=== PATIENT | female | born 1955 | race Caucasian/White ===

== ENCOUNTER 2018-01-03 11:51 | Emergency (ER) | payer MEDICAID, SELFPAY ==
[2018-01-03 11:58] VITALS: BP 128/88; PULSE 89; RESP 18; TEMP 36.7; O2SAT 98
--- NOTE | 2018-01-03 12:23 | ED.GENADUL ---
Disposition Clinical Impression: Partial rectal prolapse, Constipation Disposition: HOME Condition: Stable Instructions: Constipation (ED), Rectal Prolapse (ED) Additional Instructions: Take MiraLAX as directed 2-3 times daily. If you have no relief with MiraLAX, use magnesium citrate as directed. Continue the stool softeners as directed. Apply approximately 5ml of lidocaine jelly around and just a few millimeters inside the rectum twice daily as needed. You should receive a call from care management this week regarding her follow-up with surgery this week. Return immediately to the emergency department any worsening or new concerning symptoms such as fever, vomiting, abdominal pain or increased rectal pain. Prescriptions: Lidocaine 2% Jelly [Xylocaine 2% Jelly] 5 ml MA BID PRN PRN #1 tube PRN Reason: Referrals: Marco Alba DO [ [facility]] - Medical Decision Making - Medical Decision Making 62-year-old female who presents with rectal pain and constipation for 4 weeks, worse over the past 2 weeks, and especially over the past 3 days. Last bowel movement 3 days ago. She admits to a lump in my rectum when she sits on the toilet. Normal vital signs. Afebrile. She denies vomiting, abdominal pain. She denies narcotic use. No relief with suppository or stool softener. She appears nontoxic and in no acute distress. Abdomen soft and nontender. She is noted to have decreased rectal tone with a negative guaiac on rectal exam when laying on her side on stretcher. Upon standing with Valsalva, she has partial rectal prolapse. There is no active bleeding or discharge noted. The mucosa appeared normal. Will discuss with surgery. 1200 -- Case discussed with surgery on-call Dr. Barlow --as patient is nontoxic, no vomiting, abdomen soft and nontender, and prolapse able to be reduced by patient, no emergent need for surgical intervention. Recommends patient follow up with surgery within the next week. Recommends MiraLAX or magnesium citrate to help with bowel movement. Also recommend lidocaine jelly to help with pain. Lidocaine jelly placed here in the ED and prescription given for home. Will place patient on care management list to arrange for follow-up appointment within the next few days. History of Present Illness - General Chief complaint: GI Bleed Stated complaint: UNKNOWN Time Seen by Provider: 01/03/18 11:57 Source: patient Mode of arrival: ambulatory Limitations: no limitations - History of Present Illness Initial comments: She is a 62-year-old female who presents with rectal pain and constipation for the past 4 weeks. States her last bowel movement was 3 days ago. Patient states she usually has a bowel movement every other day. She admits to rectal pressure and pain with coughing for the past 4 weeks, worse over the past 2 weeks. She states she feels a lump when she sits on the toilet but this resolves when she stands up or sits down. Patient denies fever, nausea, vomiting, abdominal pain. She does admit to occasional bright red blood noted in toilet with her last bowel movement. She states her last bowel movement was brown. She has been using stool softeners and suppositories without relief. She admits to feeling some rectal pain relief with suppositories a few days ago. - Related Data Diclofenac Sodium 1 tab PO BID PRN #60 tab-cap 05/20/16 Betamethasone Valerate [Valisone 0.1% Cream] 15 gm TP BID PRN #1 script 11/24/16 Fluticasone Propionate [Flonase] 1 spray NS BID #1 bottle 11/24/16 Triamcinolone Acetonide 15 gm TP BID PRN #1 script 11/24/16 Venlafaxine HCl [Venlafaxine HCl ER] 150 mg PO DAILY #90 tab-cap 12/18/16 Lisinopril [Prinivil] 20 mg PO DAILY #90 tab-cap 12/19/16 Hydrochlorothiazide [Hydrodiuril] 25 mg PO DAILY #90 tab-cap 01/15/17 Hydroxyzine HCl 25 mg PO Bid to Tid PRN #90 tab-cap 06/26/17 Buspirone HCl 15 mg PO BID #60 tab-cap 09/24/17 Pramipexole Di-HCl [Pramipexole Dihydrochloride] 0.5 mg PO HS #90 tab-cap 09/24/17 Pravastatin Sodium 20 mg PO DAILY #90 tab-cap 09/30/17 Cyclobenzaprine HCl 10 mg PO BID PRN #45 tab-cap 01/01/18 Lorazepam [Ativan] 1 tab PO DAILY PRN #20 tab-cap MDD 1mg 01/01/18 Nabumetone 500 mg PO BID PRN #60 tab-cap 01/01/18 Solifenacin [Vesicare] 10 mg PO DAILY #90 tab-cap 01/01/18 Aspirin 81 mg PO 01/03/18 Docusate Sodium [Stool Softener] 100 mg PO DAILY 01/03/18 Lidocaine 2% Jelly [Xylocaine 2% Jelly] 5 ml MA BID PRN PRN #1 tube 01/03/18 Allergies Allergy/AdvReac Type Severity Reaction Status Date / Time Corticosteroids Allergy Intermediate INCREASED Unverified 01/03/18 12:14 (Glucocorticoids) SOB prednisone Allergy Intermediate Unverified 01/03/18 12:14 Review of Systems Constitutional: denies: chills, fever Eyes: denies: eye pain ENT: denies: ear pain, dental pain Respiratory: denies: cough, shortness of breath Cardiovascular: denies: chest pain, dyspnea on exertion Gastrointestinal: other (rectal pain). denies: abdominal pain, nausea, vomiting Genitourinary: denies: urgency, dysuria, frequency Musculoskeletal: denies: back pain Skin: denies: rash, lesions Neurological: denies: headache, weakness, numbness Past Medical History - Past Medical History Medical history: hypertension Surgical history: other (R wrist surgery. Cervical spine diskectomy) Psychiatric history: depression - Social History Smoking status: current everyday smoker Alcohol use: none Drug use: marijuana General Exam - General Limitations: no limitations General appearance: alert, in no apparent distress - Eye Eye exam: Present: EOMI - Respiratory Respiratory exam: Present: normal lung sounds bilaterally. Absent: respiratory distress, wheezes, rales, rhonchi, stridor - Cardiovascular Cardiovascular Exam: Present: regular rate, normal rhythm. Absent: bradycardia, tachycardia - GI/Abdominal GI/Abdominal exam: Present: soft, normal bowel sounds. Absent: distended, tenderness, guarding, rebound, rigid - Rectal Rectal exam: Present: decreased rectal tone, other (No rectal prolapse noted when patient laying on her side on stretcher. When patient stood up and pushed, she had partial rectal prolapse. Clear mucus noted. No yellow discharge or active bleeding. Guaiac negative) - Neurological Exam Neurological exam: Present: alert, oriented X3 - Psychiatric Psychiatric exam: Present: normal affect - Skin Skin exam: Present: warm, dry, intact Course Vital Signs - 24 hr 01/03/18 11:58 Temperature 98.1 F Pulse 89 Respiratory 18 Rate Blood Pressure 128/88 Pulse Oximetry 98
--- NOTE | 2018-01-03 12:29 | ED.GENADUL_ITS ---
Disposition Clinical Impression: Partial rectal prolapse, Constipation Disposition: HOME Condition: Stable Instructions: Constipation (ED), Rectal Prolapse (ED) Additional Instructions: Take MiraLAX as directed 2-3 times daily. If you have no relief with MiraLAX, use magnesium citrate as directed. Continue the stool softeners as directed. Apply approximately 5ml of lidocaine jelly around and just a few millimeters inside the rectum twice daily as needed. You should receive a call from care management this week regarding her follow- up with surgery this week. Return immediately to the emergency department any worsening or new concerning symptoms such as fever, vomiting, abdominal pain or increased rectal pain. Prescriptions: Lidocaine 2% Jelly [Xylocaine 2% Jelly] 5 ml CO BID PRN PRN #1 tube PRN Reason: Referrals: Marco Alba DO [ [facility]] - Medical Decision Making - Medical Decision Making 62-year-old female who presents with rectal pain and constipation for 4 weeks, worse over the past 2 weeks, and especially over the past 3 days. Last bowel movement 3 days ago. She admits to a lump in my rectum when she sits on the toilet. Normal vital signs. Afebrile. She denies vomiting, abdominal pain. She denies narcotic use. No relief with suppository or stool softener. She appears nontoxic and in no acute distress. Abdomen soft and nontender. She is noted to have decreased rectal tone with a negative guaiac on rectal exam when laying on her side on stretcher. Upon standing with Valsalva, she has partial rectal prolapse. There is no active bleeding or discharge noted. The mucosa appeared normal. Will discuss with surgery. 1200 -- Case discussed with surgery on-call Dr. Barlow --as patient is nontoxic, no vomiting, abdomen soft and nontender, and prolapse able to be reduced by patient, no emergent need for surgical intervention. Recommends patient follow up with surgery within the next week. Recommends MiraLAX or magnesium citrate to help with bowel movement. Also recommend lidocaine jelly to help with pain. Lidocaine jelly placed here in the ED and prescription given for home. Will place patient on care management list to arrange for follow-up appointment within the next few days. History of Present Illness - General Chief complaint: GI Bleed Stated complaint: UNKNOWN Time Seen by Provider: 01/03/18 11:57 Source: patient Mode of arrival: ambulatory Limitations: no limitations - History of Present Illness Initial comments: She is a 62-year-old female who presents with rectal pain and constipation for the past 4 weeks. States her last bowel movement was 3 days ago. Patient states she usually has a bowel movement every other day. She admits to rectal pressure and pain with coughing for the past 4 weeks, worse over the past 2 weeks. She states she feels a lump when she sits on the toilet but this resolves when she stands up or sits down. Patient denies fever, nausea, vomiting, abdominal pain. She does admit to occasional bright red blood noted in toilet with her last bowel movement. She states her last bowel movement was brown. She has been using stool softeners and suppositories without relief. She admits to feeling some rectal pain relief with suppositories a few days ago. - Related Data Diclofenac Sodium 1 tab PO BID PRN #60 tab-cap 05/20/16 Betamethasone Valerate [Valisone 0.1% Cream] 15 gm TP BID PRN #1 script Fluticasone Propionate [Flonase] 1 spray NS BID #1 bottle 11/24/16 Triamcinolone Acetonide 15 gm TP BID PRN #1 script 11/24/16 Venlafaxine HCl [Venlafaxine HCl ER] 150 mg PO DAILY #90 tab-cap 12/18/16 Lisinopril [Prinivil] 20 mg PO DAILY #90 tab-cap 12/19/16 Hydrochlorothiazide [Hydrodiuril] 25 mg PO DAILY #90 tab-cap 01/15/17 Hydroxyzine HCl 25 mg PO Bid to Tid PRN #90 tab-cap 06/26/17 Buspirone HCl 15 mg PO BID #60 tab-cap 09/24/17 Pramipexole Di-HCl [Pramipexole Dihydrochloride] 0.5 mg PO HS #90 tab-cap Pravastatin Sodium 20 mg PO DAILY #90 tab-cap 09/30/17 Cyclobenzaprine HCl 10 mg PO BID PRN #45 tab-cap 01/01/18 Lorazepam [Ativan] 1 tab PO DAILY PRN #20 tab-cap MDD 1mg 01/01/18 Nabumetone 500 mg PO BID PRN #60 tab-cap 01/01/18 Solifenacin [Vesicare] 10 mg PO DAILY #90 tab-cap 01/01/18 Aspirin 81 mg PO 01/03/18 Docusate Sodium [Stool Softener] 100 mg PO DAILY 01/03/18 Lidocaine 2% Jelly [Xylocaine 2% Jelly] 5 ml CO BID PRN PRN #1 tube 01/03/18 Allergies Allergy/AdvReac Type Severity Reaction Status Date / Time Corticosteroids Allergy Intermediate INCREASED Unverified 01/03/18 12:14 (Glucocorticoids) SOB prednisone Allergy Intermediate Unverified 01/03/18 12:14 Review of Systems Constitutional: denies: chills, fever Eyes: denies: eye pain ENT: denies: ear pain, dental pain Respiratory: denies: cough, shortness of breath Cardiovascular: denies: chest pain, dyspnea on exertion Gastrointestinal: other (rectal pain). denies: abdominal pain, nausea, vomiting Genitourinary: denies: urgency, dysuria, frequency Musculoskeletal: denies: back pain Skin: denies: rash, lesions Neurological: denies: headache, weakness, numbness Past Medical History - Past Medical History Medical history: hypertension Surgical history: other (R wrist surgery. Cervical spine diskectomy) Psychiatric history: depression - Social History Smoking status: current everyday smoker Alcohol use: none Drug use: marijuana General Exam - General Limitations: no limitations General appearance: alert, in no apparent distress - Eye Eye exam: Present: EOMI - Respiratory Respiratory exam: Present: normal lung sounds bilaterally. Absent: respiratory distress, wheezes, rales, rhonchi, stridor - Cardiovascular Cardiovascular Exam: Present: regular rate, normal rhythm. Absent: bradycardia , tachycardia - GI/Abdominal GI/Abdominal exam: Present: soft, normal bowel sounds. Absent: distended, tenderness, guarding, rebound, rigid - Rectal Rectal exam: Present: decreased rectal tone, other (No rectal prolapse noted when patient laying on her side on stretcher. When patient stood up and pushed , she had partial rectal prolapse. Clear mucus noted. No yellow discharge or active bleeding. Guaiac negative) - Neurological Exam Neurological exam: Present: alert, oriented X3 - Psychiatric Psychiatric exam: Present: normal affect - Skin Skin exam: Present: warm, dry, intact Course Vital Signs - 24 hr 01/03/18 11:58 Temperature 98.1 F Pulse 89 Respiratory 18 Rate Blood Pressure 128/88 Pulse Oximetry 98
[2018-01-03] MEDS: Lidocaine 2% Jelly 11 ML SYR (12:30)
--- NOTE | 2018-01-04 10:34 | PDOC.ERCMPRO ---
Care Management Progress Note 01/04-Dr. Rodriguez requested assistance with a general surgery f/u in 1-3 days for hemorrhoid ? thrombosed. Referral faxed to [facility] this am.
== END 2018-01-03 12:49 | disposition home or self-care (01) ==
PROVIDERS: Emergency Provider Physician Assistant; PCP Family Medicine
DX: K62.3 Rectal prolapse (principal); K62.89 Other specified diseases of anus and rectum; I10 Essential (primary) hypertension
CPT/HCPCS: 99283

== ENCOUNTER 2018-07-08 11:43 | Outpatient (CLI) | payer MEDICAID, SELFPAY ==
[2018-07-08 13:32] LABS: ALT 21 U/L (12-78); AST 19 U/L (15-37); Albumin 3.6 g/dL (3.4-5.0); Alkaline Phosphatase 102 U/L (46-116); Anion Gap 9.5 mmol/L (3-11); BUN 16 mg/dL (7-18); Bilirubin, Total 0.2 mg/dL (0.2-1.0); CO2 28.5 mmol/L (21.0-32.0); CREATININE 0.88 mg/dL (0.55-1.02); Calcium 9.2 mg/dL (8.5-10.1); Chloride 103 mmol/L (98-107); Cholesterol 188 mg/dL (50-200); Glucose 90 mg/dL (70-100); HDL Cholesterol 57 mg/dL (40-60); LDL CHOLESTEROL 108 mg/dL (<100); Potassium 4.2 mmol/L (3.5-5.1); Sodium 141 mmol/L (136-145); Triglyceride 84 mg/dL (30-150)
== END 2018-07-08 12:03 ==
PROVIDERS: PCP Family Medicine; Visit Provider Family Medicine
DX: I10 Essential (primary) hypertension (principal)
CPT/HCPCS: 36415; 80053; 80061; 83721

== ENCOUNTER 2018-09-27 13:08 | Outpatient (REF) | payer MEDICAID, SELFPAY ==
--- NOTE | 2018-09-27 11:30 | PAPFT_PTH ---
PATIENT: Jeniffer Chow LOC: [facility] U#:[id number] AGE/SX: 63/F ROOM: RE09/27/[address]: Jigna Hughes MD : [id number] BED: DIS: 09/27/2018 SPEC #: [id number] RECD: 09/27/18 17:31 STATUS: [place]ET[place] REQ #: [id number] HAVEN: 09/27/18 11:[address]: Jigna Hughes DEPT: [facility] Cytology RECD BY: Anna Barney Tissues: 1 - CX/ENDOCX FOR PAP SMEARS Procedures: PAP THIN PREP/UVM Screening HPV DNA PROBE Comments: [id number]
== END 2018-09-27 13:28 ==
LOC: LBN 13:08
PROVIDERS: PCP Family Medicine; Visit Provider Family Medicine
DX: Z12.4 Encounter for screening for malignant neoplasm of cervix (principal); Z11.51 Encounter for screening for human papillomavirus (HPV)
CPT/HCPCS: 88142; 87624

== ENCOUNTER 2018-10-04 01:03 | Outpatient (CLI) | payer MEDICAID, SELFPAY ==
--- NOTE | 2018-10-04 11:30 | DI.MAMMO_ITS ---
SYMPTOMS/DIAGNOSIS: SCREENING, Z12.31 MAMMOGRAM: Mammograms were interpreted according to the usual protocol including computer analysis with CAD system, tomosynthesis and C view imaging. The breasts are of moderate density with fairly symmetrical distribution of fibroglandular tissue. No dominant mass or clumped microcalcification is identified in either breast. Current examination is compared with previous examinations including October 2016 and there has been no gross interval change in appearance in comparison with the previous studies. CONCLUSION: No specific evidence of malignancy at this time. Routine screening examinations are suggested at yearly intervals due to the family history of breast carcinoma. Category 1, breast density category B. MQSA ASSESSMENT OF FINDINGS: Negative. Category 1. Patient will receive a letter notifying them of these results. BI-RADS category B. There are scattered areas of fibroglandular density.
== END 2018-10-04 01:23 ==
PROVIDERS: PCP Family Medicine; Visit Provider Family Medicine
DX: Z12.31 Encounter for screening mammogram for malignant neoplasm of breast (principal); Z80.3 Family history of malignant neoplasm of breast
CPT/HCPCS: 77063; 77067

== ENCOUNTER 2018-11-07 13:37 | Emergency (ER) | payer MEDICAID, SELFPAY ==
[2018-11-07 13:41] VITALS: BP 129/65; PULSE 95; RESP 14; TEMP 36.5; O2SAT 93
--- NOTE | 2018-11-07 14:14 | DI.RAD_ITS ---
SYMPTOM/DIAGNOSIS: FALL, ANTERIOR PAIN LEFT HIP: Three views. No acute fracture or dislocation is seen. The soft tissues are unremarkable. IMPRESSION: No acute abnormality.
--- NOTE | 2018-11-07 14:14 | DI.RAD_ITS ---
SYMPTOM/DIAGNOSIS: ANTERIOR PAIN AFTER FALL RIGHT KNEE: Three views. Comparison 03/19/12 No acute fracture or dislocation is seen. There is a moderate size suprapatellar joint effusion. Mild degenerative changes are seen in the knee. There is deformity seen on the lateral view in the fibula. It is incompletely imaged on the edge of the field. This may be due to prior injury. Please correlate clinically. IMPRESSION: No acute abnormality.
--- NOTE | 2018-11-07 14:15 | W.ED.GENAD ---
Discharge Plan Disposition Patient Disposition: HOME Condition: Improving Discharge Details Chief Complaint: Orthopedic Clinical Impression: Right knee sprain Primary Care Provider: Jigna Hughes ED Provider: Tyree Parada Home Meds and New Rx's Prescriptions: Continued hydroxyzine HCl 25 mg tablet 25 mg PO DAILY RF: 0 buspirone 30 mg tablet 30 mg PO BID Qty: 60 RF: 6 fluticasone propionate 50 mcg/actuation spray,suspension 1 spray NS BID Qty: 1 RF: 6 cyclobenzaprine 10 mg tablet 10 mg PO BID PRN (Reason: muscle spasm) Qty: 45 RF: 2 meloxicam 15 mg tablet 15 mg PO DAILY PRN (Reason: joint pain) Qty: 30 RF: 6 triamcinolone acetonide 15 GM cream 15 gm Topical BID PRNQty: 1 RF: 2 pravastatin 20 MG tablet 20 mg PO DAILY Qty: 90 RF: 4 Vesicare 10 MG tablet 10 mg PO DAILY Qty: 90 RF: 4 lisinopril 20 mg tablet 20 mg PO DAILY Qty: 90 RF: 4 venlafaxine 150 mg capsule,extended release 24hr 150 mg PO DAILY Qty: 90 RF: 4 hydrochlorothiazide 25 mg tablet 25 mg PO DAILY Qty: 90 RF: 4 pramipexole 0.5 mg tablet 0.5 mg PO HS Qty: 90 RF: 3 lorazepam [Ativan] 1 mg tablet 1 mg PO DAILY MDD 1mg PRN (Reason: anxiety) Qty: 20 RF: 2 betamethasone valerate 0.1 % cream 1 applic Topical BID PRN (Reason: dermatitis) Qty: 1 RF: 2 aspirin [Aspirin Low-Strength] 81 MG tablet,chewable 81 mg PO DAILY RF: 0 lidocaine HCl 30 ML jelly 5 ml MO BID PRN PRNQty: 1 RF: 0 docusate sodium [Stool Softener] 100 mg capsule 100 mg PO BID RF: 0 Discharge Instructions Instructions: Knee Sprain (ED) Additional Instructions: We will refer you to the orthopedic clinic for recheck. Please call the office on Thursday at [phone] for an appointment time. Wear hinged knee brace while out of bed. May continue to use ice to reduce discomfort as well. Return for worsening pain or any other acute concern. Medical Decision Making Pleasant 63-year-old female presents from home stating she slipped down as muddy [employer] 2 weeks ago and struck her anterior knee. Since that time has felt a popping and crunching as well as felt the knee has been unstable. She is socially develop a dull, achy left hip pain. She arrives with an unremarkable exam that is notable primarily for lateral right knee pain with stress. Referred for x-ray to rule out underlying fracture versus osteoarthritis. No evidence of bony injury appreciated. Discussed with her outpatient management including use of hinged knee brace, referral to orthopedics for recheck. Most consistent with contusion and strain. Cannot rule out underlying soft tissue disruption. HPI General Mode of arrival: ambulatory. Date/Time Provider Initiated Documentation: 11/07/18 13:45. Limitations to Documentation: no limitations. Information obtained by: patient. History of Present Illness 63 year old F presents to the emergency department with the chief complaint of Fall 2 weeks ago and right knee pain., described as mild and moderate, Quality is described as dull and constant, and is localized to the right and lower extremity. Patient reports no radiation. and it has been constant. No relieving factors improve symptom(s), No exacerbating factors reported . Patient notes no other symptoms.. Patient did receive the following treatments prior to arrival, none Related Data Home Medications Medication Instructions Recorded Confirmed triamcinolone acetonide 15 gm TOPICAL BID PRN #1 script 11/24/16 11/07/18 pravastatin 20 mg PO DAILY #90 tab-cap 09/30/17 11/07/18 Vesicare 10 mg PO DAILY #90 tab-cap 01/01/18 11/07/18 aspirin [Aspirin Low-Strength] 81 mg PO DAILY 01/03/18 11/07/18 lidocaine HCl 5 ml MO BID PRN PRN #1 tube 01/03/18 11/07/18 lisinopril 20 mg tablet 20 mg PO DAILY #90 tab-cap 02/16/18 11/07/18 venlafaxine ER 150 mg 150 mg PO DAILY #90 tab-cap 03/03/18 11/07/18 capsule,extended release 24 hr hydrochlorothiazide 25 mg tablet 25 mg PO DAILY #90 tab-cap 04/09/18 11/07/18 buspirone 30 mg tablet 30 mg PO BID #60 tab 07/08/18 11/07/18 docusate sodium 100 mg capsule 100 mg PO BID cap 07/08/18 11/07/18 fluticasone propionate 50 1 spray NS BID #1 bottle 07/08/18 11/07/18 mcg/actuation nasal spray,suspension hydroxyzine HCl 25 mg tablet 25 mg PO DAILY tab-cap 07/08/18 11/07/18 lorazepam 1 mg tablet 1 mg PO DAILY PRN #20 tab-cap MDD 08/06/18 11/07/18 1mg pramipexole 0.5 mg tablet 0.5 mg PO HS #90 tab-cap 08/06/18 11/07/18 betamethasone valerate 0.1 % 1 applic TOPICAL BID PRN #1 gm 08/08/18 09/27/18 topical cream cyclobenzaprine 10 mg tablet 10 mg PO BID PRN #45 tab-cap 09/27/18 11/07/18 meloxicam 15 mg tablet 15 mg PO DAILY PRN #30 tab 09/27/18 11/07/18 Previous Rx's Medication Instructions Recorded pravastatin 20 mg PO DAILY #90 tab-cap 09/30/17 Vesicare 10 mg PO DAILY #90 tab-cap 01/01/18 lidocaine HCl 5 ml MO BID PRN PRN #1 tube 01/03/18 lisinopril 20 mg tablet 20 mg PO DAILY #90 tab-cap 02/16/18 venlafaxine ER 150 mg 150 mg PO DAILY #90 tab-cap 03/03/18 capsule,extended release 24 hr hydrochlorothiazide 25 mg tablet 25 mg PO DAILY #90 tab-cap 04/09/18 buspirone 30 mg tablet 30 mg PO BID #60 tab 07/08/18 fluticasone propionate 50 1 spray NS BID #1 bottle 07/08/18 mcg/actuation nasal spray,suspension lorazepam 1 mg tablet 1 mg PO DAILY PRN #20 tab-cap MDD 08/06/18 1mg pramipexole 0.5 mg tablet 0.5 mg PO HS #90 tab-cap 08/06/18 betamethasone valerate 0.1 % 1 applic TOPICAL BID PRN #1 gm 08/08/18 topical cream cyclobenzaprine 10 mg tablet 10 mg PO BID PRN #45 tab-cap 09/27/18 meloxicam 15 mg tablet 15 mg PO DAILY PRN #30 tab 09/27/18 Allergies Allergy/AdvReac Type Severity Reaction Status Date / Time Corticosteroids Allergy Intermediate INCREASED Verified 11/07/18 13:44 (Glucocorticoids) SOB prednisone Allergy Intermediate Verified 11/07/18 13:44 General Stated Complaint: Orthopedic CHECO: 4 Review of Systems Review of Systems No numbness or tingling. Denies other injury. No back or neck discomfort. 6 systems reviewed and otherwise - [facility] Medical History Anxiety disorder Benign hypertension Depression Hyperlipidemia Sensorineural hearing loss Urge incontinence Surgical History Arthroscopy Arthroscopy, Shoulder Hemorrhoidal Banding (01/12/18) Ligation of fallopian tube Open Carpal Tunnel release Spinal Fusion Family History Mother Essential hypertension Stroke Cancer Father Heart disease Brother Heart disease Maternal Grandfather No problems noted. Paternal Grandfather No problems noted. Maternal Grandmother Essential hypertension Stroke Paternal Grandmother No problems noted. Social History Smoking/Tobacco Use Status: Current every day Tobacco Type: cigarettes Quit status: has quit before Second Hand Exposure: Yes Alcohol Intake: former Drug use: Daily Substance use type: marijuana Caregiver/Support person: No Household members: children Housing: house Communication Needs: Cannot Read Do you need help understanding health information?: Always Pets and animals: Yes Pets and animals: other Details: Donkey Sexually active: No Do you think of yourself as: straight/heterosexual Current gender identity: female What is your relationship status?: How often do you talk on the phone with friends or family?: decline to answer How often do you get together with friends or relatives?: once per week How often do you attend pentecostalism or amish services?: 4 or more times per year Do you belong to any clubs or organized social groups?: no Panel score (0-1 are the most socially isolated patients): 1 What type of physical activity do you participate in: decline to answer Duration: decline to answer Frequency: decline to answer [place]/Islam: Voodoo Special chelsea needs: No Seatbelt use: always Helmet use: Yes Helmet use: always 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 Pleasant, well groomed, interactive. HEAD: Normocephalic, atraumatic EYES: PERRL, EOMI NECK: Full ROM, no JOHN, no menigismus EXT: Full ROM, no edema, no rash. Mild right lateral knee pain with varus stress. No laxity. Full range of motion both active and passive. Minimal left hip pain with internal and external rotate Neuro: Grossly normal neurologic exam, conversant, interactive. Psych: Speech fluent, thoughts congruent, affect normal Course Vital Signs Temperature 36.5 C 11/07/18 13:41 Pulse 95 H 11/07/18 13:41 Respiratory Rate 14 11/07/18 13:41 Blood Pressure 129/65 11/07/18 13:41 Pulse Oximetry 93 L 11/07/18 13:41 Temperature 36.5 C 11/07/18 13:41 Temperature Source Temporal Artery Scan 11/07/18 13:41 Pulse 95 H 11/07/18 13:41 Respiratory Rate 14 11/07/18 13:41 Respiratory Effort Non-Labored 11/07/18 13:43 Blood Pressure 129/65 11/07/18 13:41 Blood Pressure Position Sitting 11/07/18 13:41 Pulse Oximetry 93 L 11/07/18 13:41 Oxygen Delivery Method Room Air 11/07/18 13:41 Oxygen Flow Rate 0 11/07/18 13:41 Pain Level 10 11/07/18 13:41
--- NOTE | 2018-11-07 14:18 | ED.GENADUL_ITS ---
Discharge Plan Disposition Patient Disposition: HOME Condition: Improving Discharge Details Chief Complaint: Orthopedic Clinical Impression: Right knee sprain Primary Care Provider: Jigna Hughes ED Provider: Tyree Parada Home Meds and New Rx's Prescriptions: Continued hydroxyzine HCl 25 mg tablet 25 mg PO DAILY RF: 0 buspirone 30 mg tablet 30 mg PO BID Qty: 60 RF: 6 fluticasone propionate 50 mcg/actuation spray,suspension 1 spray NS BID Qty: 1 RF: 6 cyclobenzaprine 10 mg tablet 10 mg PO BID PRN (Reason: muscle spasm) Qty: 45 RF: 2 meloxicam 15 mg tablet 15 mg PO DAILY PRN (Reason: joint pain) Qty: 30 RF: 6 triamcinolone acetonide 15 GM cream 15 gm Topical BID PRNQty: 1 RF: 2 pravastatin 20 MG tablet 20 mg PO DAILY Qty: 90 RF: 4 Vesicare 10 MG tablet 10 mg PO DAILY Qty: 90 RF: 4 lisinopril 20 mg tablet 20 mg PO DAILY Qty: 90 RF: 4 venlafaxine 150 mg capsule,extended release 24hr 150 mg PO DAILY Qty: 90 RF: 4 hydrochlorothiazide 25 mg tablet 25 mg PO DAILY Qty: 90 RF: 4 pramipexole 0.5 mg tablet 0.5 mg PO HS Qty: 90 RF: 3 lorazepam [Ativan] 1 mg tablet 1 mg PO DAILY MDD 1mg PRN (Reason: anxiety) Qty: 20 RF: 2 betamethasone valerate 0.1 % cream 1 applic Topical BID PRN (Reason: dermatitis) Qty: 1 RF: 2 aspirin [Aspirin Low-Strength] 81 MG tablet,chewable 81 mg PO DAILY RF: 0 lidocaine HCl 30 ML jelly 5 ml CO BID PRN PRNQty: 1 RF: 0 docusate sodium [Stool Softener] 100 mg capsule 100 mg PO BID RF: 0 Discharge Instructions Instructions: Knee Sprain (ED) Additional Instructions: We will refer you to the orthopedic clinic for recheck. Please call the office on Thursday at [phone] for an appointment time. Wear hinged knee brace while out of bed. May continue to use ice to reduce discomfort as well. Return for worsening pain or any other acute concern. Medical Decision Making Pleasant 63-year-old female presents from home stating she slipped down as muddy [employer] 2 weeks ago and struck her anterior knee. Since that time has felt a popping and crunching as well as felt the knee has been unstable. She is socially develop a dull, achy left hip pain. She arrives with an unremarkable exam that is notable primarily for lateral right knee pain with stress. Referred for x-ray to rule out underlying fracture versus osteoarthritis. No evidence of bony injury appreciated. Discussed with her outpatient management including use of hinged knee brace, referral to orthopedics for recheck. Most consistent with contusion and strain. Cannot rule out underlying soft tissue disruption. HPI General Mode of arrival: ambulatory . Date/Time Provider Initiated Documentation: 11/07/18 13:45 . Limitations to Documentation: no limitations . Information obtained by: patient . History of Present Illness 63 year old F presents to the emergency department with the chief complaint of Fall 2 weeks ago and right knee pain., described as mild and moderate, Quality is described as dull and constant, and is localized to the right and lower extremity. Patient reports no radiation. and it has been constant. No relieving factors improve symptom(s), No exacerbating factors reported . Patient notes no other symptoms.. Patient did receive the following treatments prior to arrival, none Related Data Home Medications Medication Instructions Recorded Confirmed triamcinolone acetonide 15 gm TOPICAL BID PRN #1 script 11/24/16 11/07/18 pravastatin 20 mg PO DAILY #90 tab-cap 09/30/17 11/07/18 Vesicare 10 mg PO DAILY #90 tab-cap 01/01/18 11/07/18 aspirin [Aspirin Low-Strength] 81 mg PO DAILY 01/03/18 11/07/18 lidocaine HCl 5 ml CO BID PRN PRN #1 tube 01/03/18 11/07/18 lisinopril 20 mg tablet 20 mg PO DAILY #90 tab-cap 02/16/18 11/07/18 venlafaxine ER 150 mg 150 mg PO DAILY #90 tab-cap 03/03/18 11/07/18 capsule,extended release 24 hr hydrochlorothiazide 25 mg tablet 25 mg PO DAILY #90 tab-cap 04/09/18 11/07/18 buspirone 30 mg tablet 30 mg PO BID #60 tab 07/08/18 11/07/18 docusate sodium 100 mg capsule 100 mg PO BID cap 07/08/18 11/07/18 fluticasone propionate 50 1 spray NS BID #1 bottle 07/08/18 11/07/18 mcg/actuation nasal spray,suspension hydroxyzine HCl 25 mg tablet 25 mg PO DAILY tab-cap 07/08/18 11/07/18 lorazepam 1 mg tablet 1 mg PO DAILY PRN #20 tab-cap MDD 08/06/18 11/07/18 1mg pramipexole 0.5 mg tablet 0.5 mg PO HS #90 tab-cap 08/06/18 11/07/18 betamethasone valerate 0.1 % 1 applic TOPICAL BID PRN #1 gm 08/08/18 09/27/18 topical cream cyclobenzaprine 10 mg tablet 10 mg PO BID PRN #45 tab-cap 09/27/18 11/07/18 meloxicam 15 mg tablet 15 mg PO DAILY PRN #30 tab 09/27/18 11/07/18 Previous Rx's Medication Instructions Recorded pravastatin 20 mg PO DAILY #90 tab-cap 09/30/17 Vesicare 10 mg PO DAILY #90 tab-cap 01/01/18 lidocaine HCl 5 ml CO BID PRN PRN #1 tube 01/03/18 lisinopril 20 mg tablet 20 mg PO DAILY #90 tab-cap 02/16/18 venlafaxine ER 150 mg 150 mg PO DAILY #90 tab-cap 03/03/18 capsule,extended release 24 hr hydrochlorothiazide 25 mg tablet 25 mg PO DAILY #90 tab-cap 04/09/18 buspirone 30 mg tablet 30 mg PO BID #60 tab 07/08/18 fluticasone propionate 50 1 spray NS BID #1 bottle 07/08/18 mcg/actuation nasal spray,suspension lorazepam 1 mg tablet 1 mg PO DAILY PRN #20 tab-cap MDD 08/06/18 1mg pramipexole 0.5 mg tablet 0.5 mg PO HS #90 tab-cap 08/06/18 betamethasone valerate 0.1 % 1 applic TOPICAL BID PRN #1 gm 08/08/18 topical cream cyclobenzaprine 10 mg tablet 10 mg PO BID PRN #45 tab-cap 09/27/18 meloxicam 15 mg tablet 15 mg PO DAILY PRN #30 tab 09/27/18 Allergies Allergy/AdvReac Type Severity Reaction Status Date / Time Corticosteroids Allergy Intermediate INCREASED Verified 11/07/18 13:44 (Glucocorticoids) SOB prednisone Allergy Intermediate Verified 11/07/18 13:44 General Stated Complaint: Orthopedic CHECO: 4 Review of Systems Review of Systems No numbness or tingling. Denies other injury. No back or neck discomfort. 6 systems reviewed and otherwise - [facility] Medical History Anxiety disorder Benign hypertension Depression Hyperlipidemia Sensorineural hearing loss Urge incontinence Surgical History Arthroscopy Arthroscopy, Shoulder Hemorrhoidal Banding (01/12/18) Ligation of fallopian tube Open Carpal Tunnel release Spinal Fusion Family History Mother Essential hypertension Stroke Cancer Father Heart disease Brother Heart disease Maternal Grandfather No problems noted. Paternal Grandfather No problems noted. Maternal Grandmother Essential hypertension Stroke Paternal Grandmother No problems noted. Social History Smoking/Tobacco Use Status: Current every day Tobacco Type: cigarettes Quit status: has quit before Second Hand Exposure: Yes Alcohol Intake: former Drug use: Daily Substance use type: marijuana Caregiver/Support person: No Household members: children Housing: house Communication Needs: Cannot Read Do you need help understanding health information?: Always Pets and animals: Yes Pets and animals: other Details: Donkey Sexually active: No Do you think of yourself as: straight/heterosexual Current gender identity: female What is your relationship status?: How often do you talk on the phone with friends or family?: decline to answer How often do you get together with friends or relatives?: once per week How often do you attend christianity or sabianist services?: 4 or more times per year Do you belong to any clubs or organized social groups?: no Panel score (0-1 are the most socially isolated patients): 1 What type of physical activity do you participate in: decline to answer Duration: decline to answer Frequency: decline to answer [place]/Church: [employer] Special chelsea needs: No Seatbelt use: always Helmet use: Yes Helmet use: always 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 Pleasant, well groomed, interactive. HEAD: Normocephalic, atraumatic EYES: PERRL, EOMI NECK: Full ROM, no JOHN, no menigismus EXT: Full ROM, no edema, no rash. Mild right lateral knee pain with varus stress. No laxity. Full range of motion both active and passive. Minimal left hip pain with internal and external rotate Neuro: Grossly normal neurologic exam, conversant, interactive. Psych: Speech fluent, thoughts congruent, affect normal Course Vital Signs Temperature 36.5 C 11/07/18 13:41 Pulse 95 H 11/07/18 13:41 Respiratory Rate 14 11/07/18 13:41 Blood Pressure 129/65 11/07/18 13:41 Pulse Oximetry 93 L 11/07/18 13:41 Temperature 36.5 C 11/07/18 13:41 Temperature Source Temporal Artery Scan 11/07/18 13:41 Pulse 95 H 11/07/18 13:41 Respiratory Rate 14 11/07/18 13:41 Respiratory Effort Non-Labored 11/07/18 13:43 Blood Pressure 129/65 11/07/18 13:41 Blood Pressure Position Sitting 11/07/18 13:41 Pulse Oximetry 93 L 11/07/18 13:41 Oxygen Delivery Method Room Air 11/07/18 13:41 Oxygen Flow Rate 0 11/07/18 13:41 Pain Level 10 11/07/18 13:41
--- NOTE | 2018-11-07 15:11 | DI.VRAD_ITS ---
EXAM: XR Left Hip with Pelvis when Performed EXAM DATE/TIME: 11/07/2018 2:16 PM CLINICAL HISTORY: 63 years old, female; Signs and symptoms; Other: Fall, anterior pain TECHNIQUE: Imaging protocol: XR Left hip with pelvis when performed. Views: 2 or 3 views. COMPARISON: No relevant prior studies available. FINDINGS: The bony structures are in anatomic alignment. No fracture is present. No radiopaque foreign body is identified. The joint spaces are well maintained. IMPRESSION: No evidence of acute bony abnormality. Dictated and Authenticated by: Christ Palacio MD. Ordering:DIANE Clements MD
--- NOTE | 2018-11-07 15:13 | DI.VRAD_ITS ---
EXAM: XR Right Knee EXAM DATE/TIME: 11/07/2018 2:16 PM CLINICAL HISTORY: 63 years old, female; Signs and symptoms; Other: Anterior pain after fall TECHNIQUE: Imaging protocol: XR Right knee. Views: 3 views. COMPARISON: CR RIGHT KNEE 3 VIEWS 03/19/2012 10:56 AM FINDINGS: No evidence of acute fracture. Irregularity to the upper fibula most likely related to a prior fracture which is healed. This is inadequately evaluated on this study. Soft tissues unremarkable. IMPRESSION: No definite evidence of acute bony injury. Dictated and Authenticated by: Christ Palacio MD. Ordering:DIANE Clements MD
[2018-11-07 15:31] VITALS: BP 129/65; PULSE 95; RESP 14; O2SAT 93
== END 2018-11-07 15:29 | disposition home or self-care (01) ==
PROVIDERS: Emergency Provider Emergency Medicine; PCP Family Medicine
DX: S83.91XA Sprain of unspecified site of right knee, initial encounter (principal); M25.552 Pain in left hip; W17.81XA Fall down embankment (hill), initial encounter; I10 Essential (primary) hypertension
CPT/HCPCS: 73562; 99284; 73502; 99282; L1810

== ENCOUNTER 2019-03-01 17:06 | Emergency (ER) | payer MEDICAID, SELFPAY ==
[2019-03-01 17:09] VITALS: BP 156/77; PULSE 94; RESP 16; TEMP 36.7; O2SAT 95
--- NOTE | 2019-03-01 17:47 | ED.GENADUL_ITS ---
Discharge Plan Disposition Patient Disposition: HOME Condition: Stable Discharge Details Chief Complaint: RespSymp Clinical Impression: Sinusitis, Cough Primary Care Provider: Jigna Hughes ED Provider: Perri Rodriguez Home Meds and New Rx's Prescriptions: New amoxicillin-pot clavulanate [Augmentin] 875-125 mg tablet 1 tab PO BID 10 Days Qty: 20 RF: 0 benzonatate [Tessalon Perles] 100 mg capsule 100 mg PO TID PRN (Reason: cough) Qty: 10 RF: 0 Continued hydroxyzine HCl 25 mg tablet 25 mg PO DAILY RF: 0 fluticasone propionate 50 mcg/actuation spray,suspension 1 spray NS BID Qty: 1 RF: 6 cyclobenzaprine 10 mg tablet 10 mg PO BID PRN (Reason: muscle spasm) Qty: 45 RF: 2 meloxicam 15 mg tablet 15 mg PO DAILY PRN (Reason: joint pain) Qty: 30 RF: 6 benzonatate 100 mg capsule 100 - 200 mg PO TID PRN (Reason: cough) Qty: 60 RF: 0 triamcinolone acetonide 15 GM cream 15 gm Topical BID PRNQty: 1 RF: 2 solifenacin [Vesicare] 10 MG tablet 10 mg PO DAILY Qty: 90 RF: 4 lisinopril 20 mg tablet 20 mg PO DAILY Qty: 90 RF: 4 venlafaxine 150 mg capsule,extended release 24hr 150 mg PO DAILY Qty: 90 RF: 4 hydrochlorothiazide 25 mg tablet 25 mg PO DAILY Qty: 90 RF: 4 pramipexole 0.5 mg tablet 0.5 mg PO HS Qty: 90 RF: 3 lorazepam [Ativan] 1 mg tablet 1 mg PO DAILY MDD 1mg PRN (Reason: anxiety) Qty: 20 RF: 2 betamethasone valerate 0.1 % cream 1 applic Topical BID PRN (Reason: dermatitis) Qty: 1 RF: 2 pravastatin 20 mg tablet 20 mg PO DAILY Qty: 90 RF: 4 buspirone 30 mg tablet 30 mg PO BID Qty: 60 RF: 12 aspirin [Aspirin Low-Strength] 81 MG tablet,chewable 81 mg PO DAILY RF: 0 lidocaine HCl 30 ML jelly 5 ml [place] BID PRN PRNQty: 1 RF: 0 docusate sodium [Stool Softener] 100 mg capsule 100 mg PO BID RF: 0 Discharge Instructions Instructions: Sinusitis (ED), Acute Cough (ED) Additional Instructions: Continue your nasal spray at home as directed. [id number] sinus rinse kit to help with sinus congestion. Take the antibiotics until finished. Use the cough medicine as needed and directed. Follow-up with your primary care doctor next week for reevaluation. Return to the emergency department if you develop any worsening or new concerning symptoms such as fever, shortness of breath. Discharge Data Discharge Date/Time-TO BE ENTERED AT DEPARTURE: 03/01/19 18:06 Discharge Physician: Perri Rodriguez Medical Decision Making 63-year-old female presents with sinus congestion and facial pain, rhinorrhea with green discharge, cough with occasional green sputum and sore throat for the past 5 days. Denies fever or shortness of breath. Patient appears nontoxic. Afebrile. She has bilateral frontal and left maxillary sinus tenderness. Normal oropharynx. Lungs clear to auscultation. No lymphadenopathy. Appears c/w likely sinus infection causing post-nasal drip/sore throat and chest congestion/cough. Will give prescription for augmentin and tessalon perles. She is declining nasal steroids due to her h/o increased sob with oral steroids. She is advised to drink plenty of fluids, get plenty of rest, f/u with her pcp and return to the ER if worse. Medical Records Medical records reviewed: Yes I reviewed the patient's medical records. HPI General Mode of arrival: ambulatory . Date/Time Provider Initiated Documentation: 03/01/19 17:18 . Limitations to Documentation: no limitations . Information obtained by: patient . HPI Narrative: Pt is a 63-year-old female that presents to the ED with a complaint of cough with occasional green sputum, sinus congestion, facial pain, rhinorrhea with green discharge, bilateral ear pain and minor sore throat for the past 5 days. She denies any fever, shortness of breath, neck pain. She is taking ibuprofen for her symptoms but no cough medication due to her history of alcohol abuse with concern for taking cough m edication with alcohol. She states she cannot take steroids due to worsening shortness of breath as a side effect. Related Data Home Medications Medication Instructions Recorded Confirmed triamcinolone acetonide 15 gm TOPICAL BID PRN #1 script 11/24/16 03/01/19 solifenacin [Vesicare] 10 mg PO DAILY #90 tab-cap 01/01/18 03/01/19 aspirin [Aspirin Low-Strength] 81 mg PO DAILY 01/03/18 03/01/19 lidocaine HCl 5 ml [place] BID PRN PRN #1 tube 01/03/18 03/01/19 lisinopril 20 mg tablet 20 mg PO DAILY #90 tab-cap 02/16/18 03/01/19 venlafaxine 150 mg 150 mg PO DAILY #90 tab-cap 03/03/18 03/01/19 capsule,extended release 24 hr hydrochlorothiazide 25 mg tablet 25 mg PO DAILY #90 tab-cap 04/09/18 03/01/19 docusate sodium 100 mg capsule 100 mg PO BID cap 07/08/18 03/01/19 fluticasone propionate 50 1 spray NS BID #1 bottle 07/08/18 03/01/19 mcg/actuation nasal spray,suspension hydroxyzine HCl 25 mg tablet 25 mg PO DAILY tab-cap 07/08/18 03/01/19 lorazepam 1 mg tablet 1 mg PO DAILY PRN #20 tab-cap MDD 08/06/18 03/01/19 1mg pramipexole 0.5 mg tablet 0.5 mg PO HS #90 tab-cap 08/06/18 03/01/19 betamethasone valerate 0.1 % 1 applic TOPICAL BID PRN #1 gm 08/08/18 03/01/19 topical cream cyclobenzaprine 10 mg tablet 10 mg PO BID PRN #45 tab-cap 09/27/18 03/01/19 meloxicam 15 mg tablet 15 mg PO DAILY PRN #30 tab 09/27/18 03/01/19 benzonatate 100 mg capsule 100 - 200 mg PO TID PRN #60 cap 12/09/18 03/01/19 pravastatin 20 mg tablet 20 mg PO DAILY #90 tab-cap 12/28/18 03/01/19 buspirone 30 mg tablet 30 mg PO BID #60 tab 02/28/19 03/01/19 amoxicillin-pot clavulanate 1 tab PO BID 10 Days #20 tab 03/01/19 [Augmentin] benzonatate [Tessalon Perles] 100 mg PO TID PRN #10 cap 03/01/19 Previous Rx's Medication Instructions Recorded solifenacin [Vesicare] 10 mg PO DAILY #90 tab-cap 01/01/18 lidocaine HCl 5 ml [place] BID PRN PRN #1 tube 01/03/18 lisinopril 20 mg tablet 20 mg PO DAILY #90 tab-cap 02/16/18 venlafaxine 150 mg 150 mg PO DAILY #90 tab-cap 03/03/18 capsule,extended release 24 hr hydrochlorothiazide 25 mg tablet 25 mg PO DAILY #90 tab-cap 04/09/18 fluticasone propionate 50 1 spray NS BID #1 bottle 07/08/18 mcg/actuation nasal spray,suspension lorazepam 1 mg tablet 1 mg PO DAILY PRN #20 tab-cap MDD 08/06/18 1mg pramipexole 0.5 mg tablet 0.5 mg PO HS #90 tab-cap 08/06/18 betamethasone valerate 0.1 % 1 applic TOPICAL BID PRN #1 gm 08/08/18 topical cream cyclobenzaprine 10 mg tablet 10 mg PO BID PRN #45 tab-cap 09/27/18 meloxicam 15 mg tablet 15 mg PO DAILY PRN #30 tab 09/27/18 benzonatate 100 mg capsule 100 - 200 mg PO TID PRN #60 cap 12/09/18 pravastatin 20 mg tablet 20 mg PO DAILY #90 tab-cap 12/28/18 buspirone 30 mg tablet 30 mg PO BID #60 tab 02/28/19 amoxicillin-pot clavulanate 1 tab PO BID 10 Days #20 tab 03/01/19 [Augmentin] benzonatate [Tessalon Perles] 100 mg PO TID PRN #10 cap 03/01/19 Allergies Allergy/AdvReac Type Severity Reaction Status Date / Time Corticosteroids Allergy Intermediate INCREASED Verified 03/01/19 17:13 (Glucocorticoids) SOB prednisone Allergy Intermediate Verified 03/01/19 17:13 General Stated Complaint: RespSymp CHECO: 3 Review of Systems Review of Systems ROS Unobtainable: All systems reviewed & are unremarkable except as noted in HPI and below Constitutional Constitutional: Reports as per HPI, Denies chills and Denies fever(s) Eyes Eyes: Denies blurry vision ENT Ears, Nose, Mouth, and Throat: Denies dizziness, Reports otalgia, Reports nasal congestion, Reports nasal discharge, Reports sinus pain, Reports sinus pressure, Reports sore throat and Denies throat swelling Cardiovascular Cardiovascular: Denies chest pain and Denies dyspnea Respiratory Respiratory: Reports cough and Denies dyspnea Gastrointestinal Gastrointestinal: Denies abdominal pain, Denies diarrhea and Denies vomiting Genitourinary Genitourinary: Denies hematuria and Denies dysuria Musculoskeletal Musculoskeletal: Denies back pain and Denies numbness Integumentary/Breasts Skin/Breast: Denies lesions and Denies rash Neurologic Neurologic: Denies dizziness, Denies focal weakness and Denies numbness Allergic/Immunologic Allergic/Immunologic: Denies throat swelling [facility] Medical History Anxiety disorder Benign hypertension Depression Hyperlipidemia Sensorineural hearing loss Urge incontinence Surgical History Arthroscopy unknown type of right wrist surgery Arthroscopy, Shoulder unknown type of right shoulder surgery Hemorrhoidal Banding (01/12/18) Ligation of fallopian tube Open Carpal Tunnel release Spinal Fusion cervical and lumbar Social History Smoking/Tobacco Use Status: Current every day Tobacco Type: cigarettes Smokeless tobacco user: dissolvable tobacco Quit status: has quit before Second Hand Exposure: Yes Alcohol Intake: former Drug use: Daily Substance use type: marijuana Caregiver/Support person: No Household members: children Housing: house Communication Needs: Cannot Read Do you need help understanding health information?: Always Pets and animals: Yes Pets and animals: other Details: Donkey Sexually active: No Do you think of yourself as: straight/heterosexual Current gender identity: female What is your relationship status?: How often do you talk on the phone with friends or family?: decline to answer How often do you get together with friends or relatives?: once per week How often do you attend adventist or yazidism services?: 4 or more times per year Do you belong to any clubs or organized social groups?: no Panel score (0-1 are the most socially isolated patients): 1 What type of physical activity do you participate in: decline to answer Duration: decline to answer Frequency: decline to answer Chelsea/Caodaism: Jainism Special chelsea needs: No Seatbelt use: always Helmet use: Yes Helmet use: always Drive intox or ride w/intox hazardous materials tanker driver: No Do you feel safe at home: Yes Do you feel safe in your relationship?: Yes Exam Const General: cooperative, healthy appearing and no acute distress HENMT Head: normal to inspection Ears: hearing grossly normal bilaterally, external ears normal and TM's normal bilaterally General nose exam: external nose normal, nares normal and no nasal discharge Face and sinus: sinus tenderness frontal (bilateral) and maxillary (left ) Mouth: oral mucosae normal Throat: posterior oropharynx normal, uvula not midline and no peritonsillar masses Eyes General: appearance normal, both eyes and all related structures Neck Neck: normal visual inspection, no lymphadenopathy, no meningeal signs, trachea midline, supple and No submandibular swelling Resp Effort & Inspection: normal respiratory effort and able to speak in complete sentences Auscultation: clear to auscultation bilaterally, no rhonchi and no wheezes Cardio Rate: regular rate Rhythm: regular rhythm Skin General skin exam: no rashes or lesions noted Neuro General: alert, awake and oriented x3 Motor: muscle tone normal throughout Extrem General: normal to inspection and full ROM Psych Appearance: grossly normal Affect: normal affect Course Vital Signs Vital signs: Vital Signs Temperature 98.1 F 03/01/19 17:09 Pulse 94 H 03/01/19 17:09 Respiratory Rate 16 03/01/19 17:09 Blood Pressure 156/77 H 03/01/19 17:09 Pulse Oximetry 95 03/01/19 17:09 Temperature 98.1 F 03/01/19 17:09 Temperature Source Skin 03/01/19 17:09 Pulse 94 H 03/01/19 17:09 Respiratory Rate 16 03/01/19 17:09 Respiratory Effort Short of Breath 03/01/19 17:20 Blood Pressure 156/77 H 03/01/19 17:09 Blood Pressure Position Sitting 03/01/19 17:09 Pulse Oximetry 95 03/01/19 17:09 Oxygen Delivery Method Room Air 03/01/19 17:09 Oxygen Flow Rate 0 03/01/19 17:09 Pain Level 3 03/01/19 17:09
== END 2019-03-01 18:06 | disposition home or self-care (01) ==
LOC: ER 18:05
PROVIDERS: Emergency Provider Physician Assistant; PCP Family Medicine
DX: J01.90 Acute sinusitis, unspecified (principal); R05 Cough; I10 Essential (primary) hypertension
CPT/HCPCS: 99283

== ENCOUNTER 2019-07-18 08:33 | Day surgery (SDC) | payer MEDICAID, SELFPAY ==
[2019-07-18 09:00] VITALS: BP 128/73; PULSE 80; RESP 17; TEMP 36.6; O2SAT 96
[2019-07-18] MEDS: Lactated Ringers 1,000 ML 80 ML IV (09:21)
[2019-07-18] MEDS: ceFAZolin 1 GM/50 ML BAG IVPB (11:14)
[2019-07-18] MEDS: Bupivacaine 0.5% Pres-Free 30 ML VIAL (11:45)
--- NOTE | 2019-07-18 12:14 | W.PM.DSUDISC ---
Discharge Plan Disposition Patient Disposition: HOME Condition: Good Discharge Details Reason For Visit: R ECTR,EXCISION GANGLION CYST RIF Attending Provider: Tyree Murphy Primary Care Provider: Jigna Hughes Home Meds and New Rx's Prescriptions: New hydrocodone-acetaminophen 5-325 mg tablet 1 tab PO Q6H PRN (Reason: pain) Qty: 7 RF: 0 Continued meloxicam 15 mg tablet 15 mg PO DAILY PRN (Reason: joint pain) Qty: 30 RF: 6 benzonatate 100 mg capsule 100 - 200 mg PO TID PRN (Reason: cough) Qty: 60 RF: 0 cyclobenzaprine 10 mg tablet 10 mg PO DAILY PRN (Reason: muscle spasm) Qty: 30 RF: 2 solifenacin [Vesicare] 10 mg tablet 10 mg PO DAILY Qty: 90 RF: 4 docusate sodium [Stool Softener] 100 mg capsule 100 mg PO BID PRN (Reason: constipation) Qty: 60 RF: 2 lorazepam [Ativan] 1 mg tablet 1 mg PO DAILY MDD 1mg PRN (Reason: anxiety) Qty: 20 RF: 0 triamcinolone acetonide 15 GM cream 15 gm Topical BID PRNQty: 1 RF: 2 pramipexole 0.5 mg tablet 0.5 mg PO HS Qty: 90 RF: 3 pravastatin 20 mg tablet 20 mg PO DAILY Qty: 90 RF: 4 buspirone 30 mg tablet 30 mg PO BID Qty: 60 RF: 12 hydrochlorothiazide 25 mg tablet 25 mg PO DAILY Qty: 90 RF: 4 lisinopril 20 mg tablet 20 mg PO DAILY Qty: 90 RF: 4 venlafaxine 150 mg capsule,extended release 24hr 150 mg PO DAILY Qty: 90 RF: 4 fluticasone propionate 50 mcg/actuation spray,suspension 1 spray NS BID Qty: 1 RF: 6 gabapentin 300 mg capsule 300 mg PO BID Qty: 60 RF: 1 clotrimazole 1 % cream 1 applic TP BID PRN (Reason: skin rash) Qty: 28 RF: 3 albuterol sulfate 90 mcg/actuation HFA aerosol inhaler 1 - 2 puff IH QID PRN (Reason: shortness of breath or wheezing) Qty: 18 RF: 3 aspirin [Aspirin Low-Strength] 81 MG tablet,chewable 81 mg PO DAILY RF: 0 lidocaine HCl 30 ML jelly 5 ml [place] BID PRN PRNQty: 1 RF: 0 Discharge Instructions Additional Instructions: Elevate R hand above heart level as much as possible overnite tonite. Wiggle fingers R hand 10 times/hour when awake to prevent swelling. Keep dressings and splint dry and in place for 48 hours. After 48 hours, remove splint and dressings and begin to move R wrist. Use R hand as much as discomfort allows. After you remove dressings, may shower or bathe and get incisions wet. May leave incisions uncovered when they are dry and sealed. Take ibuprofen or tylenol for mild pain. Take hydrocodone for breakthru pain, if needed. Follow up with in 2 weeks. Referrals: Tyree Murphy MD [ [facility] STAFF PHYSICIAN] - (f/u in 2 weeks) Equipment/Supplies: Splint Activity:: Activity as Tolerated Remove Dressings/Wound Care:: 48 hours Shower/Bathe:: 48 hours Diet:: As Tolerated Discharge Orders Discharge Orders: Discharge Order (Routine); Ordered 07/18/19 Ordered By: Tyree Murphy DS: Diagnosis Discharge Diagnosis (1) Right carpal tunnel syndrome: Status: Acute
[2019-07-18 12:50] VITALS: BP 159/89; PULSE 78; RESP 16; TEMP 36.3; O2SAT 97
--- NOTE | 2019-07-19 15:16 | ROE_ITS ---
DATE OF PROCEDURE: July 18, 2019 PREOPERATIVE DIAGNOSIS: 1. Carpal tunnel syndrome, right. 2. Mass, right index finger. POSTOPERATIVE DIAGNOSIS: 1. Carpal tunnel syndrome, right. 2. Ganglion cyst, right index finger. PROCEDURES: 1. Endoscopic carpal tunnel release, right. 2. Excision of ganglion cyst from the right index finger. ANESTHESIA: IV Regional. SURGEON: Tyree Murphy M.D. INDICATIONS: This is a 64-year-old white female with a several year history of numbness and tingling in the median nerve distribution of her right hand. She is a right hand dominant individual. She h as had trouble picking up small objects, buttoning buttons and picking up coins. She's been dropping things, including a recent dinner plate. In addition, she has noticed a mass in the right index fin cruz over the proximal phalanx. It's been present for two years, which she feels is gradually increas ing in size. She gets local discomfort when gripping things with her right hand, such as when she is carrying water or groceries. She also can't flex her finger into the palm because of the mass. Bec ause of failure to improve with conserve treatment for her carpal tunnel, I recommended a carpal tunn el release. The patient wished to undergo the endoscopic technique of carpal tunnel release. I hannah mmended excision of the cyst from her right index finger, which is probably a ganglion cyst. The pat ient wished to have me proceed as soon as possible. PROCEDURE: The patient was taken to the operating room on 07/18/2019. She was placed supine on the o perating table and an IV regional anesthetic was administered to the right upper extremity. Once goo d anesthesia was obtained, the right hand, wrist and forearm were prepped and draped free in the usua l steril fashion. First I made an oblique incision over the proximal phalanx of the right index finger, beginning at th e radial edge of the middle flexion crease and extending to the ulnar edge of the proximal flexion cr ease. The incision was carried to the skin and subcu. I encountered the cyst. I carefully dissecte d circumferentially around the cyst using Littler scissors. The cyst was arising from the flexor she ath of the right index finger. The cyst, long with a small window of flexor sheath, was excised. Th e wound margins were infiltrated with 0.5% Marcaine solution. The wound was irrigated with saline s olution. The skin edges were approximated with interrupted #4-0 nylon sutures. Attention was then t urned to the carpal tunnel. I made a transverse incision in line with the proximal flexion crease of the wrist, beginning at the flexor carpi radialis and extending to the flexor carpi ulnaris tendon. The palmaris longus tendon w as retracted ulnarward and a distally-based fascial flap was developed to gain access to the carpal c anal. A synovial reflector was then used to free up any soft tissue attachments to the undersurface of the volar carpal ligament. I then introduced the Mika endoscope blade device into the carpal doyle l. I was careful to position the endoscope against the hook of the hamate and the scope and blade we re advanced distally until the distal edge of the volar carpal ligament was clearly seen. At this po int I depressed the trigger, elevating the blade, and then withdrew the elevate blade out from distal to proximal through the incision, transecting the volar carpal ligament. The blade was depressed an d then the endoscope was then reintroduced into the canal to confirm that the release of the volar ca rpal ligament was complete. I then took the scope out and using Littler scissors I performed a fasci otomy, subcutaneous, proximal to the incision for about two inches. At this point the wound was irri gated with Betadine and saline solution. All bleeders were cauterized. The wound margins were infil trated with 0.5% Marcaine with an epinephrine solution and a median nerve block was performed with 0. 5% Marcaine solution. The skin edges were approximated with horizontal mattress sutures of #4-0 nylo n suture material. Both incisions were dressed with Xeroform gauze. I then placed fluff gauze 4x4's between the fingers and in the palm. I wrapped it with a Kerlix bandage and then wrapped with an AC E bandage. I placed a commercial cockup wrist splint. The patient's anesthesia was reversed without complications and she was discharged to the recovery room in good condition. The patient was discharged home from the Day Surgery Unit when fully recovered from her IV regional a nesthesia. She was given instructions to try to elevate her right hand above heart level as much as possible overnight. She was encouraged to wiggle her fingers ten times an hour while awake to preven t stiffness and swelling. The patient is advised to keep her splint and dressings dry and intact for 72 hours. After 72 hours she may remove her dressings and splint and start to move her right wrist. After she removes her dressings she may shower or bathe and get the incision wet. She can leave th e incisions uncovered if they are dry and sealed. She may use her right hand as much as discomfort rossy hawkins. She was given a prescription for breakthrough pain of Hydrocodone with APAP 5/325, one tablet every six hours, as needed. She will take Tylenol or ibuprofen for mild pain. She will follow-up talita crespo in two weeks.
== END 2019-07-18 13:05 | disposition home or self-care (01) ==
PROVIDERS: PCP Family Medicine; Visit Provider Orthopaedic Surgery
PROC: 01N54ZZ Release Median Nerve, Percutaneous Endoscopic Approach (ICD-10-PCS; CPT 29848; principal; 2019-07-18 10:00)
PROC: (CPT 26160; 2019-07-18 10:00)
DX: G56.01 Carpal tunnel syndrome, right upper limb (principal); M67.441 Ganglion, right hand
CPT/HCPCS: 29848; 26160; J0690; J1100; J1885; J2704; L3908

== ENCOUNTER 2019-08-01 12:56 | Outpatient (REF) | payer MEDICAID, SELFPAY | END 2019-08-01 13:16 | LOC: LBN 12:56 | PROVIDERS: PCP Family Medicine; Visit Provider Internal Medicine | DX: T81.49XA Infection following a procedure, other surgical site, initial encounter (principal); L08.9 Local infection of the skin and subcutaneous tissue, unspecified | CPT/HCPCS: 87070; 87205 ==

== ENCOUNTER 2019-08-30 01:13 | Outpatient (CLI) | payer MEDICAID, SELFPAY ==
[2019-09-02 04:37] LABS: SARS-CoV-2 RNA Undetected (Undetected); SARS-CoV-2 Specimen Source Nasopharynx
== END 2019-08-30 01:33 ==
PROVIDERS: PCP Family Medicine; Visit Provider Family Medicine
DX: Z20.828 Contact with and (suspected) exposure to other viral communicable diseases (principal)
CPT/HCPCS: U0003

== ENCOUNTER 2020-03-02 04:42 | Emergency (ER) | payer MEDICAID, SELFPAY ==
[2020-03-02 04:49] VITALS: BP 183/84; PULSE 88; RESP 20; TEMP 37; O2SAT 95
--- NOTE | 2020-03-02 04:52 | W.ED.GENAD ---
Discharge Plan Disposition Patient Disposition: HOME Condition: Stable Discharge Details Clinical Impression: Abdominal pain Primary Care Provider: Jigna Hughes ED Provider: Pravin Salguero [place] Meds and New Rx's Prescriptions: Continued lorazepam [Ativan] 1 mg tablet 1 mg PO DAILY MDD 1mg PRN (Reason: anxiety) Qty: 20 RF: 0 triamcinolone acetonide 15 GM cream 15 gm Topical BID PRNQty: 1 RF: 2 buspirone 30 mg tablet 30 mg PO BID Qty: 60 RF: 12 hydrochlorothiazide 25 mg tablet 25 mg PO DAILY Qty: 90 RF: 4 lisinopril 20 mg tablet 20 mg PO DAILY Qty: 90 RF: 4 fluticasone propionate 50 mcg/actuation spray,suspension 1 spray NS BID Qty: 1 RF: 6 clotrimazole 1 % cream 1 applic TP BID PRN (Reason: skin rash) Qty: 28 RF: 3 albuterol sulfate 90 mcg/actuation HFA aerosol inhaler 1 - 2 puff IH QID PRN (Reason: shortness of breath or wheezing) Qty: 18 RF: 3 meloxicam 15 mg tablet 15 mg PO DAILY PRN (Reason: joint pain) Qty: 30 RF: 6 venlafaxine 150 mg capsule,extended release 24hr 150 mg PO DAILY Qty: 90 RF: 4 benzonatate 100 mg capsule 100 - 200 mg PO TID PRN (Reason: cough) Qty: 60 RF: 2 pramipexole 0.5 mg tablet 0.5 mg PO HS Qty: 90 RF: 3 gabapentin 300 mg capsule 300 mg PO BID Qty: 60 RF: 6 solifenacin [Vesicare] 10 mg tablet 10 mg PO DAILY Qty: 90 RF: 4 cyclobenzaprine 10 mg tablet 10 mg PO DAILY PRN (Reason: muscle spasm) Qty: 30 RF: 2 docusate sodium [Stool Softener] 100 mg capsule 100 mg PO BID PRN (Reason: constipation) Qty: 90 RF: 2 pravastatin 20 mg tablet 20 mg PO DAILY Qty: 90 RF: 4 aspirin [Aspirin Low-Strength] 81 MG tablet,chewable 81 mg PO DAILY RF: 0 lidocaine HCl 30 ML jelly 5 ml MD BID PRN PRNQty: 1 RF: 0 hydrocodone-acetaminophen 5-325 mg tablet 1 tab PO Q6H PRN (Reason: pain) Qty: 7 RF: 0 Discharge Instructions Instructions: Abdominal Pain (ED) Additional Instructions: your cat scan and lab work did not reveal a cause for your pain. This could be a muscle spasm causing the pain you can take your cyclobenzaprine every 6 hours as needed follow up with your primary care provider within 1 week if you feel more ill, severe worsening pain or persistent vomit return to the emergency department Medical Decision Making 64 yo female with hx of smoking, hld, who comes in with what she says is right hip pain that woke her from sleep this morning but points to the right lower abdomen area when asked to point where her pain is. She is able to bear weight on the hip. She states she went to bed feeling well without pain and has never had pain like this in the past. She has tenderness without distention in the right lower abdomen. Given location of pain will obtain lab work and ct imaging to evaluate for etiologies such as kidney stone, appendicitis, and pancreatitis and reassess. patient's labs show mildly increased lipase level, otherwise labs unremarkable and imaging unremarkable. She feels better only has very mild pain and no tenderness on abdominal exam, could be muscle spasm vs sciatiaca though would expect her pain to be in the psoterior back and leg. She has prescription for muscle relaxers already and advised to take this as needed, return precautions given Differential Diagnosis Differential Diagnosis: appendicitis, kidney stone, muscle spasm Medical Records Medical records reviewed: Yes I reviewed the patient's medical records. Imaging Data Radiologic Study: Attestation: I personally reviewed and interpreted this imaging study as follows: Imaging: CT Scan Radiologist's impression: no acute findings Lab Data Lab results reviewed: Yes I reviewed the patient's lab results. HPI General Mode of arrival: wheelchair. Date/Time Provider Initiated Documentation: 03/02/20 04:44. Limitations to Documentation: no limitations. Information obtained by: patient. History of Present Illness 64 year old F presents to the emergency department with the chief complaint of right hip pain, described as moderate, and it has been constant. No relieving factors improve symptom(s), No exacerbating factors reported . Patient did receive the following treatments prior to arrival, none Related Data Home Medications Medication Instructions Recorded Confirmed triamcinolone acetonide 15 gm TOPICAL BID PRN #1 script 11/24/16 03/02/20 aspirin [Aspirin Low-Strength] 81 mg PO DAILY 01/03/18 03/02/20 lidocaine HCl 5 ml MD BID PRN PRN #1 tube 01/03/18 03/02/20 buspirone 30 mg tablet 30 mg PO BID #60 tab 02/28/19 03/02/20 hydrochlorothiazide 25 mg tablet 25 mg PO DAILY #90 tab-cap 03/11/19 03/02/20 lisinopril 20 mg tablet 20 mg PO DAILY #90 tab-cap 03/11/19 03/02/20 lorazepam 1 mg tablet 1 mg PO DAILY PRN #20 tab-cap MDD 04/27/19 03/02/20 1mg albuterol sulfate 90 mcg/actuation 1 - 2 puff IH QID PRN #18 gm 07/14/19 03/02/20 aerosol inhaler clotrimazole 1 % topical cream 1 applic TP BID PRN #28 gm 07/14/19 03/02/20 fluticasone propionate 50 1 spray NS BID #1 bottle 07/14/19 03/02/20 mcg/actuation nasal spray,suspension hydrocodone-acetaminophen 1 tab PO Q6H PRN #7 tab 07/18/19 03/02/20 meloxicam 15 mg tablet 15 mg PO DAILY PRN #30 tab 08/05/19 03/02/20 venlafaxine 150 mg 150 mg PO DAILY #90 tab-cap 08/12/19 03/02/20 capsule,extended release 24 hr benzonatate 100 mg capsule 100 - 200 mg PO TID PRN #60 cap 08/25/19 03/02/20 pramipexole 0.5 mg tablet 0.5 mg PO HS #90 tab-cap 09/02/19 03/02/20 gabapentin 300 mg capsule 300 mg PO BID #60 cap 09/07/19 03/02/20 solifenacin 10 mg tablet 10 mg PO DAILY #90 tab-cap 09/30/19 03/02/20 cyclobenzaprine 10 mg tablet 10 mg PO DAILY PRN #30 tab-cap 10/04/19 03/02/20 docusate sodium 100 mg capsule 100 mg PO BID PRN #90 cap 11/14/19 03/02/20 pravastatin 20 mg tablet 20 mg PO DAILY #90 tab-cap 01/18/20 03/02/20 Previous Rx's Medication Instructions Recorded lidocaine HCl 5 ml MD BID PRN PRN #1 tube 01/03/18 buspirone 30 mg tablet 30 mg PO BID #60 tab 02/28/19 hydrochlorothiazide 25 mg tablet 25 mg PO DAILY #90 tab-cap 03/11/19 lisinopril 20 mg tablet 20 mg PO DAILY #90 tab-cap 03/11/19 lorazepam 1 mg tablet 1 mg PO DAILY PRN #20 tab-cap MDD 04/27/19 1mg albuterol sulfate 90 mcg/actuation 1 - 2 puff IH QID PRN #18 gm 07/14/19 aerosol inhaler clotrimazole 1 % topical cream 1 applic TP BID PRN #28 gm 07/14/19 fluticasone propionate 50 1 spray NS BID #1 bottle 07/14/19 mcg/actuation nasal spray,suspension hydrocodone-acetaminophen 1 tab PO Q6H PRN #7 tab 07/18/19 meloxicam 15 mg tablet 15 mg PO DAILY PRN #30 tab 08/05/19 venlafaxine 150 mg 150 mg PO DAILY #90 tab-cap 08/12/19 capsule,extended release 24 hr benzonatate 100 mg capsule 100 - 200 mg PO TID PRN #60 cap 08/25/19 pramipexole 0.5 mg tablet 0.5 mg PO HS #90 tab-cap 09/02/19 gabapentin 300 mg capsule 300 mg PO BID #60 cap 09/07/19 solifenacin 10 mg tablet 10 mg PO DAILY #90 tab-cap 09/30/19 cyclobenzaprine 10 mg tablet 10 mg PO DAILY PRN #30 tab-cap 10/04/19 docusate sodium 100 mg capsule 100 mg PO BID PRN #90 cap 11/14/19 pravastatin 20 mg tablet 20 mg PO DAILY #90 tab-cap 01/18/20 Allergies Allergy/AdvReac Type Severity Reaction Status Date / Time Corticosteroids Allergy Intermediate INCREASED Verified 03/02/20 04:57 (Glucocorticoids) SOB prednisone Allergy Intermediate Verified 03/02/20 04:57 General CHECO: 3 Review of Systems All systems reviewed & are unremarkable except as noted in HPI and below Constitutional Constitutional: Denies chills, Denies fever(s) and Denies weakness Cardiovascular Cardiovascular: Denies chest pain and Denies dyspnea Respiratory Respiratory: Denies cough and Denies dyspnea Gastrointestinal Gastrointestinal: Denies abdominal pain, Denies nausea and Denies vomiting Genitourinary Genitourinary: Denies dysuria Neurologic Neurologic: Denies weakness [facility] Medical History (Updated 03/02/20 @ 06:38 by Pravin Salguero MD) Anxiety disorder Benign hypertension Depression Hyperlipidemia Mass of right finger Right carpal tunnel syndrome Sensorineural hearing loss Urge incontinence Surgical History Arthroscopy unknown type of right wrist surgery Arthroscopy, Shoulder unknown type of right shoulder surgery Hemorrhoidal Banding (01/12/18) Ligation of fallopian tube Open Carpal Tunnel release Spinal Fusion cervical and lumbar Family History Mother Essential hypertension Stroke Cancer Father Heart disease Brother Heart disease Maternal Grandfather No problems noted. Paternal Grandfather No problems noted. Maternal Grandmother Essential hypertension Stroke Paternal Grandmother No problems noted. Social History Smoking/Tobacco Use Status: Current every day Tobacco Type: cigarettes Smokeless tobacco user: dissolvable tobacco Quit status: has quit before Second Hand Exposure: Yes Alcohol Intake: former Drug use: Daily Substance use type: marijuana Caregiver/Support person: No Household members: children Housing: house Communication Needs: Cannot Read Do you need help understanding health information?: Always Pets and animals: Yes Pets and animals: other Details: Donkey Sexually active: No Do you think of yourself as: straight/heterosexual Current gender identity: female What is your relationship status?: How often do you talk on the phone with friends or family?: decline to answer How often do you get together with friends or relatives?: once per week How often do you attend sikhism or baptism services?: 4 or more times per year Do you belong to any clubs or organized social groups?: no Panel score (0-1 are the most socially isolated patients): 1 What type of physical activity do you participate in: decline to answer Duration: decline to answer Frequency: decline to answer [place]/Gnosticist: Jewish Special chelsea needs: No Seatbelt use: always Helmet use: Yes Helmet use: always Drive intox or ride w/intox dedicated intermodal truck 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: No Do you feel safe at home: Yes Do you feel safe in your relationship?: Yes Exam Const General: no acute distress Orientation: alert HENMT Head: normal to inspection Ears: external ears normal General nose exam: external nose normal Mouth: moist mucous membranes Eyes General: appearance normal, both eyes and all related structures Neck Neck: normal visual inspection Resp Effort & Inspection: normal respiratory effort and able to speak in complete sentences Cardio Rate: regular rate GI Palpation: soft and tender Skin General skin exam: no rashes or lesions noted Neuro General: patient alert and patient oriented x3 Extrem General: normal to inspection Psych Mental Status: mental status grossly normal
[2020-03-02 05:18] LABS: ALT 19 U/L (14-59); AST 16 U/L (15-37); Albumin 3.6 g/dL (3.4-5.0); Alkaline Phosphatase 86 U/L (46-116); Anion Gap 9.7 mmol/L (3-11); BUN 16 mg/dL (7-18); Bilirubin, Direct 0.08 mg/dL (0.00-0.20); Bilirubin, Total 0.3 mg/dL (0.2-1.0); CO2 24.3 mmol/L (21.0-32.0); CREATININE 0.87 mg/dL (0.55-1.02); Chloride 103 mmol/L (98-107); Glucose 107 mg/dL (74-106); Lipase 627 U/L (73-393); Potassium 3.5 mmol/L (3.5-5.1); Sodium 137 mmol/L (136-145)
--- NOTE | 2020-03-02 05:20 | DI.CT_ITS ---
EXAM: CT ABDOMEN PELVIS W CLINICAL HISTORY: right lower abdominal pain. TECHNIQUE: Imaging Protocol: Axial computed tomography images with coronal and sagittal reformatted images were created and reviewed CONTRAST MATERIAL: Intravenous: Omnipaque 350 Contrast volume:100 ml Oral: no COMPARISON: CT ABD PELVIS WITH CONTRAST from 06/08/2010 FINDINGS: ABDOMEN: Lung Bases: Mild dependent changes. Liver: Normal density. 2 centimeter cyst in the left lobe of the liver. Gallbladder and biliary tract: No radiodense calculus or dilation. Pancreas: Normal density, no abnormal calcifications or inflammatory process. Spleen: Normal. Kidneys: Normal size, contour and axis. No radiodense stones or obstructive uropathy. No masses seen. Adrenal glands: No masses seen. Abdominal Aorta: Abdominal portion non-dilated. Atherosclerotic changes. Soft tissues: Small fatty containing umbilical hernia. PELVIS: Bladder: Symmetric distention, no gross wall thickening. Bowel: No obstruction or bowel wall thickening. Normal appendix. Normal quantity of stool. Peritoneal cavity: No ascites, collection or mesenteric inflammatory response. Bones: Degenerative disc changes greatest at L1-2. Facet degenerative changes greatest at L4-5. Reproductive organs: Within normal limits. Lymph nodes: Unremarkable. Impression: Unremarkable CT scan of the abdomen and pelvis. RADIATION DOSE DELIVERED: 947.07mGy.cm Total DLP DATA REPOSITORY: All CT scans at this facility are submitted to the National Radiology Data Registry (NRDR) Dose Index Registry (DIR) with the [employer] (A[employer]). RADIATION OPTIMIZATION: All CT scans at this facility use at least one of these dose optimization te chniques: automated exposure control; mA and/or kV adjustment per patient size (includes targeted exa ms where dose is matched to clinical indication); or iterative reconstruction.
[2020-03-02] MEDS: Normal Saline Flush 10 ML SYR IVP (05:22)
[2020-03-02 05:24] LABS: Abs Immature Grans 0.02 10^3/uL (0.0-0.06); Absolute Basophil Count 0.05 10^3/uL (0.0-0.2); Absolute Eosinophil Count 0.18 10^3/uL (0.0-0.7); Absolute Lymphocyte Count 2.34 10^3/uL (1.2-3.4); Absolute Monocyte Count 0.65 10^3/uL (0.1-0.8); Absolute Neutrophil Count 4.05 10^3/uL (1.2-6.7); Basophils % 0.7; Eosinophils % 2.5; HCT 45.1 % (36.0-46.0); HGB 15.6 g/dL (11.2-15.7); Immature Grans % 0.3; Lymphocytes % 32.1; MCHC 34.6 % (32.0-36.0); MCV 92.4 fL (80-95); MPV 10.7 fL (8.0-11.0); Monocytes % 8.9; Neutrophils % 55.5; Nucleated RBC 0 %; Platelet Count 191 10^3/uL (130-400); RBC 4.88 10^6/uL (3.93-5.22); RDW 13.3 % (11.7-14.6); RDW-SD 45.4 fL; WBC 7.29 10^3/uL (4.4-10.8)
[2020-03-02 05:26] LABS: PTT Activated 26.2 sec (21.0-31.4); Prothrombin Time 9.6 sec (9.3-11.0)
[2020-03-02] MEDS: Omnipaque 350 MG/ML 100 ML BTL IJ (05:26)
[2020-03-02] MEDS: Normal Saline - Diluent 50 ML VIAL IV (05:26)
[2020-03-02] MEDS: Normal Saline 1,000 ML 1000 ML IV (05:36)
[2020-03-02 06:15] LABS: Bilirubin Negative (Negative); Blood Negative (Negative); Clarity Clear (Clear); Glucose Negative (Negative); Ketones Negative (Negative); Leukocyte Esterase Negative (Negative); Nitrite Negative (Negative); Urobilinogen 0.2 EU/dL (Up TO 0.2)
--- NOTE | 2020-03-02 06:30 | DI.VRAD_ITS ---
PROCEDURE INFORMATION: Exam: CT Abdomen And Pelvis With Contrast Exam date and time: 03/02/2020 4:52 AM Age: 64 years old Clinical indication: Abdominal pain; Localized; Right lower quadrant (rlq); Prior surgery; Surgery type: HX prolapse repair; Patient HX: Right lower abd pain for a few days, worsening in intensity. HX sciatica and rectal prolapse TECHNIQUE: Imaging protocol: Computed tomography of the abdomen and pelvis with intravenous contrast. Radiation optimization: All CT scans at this facility use at least one of these dose optimization techniques: automated exposure control; mA and/or kV adjustment per patient size (includes targeted exams where dose is matched to clinical indication); or iterative reconstruction. Contrast material: [id number]; Contrast volume: 100 ml; Contrast route: INTRAVENOUS (IV); COMPARISON: CR XR hip LT complete AP pelvis 11/07/2018 2:35 PM FINDINGS: Lungs: Dependent subsegmental atelectasis. Liver: 2 cm cyst left lobe of liver. Hepatomegaly. No mass. Gallbladder and bile ducts: No calcified gallstones or gallbladder wall thickening. No biliary ductal dilatation. Pancreas: Pancreas normal in appearance. No ductal dilatation. Spleen: No splenomegaly. Adrenals: Adrenal glands appear normal. Kidneys and ureters: Homogeneous enhancement of renal parenchyma. No radiopaque renal calculi or hydronephrosis. Stomach and bowel: Unremarkable. No obstruction. No mucosal thickening. Appendix: Normal appendix. Intraperitoneal space: No free intraperitoneal gas. No ascites. Vasculature: Unremarkable. No abdominal aortic aneurysm. Lymph nodes: No adenopathy. Urinary bladder: Unremarkable as visualized. Reproductive: Anteverted uterus. Bones/joints: The spine demonstrates mild degenerative changes at multiple levels. No acute fracture. Soft tissues: There is an uncomplicated fat-containing umbilical hernia. IMPRESSION: No acute findings. Dictated and Authenticated by: Dylan Luther MD. Ordering:MU Costello MD
== END 2020-03-02 07:00 | disposition home or self-care (01) ==
PROVIDERS: Emergency Provider Emergency Medicine; PCP Family Medicine
DX: R10.31 Right lower quadrant pain (principal); R74.8 Abnormal levels of other serum enzymes; I10 Essential (primary) hypertension
CPT/HCPCS: 36415; 80053; 83690; 99285; 74177; 81003; 82248; 83735; 85025; 85610; 85730; 99284; J3490

== ENCOUNTER 2020-05-10 09:34 | Outpatient (REF) | payer MEDICAID, SELFPAY ==
--- NOTE | 2020-05-10 09:00 | ULCER_PTH ---
PATIENT: Jeniffer Chow LOC: [facility] U#:[id number] AGE/SX: 64/F ROOM: RE05/10/[address]: Irvin Epps MD : 1955 BED: DIS: 05/10/2020 SPEC #: [id number] RECD: 05/10/20 17:30 STATUS: [place] REQ #: [id number] HAVEN: 05/10/20 09:[address]: Irvin Epps DEPT: Surgical Specimen RECD BY: Anna Barney ENTERED: 05/10/20 17:32 SP TYPE: ULCER OTHR DR: Jigna Hughes MD Tissues: 1 - ULCER DECUBITUS Procedures: GROSS AND MICRO LEVEL 4 SPECIAL STAIN 1 Comments: [id number]
== END 2020-05-10 09:54 ==
LOC: LBN 09:34
PROVIDERS: PCP Family Medicine; Visit Provider Otolaryngology
DX: J34.0 Abscess, furuncle and carbuncle of nose (principal); F17.200 Nicotine dependence, unspecified, uncomplicated; R23.4 Changes in skin texture
CPT/HCPCS: 88305; 88304; 88312

== ENCOUNTER 2020-10-03 08:38 | Outpatient (CLI) | payer MEDICAID, SELFPAY ==
[2020-10-03 13:04] LABS: ALT 19 U/L (14-59); AST 14 U/L (15-37); Albumin 3.6 g/dL (3.4-5.0); Alkaline Phosphatase 103 U/L (46-116); Anion Gap 9.8 mmol/L (3-11); BUN 16 mg/dL (7-18); Bilirubin, Total 0.3 mg/dL (0.2-1.0); CO2 27.2 mmol/L (21.0-32.0); CREATININE 0.8 mg/dL (0.55-1.02); Calcium 9.1 mg/dL (8.5-10.1); Chloride 104 mmol/L (98-107); Glucose 83 mg/dL (74-106); Sodium 141 mmol/L (136-145); TSH 1.44 uIU/mL (0.36-3.74); Total Protein 6.6 g/dL (6.4-8.2)
[2020-10-03 13:15] LABS: Calculated LDL 111 mg/dL (<100); Cholesterol 176 mg/dL (<200); HDL Cholesterol 53 mg/dL (40-60); Triglyceride 64 mg/dL (<150)
== END 2020-10-03 08:39 | disposition home or self-care (01) ==
LOC: LOS 08:38
PROVIDERS: PCP Family Medicine; Visit Provider Family Medicine
DX: I10 Essential (primary) hypertension (principal); R79.89 Other specified abnormal findings of blood chemistry
CPT/HCPCS: 36415; 80053; 80061; 84443

== ENCOUNTER 2020-10-11 01:20 | Outpatient (CLI) | payer MEDICAID, SELFPAY ==
--- NOTE | 2020-10-11 07:00 | DI.MAMMO_ITS ---
Exam(s) MAMMO SCREENING EXAM: MAMMO SCREENING CLINICAL HISTORY: screening,z12.39. TECHNIQUE: Bilateral full field digital CC and MLO mammographic images were obtained with 3D tomosyn thesis and utilizing computer aided detection (CAD). COMPARISON: Prior mammograms dating back to 2011, the most recent being September 2018. FINDINGS: There are no new spiculated masses nor malignant appearing microcalcification groups. Asymmetric density lateral center in the right breast is unchanged from prior studies as are few ange gn-appearing nodules in the opposite-left breast located laterally which have the appearance of small benign lymph nodes. There is no significant architectural distortion nor skin thickening-retraction. IMPRESSION: No radiographic evidence of malignancy. BI-RADS Category 1 - Negative Breast Density - Category B - Scattered areas of fibroglandular density Breast density Category C or D implies that the patient has dense breast tissue. Dense breast tissue can make it harder to find cancer on a mammogram. Dense breast tissue is also associated with an incr eased risk of breast cancer. This information about the result of the mammogram report was provided to the patient to raise their awareness. Use this report when you speak with the patient about their risks for breast cancer, which includes their family history. At that time, you may recommend additional screening tests (Ultrasoun d or MRI) as these tests may add significant information. A negative radiographic report should not delay biopsy if a dominant or clinically suspicious mass is present. Up to ten percent of cancers are not identified on mammography. A negative report may reinforce clinical impression. Adenosis and dense breasts may obscure an underlying neoplasm. False positive reports average 6 to 10%. Patient will receive a letter notifying them of these results.
== END 2020-10-11 01:40 ==
PROVIDERS: PCP Family Medicine; Visit Provider Family Medicine
DX: Z12.31 Encounter for screening mammogram for malignant neoplasm of breast (principal)
CPT/HCPCS: 77063; 77067

== ENCOUNTER 2021-01-04 10:41 | Outpatient (CLI) | payer MEDICAID, SELFPAY ==
--- NOTE | 2021-01-04 09:15 | DI.RAD_ITS ---
Exam(s) XR CERVICAL SP BOYKIN TRAUMA 2-3V EXAM: XR CERVICAL SP BOYKIN TRAUMA 2-3V CLINICAL HISTORY: pain TECHNIQUE: COMPARISON: No exams were available for comparison FINDINGS: Four views were obtained. There appears to be fusion of the anterior cortex of vertebral bodies of C 6 and C7. There is loss of height anteriorly of vertebral bodies C4 and C5 which is of uncertain age . There are very prominent endplate hypertrophic changes seen involving inferior endplate of C3 as w ell as inferior and superior endplates of C4 and C5. Mild to moderate facet hypertrophic changes als o noted. IMPRESSION: Anterior compression deformities of C4 and C5, of uncertain age but likely old. If there is a clinic al suspicion of acute injury additional evaluation with CT would be recommended. RADIATION DOSE DELIVERED: Total DLP
== END 2021-01-04 10:42 | disposition home or self-care (01) ==
LOC: DIORS 10:41
PROVIDERS: PCP Family Medicine; Referring Provider Family Medicine; Visit Provider Physician Assistant Surgical
DX: M43.8X2 Other specified deforming dorsopathies, cervical region (principal)
CPT/HCPCS: 72040

== ENCOUNTER 2021-01-23 01:29 | Outpatient (CLI) | payer MEDICAID, SELFPAY ==
--- NOTE | 2021-01-23 07:15 | DI.RAD_ITS ---
Exam(s) XR LUMBAR SPINE COMPLETE EXAM: XR LUMBAR SPINE COMPLETE CLINICAL HISTORY: increasing/severe right back pain/no trauma, low back pain, M54.5. TECHNIQUE: 2D digital imaging was performed. COMPARISON: CR LUMBAR SPINE COMPLETE from 11/06/2011 FINDINGS: Mild scoliosis convex right. There is no evident fracture. There is significant disc space narrowin g at L1-2 level now evident. Also anterior osseous lipping and mild disc space narrowing at L2-3 lev els. Mild disc space narrowing at L4-5 level and mild degenerative anterolisthesis of L4 upon L5, th is related to degenerative changes in the facet joints. L5-S1 level exhibits normal disc height. No osseous lesions. Sacroiliac joints appear unremarkable. IMPRESSION: Compared to October 2011 there have been progressive degenerative disc disease findings and there is als o an element of degenerative anterolisthesis of L4 upon L5 and mild disc space narrowing at this leve l, not previously present. DATA REPOSITORY: RADIATION DOSE DELIVERED:
--- NOTE | 2021-01-23 07:30 | DI.MRI_ITS ---
Exam(s) MR CERVICAL SPINE WO EXAM: MR CERVICAL SPINE WO CLINICAL HISTORY: PAIN/NUMBNESS, cervical radiculopathy, rt hand paresthesis, M54.12, R20.2 TECHNIQUE: Multiplanar multisequence MRI of the cervical spine was performed without intravenous con trast. COMPARISON: CR XR CERVICAL SP BOYKIN TRAUMA 2-3V from 01/04/2021 CR XR CERVICAL SP BOYKIN TRAUMA 2-3V from 01/04/2021 FINDINGS: CERVICOMEDULLARY JUNCTION: There is very mild cerebellar tonsillar ectopia. No abnormal signal nor C y rings evident within the cervical spinal cord. CERVICAL SPINAL CORD: There is no abnormal signal in the cervical spinal cord and no evidence of foca l cord atrophy nor focal cord swelling. OSSEOUS:No fractures or osseous lesions evident. There is block fusion of C6 and C7 vertebral bodies (no metallic plate). INDIVIDUAL LEVELS: C2-3: Normal disc height. Mild subligamentous annular bulging. Does not contact the anterior surfac e of the spinal cord. Central canal dimensions are within normal limits at this level. No significa nt foraminal stenosis. C3-4: Moderate decreased disc height and signal. Anterior osseous lipping evident. There is posteri or broad annular bulging. This effaces the anterior thecal sac but not the spinal cord. This result s in mild central spinal canal stenosis. Mild degenerative changes in the left facet joint and mild- moderate degenerative changes in the right facet joint. Mild-moderate bilateral foraminal stenosis e vident at this level.. C4-5: Mild decreased disc height and signal. Mild annular bulging with mild effacement of the anteri or thecal sac but not contacting the anterior spinal cord. Central canal dimensions are lower normal . Mild facet joint degenerative changes. Mild bilateral foraminal stenosis. C5-6: This is one level above the fusion. There is moderate-advanced disc space narrowing. Anterior osteophytes. There is mild annular bulging. This effaces the anterior thecal sac. Mild central ca nal stenosis. No foraminal stenosis on the left side. Moderate foraminal stenosis on the right side . C6-7: No disc space due to the essential fusion of C6 and C7 anterior vertebral bodies. Therefore no disc herniation. Central canal dimensions are within normal limits at this level. Also no signific ant narrowing of the exiting neural foramina on either side. No abnormal signal in the cord at this level C7-T1: Normal disc height and signal. No disc herniation or central spinal canal stenosis no facet a rthropathy.No foraminal stenosis. There appears to be a disc protrusion seen on the sagittal images at T2-3 level, somewhat difficult t o evaluate without axial images at level. IMPRESSION: 1. There is fusion of the vertebral bodies of C 6 and C7, without evidence of metallic foreign fusion hardware. No disc herniation or canal stenosis nor foraminal stenosis at this level. 2. Other level findings as described individually above. There is mild central spinal canal stenosis evident at C3-4 and C5-6 levels. Also foraminal stenosis as described above. 3. There is some straightening of the cervical curvature. Also mild cerebellar tonsillar ectopia not ed. DATA REPOSITORY:
== END 2021-01-23 01:49 ==
PROVIDERS: PCP Family Medicine; Visit Provider Student in an Organized Health Care Education/Training Program
DX: M54.5 Low back pain (principal); M54.12 Radiculopathy, cervical region; R20.2 Paresthesia of skin; M43.22 Fusion of spine, cervical region; M51.36 Other intervertebral disc degeneration, lumbar region; M43.12 Spondylolisthesis, cervical region
CPT/HCPCS: 72110; 72141

== ENCOUNTER 2021-03-18 01:56 | Outpatient (CLI) | payer MEDICAID, SELFPAY ==
--- NOTE | 2021-03-18 10:35 | DI.MRI_ITS ---
Exam(s) MR LUMBAR SPINE WO EXAM: MR LUMBAR SPINE WO CLINICAL HISTORY: severe back pain/right sciatica/positive imaging,RADICULOPATHY,M54.16. TECHNIQUE: Multiplanar multisequence MRI of the Lumbar spine was performed. COMPARISON: CR XR LUMBAR SPINE COMPLETE from 01/23/2021 FINDINGS: Plain films of 01/23/2021 were reviewed. Conus medullaris is at normal level. There is no evidence of conus mass nor subjacent clumping of in trathecal nerve roots to suggest arachnoiditis. The distal thecal sac appears unremarkable.There is no evidence of Tarlov intrasacral cysts nor other significant findings within the sacral canal Bones:There are no fractures nor ominous osseous lesions in the lumbar vertebral bodies and visualize d sacrum. With respect to the individual levels... T12-L1: No disc herniation or central canal stenosis. No significant foraminal stenosis. Mild facet degenerative changes. L1-2: This level exhibits advanced disc space narrowing and Modic type 1 sub endplate marrow edema ch anges on both sides of the disc space, most prominent right of center. There is mild retrolisthesis L1 upon L2. There is broad annular bulging without a dominant disc herniation. Central canal dimens ions are lower normal. Mild foraminal stenosis on the left side. Severe foraminal stenosis on the r ight side is noted due to annular bulging into the neural foramen and more prominent disc height loss on the right side this disc space. There is significant compression of the exiting right-sided nerv e root at this level. There is no prominent facet arthropathy at this level. L2-3: Relatively preserved disc height. There is slightly asymmetric annular bulging at this level. Annular bulging extends into both exiting neural foramina. There is no true foraminal stenosis on t he right side. Mild foraminal stenosis on the left side. Central canal dimensions are lower normal. Mild degenerative facet changes. L3-4: Normal disc height. Annular bulging slightly more prominent left of center and extending into the exiting neural foramen. This results in mild left-sided foraminal stenosis.Less foraminal stenos is on the right sidecentral canal dimensions lower normal. Mild facet arthropathy but more so on the left side. L4-5: Normal disc height and relatively preserved disc hydration signal. However, this level exhibit s mild anterolisthesis L4 upon L5 due to advanced degenerative facet arthropathy (there are no pars d efects) . There is mild-moderate central canal stenosis due to the listhesis. Only mild bilateral f oraminal narrowing due to the listhesis. There is no prominent foraminal stenosis, this due to the f act that there is preserved disc height on both sides. L5-S1: Normal disc height and signal. No disc herniation or central canal stenosis. No true foramin al stenosis. Mild facet degenerative changes. IMPRESSION: 1. Multilevel findings as described above. Although there is multilevel annular bulging, there is no dominant focal disc herniation. There is asymmetric foraminal stenosis. The most prominent foramin al stenosis is significant severe foraminal stenosis on the right side at the L1-2 level due to annul ar bulging into the exiting neural foramen at this level as well as asymmetric height loss of the dis c space at this level with more prominent disc height loss on the right side. It is in string to not e that there is also Modic type 1 sub endplate marrow edema changes confined to the right side of thi s disc space. 2. Mild degenerative anterolisthesis of L4 upon L5 with mild-moderate central canal stenosis at this level. If clinically indicated flexion extension lateral plain film views can be performed to determ ine the true amount of slippage of L4 upon L5 during everyday activities. 3. Other findings as above DATA REPOSITORY:
== END 2021-03-18 02:16 ==
PROVIDERS: PCP Family Medicine; Visit Provider Family Medicine
DX: M43.16 Spondylolisthesis, lumbar region; M48.061 Spinal stenosis, lumbar region without neurogenic claudication; M51.26 Other intervertebral disc displacement, lumbar region
CPT/HCPCS: 72148

== ENCOUNTER 2021-03-28 08:49 | Outpatient (REF) | payer MEDICAID, SELFPAY ==
[2021-03-28 10:43] LABS: Source Nasal/Nares
[2021-03-28 13:39] LABS: COVID-19 PCR Negative (Negative)
== END 2021-03-28 08:50 | disposition home or self-care (01) ==
LOC: LBN 08:49
PROVIDERS: PCP Family Medicine; Visit Provider Surgery
DX: Z20.822 Contact with and (suspected) exposure to COVID-19 (principal); Z01.818 Encounter for other preprocedural examination
CPT/HCPCS: 87635

== ENCOUNTER 2021-03-29 08:02 | Day surgery (SDC) | payer MEDICAID, SELFPAY ==
--- NOTE | 2021-03-28 21:46 | W.PM.DSUDISC ---
Discharge Plan Disposition Patient Disposition: HOME Condition: Good Discharge Details Reason For Visit: colon scope Attending Provider: Debbie Chirinos Primary Care Provider: Jigna Hughes Home Meds and New Rx's Prescriptions: Continued nystatin 100,000 unit/gram powder 1 applic topical DAILY Qty: 30 RF: 2 triamcinolone acetonide 15 GM cream 15 gm Topical BID PRNQty: 1 RF: 2 fluticasone propionate 50 mcg/actuation spray,suspension 1 spray NS BID Qty: 1 RF: 6 clotrimazole 1 % cream 1 applic TP BID PRN (Reason: skin rash) Qty: 28 RF: 3 benzonatate 100 mg capsule 100 - 200 mg PO TID PRN (Reason: cough) Qty: 60 RF: 2 meloxicam 15 mg tablet 15 mg PO DAILY PRN (Reason: joint pain) Qty: 30 RF: 6 Hold Instructions: Home Medication placed on hold at Doctor's office lidocaine [Lidoderm] 5 % adhesive patch,medicated 1 patch topical DAILY Qty: 1 RF: 1 albuterol sulfate 90 mcg/actuation HFA aerosol inhaler 1 - 2 puff IH QID PRN (Reason: shortness of breath or wheezing) Qty: 18 RF: 3 buspirone 30 mg tablet 30 mg PO BID Qty: 180 RF: 4 fesoterodine 4 mg tablet extended release 24 hr 4 mg PO DAILY Qty: 30 RF: 3 hydrochlorothiazide 25 mg tablet 25 mg PO DAILY Qty: 90 RF: 4 lisinopril 30 mg tablet 30 mg PO DAILY Qty: 90 RF: 4 pramipexole 0.5 mg tablet 0.5 mg PO HS Qty: 90 RF: 3 pravastatin 20 mg tablet 20 mg PO DAILY Qty: 90 RF: 4 venlafaxine 150 mg capsule,extended release 24hr 150 mg PO DAILY Qty: 90 RF: 4 cyclobenzaprine 10 mg tablet 10 mg PO DAILY PRN (Reason: muscle spasm) Qty: 30 RF: 0 gabapentin 600 mg tablet 600 mg PO BID Qty: 120 RF: 1 lorazepam [Ativan] 1 mg tablet 1 mg PO DAILY MDD 1mg PRN (Reason: anxiety) Qty: 10 RF: 0 Discontinued bisacodyl [Dulcolax (bisacodyl)] 5 mg tablet,delayed release (DR/EC) 5 mg PO ONCE Qty: 4 RF: 0 polyethylene glycol 3350 17 gram/dose powder 238 g PO ONCE Qty: 238 RF: 0 docusate sodium [Stool Softener] 100 mg capsule 100 mg PO BID PRN (Reason: constipation) Qty: 90 RF: 2 aspirin [Aspirin Low-Strength] 81 MG tablet,chewable 81 mg PO DAILY RF: 0 Discharge Instructions Additional Instructions: DSU Colonoscopy Post-Op Instructions Instructions for Everyone who is given Anesthesia: For your safety, please do the following for the next twenty-four (24) hours: *Do Not operate a motor vehicle (car, truck, motorcycle, etc.) *Do Not drink alcoholic beverages or use any recreational drugs for the first 24 hours or while taking pain medications. The medications in your body may have a reaction that can be dangerous. *Do Not make any important decisions or sign any important papers. Findings:diverticula rectal prolapse- Need to go down [place] [facility] [place] You will need to stop smoking prior to any surgery Follow up: scope was incomplete and will need to be repeated. 1. No lifting over 20 pounds or strenuous activity for the first 24 hours after your procedure. After 24 hours there are no restrictions on your activity but you may feel fatigued for a few days. 2. After you arrive home you may have a light meal and return to your normal diet as you can tolerate it without feeling sick to your stomach. 3. You may have a bloated, gaseous feeling in your belly (abdomen) after a colonoscopy. Passing gas and belching will help. Walking or lying down on your left side with your knees flexed may relieve the discomfort. Call the office at [phone] (Office) or [phone] (Hospital) right away if you notice any of the following: a.Vomiting of blood or ?coffee ground stools?. b.Rectal bleeding 1Tbsp, blood clots or continuous bleeding. c.Severe belly (abdominal) pain. d.A hard distended belly (abdomen) and an inability to pass gas. 4. Please don?t expect to have a normal BM (bowel movement) for 2-3 days after your procedure. 5. If there are questions regarding the findings of your procedure, please contact your doctor 6. If you are unable to contact your doctor with a problem, contact the hospital at [phone]. 7. Continue all your regular medications unless directed otherwise. I understand the above instructions and have no questions. Signature of Patient or Adult Escort Name of Responsible Adult Escort Signature of Nurse Date/Time Stand Alone Forms: Anesthesia Discharge Curtis Thacker (DSU) Activity:: see above Diet:: see above Discharge Orders Discharge Orders: Discharge Order (Routine); Ordered 03/28/21 Ordered By: Debbie Chirinos
--- NOTE | 2021-03-28 21:48 | W.COLOREPORT ---
Colonoscopy Report Date of procedure: 03/29/21 Pre-op diagnosis general: fecal incont/mucosal prolaspe/hx of polyps Surgeon: Debbie Chirinos Anesthesia Type: General:No Airway Procedure Description: After informed consent was obtained the patient was taken to the procedure room and placed in a left decubitous position. Monitors were applied and a time out was done. The patients name, date of , procedure, allergies to medications and metal in their body was reviewed. The patient was then sedated. Once sedated and comfortable a rectal exam was done. Pelvic exam is done prior to starting the procedure. She has a Grade II enterocele and complete (stage III) rectal prolapse. The scope was then introduced. The cecum is acheived. The TI and appendiceal orifice were identified. The prep was poor. PT ate breakfast yesterday. At that point scope became clogged with vegetable fibers and we are unable to unclog the scope. There is liquid stool coating the king and a large amount of material that was still left in the colon, obscuring the colon king. The scope was then slowly retracted over 9 minutes back into the rectum. No large masses were seen. Patient does have diverticula of the sigmoid colon?mild. Small Polyps could have been missed. the scope was removed and the patient was woken up and taken back to Same day surgery in stable condition. The patient tolerated the procedure well and there were no immediate complications. Follow up: Patient's prep was incomplete and needs a repeat colonoscopy with a complete prep. She also should be referred down to the pelvic floor clinic at [facility]. She needs to stop smoking.
[2021-03-29 08:29] VITALS: BP 135/88; PULSE 98; RESP 18; TEMP 37.2; O2SAT 96
[2021-03-29] MEDS: Lactated Ringers 1,000 ML 80 ML IV (09:00)
--- NOTE | 2021-03-29 09:01 | W.ANESPRE ---
General Info Date of Service Date Performed: 03/29/21 Height: 5 ft 2 in Weight: 75.5 kg Body Mass Index (BMI): 30.4 Surgical Procedure: Operation Date: 03/29/21 09:20 Proposed Procedures Side Surgeon jose roberto Chirinos, Meds Allergies and Home Medications Allergies Allergy/AdvReac Type Severity Reaction Status Date / Time Corticosteroids Allergy Intermediate INCREASED Verified 03/29/21 08:15 (Glucocorticoids) SOB prednisone Allergy Intermediate SOB Verified 03/29/21 08:15 Home Medication Medication Instructions Recorded triamcinolone acetonide 15 gm TOPICAL BID PRN #1 script 11/24/16 aspirin [Aspirin Low-Strength] 81 mg PO DAILY 01/03/18 clotrimazole 1 % topical cream 1 applic TP BID PRN #28 gm 07/14/19 fluticasone propionate 50 1 spray NS BID #1 bottle 07/14/19 mcg/actuation nasal spray,suspension benzonatate 100 mg capsule 100 - 200 mg PO TID PRN #60 cap 08/25/19 meloxicam 15 mg tablet 15 mg PO DAILY PRN #30 tab 08/14/20 docusate sodium 100 mg capsule 100 mg PO BID PRN #90 cap 09/05/20 nystatin 100,000 unit/gram topical 1 applic TOPICAL DAILY #30 g 10/03/20 powder lidocaine 5 % topical patch 1 patch TOPICAL DAILY #1 ea 01/09/21 bisacodyl 5 mg tablet,delayed 5 mg PO ONCE #4 tab 03/14/21 release polyethylene glycol 3350 17 238 g PO ONCE #238 g 03/14/21 gram/dose oral powder albuterol sulfate 90 mcg/actuation 1 - 2 puff IH QID PRN #18 gm 03/22/21 aerosol inhaler buspirone 30 mg tablet 30 mg PO BID #180 tab 03/22/21 cyclobenzaprine 10 mg tablet 10 mg PO DAILY PRN #30 tab-cap 03/22/21 fesoterodine 4 mg tablet,extended 4 mg PO DAILY #30 tab 03/22/21 release 24 hr gabapentin 600 mg tablet 600 mg PO BID #120 tab 03/22/21 hydrochlorothiazide 25 mg tablet 25 mg PO DAILY #90 tab-cap 03/22/21 lisinopril 30 mg tablet 30 mg PO DAILY #90 tab 03/22/21 lorazepam 1 mg tablet 1 mg PO DAILY PRN #10 tab-cap MDD 03/22/21 1mg pramipexole 0.5 mg tablet 0.5 mg PO HS #90 tab-cap 03/22/21 pravastatin 20 mg tablet 20 mg PO DAILY #90 tab-cap 03/22/21 venlafaxine 150 mg 150 mg PO DAILY #90 tab-cap 03/22/21 capsule,extended release 24 hr Current Visit Medications: Current Medications Generic Name Dose Route Start Last Admin Trade Name Misty PRN Reason Stop Dose Admin Hyoscyamine Sulfate 0.125 mg 03/28/21 21:45 Hyoscyamine 0.125 Mg Sl/Oral/Chew SL DIRECTED PRN Ringer's Solution 1,000 mls @ 80 mls/hr 03/29/21 06:00 03/29/21 09:00 IV 04/27/21 23:59 80 mls/hr INFUSION STEPHANIE Administration IV Miscellaneous Supplies 1 each 03/29/21 06:00 Iv Access IV 04/27/21 23:59 DIRECTED STEPHANIE Ondansetron HCl 4 mg 03/28/21 21:45 Ondansetron 4 Mg/2 Ml Vial IVP Q4H PRN PRN Nausea / Vomiting Sodium Chloride 0 ml 03/29/21 06:00 Normal Saline Flush 10 Ml Syr IV 04/27/21 23:59 PRN PRN Sodium Chloride 0 ml 03/29/21 06:00 Normal Saline 10 Ml Vial IJ 04/27/21 23:59 DIRECTED PRN Sterile Water 0 ml 03/29/21 06:00 Water,Injection,Sterile 10 Ml Vial IJ 04/27/21 23:59 DIRECTED PRN PFSH Active Problems Active Problems: Problem Status Onset Code Spondylosis of lumbar region without myelopathy or radiculopathy M47.816 Low back pain M54.5 S/P cervical spinal fusion Z98.1 Cervical radiculopathy M54.12 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 Rectal mucosa prolapse K62.3 Fecal soiling due to fecal incontinence R15.9 Right hand paresthesia R20.2 Pelvic prolapse N81.9 Generalized anxiety disorder F41.1 Essential hypertension 04/20/13 I10 Nasal septal ulcer J34.0 Epidermal cyst of face L72.0 Groin pain R10.30 Wound infection T14.8XXA, L08.9 Mass of right finger R22.31 Right carpal tunnel syndrome G56.01 Abnormal glandular Papanicolaou smear of cervix R87.619 Goiter E04.9 Headache R51 Otitis externa due to herpes zoster 06/30/13 B02.8 Contusion of right patella S80.01XA Urge incontinence of urine N39.41 Smoker F17.200 Sensorineural hearing loss, bilateral 04/06/14 H90.3 Neck pain M54.2 Nasal vestibulitis 05/08/16 J34.89 Hyperlipidemia 02/06/14 E78.5 Deviated nasal septum 05/08/16 J34.2 Depressive disorder F32.9 Chronic low back pain M54.5, G89.29 Medical History Medical History Anxiety disorder Benign hypertension Depression Essential hypertension (04/20/13) Normal echocardiogram Fecal soiling due to fecal incontinence Generalized anxiety disorder Groin pain Hyperlipidemia Mass of right finger Rectal mucosa prolapse Right carpal tunnel syndrome Sensorineural hearing loss Urge incontinence Surgical History Surgical History Arthroscopy unknown type of right wrist surgery Arthroscopy, Shoulder unknown type of right shoulder surgery Hemorrhoidal Banding (01/12/18) History of arthroscopy History of bilateral ligation of fallopian tubes Ligation of fallopian tube Open Carpal Tunnel release S/P cervical spinal fusion C6-7 2002 Spinal Fusion cervical and lumbar Tobacco Smoking/Tobacco Use Status: Current every day Tobacco Type: cigarettes Smoking cigarettes per day: 10 Tobacco: How many years used: 30 Smokeless tobacco user: dissolvable tobacco Passive smoking exposure: Yes Quit Status: has quit before Second hand exposure: Yes Alcohol Alcohol Intake: former Substance Use Substance use: Daily Substance use type: marijuana Details: last cannabis use 03/28/21 @ 1400 Vital Signs and Lab Results Vital Signs Most Recent Vital Signs in EMR: Most Recent Vital Signs Temp Pulse Resp BP Pulse Ox 37.2 C 98 H 18 135/88 96 03/29/21 08:29 03/29/21 08:29 03/29/21 08:29 03/29/21 08:29 03/29/21 08:29 Lab Results Blood Type / Crossmatch: No Data to Display Complete Blood Count: No Data to Display Complete Metabolic Panel: No Data to Display Liver Function Panel: No Data to Display Coagulation Panel: No Data to Display Cardiac Panel: No Data to Display Arterial Blood Gas: No Data to Display Venous Blood Gas: No Data to Display Pancreas Panel: No Data to Display Thyroid Panel: No Data to Display Infectious Disease: Coronavirus (COVID-19)(PCR) Negative (Negative) 03/28/21 08:27 03/28/21 Coronavirus 2019 Source Nasal/Nares 03/28/21 08:27 03/28/21 Blood Cultures: No Data to Display Toxicology Panel: No Data to Display Imaging and Studies Imaging and Studies Echocardiogram Summary: 08/28/2015: *STUDY CONCLUSIONS* Impressions: Very technically limited study. No significant valvular disease Summary: 1. Left ventricle: The cavity size was normal. Wall thickness was normal. Systolic function was normal. The estimated ejection fraction was 65%. Wall motion was normal; there were no regional wall motion abnormalities. 2. Right ventricle: The cavity size was normal. Wall thickness was normal. Systolic function was normal. Carotid Artery Summary:: 12/2012: *STUDY CONCLUSIONS* Impressions: Very technically limited study. No significant valvular disease Summary: 1. Left ventricle: The cavity size was normal. Wall thickness was normal. Systolic function was normal. The estimated ejection fraction was 65%. Wall motion was normal; there were no regional wall motion abnormalities. 2. Right ventricle: The cavity size was normal. Wall thickness was normal. Systolic function was normal. Anesthesia Assessment and Plan Anesthesia History Personal History: No History of Anesthesia Complications Family History: No Family History of Anesthesia Complications Exercise Tolerance Exercise Tolerance: Metabolic Equivalents>4 Pertinent Negatives Pertinent Negatives: No Symptoms of GERD and No Major Cardiovascular Symptoms or Complaints Cardiac & Pulmonary Exam Cardiac Exam: Normal S1/S2 Heart Sounds Pulmonary Exam: Clear Bilateral Breath Sounds Airway Exam Known Difficult Airway: No Mallampati Class: 2 Mouth Opening: Normal (> 3cm) Thyromental Distance: Greater than 3 cm Facial Hair: Full Stewart Neck Range of Motion: Full ROM Neck Circumference: Normal Teeth Condition: Generalized Poor Dentition ASA Classification ASA Score: ASA 2 Emergency Case?: No NPO Status NPO Status: NPO Clears >2 hours, Solids >8 hours Anesthesia Plan Resuscitation Status: Full Code Anesthesia Technique: General Anesthesia Airway Planned: Natural Airway Monitors Used: Standard Monitors
[2021-03-29 09:02] VITALS: BMI 30.4
[2021-03-29 10:10] VITALS: BP 151/74; PULSE 90; RESP 16; TEMP 36.3; O2SAT 98
[2021-03-29 10:40] VITALS: BP 142/90; PULSE 87; RESP 18; TEMP 36.4; O2SAT 99
--- NOTE | 2021-03-29 11:14 | W.ANESPOSTOP ---
Postoperative Evaluation Date, Time and Location Date Performed: 03/29/21 Time Performed: 10:40 Patient Location: Day Surgery Unit Vital Signs Most Recent Imported Vital Signs: Most Recent Vital Signs Temp Pulse Resp BP Pulse Ox 36.4 C L 87 18 142/90 H 99 03/29/21 10:40 03/29/21 10:40 03/29/21 10:40 03/29/21 10:40 03/29/21 10:40 Pain Score Most Recent Pain Score: Most Recent Pain Score Pain Level 0 03/29/21 10:40 Assessment Mental Status: Awake (Alert & Oriented to Patient Baseline) Airway and Respiratory Function: Patent airway with normal (patient baseline) respiratory exam Cardiovascular Function: Hemodynamically Stable Hydration Status: Adequately Hydrated Nausea & Vomiting: No Nausea or Vomiting Pain: Pt. Denies Any Pain Peripheral Nerve Block: Patient did not receive a nerve block
== END 2021-03-29 11:50 | disposition home or self-care (01) ==
PROVIDERS: PCP Family Medicine; Visit Provider Surgery
PROC: 0DJD8ZZ Inspection of Lower Intestinal Tract, Via Natural or Artificial Opening Endoscopic (ICD-10-PCS; CPT 45378; principal; 2021-03-29 09:15)
DX: K62.2 Anal prolapse (principal); R15.9 Full incontinence of feces; N81.5 Vaginal enterocele; N81.6 Rectocele; Z86.010 Personal history of colon polyps; K57.30 Diverticulosis of large intestine without perforation or abscess without bleeding; F17.210 Nicotine dependence, cigarettes, uncomplicated
CPT/HCPCS: 45378; J2001; J2704

== ENCOUNTER 2021-04-04 07:45 | Outpatient (CLI) | payer MEDICAID, SELFPAY ==
--- NOTE | 2021-04-04 06:00 | DI.RAD_ITS ---
Exam(s) XR PAIN CLINIC LUMBAR SP 2V EXAM: XR PAIN CLINIC LUMBAR SP 2V CLINICAL HISTORY: Dx: Lumbar Spondylosis TECHNIQUE: 2D and realtime digital imaging was performed. Radiologist not present. CONTRAST MATERIAL: None. COMPARISON: No exams were available for comparison FINDINGS: Fluoroscopy was provided for pain management therapy. Please refer to procedure report or details. Total fluoroscopy time 37 seconds Cumulative dose: Ka,r=7.54 mGy IMPRESSION: RADIATION DOSE DELIVERED:
[2021-04-04 07:58] VITALS: BP 154/90; PULSE 90; RESP 18; TEMP 37; O2SAT 96
[2021-04-04] MEDS: Omnipaque 240 MG/ML 50 ML BTL IJ (08:30)
[2021-04-04] MEDS: Bupivacaine 0.5% Pres-Free 10 ML VIAL IJ (08:30)
--- NOTE | 2021-04-04 08:33 | PDOC.PAIN_ITS ---
Pain Clinic Procedure Note Procedure Note Procedure Note: Lumbar/Sacral Medial Branch Blocks Jeniffer Chow has been referred to the [facility] for lumbar/sacral medial branch blocks. COMMENTS: Pre-procedure pain VAS is 6/10 DX: Lumbosacral spondylosis without myelopathy Patient was interviewed and the medical record reviewed. There were no medical, pharmacologic, radiographic or other structural contraindications to attempting fluoroscopically guided local anesthetic lumbar/sacral medial branch blocks. Risks and expected side effects as well as potential benefit of the procedure were reviewed and voiced concerns addressed. The printed consent form was signed and witnessed. Standard time-out procedure was performed. Patient was placed in the prone position on the fluoroscopy table and automated blood pressure cuff and pulse oximeter applied. The skin entry points for a pproaching the anatomic target points of the segmental medial branches of right L2-L5DR were identified with anfluoroscopy and marked. Following thorough Chlorhexadine preparation of the skin and draping and 1% lidocaine infiltration of the skin entry points and subcutaneous tissues, a 22 gauge spinal needle was placed under fluoroscopic guidance down on to the target point for each respective segmental medial branch.Position was confirmed in A/P, oblique and lateral views with 0.25ml of omnipaque 240. At this point 0.5cc of 0.5% Bupivacaine was injected at each segmental nerve. Vital signs were stable throughout the procedure and were as recorded in the docflowsheet by the nursing staff. Follow up plans and appointments were discussed and was instructed to keep car eful note of how the usual pain was modified by these injections. Specifically was asked to keep a pain diary for the next 24 hours using a numeric pain scale of 0-10 and report these results at the follow-up visit. Post procedure instruction was given as documented in the nursing documentation and having met discharge criteria. Patient was discharged from the [facility] Management Center. Based on the medial branches blocked today, if the patient has adequate relief and we are able to proceed to radiofrequency ablation, the treatment should result in the denervation of the right L3-L4, L4-L5, and L5-S1 FACET JOINTS. We would expect to denervate a total of 3 facets during the radiofrequency ablation. COMMENTS: Post-procedure pain level was 3/10 and she was able to walk and bend much easier. Paul Vergara DO, MPH Pain Management CC: Jigna Hughes MD
[2021-04-04 08:35] VITALS: BP 155/72; PULSE 92; RESP 19; O2SAT 95
== END 2021-04-04 07:46 | disposition home or self-care (01) ==
LOC: PC 07:45
PROVIDERS: PCP Family Medicine; Visit Provider Preventive Medicine Occupational Medicine
DX: M47.817 Spondylosis without myelopathy or radiculopathy, lumbosacral region (principal)
CPT/HCPCS: 64493; 64494; 64495; 72100; Q9967

== ENCOUNTER 2021-06-06 07:30 | Outpatient (CLI) | payer MEDICAID, SELFPAY ==
--- NOTE | 2021-06-06 06:00 | DI.RAD_ITS ---
Exam(s) XR PAIN CLINIC LUMBAR SP 2V EXAM: XR PAIN CLINIC LUMBAR SP 2V CLINICAL HISTORY: DX: Lumbar Spondylosis TECHNIQUE: 2D and realtime digital imaging was performed. CONTRAST MATERIAL: Refer to procedure report. COMPARISON: No exams were available for comparison FINDINGS: Fluoroscopy was provided for Dr. Vergara during the performance of a lumbar medial branch block. Please refer to the procedure report for complete details. Ka,r=7.54 mGy IMPRESSION:
[2021-06-06 07:58] VITALS: BP 144/77; PULSE 112; RESP 20; TEMP 36.7; O2SAT 95
--- NOTE | 2021-06-06 08:45 | PDOC.PAIN ---
Pain Clinic Procedure Note Procedure Note Procedure Note: Lumbar/Sacral Medial Branch Blocks Jeniffer Chow has been referred to the [facility] for lumbar/sacral medial branch blocks. COMMENTS: Pre-procedure pain VAS = 6/10. DX: Lumbosacral spondylosis without myelopathy Patient was interviewed and the medical record reviewed. There were no medical, pharmacologic, radiographic or other structural contraindications to attempting fluoroscopically guided local anesthetic lumbar/sacral medial branch blocks. Risks and expected side effects as well as potential benefit of the procedure were reviewed and voiced concerns addressed. The printed consent form was signed and witnessed. Standard time-out procedure was performed. Patient was placed in the prone position on the fluoroscopy table and automated blood pressure cuff and pulse oximeter applied. The skin entry points for approaching the anatomic target points of the segmental medial branches of the right L2-L5 medial branches were identified with anfluoroscopy and marked. Following thorough Chlorhexadine preparation of the skin and draping and 1% lidocaine infiltration of the skin entry points and subcutaneous tissues, a 22 gauge spinal needle was placed under fluoroscopic guidance down on to the target point for each respective segmental medial branch.Position was confirmed in A/P, oblique and lateral views with 0.25ml of omnipaque 240. At this point, 0.5cc of 2% Lidocaine was injected at each segmental sensory nerve. Vital signs were stable throughout the procedure and were as recorded in the docflowsheet by the nursing staff. Follow up plans and appointments were discussed and was instructed to keep careful note of how the usual pain was modified by these injections. Specifically was asked to keep a pain diary for the next 24 hours using a numeric pain scale of 0-10 and report these results at the follow-up visit. Post procedure instruction was given as documented in the nursing documentation and having met discharge criteria. Patient was discharged from the [facility]. Based on the medial branches blocked today, if the patient has adequate relief and we are able to proceed to radiofrequency ablation, the treatment should result in the denervation of the [right L3-L4, L4-L5 and L5-S1 FACET JOINTS. We would expect to denervate a total of 3 facets during the radiofrequency ablation. COMMENTS: Post-procedure pain VAS = 5/10 Paul Vergara DO, MPH [facility] CC: Jose Alejandro Tran
[2021-06-06] MEDS: Omnipaque 240 MG/ML 50 ML BTL IJ (08:49)
[2021-06-06] MEDS: Lidocaine 2% Pres-Free 5 ML VIAL IJ (08:49)
[2021-06-06 08:50] VITALS: BP 149/74; PULSE 109; RESP 18; O2SAT 98
== END 2021-06-06 07:31 | disposition home or self-care (01) ==
LOC: PC 07:33
PROVIDERS: PCP Family Medicine; Visit Provider Preventive Medicine Occupational Medicine
DX: M47.817 Spondylosis without myelopathy or radiculopathy, lumbosacral region (principal)
CPT/HCPCS: 64493; 64494; 64495; 72100; Q9967

== ENCOUNTER 2021-07-08 03:04 | Outpatient (CLI) | payer MEDICAID, SELFPAY ==
[2021-07-08 10:13] LABS: Source Nasal/Nares
[2021-07-08 12:26] LABS: COVID-19 PCR Negative (Negative)
== END 2021-07-08 03:05 | disposition home or self-care (01) ==
LOC: LBO 03:04
PROVIDERS: PCP Family Medicine; Visit Provider Surgery
DX: Z20.822 Contact with and (suspected) exposure to COVID-19 (principal)
CPT/HCPCS: 87635

== ENCOUNTER 2021-07-09 07:46 | Day surgery (SDC) | payer MEDICAID, SELFPAY ==
[2021-07-09 07:56] VITALS: BP 135/86; PULSE 105; RESP 22; TEMP 37; O2SAT 98
[2021-07-09] MEDS: Lactated Ringers 1,000 ML 80 ML IV (08:24)
--- NOTE | 2021-07-09 08:49 | W.ANESPRE ---
General Info Date of Service Date Performed: 07/09/21 Height: 5 ft 2 in Weight: 75.6 kg Body Mass Index (BMI): 30.4 Surgical Procedure: Operation Date: 07/09/21 09:20 Proposed Procedures Side Surgeon jose roberto Chirinos, Meds Allergies and Home Medications Allergies Allergy/AdvReac Type Severity Reaction Status Date / Time Corticosteroids Allergy Intermediate INCREASED Verified 07/09/21 08:08 (Glucocorticoids) SOB prednisone Allergy Intermediate SOB Verified 07/09/21 08:08 Home Medication Medication Instructions Recorded triamcinolone acetonide 15 gm TOPICAL BID PRN #1 script 11/24/16 clotrimazole 1 % topical cream 1 applic TP BID PRN #28 gm 07/14/19 fluticasone propionate 50 1 spray NS BID #1 bottle 07/14/19 mcg/actuation nasal spray,suspension benzonatate 100 mg capsule 100 - 200 mg PO TID PRN #60 cap 08/25/19 albuterol sulfate 90 mcg/actuation 1 - 2 puff IH QID PRN #18 gm 03/22/21 aerosol inhaler buspirone 30 mg tablet 30 mg PO BID #180 tab 03/22/21 fesoterodine 4 mg tablet,extended 4 mg PO DAILY #30 tab 03/22/21 release 24 hr hydrochlorothiazide 25 mg tablet 25 mg PO DAILY #90 tab-cap 03/22/21 lisinopril 30 mg tablet 30 mg PO DAILY #90 tab 03/22/21 lorazepam 1 mg tablet 1 mg PO DAILY PRN #10 tab-cap MDD 03/22/21 1mg pravastatin 20 mg tablet 20 mg PO DAILY #90 tab-cap 03/22/21 venlafaxine 150 mg 150 mg PO DAILY #90 tab-cap 03/22/21 capsule,extended release 24 hr docusate sodium 100 mg capsule 100 mg PO BID PRN #90 cap 04/21/21 lidocaine HCl 2 % mucosal jelly 5 ml OH BID PRN PRN #30 ml 04/21/21 nystatin 100,000 unit/gram topical 1 applic TOPICAL DAILY #30 g 04/21/21 powder pramipexole 0.5 mg tablet 0.5 mg PO BID #90 tab-cap 04/21/21 cyclobenzaprine 10 mg tablet 10 mg PO DAILY PRN #30 tab-cap 05/17/21 lidocaine 5 % topical patch 1 patch TOPICAL DAILY #30 ea 05/17/21 meloxicam 15 mg tablet 15 mg PO DAILY PRN #60 tab 05/22/21 gabapentin 600 mg tablet 600 mg PO Q8H #90 tab 05/28/21 aspirin 81 mg tablet,delayed 81 mg PO DAILY 07/01/21 release bisacodyl 5 mg tablet,delayed 5 mg PO ONCE #4 tab 07/01/21 release polyethylene glycol 3350 17 238 g PO ONCE #238 g 07/01/21 gram/dose oral powder Current Visit Medications: Current Medications Generic Name Dose Route Start Last Admin Trade Name Jerelq PRN Reason Stop Dose Admin Ringer's Solution 1,000 mls @ 80 mls/hr 07/09/21 06:00 07/09/21 08:24 IV 08/07/21 23:59 80 mls/hr INFUSION STEPHANIE Administration IV Miscellaneous Supplies 1 each 07/09/21 06:00 Iv Access IV 08/07/21 23:59 DIRECTED STEPHANIE Sodium Chloride 0 ml 07/09/21 06:00 Normal Saline Flush 10 Ml Syr IV 08/07/21 23:59 PRN PRN Sodium Chloride 0 ml 07/09/21 06:00 Normal Saline 10 Ml Vial IJ 08/07/21 23:59 DIRECTED PRN Sterile Water 0 ml 07/09/21 06:00 Water,Injection,Sterile 10 Ml Vial IJ 08/07/21 23:59 DIRECTED PRN PFSH Active Problems Active Problems: Problem Status Onset Code Acquired vaginal enterocele N81.5 Vaginal enterocele due to incomplete uterovaginal prolapse N81.2 Spondylosis of lumbar region without myelopathy or radiculopathy M47.816 Low back pain M54.5 S/P cervical spinal fusion Z98.1 Cervical radiculopathy M54.12 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 Rectal mucosa prolapse K62.3 Fecal soiling due to fecal incontinence R15.9 Right hand paresthesia R20.2 Pelvic prolapse N81.9 Generalized anxiety disorder F41.1 Essenstial hypertension 04/20/13 I10 Nasal septal ulcer J34.0 Epidermal cyst of face L72.0 Groin pain R10.30 Wound infection T14.8XXA, L08.9 Mass of right finger R22.31 Right carpal tunnel syndrome G56.01 Abnormal glandular Papanicolaou smear of cervix R87.619 Goiter E04.9 Headache R51 Otitis externa due to herpes zoster 06/30/13 B02.8 Contusion of right patella S80.01XA Urge incontinence of urine N39.41 Smoker F17.200 Sensorineural hearing loss, bilateral 04/06/14 H90.3 Neck pain M54.2 Nasal vestibulitis 05/08/16 J34.89 Hyperlipidemia 02/06/14 E78.5 Deviated nasal septum 05/08/16 J34.2 Depressive disorder F32.9 Chronic low back pain M54.5, G89.29 Medical History Medical History Anxiety disorder Benign hypertension Depression Hyperlipidemia Sensorineural hearing loss Urge incontinence Surgical History Surgical History Arthroscopy unknown type of right wrist surgery Arthroscopy, Shoulder unknown type of right shoulder surgery Hemorrhoidal Banding (01/12/18) History of arthroscopy History of bilateral ligation of fallopian tubes History of colonoscopy (~03/29/21) incomplete colonoscopy D/T poor prep repeat Ligation of fallopian tube Open Carpal Tunnel release Spinal Fusion cervical and lumbar Tobacco Smoking/Tobacco Use Status: Current every day Tobacco Type: cigarettes Smoking cigarettes per day: 10 Tobacco: How many years used: 30 Smokeless tobacco user: dissolvable tobacco Passive smoking exposure: Yes Quit Status: has quit before Second hand exposure: Yes Alcohol Alcohol Intake: former Substance Use Substance use: Daily Substance use type: marijuana Details: last used 07.08.21 Vital Signs and Lab Results Vital Signs Most Recent Vital Signs in EMR: Most Recent Vital Signs Temp Pulse Resp BP Pulse Ox 37 C 105 H 22 135/86 98 07/09/21 07:56 07/09/21 07:56 07/09/21 07:56 07/09/21 07:56 07/09/21 07:56 Lab Results Blood Type / Crossmatch: No Data to Display Complete Blood Count: No Data to Display Complete Metabolic Panel: No Data to Display Liver Function Panel: No Data to Display Coagulation Panel: No Data to Display Cardiac Panel: No Data to Display Arterial Blood Gas: No Data to Display Venous Blood Gas: No Data to Display Pancreas Panel: No Data to Display Thyroid Panel: No Data to Display Infectious Disease: Coronavirus (COVID-19)(PCR) Negative (Negative) 07/08/21 09:09 07/08/21 Coronavirus 2019 Source Nasal/Nares 07/08/21 09:09 07/08/21 Blood Cultures: No Data to Display Toxicology Panel: No Data to Display Imaging and Studies Imaging and Studies Study information below may be from another EMR and interpreted by another provider. Please see original notes in EMR for more complete details. Echocardiogram Summary: 08/28/2015: *STUDY CONCLUSIONS* Impressions: Very technically limited study. No significant valvular disease Summary: 1. Left ventricle: The cavity size was normal. Wall thickness was normal. Systolic function was normal. The estimated ejection fraction was 65%. Wall motion was normal; there were no regional wall motion abnormalities. 2. Right ventricle: The cavity size was normal. Wall thickness was normal. Systolic function was normal. Carotid Artery Summary:: 12/2012: *STUDY CONCLUSIONS* Impressions: Very technically limited study. No significant valvular disease Summary: 1. Left ventricle: The cavity size was normal. Wall thickness was normal. Systolic function was normal. The estimated ejection fraction was 65%. Wall motion was normal; there were no regional wall motion abnormalities. 2. Right ventricle: The cavity size was normal. Wall thickness was normal. Systolic function was normal. Anesthesia Assessment and Plan Anesthesia History Personal History: No History of Anesthesia Complications Family History: No Family History of Anesthesia Complications Exercise Tolerance Exercise Tolerance: Metabolic Equivalents>4 Pertinent Negatives Pertinent Negatives: No Symptoms of GERD, No Major Cardiovascular Symptoms or Complaints, No History of CVA/TIA and Other (Chronic cough) Cardiac & Pulmonary Exam Cardiac Exam: Normal S1/S2 Heart Sounds Pulmonary Exam: Clear Bilateral Breath Sounds and Other (Diminished throughout) Implantable Cardiac Device Does patient have a Pacemaker or an ICD?: No Airway Exam Known Difficult Airway: No Mallampati Class: 2 Mouth Opening: Normal (> 3cm) Thyromental Distance: Greater than 3 cm Neck Range of Motion: Full ROM Neck Circumference: Normal Teeth Condition: Generalized Poor Dentition ASA Classification ASA Score: ASA 2 Emergency Case?: No NPO Status NPO Status: NPO Clears >2 hours, Solids >8 hours Anesthesia Plan Resuscitation Status: Full Code Anesthesia Technique: General Anesthesia Airway Planned: Natural Airway Monitors Used: Standard Monitors
[2021-07-09 08:50] VITALS: BMI 30.4
--- NOTE | 2021-07-09 10:42 | BOWEL_PTH ---
PATIENT: Jeniffer Chow LOC: [facility] U#:[id number] AGE/SX: 66/F ROOM: RE07/09/[address]: Debbie Chirinos : 1955 BED: DIS: 07/09/2021 SPEC #: [id number] RECD: 07/09/21 12:55 STATUS: LANETTE REQ #: [id number] HAVEN: 07/09/21 10:[address]: Debbie Chirinos DEPT: Surgical Specimen RECD BY: Anna Barney ENTERED: 07/09/21 12:57 SP TYPE: Bowel OTHR DR: Jose Alejandro Tran Tissues: 1 - BIOPSY BOWEL 2 - BIOPSY BOWEL Procedures: GROSS AND MICRO LEVEL 4 Comments: [id number]
[2021-07-09 10:53] VITALS: BP 107/74; PULSE 92; RESP 16; TEMP 36.4; O2SAT 94
--- NOTE | 2021-07-09 11:05 | COLE_ITS ---
Colonoscopy Report Date of procedure: 07/09/21 Pre-op diagnosis general: rectal prolapse/rectal bleeding and pain Post-op diagnosis procedure note: other (polyps) Surgeon: Debbie Chirinos Anesthesia Type: General:No Airway Estimated blood loss (mL): 1 Pathology: other Complications: None Disposition: same day Prep: Miralax/Dulcolax Retraction Time: 8 Procedure Description: After informed consent was obtained the patient was taken to the procedure room and placed in a left decubitous position. Monitors were applied and a time out was done. The patients name, date of , procedure, allergies to medications and metal in their body was reviewed. The patient was then sedated. Once sedated and comfortable a rectal exam was done. External exam was normal. Internal exam revealed a normal sphincter tone and no palpable masses. The scope was then introduced and retrofelexed. internal hemorrhoids were identified. She has no rectal tone. She is grossly incontinent of stool. The scope was then advanced to the cecum w/ difficulty. The TI and appendiceal orifice were identified. The prep was good BBPS-1. The scope was then slowly retracted over 8 minutes back into the rectum. She did not have any diverticula visualized today. At 15 cm she has a cluster of small 5 mm polyps, surrounding what appears to be a flat polyp. This was normal under NBI. The 3, 5 mm, flat polyps are removed with a cold biting forcep. Multiple traffic workforce representative bites are taken with a cold forcep biopsy of this irregular area of mucosa. All specimen is retrieved and no significant bleeding is noted. The scope was removed and the patient was woken up and taken back to Same day surgery in stable condition. The patient tolerated the procedure well and there were no immediate complications. Follow up: The patient should follow up in 10years , path pd,unless they develop changes in bowel habits or other new gastrointestinal complaints. Patient should hopefully get a call within the next 6 to 12 weeks from [facility] pelvic floor lab to discuss reconstructive surgery. She needs to stop smoking as no surgery will be done if she is still smoking. She should follow-up with her PCP regarding this if she feels she needs help.
--- NOTE | 2021-07-09 11:09 | W.ANESPOSTOP ---
Postoperative Evaluation Date, Time and Location Date Performed: 07/09/21 Time Performed: 10:55 Patient Location: Day Surgery Unit Vital Signs Most Recent Imported Vital Signs: Most Recent Vital Signs Temp Pulse Resp BP Pulse Ox 36.4 C L 92 H 16 107/74 94 07/09/21 10:53 07/09/21 10:53 07/09/21 10:53 07/09/21 10:53 07/09/21 10:53 Pain Score Most Recent Pain Score: Most Recent Pain Score Pain Level 0 07/09/21 10:53 Assessment Mental Status: Awake (Alert & Oriented to Patient Baseline) Airway and Respiratory Function: Patent airway with normal (patient baseline) respiratory exam Cardiovascular Function: Hemodynamically Stable Hydration Status: Adequately Hydrated Nausea & Vomiting: No Nausea or Vomiting Pain: Pt. Denies Any Pain Peripheral Nerve Block: Patient did not receive a nerve block
[2021-07-09 11:24] VITALS: BP 130/90; PULSE 97; RESP 17; TEMP 36.7; O2SAT 96
--- NOTE | 2021-07-09 11:47 | W.PM.DSUDISC ---
Discharge Plan Disposition Patient Disposition: HOME Condition: Good Discharge Details Reason For Visit: colon scope Attending Provider: Debbie Chriinos Primary Care Provider: Jose Alejandro Tran Home Meds and New Rx's Prescriptions: Continued aspirin 81 mg tablet,delayed release (DR/EC) 81 mg PO DAILY RF: 0 gabapentin 600 mg tablet 600 mg PO Q8H Qty: 90 RF: 3 triamcinolone acetonide 15 GM cream 15 gm Topical BID PRNQty: 1 RF: 2 fluticasone propionate 50 mcg/actuation spray,suspension 1 spray NS BID Qty: 1 RF: 6 clotrimazole 1 % cream 1 applic TP BID PRN (Reason: skin rash) Qty: 28 RF: 3 benzonatate 100 mg capsule 100 - 200 mg PO TID PRN (Reason: cough) Qty: 60 RF: 2 albuterol sulfate 90 mcg/actuation HFA aerosol inhaler 1 - 2 puff IH QID PRN (Reason: shortness of breath or wheezing) Qty: 18 RF: 3 buspirone 30 mg tablet 30 mg PO BID Qty: 180 RF: 4 fesoterodine 4 mg tablet extended release 24 hr 4 mg PO DAILY Qty: 30 RF: 3 hydrochlorothiazide 25 mg tablet 25 mg PO DAILY Qty: 90 RF: 4 lisinopril 30 mg tablet 30 mg PO DAILY Qty: 90 RF: 4 pravastatin 20 mg tablet 20 mg PO DAILY Qty: 90 RF: 4 venlafaxine 150 mg capsule,extended release 24hr 150 mg PO DAILY Qty: 90 RF: 4 lorazepam [Ativan] 1 mg tablet 1 mg PO DAILY MDD 1mg PRN (Reason: anxiety) Qty: 10 RF: 0 docusate sodium [Stool Softener] 100 mg capsule 100 mg PO BID PRN (Reason: constipation) Qty: 90 RF: 2 lidocaine HCl 2 % jelly 5 ml IA BID PRN PRN (Reason: rectal pain) Qty: 30 RF: 1 nystatin 100,000 unit/gram powder 1 applic topical DAILY Qty: 30 RF: 2 pramipexole 0.5 mg tablet 0.5 mg PO BID Qty: 90 RF: 3 cyclobenzaprine 10 mg tablet 10 mg PO DAILY PRN (Reason: muscle spasm) Qty: 30 RF: 0 lidocaine [Lidoderm] 5 % adhesive patch,medicated 1 patch topical DAILY Qty: 30 RF: 1 meloxicam 15 mg tablet 15 mg PO DAILY PRN (Reason: joint pain) Qty: 60 RF: 5 Hold Instructions: Home Medication placed on hold at Doctor's office Discontinued polyethylene glycol 3350 17 gram/dose powder 238 g PO ONCE Qty: 238 RF: 0 bisacodyl [Dulcolax (bisacodyl)] 5 mg tablet,delayed release (DR/EC) 5 mg PO ONCE Qty: 4 RF: 0 Discharge Instructions Additional Instructions: DSU Colonoscopy Post-Op Instructions Instructions for Everyone who is given Anesthesia: For your safety, please do the following for the next twenty-four (24) hours: *Do Not operate a motor vehicle (car, truck, motorcycle, etc.) *Do Not drink alcoholic beverages or use any recreational drugs for the first 24 hours or while taking pain medications. The medications in your body may have a reaction that can be dangerous. *Do Not make any important decisions or sign any important papers. Findings: polyps. My office will send you a letter in 2 to 3 weeks time detailing the findings and what type of polyps they were and when we want you to repeat the colonoscopy Follow up: [facility] be calling to schedule an appointment. You need to stop using any type of smoking product, if you need to drink, follow-up with your PCP for help in smoking cessation. 1. No lifting over 20 pounds or strenuous activity for the first 24 hours after your procedure. After 24 hours there are no restrictions on your activity but you may feel fatigued for a few days. 2. After you arrive home you may have a light meal and return to your normal diet as you can tolerate it without feeling sick to your stomach. 3. You may have a bloated, gaseous feeling in your belly (abdomen) after a colonoscopy. Passing gas and belching will help. Walking or lying down on your left side with your knees flexed may relieve the discomfort. Call the office at [phone] (Office) or [phone] (Hospital) right away if you notice any of the following: a.Vomiting of blood or ?coffee ground stools?. b.Rectal bleeding 1Tbsp, blood clots or continuous bleeding. c.Severe belly (abdominal) pain. d.A hard distended belly (abdomen) and an inability to pass gas. 4. Please don?t expect to have a normal BM (bowel movement) for 2-3 days after your procedure. 5. If there are questions regarding the findings of your procedure, please contact your doctor 6. If you are unable to contact your doctor with a problem, contact the hospital at [phone]. 7. Continue all your regular medications unless directed otherwise. I understand the above instructions and have no questions. Signature of Patient or Adult Escort Name of Responsible Adult Escort Signature of Nurse Date/Time Activity:: see above Diet:: see above Discharge Orders Discharge Orders: Discharge Order (Routine); Ordered 07/09/21 Ordered By: Debbie Chirinos DS: Diagnosis Discharge Diagnosis (1) Acquired vaginal enterocele: Status: Acute (2) Vaginal enterocele due to incomplete uterovaginal prolapse: Status: Acute (3) Spondylosis of lumbar region without myelopathy or radiculopathy: Status: Acute (4) Rectal mucosa prolapse: Status: Acute (5) Fecal soiling due to fecal incontinence: Status: Acute (6) Pelvic prolapse: Status: Acute (7) Smoker: Status: Acute
== END 2021-07-09 12:01 | disposition home or self-care (01) ==
PROVIDERS: PCP Family Medicine; Visit Provider Surgery
PROC: 0DJD8ZZ Inspection of Lower Intestinal Tract, Via Natural or Artificial Opening Endoscopic (ICD-10-PCS; CPT 45378; principal; 2021-07-09 09:15)
DX: K62.3 Rectal prolapse (principal); K63.5 Polyp of colon; F17.210 Nicotine dependence, cigarettes, uncomplicated; R15.9 Full incontinence of feces; N81.4 Uterovaginal prolapse, unspecified; I10 Essential (primary) hypertension; J45.909 Unspecified asthma, uncomplicated
CPT/HCPCS: 45380; 88305; 87624; J2001

== ENCOUNTER 2021-08-14 08:10 | Outpatient (CLI) | payer MEDICAID, SELFPAY ==
--- NOTE | 2021-08-14 06:00 | DI.RAD_ITS ---
Exam(s) XR PAIN CLINIC LUMBAR SP 2V EXAM: XR PAIN CLINIC LUMBAR SP 2V CLINICAL HISTORY: Dx: Lumbar Spondylosis TECHNIQUE: 2D and realtime digital imaging was performed. Radiologist not present. CONTRAST MATERIAL: None. COMPARISON: No exams were available for comparison FINDINGS: Fluoroscopy was provided for pain management therapy. Please refer to procedure report or details. Cumulative dose: Ka,r=20.3 mGy IMPRESSION: RADIATION DOSE DELIVERED:
[2021-08-14 08:36] VITALS: BP 146/78; PULSE 99; RESP 20; TEMP 37; O2SAT 95
[2021-08-14] MEDS: fentaNYL 100 MCG/2 ML VIAL IVP (09:47)
[2021-08-14] MEDS: Midazolam 2 MG/2 ML VIAL IVP (09:48)
[2021-08-14] MEDS: Lactated Ringers 1,000 ML 80 ML IV (09:55)
--- NOTE | 2021-08-14 10:29 | PDOC.PAIN ---
Pain Clinic Procedure Note Procedure Note Procedure Note: Right Lumbar Radiofrequency with Coolief Machine PROCEDURE NOTE Date of Service: August 14, 2021 Patient: Jeniffer Chow Provider: Paul Vergara DO, MPH Pre Operative Diagnosis: Lumbosacral Spondylosis without Myelopathy Post Operative Diagnosis: Same Post procedure pain; VAS= 8/10 PROCEDURE: Radiofrequency Ablation of medial branches - Right L2 L3 L4 L5 and lateral branch of the right S1. Jeniffer Chow was brought into the fluoroscopy suite and positioned into the prone position on the fluoroscopy table and allowed to adjust to a position of comfort. A grounding pad was placed on the left thigh. The lumbar region was widely prepped with a chloraprep solution, allowed to air dry and draped in standard sterile surgical fashion. Local anesthesia was provided by 5 mL of 2% Lidocaine delivered with a 25g needle. A 17g 100 mm radiofrequency introducer needle was placed to the planned anatomic targets guided with intermittent fluoroscopy with a perpendicular approach to terminally place at the junction of the superior articular process and the transverse process of the right L3 L4 L5, the base of the sacral ala on the right for the L5 medial branch nerve and the area between base of the sacral ala to the S1 foramen on the right. The stylets were removed and radiofrequency probes with a 4mm active tip were then inserted. Needle tip position of the probes was verified in the AP, oblique, and lateral views. At each site, the medial branch nerve was stimulated at 2 Hz to a maximum 1-2 volts determined to finalize safe needle and electrode placement. The patient was awake and responsive during this portion of the procedure. Each target was anesthetized with 1-2 mL of 2% Lidocaine for anesthesia for lesioning and then each target was lesioned at 80 degrees Celsius for 2 minutes and 30 seconds. Tissue impedences were noted to be between 250 and 500 Ohms. Electrodes and needles were then removed and bandages placed over the needle placement sites, the patient then returned to the supine position on a stretcher and transported to the recovery room without hemodynamic, neurologic, or allergic reactions. Fluoroscopic images were printed for hard copy recording and digitally archived. 1 cc of Bupivacaine (0.5%) was injected at each segmental sensory nerve after the ablation was complete. POST PROCEDURE EVALUATION: IMPRESSION: 1. Summary of procedure. Medication given is documented in the MAR. 2. The patient will be contacted in 1-3 weeks 3. Estimated Blood Loss: <5 mls 4. Fluoroscopy time: Documented in the EMR. Follow up plans and appointments were discussed with the Jeniffer . Post procedure instruction was given as documented in nursing documentation and having met discharge criteria, Jeniffer was discharged from the Pain Management Center. COMMENTS: No apparent complications. Post-procedure pain: VAS= 4/10. F/U with our office as needed. I personally performed this entire procedure. Paul Vergara DO, MPH Attending Physician Pain Management
[2021-08-14] MEDS: Lidocaine 2% Pres-Free 5 ML VIAL IJ (10:37)
[2021-08-14] MEDS: Bupivacaine 0.5% Pres-Free 10 ML VIAL IJ (10:37)
== END 2021-08-14 08:11 | disposition home or self-care (01) ==
LOC: PC 08:11
PROVIDERS: PCP Family Medicine; Visit Provider Preventive Medicine Occupational Medicine
DX: M47.817 Spondylosis without myelopathy or radiculopathy, lumbosacral region (principal)
CPT/HCPCS: 64635; 64636; 72100; J2250; J3010

== ENCOUNTER 2021-08-29 17:56 | Outpatient (REF) | payer MEDICAID, SELFPAY ==
[2021-08-29 15:37] LABS: HCT 40.7 % (36.0-46.0); HGB 13.6 g/dL (11.2-15.7); MCH 30.6 pg (27.0-33.0); MCHC 33.4 % (32.0-36.0); MCV 91.7 fL (80-95); MPV 11.3 fL (8.0-11.0); Platelet Count 207 10^3/uL (130-400); RBC 4.44 10^6/uL (3.93-5.22); RDW 13.7 % (11.7-14.6); RDW-SD 46.2 fL; WBC 6.56 10^3/uL (4.4-10.8)
[2021-08-29 16:05] LABS: ALT 18 U/L (14-59); AST 17 U/L (15-37); Albumin 3.4 g/dL (3.4-5.0); Alkaline Phosphatase 99 U/L (46-116); Anion Gap 7.4 mmol/L (3-11); BUN 12 mg/dL (7-18); Bilirubin, Total 0.4 mg/dL (0.2-1.0); CO2 25.6 mmol/L (21.0-32.0); CREATININE 0.8 mg/dL (0.55-1.02); Calcium 8.5 mg/dL (8.5-10.1); Chloride 97 mmol/L (98-107); Glucose 93 mg/dL (74-106); Potassium 3.1 mmol/L (3.5-5.1); Sodium 130 mmol/L (136-145); Total Protein 6.5 g/dL (6.4-8.2)
== END 2021-08-29 17:57 | disposition home or self-care (01) ==
LOC: LBN 17:56
PROVIDERS: PCP Family Medicine
DX: K62.5 Hemorrhage of anus and rectum (principal)
CPT/HCPCS: 80053; 85027

== ENCOUNTER 2021-09-09 01:21 | Outpatient (CLI) | payer MEDICAID, SELFPAY ==
--- NOTE | 2021-09-09 08:40 | DI.CTLCSR_ITS ---
Exam(s) CT CHEST LUNG CANCER SCREEN EXAM: CT CHEST LUNG CANCER SCREEN CLINICAL HISTORY: Screening for lung cancer,CURRENT SMOKER, F17.210 TECHNIQUE: Imaging Protocol: Axial computed tomography images with coronal and sagittal reformatted images were created and reviewed COMPARISON: CT CT ABDOMEN PELVIS W from 03/02/2020 FINDINGS: Tracheobronchial tree: Patent where visualized. Mediastinum and Armida: No dominant adenopathy or fluid collection. Pulmonary parenchyma: No consolidation or dominant measurable mass. Minimal emphysematous changes. Lung Nodules: None. Pleura: No effusion or pneumothorax. Heart: The heart is not dilated. Mild to moderate coronary artery calcifications are seen. Aorta: Thoracic aorta non-dilated.Mild atherosclerotic changes Upper abdomen: Stable cyst left lobe of the liver Bones: Degenerative disc changes. Soft Tissues: Unremarkable. IMPRESSION: No evidence of pulmonary nodules. Mild emphysematous changes. Lung RADS Cat 1 - Negative: No nodules and definitely benign nodules Lung-RADS 1.0 CATEGORIES: Category 0 - Prior chest CT exam(s) being located for comparison. Category 1 - Annual screening in 12 months. No nodules or definitely benign nodules. Category 2 - Annual screening in 12 months. Benign appearance. Nodules with low likelihood of becomin g active cancer. Category 3 - 6-month follow-up. Probably benign. Short-term follow-up suggested. Nodules with low lik elihood of becoming active cancer. Category 4A - 3-month follow-up and CT/PET if >8 mm in size. Suspicious finding. Findings which requi re additional testing. Category 4B - Findings which require additional testing and tissue sampling. Category 4X - Category 3 or 4 nodules with additional features or imaging findings that increases the suspicion of malignancy. Modifier S- Potentially clinically significant findings (non lung cancer) RADIATION DOSE DELIVERED: 72.07mGy.cm Total DLP 1.84mGy CTDIvol DATA REPOSITORY: All CT scans at this facility are submitted to the National Radiology Data Registry (NRDR) Dose Index Registry (DIR) with the [employer] ([employer]). RADIATION OPTIMIZATION: All CT scans at this facility use at least one of these dose optimization te chniques: automated exposure control; mA and/or kV adjustment per patient size (includes targeted exa ms where dose is matched to clinical indication); or iterative reconstruction.
== END 2021-09-09 01:41 ==
PROVIDERS: PCP Family Medicine; Visit Provider Family Medicine
DX: Z12.2 Encounter for screening for malignant neoplasm of respiratory organs (principal); F17.210 Nicotine dependence, cigarettes, uncomplicated; J43.8 Other emphysema
CPT/HCPCS: 71271

== ENCOUNTER 2021-09-09 02:52 | Outpatient (CLI) | payer SELFPAY | END 2021-09-09 02:53 | disposition home or self-care (01) ==

== ENCOUNTER 2021-09-09 14:26 | Outpatient (CLI) | payer MEDICAID, SELFPAY ==
[2021-09-09 11:45] LABS: HCT 39.5 % (36.0-46.0); HGB 13.1 g/dL (11.2-15.7)
[2021-09-09 12:20] LABS: Anion Gap 8.3 mmol/L (3-11); BUN 15 mg/dL (7-18); CO2 27.7 mmol/L (21.0-32.0); CREATININE 0.8 mg/dL (0.55-1.02); Calcium 8.8 mg/dL (8.5-10.1); Chloride 102 mmol/L (98-107); Glucose 109 mg/dL (74-106); Potassium 4.1 mmol/L (3.5-5.1); Sodium 138 mmol/L (136-145)
== END 2021-09-09 14:27 | disposition home or self-care (01) ==
LOC: LBO 14:28
PROVIDERS: PCP Family Medicine
DX: K62.5 Hemorrhage of anus and rectum (principal); E87.6 Hypokalemia; E87.1 Hypo-osmolality and hyponatremia
CPT/HCPCS: 36415; 80048; 85014; 85018

== ENCOUNTER → 2021-10-11 01:09 | Outpatient (CLI) | payer MEDICAID, SELFPAY ==
--- NOTE | 2021-10-11 07:15 | DI.US_ITS ---
Exam(s) US CAROTID EXAM: US CAROTID CLINICAL HISTORY: bilat. carotid bruit,R09.89. TECHNIQUE: Ultrasound carotids performed using grayscale, color-flow, and spectral Doppler imaging. COMPARISON: US CAROTID ULTRASOUND from 01/04/2013 FINDINGS: CAROTID ARTERIES: There is significant plaque seen bilaterally in the carotid arteries, carotid bifurcations, and proxi mal internal carotid arteries. On the left side maximum peak systolic velocity is 214 cm/sec in the proximal ICA, consistent with 50 -69 percent stenosis. The right side maximum peak systolic velocity is in the carotid bifurcations, measuring 128 cm/sec, a lso indicative of an element of stenosis but probably less than 50 percent of the luminal diameter. VERTEBRAL ARTERIES: Antegrade flow is demonstrated in both vertebral arteries. Measurements: R Bulb: 128.1cm/s PS / 27.3cm/s ED R CCA: 102.8cm/s PS / 19.3cm/s ED R ECA: 298.9cm/s PS / 52.1cm/s ED R ICA Prox: 87.6cm/s PS /27.3cm/s ED R ICA Mid: 80.2cm/s PS / 13.2cm/s ED R ICA Distal: 79.3cm/s PS /27.3cm/s ED R Vert: 53.2cm/s PS / 17.9cm/s ED R SVR: 0.85 R DVR: 1.41 L Bulb: 228.1cm/s PS /44.6cm/s ED L CCA: 119cm/s PS / 27.3cm/s ED L ECA: 167.7cm/s PS /13.9cm/s ED L ICA Prox:214cm/s PS / 43.4cm/s ED L ICA Mid: 135.1cm/sPS / 33.3cm/s ED L ICA Distal: 89.7cm/s PS / 26cm/s ED L Vert: 61.5cm/s PS / 13.7cm/s ED L SVR: 1.8 L DVR: 1.59 IMPRESSION: Significant bilateral plaque as described above. Findings are indicative of 50-69 percent stenosis on the left side and less than 50 percent stenosis on the right side. Antegrade flow is demonstrated in both vertebral arteries. Criteria for Carotid Stenosis: Normal: ICA PSV <125 cm/s no plaque or intimal thickening is visible. <50% stenosis: ICA PSV <125 cm/s and plaque or intimal thickening is visible. 50-69% stenosis: ICA PSV is 125-250 cm/s and plaque is visible. >70% stenosis to near occlusion: ICA PSV >250 cm/s with visible plaque and luminal narrowing. DATA REPOSITORY:
== END ==
PROVIDERS: PCP Family Medicine; Visit Provider Family Medicine
DX: I65.23 Occlusion and stenosis of bilateral carotid arteries
CPT/HCPCS: 93880

== ENCOUNTER 2021-12-18 08:06 | Outpatient (CLI) | payer MEDICAID, SELFPAY ==
[2021-12-18 13:10] LABS: ALT 18 U/L (14-59); AST 24 U/L (15-37); Albumin 3.7 g/dL (3.4-5.0); Alkaline Phosphatase 94 U/L (46-116); Anion Gap 9.3 mmol/L (3-11); BUN 14 mg/dL (7-18); Bilirubin, Total 0.3 mg/dL (0.2-1.0); CO2 28.7 mmol/L (21.0-32.0); CREATININE 0.9 mg/dL (0.55-1.02); Calcium 9.2 mg/dL (8.5-10.1); Calculated LDL 106 mg/dL (<100); Chloride 102 mmol/L (98-107); Cholesterol 172 mg/dL (<200); Glucose 108 mg/dL (74-106); HDL Cholesterol 53 mg/dL (40-60); Potassium 3.9 mmol/L (3.5-5.1); Sodium 140 mmol/L (136-145); Total Protein 7.1 g/dL (6.4-8.2); Triglyceride 69 mg/dL (<150)
[2021-12-19 10:05] LABS: HIV-1/2 Ag & Ab Screen Negative (Negative)
[2021-12-19 10:25] LABS: Hepatitis C Ab w Rflx HCV PCR Negative (Negative)
== END 2021-12-18 08:07 | disposition home or self-care (01) ==
LOC: LOS 08:06
PROVIDERS: Family Medicine; PCP Family Medicine; Visit Provider Family Medicine
DX: E78.5 Hyperlipidemia, unspecified (principal); E87.1 Hypo-osmolality and hyponatremia; I10 Essential (primary) hypertension; Z11.59 Encounter for screening for other viral diseases; Z11.4 Encounter for screening for human immunodeficiency virus [HIV]
CPT/HCPCS: 36415; 80053; 80061; 86803; 87389

== ENCOUNTER → 2021-12-26 12:39 | Outpatient (CLI) | payer MEDICAID, SELFPAY ==
--- NOTE | 2021-12-26 09:15 | DI.RAD_ITS ---
Exam(s) XR LUMBAR SPINE COMPLETE EXAM: XR LUMBAR SPINE COMPLETE CLINICAL HISTORY: chronic back pain, f/u MRI from 03/2021 M54.5 LOW BACK PAIN G89.29 CHRONIC. TECHNIQUE: 2D digital imaging was performed of the lumbar spine. Five images were obtained. AP, la teral, right oblique, left oblique and L5-S1 spot views were obtained. COMPARISON: CR XR LUMBAR SPINE COMPLETE from 01/23/2021 FINDINGS: BONES: No fracture or destructive lesion. Endplate osteophytes are seen at multiple levels of the lum bar spine but are most marked at L1-L2. Degenerative changes of the facets are seen at L4-5 and L5-S1 . DISKS: There is disc space narrowing at T12-L1 and L1-L2. ALIGNMENT: Very mild right curvature of the lumbar spine. No spondylolysis or spondylolisthesis. SOFT TISSUE: Atherosclerosis is present. IMPRESSION: Moderate degenerative changes of the lumbar spine. DATA REPOSITORY: RADIATION DOSE DELIVERED:
== END ==
PROVIDERS: PCP Family Medicine; Visit Provider Family Medicine
DX: M47.816 Spondylosis without myelopathy or radiculopathy, lumbar region (principal)
CPT/HCPCS: 72110

== ENCOUNTER 2022-08-13 08:58 | Outpatient (CLI) | payer MEDICARE, MEDICAID, SELFPAY ==
--- NOTE | 2022-08-13 06:00 | DI.RAD_ITS ---
Exam(s) XR PAIN CLINIC LUMBAR SP 2V EXAM: XR PAIN CLINIC LUMBAR SP 2V CLINICAL HISTORY: Dx: Lumbar Spondylosis TECHNIQUE: 2D and realtime digital imaging was performed. CONTRAST MATERIAL: Refer to procedure report. COMPARISON: No exams were available for comparison FINDINGS: Fluoroscopy was provided for Dr. Vergara for pain management.. Please refer to the procedure report fo r complete details. Ka,r=12.4 mGy IMPRESSION:
[2022-08-13 09:33] VITALS: BP 174/89; PULSE 81; RESP 20; TEMP 36.6; O2SAT 93
[2022-08-13] MEDS: Lidocaine 2% Pres-Free 5 ML VIAL IJ (10:41)
[2022-08-13] MEDS: Omnipaque 240 MG/ML 50 ML BTL IJ (10:41)
[2022-08-13 10:42] VITALS: BP 152/83; PULSE 96; RESP 21; O2SAT 100
--- NOTE | 2022-08-13 10:42 | PDOC.PAIN ---
Date of service: 08/13/22 Time of Service: 10:46 Pain Clinic Procedure Note Procedure Note Procedure Note: Lumbar/Sacral Medial Branch Blocks Jeniffer Chow has been referred to the [facility] for lumbar/sacral medial branch blocks. COMMENTS: Continues with left-sided low back pain. Pre-procedure pain VAS was 8/10. Dx: Lumbosacral spondylosis without myelopathy Patient was interviewed and the medical record reviewed. There were no medical, pharmacologic, radiographic or other structural contraindications to attempting fluoroscopically guided local anesthetic lumbar/sacral medial branch blocks. Risks and expected side effects as well as potential benefit of the procedure were reviewed and voiced concerns addressed. The printed consent form was signed and witnessed. Standard time-out procedure was performed. Patient was placed in the prone position on the fluoroscopy table and automated blood pressure cuff and pulse oximeter applied. The skin entry points for approaching the anatomic target points of the segmental medial branches of left L2-L5 were identified with anfluoroscopy and marked. Following thorough Chlorhexadine preparation of the skin and draping and 1% lidocaine infiltration of the skin entry points and subcutaneous tissues, a 22 gauge spinal needle was placed under fluoroscopic guidance down on to the target point for each respective segmental medial branch.Position was confirmed in A/P, oblique and lateral views with 0.25ml of omnipaque 240. At this point I injected 0.5cc of 2% Lidocaine. Vital signs were stable throughout the procedure and were as recorded in the docflowsheet by the nursing staff. Follow up plans and appointments were discussed and was instructed to keep careful note of how the usual pain was modified by these injections. Specifically was asked to keep a pain diary for the next 4 hours using a numeric pain scale of 0-10 and report these results at the follow-up visit. Post procedure instruction was given as documented in the nursing documentation and having met discharge criteria. Patient was discharged from the [facility]. Based on the medial branches blocked today, if the patient has adequate relief and we are able to proceed to radiofrequency ablation, the treatment should result in the denervation of the left L3-L4, L4-L5 and L5-S1 FACET JOINTS. We would expect to denervate a total of 3 facets during the radiofrequency ablation. COMMENTS: Post-procedure pain VAS was 2/10. She was able to move the left side much better. Paul Vergara DO, MPH [facility] CC: Arely Sampson
== END 2022-08-13 08:59 | disposition home or self-care (01) ==
LOC: PC 08:58
PROVIDERS: PCP Family Medicine; Visit Provider Preventive Medicine Occupational Medicine
DX: M47.817 Spondylosis without myelopathy or radiculopathy, lumbosacral region (principal); M54.50 Low back pain, unspecified
CPT/HCPCS: 64493; 64494; 64495; 72100; Q9967

== ENCOUNTER 2022-08-15 01:23 | Outpatient (CLI) | payer MEDICARE, MEDICAID, SELFPAY ==
[2022-08-15 12:58] LABS: Anion Gap 8.8 mmol/L (3-11); BUN 32 mg/dL (7-18); CO2 28.2 mmol/L (21.0-32.0); CREATININE 1.5 mg/dL (0.55-1.02); Calcium 10.2 mg/dL (8.5-10.1); Chloride 99 mmol/L (98-107); Estimated GFR 38.43 (mL/min/1.73m2); Glucose 109 mg/dL (74-106); Potassium 4.3 mmol/L (3.5-5.1); Sodium 136 mmol/L (136-145)
== END 2022-08-15 01:24 | disposition home or self-care (01) ==
LOC: LOS 01:23
PROVIDERS: PCP Family Medicine; Visit Provider Family Medicine
DX: I10 Essential (primary) hypertension (principal)
CPT/HCPCS: 36415; 80048

== ENCOUNTER 2022-10-10 17:39 | Inpatient (IN) | payer MEDICARE, MEDICAID, SELFPAY ==
[2022-10-10] VITALS (71 sets, daily range): BP systolic 71–142; BP diastolic 19–89; PULSE 74–117; RESP 13–26; TEMP 36.3–37.6; O2SAT 96–98
[2022-10-10] MEDS: Normal Saline 1,000 ML 1000 ML IV ×2 (18:10→18:25)
--- NOTE | 2022-10-10 18:15 | DI.RAD_ITS ---
Exam(s) XR PORTABLE CHEST AP EXAM: XR PORTABLE CHEST AP CLINICAL HISTORY: hypotension TECHNIQUE: 2D digital imaging was performed. COMPARISON: CT CT CHEST LUNG CANCER SCREEN from 09/09/2021 FINDINGS: LUNGS: Clear. No pleural abnormality seen. HEART: Normal size. AORTA: Normal diameter. BONES: Unremarkable for age. Soft tissues: Unremarkable. IMPRESSION: No acute findings. DATA REPOSITORY: RADIATION DOSE DELIVERED:
--- NOTE | 2022-10-10 18:15 | RT.EKG_ITS ---
APPROVED REPORT Exam: Resting ECG Reason for Exam: hypotension Patient Location: E HR:91 bpm ECG Measurements Heart Rate 91 AXIS ND 154 P 62 QRSd 82 QRS 56 QT 362 T 90 QTc 446 Conclusion Incomplete analysis due to missing data in precordial lead(s) Sinus rhythm...normal P axis, V-rate 60- 99 Nonspecific T abnormalities, lateral leads...T <-0.10mV, I aVL V5 V6 Some lateral T wave flattening and t wave inversion V2 new vs 2011
--- NOTE | 2022-10-10 18:27 | W.ED.GENAD ---
Discharge Plan Disposition Patient Disposition: Admit to [facility] Discharge Details Clinical Impression: Acute hypotension, Near syncope Primary Care Provider: Arely Sampson ED Provider: Bryanna Blackburn Home Meds and New Rx's Prescriptions: No Action aspirin 81 mg tablet,delayed release (DR/EC) 81 mg PO DAILY trazodone 100 mg tablet 100 mg PO QHS Qty: 90 3RF albuterol sulfate 90 mcg/actuation HFA aerosol inhaler 1 - 2 puff IH QID PRN (Reason: shortness of breath or wheezing) Qty: 18 3RF fluticasone propionate 50 mcg/actuation spray,suspension 1 spray NS BID Qty: 1 6RF clotrimazole 1 % cream 1 applic TP BID PRN (Reason: skin rash) Qty: 28 3RF pramipexole 0.5 mg tablet 0.5 mg PO BID Qty: 180 3RF lorazepam [Ativan] 1 mg tablet 1 mg PO DAILY MDD 1mg PRN (Reason: anxiety) Qty: 10 0RF lisinopril 30 mg tablet 30 mg PO DAILY Qty: 90 4RF Rx Instructions: take one tablet daily pravastatin 20 mg tablet 20 mg PO DAILY Qty: 90 4RF venlafaxine 150 mg capsule,extended release 24hr 150 mg PO DAILY Qty: 90 4RF lidocaine [Lidoderm] 5 % adhesive patch,medicated 1 patch topical DAILY Qty: 30 5RF Rx Instructions: leave on most painful area for up to 12 hrs, once a day, prn docusate sodium [Stool Softener] 100 mg capsule 100 mg PO BID PRN (Reason: constipation) Qty: 90 3RF gabapentin 800 mg tablet 800 mg PO TID Qty: 90 3RF diclofenac sodium 75 mg tablet,delayed release (DR/EC) 75 mg PO BID PRN (Reason: pain) Qty: 60 2RF Hold Instructions: Home Medication placed on hold at Doctor's office potassium chloride 10 mEq capsule, extended release 10 meq PO DAILY Qty: 90 1RF triamterene-hydrochlorothiazid 37.5-25 mg capsule 1 cap PO DAILY Qty: 90 2RF fesoterodine 4 mg tablet extended release 24 hr 4 mg PO DAILY Qty: 90 3RF nystatin 100,000 unit/gram powder 1 applic topical DAILY Qty: 30 2RF Rx Instructions: local application daily under breasts and in groin area tizanidine 6 mg capsule 6 mg PO Q8H PRN (Reason: muscle spasticity) Qty: 120 2RF methylphenidate HCl 5 mg tablet 5 mg PO QAM MDD 5mg Qty: 30 0RF lidocaine HCl [Lidocaine Viscous] 2 % solution 1 applic mucous membrane BID PRN (Reason: pain) Qty: 200 0RF Medical Decision Making Patient was updated on her test results. The case was discussed with Dr. Meyers from cardiology at [facility]. He did not think this was ACS and asked me to discuss the case with critical care. I asked the engineering secretary to page critical care because this is what Dr. Meyers recommended. We later heard that [facility] has no beds. Case was then discussed with Dr. Vera, hospitalist here at [facility]. He agreed to accept the patient to the ICU. Medical Records Medical records reviewed: Yes I reviewed the patient's medical records. Imaging Data Radiologic Study: Imaging: X-Ray (NAD, radiology agrees) Radiologic Study #2: Radiologist's impression: CTA chest/abd/pelvis: Case discussed with V rad radiologist Dr. Levi. Patient has no evidence of PE or dissection. There are changes consistent with this patient's postoperative course. He states that overall there is no acute disease to explain the patient's hypotension or posterior neck pain. I did verify with the patient that her neck pain is posterior. This again is not unusual for her. She has no chest pain or difficulty breathing. Repeat EKG is unchanged. Lab Data Lab results reviewed: Yes I reviewed the patient's lab results. Lab results narrative: Patient's labs are not horribly remarkable with the exception of a troponin of almost 1500. She is mildly anemic with a hematocrit of 34. She does have some mild renal insufficiency and we will continue her IV fluid. ECG Data Attestation: I personally reviewed and interpreted this ECG (s) as follows: (EKG: Normal sinus rhythm at 90, T wave flattening laterally, downgoing T wave in V2 all different vs 2010 some lateral T wave flattening with a flipped T wave in V2 is new) HPI General Date/Time Provider Initiated Documentation: 10/10/22 18:03. HPI Narrative: 67-year-old female patient presents with a chief complaint of near syncope and hypotension. Patient was discharged from [facility] yesterday after surgery 3 days ago. Review of the patient's discharge summary from. Revealed that she had some mild JAMES that resolved with hydration. Patient had a laparoscopic supracervical hysterectomy, bilateral salpingectomy, mesh sacral colpocervicopexy, and ventral mesh rectopexy. She also had a cystoscopy. Other than the mild JAMES, the patient had a good postoperative course and again went home yesterday. She said she felt fine yesterday and today and was in fact outside doing some gardening. She took a nap this afternoon and woke up and saw dark spots. She did not get up immediately because she knew something was wrong. She was able to eventually get up to grab her blood pressure cuff and said that she dropped to her knees. There was no syncope. She was able to get back to her bed and noted that her blood pressure was low so called a friend. In the ED the patient's blood pressure was in the 80s and then 70s. She said she had a little bit of back pain today but this is typical and not unusual for her. She also complained of some posterior neck pain but says that she gets this sometimes as well no she mentioned this again later in the ED. She has no chest pain or difficulty breathing. She does have some abdominal pain but says it is about the same as it has been since her surgery. She has had no fever or rigors. There are no URI GI or symptoms. She has no pedal edema or calf pain. The patient denies any medication changes at [facility] [place]. Related Data Home Medications Medication Instructions Recorded Confirmed clotrimazole 1 % topical cream 1 applic topical BID PRN skin rash 07/14/19 10/10/22 #28 grams aspirin 81 mg tablet,delayed 81 mg PO DAILY 07/01/21 10/10/22 release pramipexole 0.5 mg tablet 0.5 mg PO BID #180 tab-caps 08/16/21 10/10/22 albuterol sulfate 90 mcg/actuation 1 - 2 puff inhalation QID PRN 08/29/21 10/10/22 aerosol inhaler shortness of breath or wheezing #18 grams fluticasone propionate 50 1 spray NS BID ##1 08/29/21 10/10/22 mcg/actuation nasal spray,suspension lorazepam 1 mg tablet (Ativan) 1 mg PO DAILY PRN anxiety #10 02/25/22 10/10/22 tab-caps lisinopril 30 mg tablet 30 mg PO DAILY #90 tabs 03/31/22 10/10/22 pravastatin 20 mg tablet 20 mg PO DAILY #90 tab-caps 03/31/22 10/10/22 venlafaxine 150 mg 150 mg PO DAILY #90 tab-caps 03/31/22 10/10/22 capsule,extended release 24 hr lidocaine 5 % topical patch 1 patch topical DAILY #30 ea 05/16/22 10/10/22 (Lidoderm) docusate sodium 100 mg capsule 100 mg PO BID PRN constipation #90 06/16/22 10/10/22 (Stool Softener) caps trazodone 100 mg tablet 100 mg PO QHS #90 tabs 07/23/22 10/10/22 gabapentin 800 mg tablet 800 mg PO TID #90 tabs 07/28/22 10/10/22 diclofenac sodium 75 mg 75 mg PO BID PRN pain #60 tabs 08/11/22 10/10/22 tablet,delayed release potassium chloride 10 mEq 10 meq PO DAILY #90 caps 08/15/22 10/10/22 capsule,extended release triamterene 37.5 1 cap PO DAILY #90 caps 08/15/22 10/10/22 mg-hydrochlorothiazide 25 mg capsule fesoterodine 4 mg tablet,extended 4 mg PO DAILY #90 tabs 09/11/22 10/10/22 release 24 hr methylphenidate HCl 5 mg tablet 5 mg PO QAM #30 tabs 09/17/22 10/10/22 nystatin 100,000 unit/gram topical 1 applic topical DAILY #30 grams 09/17/22 10/10/22 powder tizanidine 6 mg capsule 6 mg PO Q8H PRN muscle spasticity 09/17/22 10/10/22 #120 caps lidocaine HCl 2 % mucosal solution 1 applic mucous membrane BID PRN 09/26/22 10/10/22 (Lidocaine Viscous) pain #200 mL Previous Rx's Medication Instructions Recorded clotrimazole 1 % topical cream 1 applic topical BID PRN skin rash 07/14/19 #28 grams pramipexole 0.5 mg tablet 0.5 mg PO BID #180 tab-caps 08/16/21 albuterol sulfate 90 mcg/actuation 1 - 2 puff inhalation QID PRN 08/29/21 aerosol inhaler shortness of breath or wheezing #18 grams fluticasone propionate 50 1 spray NS BID ##1 08/29/21 mcg/actuation nasal spray,suspension lorazepam 1 mg tablet (Ativan) 1 mg PO DAILY PRN anxiety #10 02/25/22 tab-caps lisinopril 30 mg tablet 30 mg PO DAILY #90 tabs 03/31/22 pravastatin 20 mg tablet 20 mg PO DAILY #90 tab-caps 03/31/22 venlafaxine 150 mg 150 mg PO DAILY #90 tab-caps 03/31/22 capsule,extended release 24 hr lidocaine 5 % topical patch 1 patch topical DAILY #30 ea 05/16/22 (Lidoderm) docusate sodium 100 mg capsule 100 mg PO BID PRN constipation #90 06/16/22 (Stool Softener) caps trazodone 100 mg tablet 100 mg PO QHS #90 tabs 07/23/22 gabapentin 800 mg tablet 800 mg PO TID #90 tabs 07/28/22 diclofenac sodium 75 mg 75 mg PO BID PRN pain #60 tabs 08/11/22 tablet,delayed release potassium chloride 10 mEq 10 meq PO DAILY #90 caps 08/15/22 capsule,extended release triamterene 37.5 1 cap PO DAILY #90 caps 08/15/22 mg-hydrochlorothiazide 25 mg capsule fesoterodine 4 mg tablet,extended 4 mg PO DAILY #90 tabs 09/11/22 release 24 hr methylphenidate HCl 5 mg tablet 5 mg PO QAM #30 tabs 09/17/22 nystatin 100,000 unit/gram topical 1 applic topical DAILY #30 grams 09/17/22 powder tizanidine 6 mg capsule 6 mg PO Q8H PRN muscle spasticity 09/17/22 #120 caps lidocaine HCl 2 % mucosal solution 1 applic mucous membrane BID PRN 09/26/22 (Lidocaine Viscous) pain #200 mL Allergies Allergy/AdvReac Type Severity Reaction Status Date / Time Corticosteroids Allergy Intermediate INCREASED Verified 08/13/22 09:16 (Glucocorticoids) SOB prednisone Allergy Intermediate SOB Verified 08/13/22 09:16 General Stated Complaint: GenMedical CHECO: 2 Review of Systems Constitutional Constitutional: Denies chills, Denies fever(s), Denies headache(s) and Denies weakness Eyes Eyes: Denies diplopia and Reports other (no redness) ENT Ears, Nose, Mouth, and Throat: Reports dizziness (And lightheadedness, no vertigo), Denies otalgia, Denies headache(s), Denies nasal congestion, Denies nasal discharge, Denies neck pain and Denies sore throat Cardiovascular Cardiovascular: Denies chest pain, Denies palpitations and Denies dyspnea Respiratory Respiratory: Denies cough and Denies dyspnea Gastrointestinal Gastrointestinal: Reports abdominal pain (Postoperative pain is unchanged), Denies diarrhea, Denies nausea and Denies vomiting Genitourinary Genitourinary: Denies dysuria Musculoskeletal Musculoskeletal: Denies myalgias, Denies muscle weakness, Denies neck pain, Denies numbness and Reports other (edema) Comments: Some neck and back pain that is not unusual for the patient Integumentary/Breasts Skin/Breast: Denies change in pigmentation and Denies rash Neurologic Neurologic: Reports dizziness (And lightheadedness, no vertigo), Denies headache(s), Denies numbness and Denies weakness Endocrine Endocrine: Denies palpitations PFSH All Active Problems (Updated 10/10/22 @ 22:25 by Paul Vera) Hypokalemia (Acute) Hypomagnesemia (Acute) Hypotension (Acute) NSTEMI (non-ST elevated myocardial infarction) (Acute) Near syncope (Acute) Chronic low back pain (Acute) tx pain clinic 2013 [facility]- 03/2021-MR of low back-numerous degenerative changes. Most prominent were foraminal stenosis at upper lumbar labral, no acute disc bulging, With chronic pain syndrome-followed by pain clinic at [facility] Essential hypertension (Acute 04/20/13) Normal echocardiogram -2015 Generalized anxiety disorder (Acute) Hyperlipidemia (Acute 02/06/14) Neck pain (Acute) C6-7 disc w/ radiculopathy S/P surgery [facility] [place] Sensorineural hearing loss, bilateral (Chronic 04/06/14) Urge incontinence of urine (Acute) Otitis externa due to herpes zoster (Acute 06/30/13) Goiter (Acute) Rectal mucosa prolapse (Acute) Vaginal enterocele due to incomplete uterovaginal prolapse (Acute) Heart murmur (Chronic) 07/2021-systolic murmur-at upper sternal border, longstanding, normal echo 2016-consistent with innocent murmur Nicotine dependence (Chronic) smoking, vaping Carotid stenosis (Acute) - positive carotid bruit 09/2021 Carotid US, moderate bilat stenosis, l> R Polypharmacy (Acute) Lumbosacral spondylosis without myelopathy (Acute) 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 Rectal bleed 07/2021 Surgical History History of arthroscopy History of bilateral ligation of fallopian tubes History of colonoscopy with polypectomy (~07/09/21) S/P carpal tunnel release S/P hemorrhoidectomy hemorrhoid banding S/P spinal fusion Family History Mother Essential hypertension Stroke Cancer Father Heart disease Brother Heart disease Maternal Grandfather No problems noted. Paternal Grandfather No problems noted. Maternal Grandmother Essential hypertension Stroke Paternal Grandmother No problems noted. Social History Smoking/Tobacco Use Status: Current every day Tobacco: How many years used: 20 Smokeless tobacco user: dissolvable tobacco Quit status: has quit before Second Hand Exposure: Yes Counseling given: provider counseling Smoking risk assessment performed?: Yes Alcohol Intake: former Drug use: Daily Substance use type: marijuana Details: Pt reports awokefrom napb at 1600 black pt reports lasted 30 minutes. spots in vision, Household members: none Housing: house Number of Children: 3 number of grandchildren: 3 Education Level: high school Do you need help understanding health information?: Always Pets and animals: Yes Pets and animals: other Details: Donkey Sexually active: No What type of physical activity do you participate in: decline to answer Duration: decline to answer Frequency: decline to answer Chelsea/Islam: Scientologist Special chelsea needs: No Seatbelt use: always Helmet use: Yes Helmet use: always Drive intox or ride w/intox local bulk driver: No Do you feel safe at home: Yes Additional Social history: live alone Exam Const General: no acute distress, well developed, well groomed and not in acute distress Nutritional Appearance: well nourished Orientation: alert and oriented x3 HENMT Head: normocephalic and atraumatic Ears: external ears normal Mouth: oropharynx normal and moist mucous membranes Throat: posterior oropharynx normal Eyes Conjunctivae: conjunctivae normal Neck Neck: full ROM and supple Chest Chest: normal inspection of the chest Resp Effort & Inspection: normal respiratory effort Auscultation: clear to auscultation bilaterally Cardio Rate: regular rate Rhythm: regular rhythm Heart Sounds: no murmurs and no rubs GI Inspection: abdominal wall ecchymosis (Status post surgery) Palpation: soft, tender (Mildly tender to moderately deep palpation without guarding, NABS) and other (non distended) Auscultation: normal bowel sounds Skin General skin exam: no rashes or lesions noted and other (pink, warm, dry) Neuro General: patient alert, patient awake and patient oriented x3 Speech: speech normal Motor: other (ADAM) Sensory Exam: no sensory deficits noted Extrem General: normal to inspection, full ROM and pedal edema present Psych Mental Status: mental status grossly normal Speech and Movement: speech and movement normal Affect: normal affect Course Vital Signs Vital signs: Vital Signs Temperature 36.3 C L 10/10/22 17:44 Respiratory Rate 18 10/10/22 17:44 Blood Pressure 86/53 L 10/10/22 17:44 Pulse Oximetry 97 10/10/22 17:44 Temperature 36.3 C L 10/10/22 17:44 Temperature Source Oral 10/10/22 17:44 Pulse 88 10/10/22 18:23 Pulse 92 H 10/10/22 18:23 Respiratory Rate 20 10/10/22 18:23 Respiratory Effort Non-Labored 10/10/22 18:03 Blood Pressure 74/47 L 10/10/22 18:23 Blood Pressure Mean 55 10/10/22 18:23 Blood Pressure Position Sitting 10/10/22 17:44 Pulse Oximetry 97 10/10/22 17:44 Oxygen Delivery Method Room Air 10/10/22 17:44 Oxygen Flow Rate 0 10/10/22 17:44 Lab/Test Results Lab/Test Results: 10/10/22 18:17 Blood Blood Culture - Pending 10/10/22 18:16 Blood Blood Culture - Pending 10/10/22 18:16 Blood Blood Culture - Pending Critical Care Time Critical Care Time Critical Care Time: Yes Total Critical Care Time: 150 Attestation: Test review, discussion with family and nursing, discussion with consultants, etc. total this time
[2022-10-10 18:29] LABS: BE (Venous) 2 mmol/L (-2-3); HCO3 (Venous) 26 mmol/L (23-28); O2 Sat (Venous) 64 %; TCO2 (Venous) 24 mmol/L (24-29); pCO2 (Venous) 42 mmHg (41-51); pH (Venous) 7.41 (7.31-7.41); pO2 (Venous) 33 mmHg
--- NOTE | 2022-10-10 18:30 | DI.CT_ITS ---
Exam(s) CT THORAX ABD/PEL CTA EXAM: CT THORAX ABD/PEL CTA CLINICAL HISTORY: hypotension and neck pain. TECHNIQUE: Imaging Protocol: Axial computed tomography images with coronal and sagittal reformatted images were created and reviewed CONTRAST MATERIAL: Intravenous: Omnipaque 350 Contrast volume:90 ml Oral: no COMPARISON: CT CT ABDOMEN PELVIS W from 03/02/2020 FINDINGS: CHEST: Tracheobronchial tree: Patent where visualized. Pulmonary parenchyma: Minimal hazy densities, nonspecific. Dependent changes. No consolidation or d ominant measurable mass. Pleura: No effusion or pneumothorax. Lymph nodes: Within normal limits. Aorta: Thoracic portion non-dilated. Atherosclerotic changes. Heart: Not enlarged. Coronary artery calcifications present. Bones: Unremarkable for age. No lytic or blastic lesions.Minimal lower thoracic compression fracture s, unchanged.. ABDOMEN: Liver: Normal density. 2.2 centimeter cyst left lobe unchanged. No suspicious measurable mass. Gallbladder and biliary tract: No radiodense calculus or dilation. Pancreas: Normal density, no abnormal calcifications or inflammatory process. Spleen: Normal. Kidneys: Normal size, contour and axis. No radiodense stones or obstructive uropathy. No suspicious m asses seen. Adrenal glands: No masses seen. Vasculature:: Atherosclerotic changes. Abdominal aorta non-dilated. Approximate 50 percent stenosis at the celiac axis. SMA no significant stenosis. Stenosis at the origin of left renal artery near 50 percent. Right renal artery unremarkable. Right iliac artery no significant stenosis. Left comm on iliac artery is occluded for approximately 2.5 cm distal to the bifurcation. The internal and ext ernal iliac arteries are patent. Bilateral femoral arteries are patent. Lymph nodes: Within normal limits. Soft tissues: Gas bubble likely related to subcutaneous injections. PELVIS: Bladder: Symmetric distention, no gross wall thickening. Bowel: No obstruction. Wall thickening and enhancement in the lower rectum. This may be due to rece nt surgery. Clinical correlation recommended. Remainder of bowel unremarkable. Peritoneal cavity: No ascites, collection or mesenteric inflammatory response. Bones: Degenerative changes. Reproductive organs: Within normal limits. IMPRESSION: No evidence of pulmonary emboli or aortic dissection. Atherosclerotic changes throughout. 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 Narrowing also seen in the celiac axis and left renal art dianne origin. Circumferential wall thickening of the distal rectum may be related to recent surgery. RADIATION DOSE DELIVERED: 1,088.66mGy.cm Total DLP DATA REPOSITORY: All CT scans at this facility are submitted to the National Radiology Data Registry (NRDR) Dose Index Registry (DIR) with the [employer] (A[employer]). RADIATION OPTIMIZATION: All CT scans at this facility use at least one of these dose optimization te chniques: automated exposure control; mA and/or kV adjustment per patient size (includes targeted exa ms where dose is matched to clinical indication); or iterative reconstruction.
[2022-10-10 18:31] LABS: Lactate 1.1 mmol/L (0.6-1.4)
[2022-10-10 18:32] LABS: Abs Immature Grans 0.04 10^3/uL (0.0-0.06); Absolute Basophil Count 0.05 10^3/uL (0.0-0.2); Absolute Eosinophil Count 0.17 10^3/uL (0.0-0.7); Absolute Lymphocyte Count 1.56 10^3/uL (1.2-3.4); Absolute Monocyte Count 0.62 10^3/uL (0.1-0.8); Absolute Neutrophil Count 5.68 10^3/uL (1.2-6.7); Basophils % 0.6; Eosinophils % 2.1; HCT 34.4 % (36.0-46.0); HGB 11.5 g/dL (11.2-15.7); Immature Grans % 0.5; Lymphocytes % 19.2; MCH 32.2 pg (27.0-33.0); MCHC 33.4 % (32.0-36.0); MCV 96 fL (80-95); MPV 10.6 fL (8.0-11.0); Monocytes % 7.6; Platelet Count 211 10^3/uL (130-400); RBC 3.57 10^6/uL (3.93-5.22); RDW 13.8 % (11.7-14.6); RDW-SD 48.8 fL; WBC 8.12 10^3/uL (4.4-10.8)
--- NOTE | 2022-10-10 18:34 | NUR.NOTE ---
Nursing Note:Dr Acevedo reviewed all VS, BP trending upward, aware NS 1000ml infusing right 20 cornelia and NS 1000 ML infusing left [address] Acevedo reviewed plan of care with pt. Plan for CT
[2022-10-10 18:40] LABS: Prothrombin Time 10.4 sec (9.3-11.0)
[2022-10-10 18:50] LABS: ALT 25 U/L (14-59); AST 34 U/L (15-37); Alkaline Phosphatase 70 U/L (46-116); Anion Gap 5.3 mmol/L (3-11); BUN 20 mg/dL (7-18); Bilirubin, Total 0.4 mg/dL (0.2-1.0); CO2 27.7 mmol/L (21.0-32.0); CREATININE 2.3 mg/dL (0.55-1.02); Calcium 8.7 mg/dL (8.5-10.1); Chloride 102 mmol/L (98-107); Estimated GFR 23.01 (mL/min/1.73m2); Glucose 96 mg/dL (74-106); Potassium 4.1 mmol/L (3.5-5.1); Sodium 135 mmol/L (136-145); Total Protein 6.4 g/dL (6.4-8.2)
[2022-10-10] MEDS: Normal Saline - Diluent 50 ML VIAL IJ (18:50)
[2022-10-10] MEDS: Omnipaque 350 MG/ML 100 ML BTL IJ (18:50)
--- NOTE | 2022-10-10 18:56 | DI.VRAD_ITS ---
PROCEDURE INFORMATION: Exam: XR Chest Exam date and time: 10/10/2022 6:27 PM Age: 67 years old Clinical indication: Other: Hypotension TECHNIQUE: Imaging protocol: Radiologic exam of the chest. Views: 1 view. COMPARISON: CT CHEST LUNG CANCER SCREEN 09/09/2021 8:40 AM FINDINGS: Lungs: Lungs are clear throughout with no mass or consolidation detected. Pleural spaces: No pneumothorax or pleural effusion detected. Heart/Mediastinum: Heart size is normal and vessel margins are sharply defined. Bones/joints: No acute osseous lesions are detected. IMPRESSION: No acute findings. Dictated and Authenticated by: Luiz Padilla MD. Ordering:JERO Gould MD
[2022-10-10 19:07] LABS: Magnesium 1.8 mg/dL (1.8-2.4)
[2022-10-10 19:10] LABS: Troponin I 1493 ng/L (<or=60)
--- NOTE | 2022-10-10 19:15 | RT.EKG_ITS ---
APPROVED REPORT Exam: Resting ECG Reason for Exam: HYPOTENSION, POSTERIOR NECK PAIN Patient Location: E HR:96 bpm ECG Measurements Heart Rate 96 AXIS UT 158 P 70 QRSd 88 QRS 66 QT 340 T 91 QTc 430 Conclusion Sinus rhythm...normal P axis, V-rate 60- 99 Low voltage, extremity leads...all extremity leads <0.5mV Nonspecific T abnormalities, lateral leads...T <-0.10mV, I aVL V5 V6 NSR 95, artifact, somen lateral T wave flattening and T wave inversion V2 vs old EKG from 2010
[2022-10-10] MEDS: Norepinephrine in D5W 8 MG/250 ML BAG 13.125 MG IV (19:20)
--- NOTE | 2022-10-10 19:29 | NUR.NOTE ---
Nursing Note: Dr Acevedo at pt's bedside, aware BP trending down post 2 liters NS received, systolic 70-80's, plan to start norepinepherine. Handoff to Maria Elena RN, reviewed VS trending, pt remain hypotensive, confirmed infusions running,pt A/O X4, talking with bedside friend, completed bedside handoff.
--- NOTE | 2022-10-10 19:48 | DI.VRAD_ITS ---
Addendum created by Luiz Padilla MD on 10/10/2022 7:48:01 PM EDT: THIS REPORT CONTAINS FINDINGS THAT MAY BE CRITICAL TO PATIENT CARE. The findings were verbally communicated via telephone conference with Bryanna Blackburn at 7:47 PM EDT on 10/10/2022. The findings were acknowledged and understood. Initial report created on 10/10/2022 7:47:33 PM EDT: PROCEDURE INFORMATION: Exam: CTA Chest With Contrast CTA Abdomen and Pelvis With Contrast Exam date and time: 10/10/2022 6:58 PM Age: 67 years old Clinical indication: Cough and shortness of breath and other: Hypotension; Shortness of breath and hypotension TECHNIQUE: Imaging protocol: Computed tomographic angiography of the chest with contrast. Computed tomographic angiography of the abdomen and pelvis with contrast. 3D rendering (Not supervised by radiologist): MIP and/or 3D reconstructed images were created by the technologist. Contrast material: 350; Contrast volume: 90 ml; Contrast route: INTRAVENOUS (IV); COMPARISON: CT CHEST LUNG CANCER SCREEN 09/09/2021 8:40 AM FINDINGS: VASCULATURE: Pulmonary arteries: Adequate opacification of pulmonary arterial branches with no acute pulmonary embolism detected. Aorta: No aortic aneurysm. No aortic dissection. 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 No stenosis at the origin of the superior mesenteric artery. Renal arteries: Ostial calcification with suspected greater than 50% stenosis at the origin of the left renal artery. No occlusion or significant stenosis of the right renal artery. Right iliac arteries: No occlusion or significant stenosis. Left iliac arteries: There is occlusion of the left common iliac artery just distal to its origin with reconstitution of flow seen in the left internal and external iliac arteries just distal to the left common iliac bifurcation. CHEST: Lungs: A few indistinct hazy infiltrates are scattered about the left upper lobe with the remaining pulmonary parenchyma otherwise clear throughout and no other mass or consolidation detected. Pleural spaces: Unremarkable. No pneumothorax. No pleural effusion. Heart: Unremarkable. No cardiomegaly. No pericardial effusion. ABDOMEN AND PELVIS: Liver: A 22 mm cyst is again seen along the superior aspect of the left lobe of the liver with no new hepatic lesions detected. Gallbladder and bile ducts: Gallbladder is contracted but otherwise unremarkable. Pancreas: Unremarkable. No mass. No ductal dilation. Spleen: Unremarkable. No splenomegaly. Adrenal glands: Unremarkable. No mass. Kidneys and ureters: Unremarkable. No solid mass. No hydronephrosis. Stomach and bowel: No bowel obstruction or evidence of perforation. There is circumferential wall thickening and mucosal enhancement seen in the region the rectum with associated perirectal fascial stranding. No evidence of appendicitis. Appendix: No evidence of appendicitis. Intraperitoneal space: Unremarkable. No free air. No significant fluid collection. Urinary bladder: Unremarkable. No mass. Reproductive: Unremarkable as visualized. Lymph nodes: Unremarkable. No enlarged lymph nodes. Bones/joints: No acute fracture. Soft tissues: Multifocal small collections of gas seen within the ventral subcutaneous fat of the abdominal wall could relate to recent subcutaneous injections. IMPRESSION: 1. No evidence of acute pulmonary embolism. 2. No evidence of aneurysm or dissection involving the thoracic or abdominal aorta. 3. 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 4. 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 5. There is circumferential wall thickening and mucosal enhancement seen involving the rectum with associated perirectal fascial stranding in this patient with history of recent surgical repair for rectal prolapse. Dictated and Authenticated by: Luiz Padilla MD. Ordering:JERO Gould MD
[2022-10-10] MEDS: Aspirin 81 MG CHEW 324 MG PO (19:57)
[2022-10-10] MEDS: Normal Saline 1,000 ML 125 ML IV (19:57)
[2022-10-10 20:04] LABS: Troponin I 1309 ng/L (<or=60)
[2022-10-10] MEDS: Heparin 5,000 UNITS/ML VIAL 4620 UNITS IV (20:14)
[2022-10-10 21:05] LABS: ALT 23 U/L (14-59); AST 31 U/L (15-37); Albumin 2.7 g/dL (3.4-5.0); Alkaline Phosphatase 71 U/L (46-116); Anion Gap 8.5 mmol/L (3-11); BUN 18 mg/dL (7-18); Bilirubin, Total 0.4 mg/dL (0.2-1.0); CO2 23.5 mmol/L (21.0-32.0); CREATININE 2.1 mg/dL (0.55-1.02); Calcium 8.1 mg/dL (8.5-10.1); Chloride 104 mmol/L (98-107); Estimated GFR 25.67 (mL/min/1.73m2); Glucose 111 mg/dL (74-106); Magnesium 1.6 mg/dL (1.8-2.4); Potassium 3.9 mmol/L (3.5-5.1); Sodium 136 mmol/L (136-145)
[2022-10-10 21:06] LABS: Troponin I 1405 ng/L (<or=60)
[2022-10-10 21:37] LABS: Bilirubin Negative (Negative); Blood Trace-intact (Negative); Clarity Clear (Clear); Glucose Negative (Negative); Ketones Trace mg/dL (Negative); Leukocyte Esterase Negative (Negative); Nitrite Negative (Negative); Specific Gravity <= 1.005 (1.005-1.025); Urobilinogen 0.2 mg/dL (Up to 0.2)
[2022-10-10 21:43] LABS: Bacteria Rare HPF (Negative); C & S Indicated? No; Casts Negative LPF (Negative); Crystals Negative HPF (Negative); Epithelial Cells Rare HPF (Negative); Mucus Negative (Negative); RBC 0-2 HPF (0-2); WBC Negative HPF (0-5)
--- NOTE | 2022-10-10 21:49 | HPE_ITS ---
Date of service: 10/10/22 Time of Service: 21:49 Assessment and Plan Assessment and plan (1) Near syncope: Start date: 10/10/22 Status: Acute Assessment and plan: This is a 67-year-old lady status post robotic assisted laparoscopic hysterectomy with repair of prolapse rectocele with placement of mesh and complex surgery. She was dehydrated during her hospital stay requiring IV hydration and adjustment of her antihypertensives which were diuretics and at home she appears to have returned to the same state. She did respond to IV fluid resuscitation with norepinephrine given short-term for hypotension but this now has been discontinued. She did bump her troponins with an elevated creatinine and cardiology did not recommend heparinization which was d iscontinued with patient's troponins to be trended. This may be more of a secondary rise in her troponins with her renal insufficiency and recent surgery with near syncopal episode with hypotension. Her antihypertensives will be adjusted and since patient is tachycardic will be placed on low-dose Lopressor now with a blood pressure elevated off norepinephrine with fluid resuscitation. Long-term she will need further cardiac evaluation with echocardiogram and possibly nuclear exercise stress test especially with her significant atherosclerotic vascular disease in her abdominal large arteries. She is a full code. Presently she is asymptomatic and doing very well with fluids with echocardiogram to be done as soon as available. This appears to be a cardiovascular neuro syncopal episode rather than neurological. No further imaging is indicated at this time. (2) NSTEMI (non-ST elevated myocardial infarction): Start date: 10/10/22 Status: Acute Assessment and plan: This is most likely a type II non-STEMI with patient risk of bleeding significant postoperatively according to Dr. Acuña from colorectal surgery at [facility]. Sorensen did not recommend IV heparin but trending troponins which will be done. Patient's heparin infusion was discontinued. She is asymptomatic. Long-term she needs an echocardiogram and I will work on heart rate control watch closely for recurrence of hypotension as patient is IV hydrated for dehydration. Her baseline creatinine is 1 and is over 2 at this time. (3) Hypotension: Start date: 10/10/22 Status: Acute Assessment and plan: Transient and associated with acute renal insufficiency with probable overtreatment of patient's hypertension postoperatively and during recovery. This also occurred during her hospital stay and the patient may not be drinking adequately. She has electrolyte abnormalities which will be repleted as well. (4) Dehydration, moderate: Start date: 10/10/22 Status: Acute Assessment and plan: Patient postoperatively appears to have problems with her usual antihypertensive with dehydration and electrolyte abnormalities with her diuretics. Her creatinine has more than doubled from her baseline after returning home and this also occurred during her hospital stay postoperatively. She is respond to IV fluid resuscitation and norepinephrine will be discontinued for hypotension. Trend labs. Reevaluate use of diuretics in this patient for antihypertensives. (5) Hypomagnesemia: Start date: 10/10/22 Status: Acute Assessment and plan: Replete IV and follow-up lab in the morning. (6) Hypokalemia: Status: Chronic Assessment and plan: Patient is chronically on oral potassium and will continue supplement with follow-up lab in the morning. (7) Essential hypertension: Status: Chronic Assessment and plan: Chronic problem but overtreated at home most likely with mild dehydration and renal insufficiency compared to her baseline. Patient will be placed on low- dose metoprolol with her elevated troponins and tachycardic heart rate. Her usual antihypertensives will be held for now with repletion of electrolytes caused by her diuretics. (8) Chronic low back pain: Status: Chronic Assessment and plan: Symptomatic treatment with lidocaine patches and analgesics as needed. Patient is slightly overweight which may exacerbate this problem. History of Present Illness History of Present Illness Chief Complaint: Near syncope seeing spots with hypotension Narrative: This is a 67-year-old female patient who had robotic assisted laparoscopic hysterectomy with repairs and mesh's which was complex by colorectal surgery at [facility] [place]/07/[place]. She had some problems with dehydration and hypotension postoperatively but this was corrected with IV fluids and after returning home 10/09/2022 the patient felt better and tried to do some work outside. She felt f aint and was seeing spots and then went to lay down and was still feeling that she was seeing things in front of her eyes whenever she would try to sit up. She took her blood pressure and it was low and she called her PCP who told her to go to the ED. Her friend to take her to the ED. In the ED had full evaluation did not show any acute bleeding but her troponins were elevated and she was initiated on IV heparin infusion prior to the ED provider calling [facility] for advice. The ED provider did not call colorectal surgery to clear heparin infusion and I did this after patient was brought up to the ICU being hypotensive on heparin infusion and on norepinephrine infusion. Blood pressure was stabilizing but she continued to be tachycardic but denied any chest pressure chest pain throughout her episode at home or in the hospital. At the time that I saw the patient she was sitting in bed eating her meal. She had no associated symptoms with her near syncopal episode with no diaphoresis chest pressure nausea or vomiting and no focal neurological complaints. I did call Dr. Acuña who is covering colorectal surgery and she did advise that it was not optimal for the patient be on heparin but if her life was going to be saved risk may be worth benefit. The patient is not having active symptoms of ischemic heart disease even though she does have troponins elevated over 1300 and reconsultation by phone with Dr. Sorensen confirmed that he did not think the patient was having a coronary artery event or ischemic response with the elevated troponins and did not recommend heparin infusion especially postoperatively. He was concerned there may be some leakage of contrast in the surgical area when he reviewed imaging. Since the patient is not having any symptoms of cardiac ischemia and actually is very comfortable now with blood pressure up with fluid resuscitation and off norepinephrine, heparin will be discontinued as well. She will be trended on troponins and labs with magnesium to be repleted the patient's antihypertensives may to be readjusted perioperatively with her getting dehydrated twice now in the hospital and after discharge. She is a full code. Review of Systems Narrative: 13 point review of systems otherwise unrevealing or stable. [facility] All Active Problems (Updated 10/11/22 @ 01:20 by Paul Vera) Dehydration, moderate (Acute) Hypokalemia (Chronic) Hypomagnesemia (Acute) Hypotension (Acute) NSTEMI (non-ST elevated myocardial infarction) (Acute) Near syncope (Acute) Chronic low back pain (Chronic) tx pain clinic 2013 [facility]- 03/2021-MR of low back-numerous degenerative changes. Most prominent were foraminal stenosis at upper lumbar labral, no acute disc bulging, With chronic pain syndrome-followed by pain clinic at [facility] Essential hypertension (Chronic 04/20/13) Normal echocardiogram -2015 Generalized anxiety disorder (Acute) Hyperlipidemia (Acute 02/06/14) Neck pain (Acute) C6-7 disc w/ radiculopathy S/P surgery [facility] Sensorineural hearing loss, bilateral (Chronic 04/06/14) Urge incontinence of urine (Acute) Otitis externa due to herpes zoster (Acute 06/30/13) Goiter (Acute) Rectal mucosa prolapse (Acute) Vaginal enterocele due to incomplete uterovaginal prolapse (Acute) Heart murmur (Chronic) 07/2021-systolic murmur-at upper sternal border, longstanding, normal echo 2015-consistent with innocent murmur Nicotine dependence (Chronic) smoking, vaping Carotid stenosis (Acute) - positive carotid bruit 09/2021 Carotid US, moderate bilat stenosis, l> R Polypharmacy (Acute) Lumbosacral spondylosis without myelopathy (Acute) 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 Rectal bleed 07/2021 Surgical History History of arthroscopy History of bilateral ligation of fallopian tubes History of colonoscopy with polypectomy (~07/09/21) S/P carpal tunnel release S/P hemorrhoidectomy hemorrhoid banding S/P spinal fusion Family History Mother Essential hypertension Stroke Cancer Father Heart disease Brother Heart disease Maternal Grandfather No problems noted. Paternal Grandfather No problems noted. Maternal Grandmother Essential hypertension Stroke Paternal Grandmother No problems noted. Social History Smoking/Tobacco Use Status: Current every day Tobacco: How many years used: 20 Smokeless tobacco user: dissolvable tobacco Quit status: has quit before Second Hand Exposure: Yes Counseling given: provider counseling Smoking risk assessment performed?: Yes Alcohol Intake: former Drug use: Daily Substance use type: marijuana Details: Pt reports awokefrom napb at 1600 black pt reports lasted 30 minutes. spots in vision, Household members: none Housing: house Number of Children: 3 number of grandchildren: 3 Education Level: high school Do you need help understanding health information?: Always Pets and animals: Yes Pets and animals: other Details: Donkey Sexually active: No What type of physical activity do you participate in: decline to answer Duration: decline to answer Frequency: decline to answer Chelsea/Mandaeism: Anabaptism Special chelsea needs: No Seatbelt use: always Helmet use: Yes Helmet use: always Drive intox or ride w/intox ambulance driver: No Do you feel safe at home: Yes Additional Social history: live alone Meds Allergies and Home Medications Allergies Allergy/AdvReac Type Severity Reaction Status Date / Time Corticosteroids Allergy Intermediate INCREASED Verified 08/13/22 09:16 (Glucocorticoids) SOB prednisone Allergy Intermediate SOB Verified 08/13/22 09:16 Home Medications Medication Instructions Recorded Confirmed Type clotrimazole 1 % topical cream 1 applic topical BID PRN skin rash 07/14/19 10/10/22 Rx #28 grams aspirin 81 mg tablet,delayed 81 mg PO DAILY 07/01/21 10/10/22 History release pramipexole 0.5 mg tablet 0.5 mg PO BID #180 tab-caps 08/16/21 10/10/22 Rx albuterol sulfate 90 mcg/actuation 1 - 2 puff inhalation QID PRN 08/29/21 10/10/22 Rx aerosol inhaler shortness of breath or wheezing #18 grams fluticasone propionate 50 1 spray NS BID ##1 08/29/21 10/10/22 Rx mcg/actuation nasal spray,suspension lorazepam 1 mg tablet (Ativan) 1 mg PO DAILY PRN anxiety #10 02/25/22 10/10/22 Rx tab-caps lisinopril 30 mg tablet 30 mg PO DAILY #90 tabs 03/31/22 10/10/22 Rx pravastatin 20 mg tablet 20 mg PO DAILY #90 tab-caps 03/31/22 10/10/22 Rx venlafaxine 150 mg 150 mg PO DAILY #90 tab-caps 03/31/22 10/10/22 Rx capsule,extended release 24 hr lidocaine 5 % topical patch 1 patch topical DAILY #30 ea 05/16/22 10/10/22 Rx (Lidoderm) docusate sodium 100 mg capsule 100 mg PO BID PRN constipation #90 06/16/22 10/10/22 Rx (Stool Softener) caps trazodone 100 mg tablet 100 mg PO QHS #90 tabs 07/23/22 10/10/22 Rx gabapentin 800 mg tablet 800 mg PO TID #90 tabs 07/28/22 10/10/22 Rx diclofenac sodium 75 mg 75 mg PO BID PRN pain #60 tabs 08/11/22 10/10/22 Rx tablet,delayed release potassium chloride 10 mEq 10 meq PO DAILY #90 caps 08/15/22 10/10/22 Rx capsule,extended release triamterene 37.5 1 cap PO DAILY #90 caps 08/15/22 10/10/22 Rx mg-hydrochlorothiazide 25 mg capsule fesoterodine 4 mg tablet,extended 4 mg PO DAILY #90 tabs 09/11/22 10/10/22 Rx release 24 hr methylphenidate HCl 5 mg tablet 5 mg PO QAM #30 tabs 09/17/22 10/10/22 Rx nystatin 100,000 unit/gram topical 1 applic topical DAILY #30 grams 09/17/22 10/10/22 Rx powder tizanidine 6 mg capsule 6 mg PO Q8H PRN muscle spasticity 09/17/22 10/10/22 Rx #120 caps lidocaine HCl 2 % mucosal solution 1 applic mucous membrane BID PRN 09/26/22 10/10/22 Rx (Lidocaine Viscous) pain #200 mL Exam Narrative Exam Narrative: General: Patient appears appropriate for age, alert and oriented x3 and in no acute distress. She is sitting in bed with no complaints. She appears comfortable. HEENT: Normocephalic, eyes with pupils equal reactive light symmetrically, extraocular movement tact and sclera anicteric. Oropharynx with moist mucosa and fair dentition. Neck: Supple without JVD. Back: Stooped posture without CVA tenderness. Lungs: Fair aeration and clear to auscultation percussion. Breast: Exam deferred. Heart: Irregular rhythm with tachycardic rate and midsystolic murmur 2-3/6 lower left arm border. No gallops or rubs. Abdomen: Obese contour, soft and nontender to palpation with no guarding except over right lower abdomen postoperatively with patient stating this discomfort is improving and not changed. There is no rebound. Bowel sounds positive in all quadrants. Multiple postsurgical scars from robotic assisted laparoscopy over the lower mid abdomen with bruising but no induration. Genitalia/rectal: Exam deferred. Extremities: Without pitting edema with mild obesity and nonpitting edema over ankles bilaterally, chronic skin changes with loss of hair and slight hyperpigmentation over skin lower extremities, no clubbing or cyanosis. Good capillary refill. Skin: Normal color, warm and dry. Neuro: Cranial nerves II to XII gross intact, no focalized motor deficits and no tremor. Psych: Normal affect and mood. Remote and recent memory intact. No abnormal thought processes. Results Imaging Imaging Studies: Exam: CTA Chest With Contrast CTA Abdomen and Pelvis With Contrast Exam date and time: 10/10/2022 6:58 PM Age: 67 years old Clinical indication: Cough and shortness of breath and other: Hypotension; Shortness of breath and hypotension TECHNIQUE: Imaging protocol: Computed tomographic angiography of the chest with contrast. Computed tomographic angiography of the abdomen and pelvis with contrast. 3D rendering (Not supervised by radiologist): MIP and/or 3D reconstructed images were created by the technologist. Contrast material: 350; Contrast volume: 90 ml; Contrast route: INTRAVENOUS (IV);? COMPARISON: CT CHEST LUNG CANCER SCREEN 09/09/2021 8:40 AM FINDINGS: VASCULATURE: Pulmonary arteries: Adequate opacification of pulmonary arterial branches with no acute pulmonary embolism detected. Aorta: No aortic aneurysm. No aortic dissection. 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 No stenosis at the origin of the superior mesenteric artery. Renal arteries: Ostial calcification with suspected greater than 50% stenosis at the origin of the left renal artery. No occlusion or significant stenosis of the right renal artery. Right iliac arteries: No occlusion or significant stenosis. Left iliac arteries: There is occlusion of the left common iliac artery just distal to its origin with reconstitution of flow seen in the left internal and external iliac arteries just distal to the left common iliac bifurcation. CHEST: Lungs: A few indistinct hazy infiltrates are scattered about the left upper lobe with the remaining pulmonary parenchyma otherwise clear throughout and no other mass or consolidation detected. Pleural spaces: Unremarkable. No pneumothorax. No pleural effusion. Heart: Unremarkable. No cardiomegaly. No pericardial effusion. ABDOMEN AND PELVIS: Liver:? A 22 mm cyst is again seen along the superior aspect of the left lobe of the liver with no new hepatic lesions detected. Gallbladder and bile ducts: Gallbladder is contracted but otherwise unremarkable. Pancreas: Unremarkable. No mass. No ductal dilation. Spleen: Unremarkable. No splenomegaly. Adrenal glands: Unremarkable. No mass. Kidneys and ureters: Unremarkable. No solid mass. No hydronephrosis. Stomach and bowel: No bowel obstruction or evidence of perforation. There is circumferential wall thickening and mucosal enhancement seen in the region the rectum with associated perirectal fascial stranding. No evidence of appendicitis. Appendix: No evidence of appendicitis. Intraperitoneal space: Unremarkable. No free air. No significant fluid collection. Urinary bladder: Unremarkable. No mass. Reproductive: Unremarkable as visualized. Lymph nodes: Unremarkable. No enlarged lymph nodes. Bones/joints: No acute fracture. Soft tissues: Multifocal small collections of gas seen within the ventral subcutaneous fat of the abdominal wall could relate to recent subcutaneous injections. IMPRESSION: 1. No evidence of acute pulmonary embolism. 2. No evidence of aneurysm or dissection involving the thoracic or abdominal aorta.? 3. 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 4. 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 5. There is circumferential wall thickening and mucosal enhancement seen involving the rectum with associated perirectal fascial stranding in this patient with history of recent surgical repair for rectal prolapse. Labs 10/10/22 18:11 10/10/22 20:30 Labs: Laboratory Results - last 24 hr 10/10/22 10/10/22 10/10/22 18:11 18:11 18:11 WBC 8.12 RBC 3.57 L Hgb 11.5 Hct 34.4 L MCV 96 H MCH 32.2 MCHC 33.4 RDW 13.8 Plt Count 211 MPV 10.6 Immature Gran % 0.5 Neutrophils % 70.0 Lymphocytes % 19.2 Monocytes % 7.6 Eosinophils % 2.1 Basophils % 0.6 Nucleated RBC % 0.0 Absolute Neutrophils 5.68 Absolute Lymphocytes 1.56 Absolute Monocytes 0.62 Absolute Eosinophils 0.17 Absolute Basophils 0.05 PT INR APTT VBG pH 7.41 VBG pCO2 42 VBG pO2 33 VBG HCO3 26 VBG Total CO2 24 VBG O2 Saturation 64 VBG Base Excess 2 VBG Lactate Sodium Potassium Chloride Carbon Dioxide Anion Gap BUN Creatinine Est GFR (CKD-EPI 2020) Glucose Calcium Magnesium Total Bilirubin AST ALT Alkaline Phosphatase Troponin I Total Protein Albumin Urine Color Urine Clarity Urine pH Ur Specific [place] Urine Protein Urine Ketones Urine Blood Urine Nitrite Urine Bilirubin Urine Urobilinogen Ur Leukocyte Esterase Urine RBC Urine WBC Ur Epithelial Cells Urine Crystals Urine Bacteria Urine Casts Urine Mucus Ur Culture Indicated? Urine Glucose Patient ABO/Rh O Negative Antibody Screen NEGATIVE Crossmatch See Detail 10/10/22 10/10/22 10/10/22 18:11 18:11 18:11 WBC RBC Hgb Hct MCV MCH MCHC RDW Plt Count MPV Immature Gran % Neutrophils % Lymphocytes % Monocytes % Eosinophils % Basophils % Nucleated RBC % Absolute Neutrophils Absolute Lymphocytes Absolute Monocytes Absolute Eosinophils Absolute Basophils PT 10.4 INR 1.0 APTT VBG pH VBG pCO2 VBG pO2 VBG HCO3 VBG Total CO2 VBG O2 Saturation VBG Base Excess VBG Lactate 1.1 Sodium 135 L Potassium 4.1 Chloride 102 Carbon Dioxide 27.7 Anion Gap 5.3 BUN 20 H Creatinine 2.3 H Est GFR (CKD-EPI 2020) 23.01 Glucose 96 Calcium 8.7 Magnesium Total Bilirubin 0.4 AST 34 ALT 25 Alkaline Phosphatase 70 Troponin I Total Protein 6.4 Albumin 3.0 L Urine Color Urine Clarity Urine pH Ur Specific [place] Urine Protein Urine Ketones Urine Blood Urine Nitrite Urine Bilirubin Urine Urobilinogen Ur Leukocyte Esterase Urine RBC Urine WBC Ur Epithelial Cells Urine Crystals Urine Bacteria Urine Casts Urine Mucus Ur Culture Indicated? Urine Glucose Patient ABO/Rh Antibody Screen Crossmatch 10/10/22 10/10/22 10/10/22 18:11 18:11 19:36 WBC RBC Hgb Hct MCV MCH MCHC RDW Plt Count MPV Immature Gran % Neutrophils % Lymphocytes % Monocytes % Eosinophils % Basophils % Nucleated RBC % Absolute Neutrophils Absolute Lymphocytes Absolute Monocytes Absolute Eosinophils Absolute Basophils PT INR APTT 27.0 VBG pH VBG pCO2 VBG pO2 VBG HCO3 VBG Total CO2 VBG O2 Saturation VBG Base Excess VBG Lactate Sodium Cancelled Potassium Cancelled Chloride Cancelled Carbon Dioxide Cancelled Anion Gap Cancelled BUN Cancelled Creatinine Cancelled Est GFR (CKD-EPI 2020) Cancelled Glucose Cancelled Calcium Cancelled Magnesium 1.8 Total Bilirubin Cancelled AST Cancelled ALT Cancelled Alkaline Phosphatase Cancelled Troponin I 1493 H* 1309 H* Total Protein Cancelled Albumin Cancelled Urine Color Urine Clarity Urine pH Ur Specific [place] Urine Protein Urine Ketones Urine Blood Urine Nitrite Urine Bilirubin Urine Urobilinogen Ur Leukocyte Esterase Urine RBC Urine WBC Ur Epithelial Cells Urine Crystals Urine Bacteria Urine Casts Urine Mucus Ur Culture Indicated? Urine Glucose Patient ABO/Rh Antibody Screen Crossmatch 10/10/22 10/10/22 20:30 21:30 WBC RBC Hgb Hct MCV MCH MCHC RDW Plt Count MPV Immature Gran % Neutrophils % Lymphocytes % Monocytes % Eosinophils % Basophils % Nucleated RBC % Absolute Neutrophils Absolute Lymphocytes Absolute Monocytes Absolute Eosinophils Absolute Basophils PT INR APTT VBG pH VBG pCO2 VBG pO2 VBG HCO3 VBG Total CO2 VBG O2 Saturation VBG Base Excess VBG Lactate Sodium 136 Potassium 3.9 Chloride 104 Carbon Dioxide 23.5 Anion Gap 8.5 BUN 18 Creatinine 2.1 H Est GFR (CKD-EPI 2020) 25.67 Glucose 111 H Calcium 8.1 L Magnesium 1.6 L Total Bilirubin 0.4 AST 31 ALT 23 Alkaline Phosphatase 71 Troponin I 1405 H* Total Protein 6.0 L Albumin 2.7 L Urine Color Yellow Urine Clarity Clear Urine pH 6.0 Ur Specific [place] <= 1.005 Urine Protein Trace H Urine Ketones Trace H Urine Blood Trace-intact H Urine Nitrite Negative Urine Bilirubin Negative Urine Urobilinogen 0.2 Ur Leukocyte Esterase Negative Urine RBC 0-2 Urine WBC Negative Ur Epithelial Cells Rare Urine Crystals Negative Urine Bacteria Rare Urine Casts Negative Urine Mucus Negative Ur Culture Indicated? No Urine Glucose Negative Patient ABO/Rh Antibody Screen Crossmatch Last Vital Signs Temp 36.3 C L 10/10/22 17:44 Pulse 116 H 10/10/22 21:16 Resp 23 10/10/22 21:16 BP 114/77 10/10/22 21:16 Pulse Ox 97 10/10/22 18:19 Time Spent Time spent with Patient: >75 minutes Time was spent: preparing to see the patient(eg.review tests), obtaining and/or reviewing separately otained hiistory, ordering medications,tests, procedures, referring, communicating with other health critical care specialist, indepentently interpreting results, counseling the patient and care coordination
[2022-10-10 23:06] LABS: Troponin I 1357 ng/L (<or=60)
[2022-10-10 23:10] LABS: Calculated LDL 63 mg/dL (<100); Cholesterol 120 mg/dL (<200); HDL Cholesterol 42 mg/dL (40-60); TSH 4.35 uIU/mL (0.36-3.74); Triglyceride 78 mg/dL (<150)
[2022-10-11] VITALS (91 sets, daily range): BP systolic 84–158; BP diastolic 48–140; PULSE 54–133; RESP 12–31; TEMP 36.7–37.3; O2SAT 91–98
[2022-10-11] MEDS: traZODone 100 MG TAB PO (00:20)
[2022-10-11] MEDS: MAGNESIUM SULFATE 2 GM/50 ML BAG IVPB (00:21)
[2022-10-11] MEDS: Atorvastatin 40 MG TAB 80 MG PO (00:21)
[2022-10-11] MEDS: Patch Removal 1 EACH TP (00:42)
[2022-10-11] MEDS: Ondansetron 4 MG/2 ML VIAL IVP (03:27)
[2022-10-11] MEDS: Normal Saline 1,000 ML 125 ML IV (03:32)
[2022-10-11] MEDS: Mylanta Suspension 30 ML CUP PO (03:48)
[2022-10-11 04:21] LABS: HCT 36.8 % (36.0-46.0); HGB 12.4 g/dL (11.2-15.7); MCH 32.4 pg (27.0-33.0); MCHC 33.7 % (32.0-36.0); MCV 96 fL (80-95); MPV 10.8 fL (8.0-11.0); Platelet Count 186 10^3/uL (130-400); RBC 3.83 10^6/uL (3.93-5.22); RDW 13.8 % (11.7-14.6); RDW-SD 48.9 fL; WBC 7.85 10^3/uL (4.4-10.8)
[2022-10-11 05:06] LABS: ALT 28 U/L (14-59); AST 28 U/L (15-37); Albumin 2.8 g/dL (3.4-5.0); Alkaline Phosphatase 71 U/L (46-116); Anion Gap 11.5 mmol/L (3-11); BUN 19 mg/dL (7-18); Bilirubin, Total 0.3 mg/dL (0.2-1.0); CO2 21.5 mmol/L (21.0-32.0); CREATININE 1.9 mg/dL (0.55-1.02); Calcium 8.1 mg/dL (8.5-10.1); Chloride 105 mmol/L (98-107); Estimated GFR 28.94 (mL/min/1.73m2); Glucose 149 mg/dL (74-106); Potassium 3.8 mmol/L (3.5-5.1); Sodium 138 mmol/L (136-145); Total Protein 6.4 g/dL (6.4-8.2); Troponin I 1038 ng/L (<or=60)
[2022-10-11 07:56] LABS: Lactate 0.9 mmol/L (0.6-1.4)
--- NOTE | 2022-10-11 08:07 | INITIAL_ITS ---
Date of service: 10/11/22 Time of Service: 08:07 Care Management Initial Assmt Initial Assessment REASON FOR HOSPITALIZATION:: Near syncope, NSTEMI, hypotension PREVIOUS FUNCTIONAL STATUS/SOCIAL/FAMILY SUPPORTS:: Jeniffer is and lives alone in a single family home in [place]. She has 3 adult children that live locally. Jeniffer drives and is independent at baseline. CURRENT FUNCTIONAL STATUS:: Jeniffer was sitting in the chair when CM met with her. She is awake and easily engages in conversation. ADVANCE DIRECTIVES:: None on file, Patient reports that she would like her Daughter Moira Ibarra to be her HCA. Adv. Directive forms provided to patient. Has patient been provided with info about the portal/API?: Yes Did the patient sign up for the portal?: No CODE STATUS:: Full Code INSURANCE COVERAGE / FINANCIAL ISSUES:: Medicare Medicaid CURRENT HOME/COMMUNITY SERVICES/EQUIPMENT:: [employer] PRIMARY CARE PHYSICIAN:: Arely Sampson POTENTIAL DISCHARGE NEEDS:: Transfer to [facility] PATIENT/FAMILY EDUCATION NEEDS:: Review discharge instructions and plan to follow up with community providers. Discuss ask me three. TRANSPORTATION:: Dependent on dispo. PLAN:: Jeniffer is being closely monitored in the ICU. Hospitalist is communicating with [facility] for potential transfer. CM will follow. PFSH All Active Problems (Updated 10/11/22 @ 01:20 by Paul Vera) Dehydration, moderate (Acute) Hypokalemia (Chronic) Hypomagnesemia (Acute) Hypotension (Acute) NSTEMI (non-ST elevated myocardial infarction) (Acute) Near syncope (Acute) Chronic low back pain (Chronic) ct pain clinic 2013 [facility]- 03/2021-MR of low back-numerous degenerative changes. Most prominent were foraminal stenosis at upper lumbar labral, no acute disc bulging, With chronic pain syndrome-followed by pain clinic at [facility] Essential hypertension (Chronic 04/20/13) Normal echocardiogram Generalized anxiety disorder (Acute) Hyperlipidemia (Acute 02/06/14) Neck pain (Acute) C6-7 disc w/ radiculopathy S/P surgery [facility] Sensorineural hearing loss, bilateral (Chronic 04/06/14) Urge incontinence of urine (Acute) Otitis externa due to herpes zoster (Acute 06/30/13) Goiter (Acute) Rectal mucosa prolapse (Acute) Vaginal enterocele due to incomplete uterovaginal prolapse (Acute) Heart murmur (Chronic) 07/2021-systolic murmur-at upper sternal border, longstanding, normal echo 2015-consistent with innocent murmur Nicotine dependence (Chronic) smoking, vaping Carotid stenosis (Acute) - positive carotid bruit 09/2021 Carotid US, moderate bilat stenosis, l> R Polypharmacy (Acute) Lumbosacral spondylosis without myelopathy (Acute) 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 Rectal bleed 07/2021 Surgical History History of arthroscopy History of bilateral ligation of fallopian tubes History of colonoscopy with polypectomy (~07/09/21) S/P carpal tunnel release S/P hemorrhoidectomy hemorrhoid banding S/P spinal fusion Family History Mother Essential hypertension Stroke Cancer Father Heart disease Brother Heart disease Maternal Grandfather No problems noted. Paternal Grandfather No problems noted. Maternal Grandmother Essential hypertension Stroke Paternal Grandmother No problems noted. Social History Smoking/Tobacco Use Status: Current every day Tobacco: How many years used: 20 Smokeless tobacco user: dissolvable tobacco Quit status: has quit before Second Hand Exposure: Yes Counseling given: provider counseling Smoking risk assessment performed?: Yes Alcohol Intake: former Drug use: Daily Substance use type: marijuana Details: Pt reports awokefrom napb at 1600 black pt reports lasted 30 minutes. spots in vision, Household members: none Housing: house Number of Children: 3 number of grandchildren: 3 Education Level: high school Do you need help understanding health information?: Always Pets and animals: Yes Pets and animals: other Details: Donkey Sexually active: No What type of physical activity do you participate in: decline to answer Duration: decline to answer Frequency: decline to answer [place]/Spiritism: Orthodoxy Special chelsea needs: No Seatbelt use: always Helmet use: Yes Helmet use: always Drive intox or ride w/intox coach driver: No Do you feel safe at home: Yes Additional Social history: live alone
[2022-10-11 08:28] LABS: Troponin I 1032 ng/L (<or=60)
[2022-10-11 08:28] LABS: Magnesium 2.2 mg/dL (1.8-2.4); NT-proBNP 25871 pg/mL (<300)
[2022-10-11 08:41] LABS: Procalcitonin < 0.1 ng/mL
--- NOTE | 2022-10-11 08:45 | RT.EKG_ITS ---
APPROVED REPORT Exam: Resting ECG Reason for Exam: NSTEMI Patient Location: I HR:88 bpm ECG Measurements Heart Rate 88 AXIS TX 151 P 72 QRSd 87 QRS 33 QT 314 T 89 QTc 380 Conclusion Sinus rhythm...normal P axis, V-rate 50- 99 Supraventricular bigeminy...bigeminy string>4 w/ SV complexes Borderline low voltage, extremity leads...all extremity leads <0.6mV Short QT interval...QTc <340mS Baseline wander in lead(s) V2
[2022-10-11] MEDS: Gabapentin 800 MG TAB PO (10:09)
[2022-10-11] MEDS: Aspirin E.C. 81 MG TABEC PO (10:09)
[2022-10-11] MEDS: Metoprolol 12.5 MG TAB PO ×2 (10:09→14:33)
[2022-10-11] MEDS: Venlafaxine 150 MG CAPCR PO (10:10)
[2022-10-11] MEDS: Pramipexole 0.5 MG TAB PO (10:10)
[2022-10-11] MEDS: Potassium Chloride 10 MEQ CAPCR PO (10:10)
[2022-10-11] MEDS: LORazepam 2 MG/ML VIAL 0.5 MG IVP ×2 (10:19→16:18)
[2022-10-11] MEDS: Fluticasone NASAL SPRAY 16 GM BTL NS (11:00)
[2022-10-11] MEDS: Nystatin POWDER 15 GM JAR TP (11:02)
[2022-10-11] MEDS: Pantoprazole 40 MG VIAL IVP (11:35)
[2022-10-11] MEDS: Normal Saline Flush 10 ML SYR IVP ×3 (11:35→16:18)
--- NOTE | 2022-10-11 13:37 | NUR.NOTE ---
RN faxes telemetry to [facility].Nursing Note:
[2022-10-11] MEDS: Clopidogrel 300 MG TAB PO (15:27)
[2022-10-11 15:55] LABS: PTT Activated 28.3 sec (21.5-31.9)
--- NOTE | 2022-10-11 16:43 | W.PM.DS.N ---
Date of service: 10/11/22 Time of Service: 16:43 DS: Diagnosis Discharge Diagnosis (1) NSTEMI (non-ST elevated myocardial infarction): Status: Acute (2) Near syncope: Status: Acute (3) Hypotension: Status: Acute (4) Dehydration, moderate: Status: Acute (5) Hypomagnesemia: Status: Acute (6) Hypokalemia: Status: Chronic (7) Essential hypertension: Status: Chronic (8) Chronic low back pain: Status: Chronic (9) Cyclic vomiting syndrome: Status: Acute Discharge Plan Disposition Specific Acute Inpt Facility: [facility] Condition: Serious Discharge Details Reason For Visit: Near Syncope, NSTEMI, Hypotension Admit Date/Time: 10/10/22 21:58 Admit Provider: Paul Vera Attending Provider: Paul Vera Primary Care Provider: Arely Sampson Hospital Course Hospital Course: Ms Chow is a 67 year old female with PMHx of HTN, Hyperlipidemia, tobacco abuse, who [place] [facility] [place], who presented to [facility] after a near syncopal episode in setting of hypotension at home. She was clinically dehydrated with evidence of JAMES and was treated with IV hydration, but with BP as low as 71/47, ended up being placed on norepinephrine peripherally, which we were able to wean off the same evening. There was no evidence of infectious process, so while blood cultures were obtained, the patient is not on the antibiotics. In the ER the patient reported neck pain, but not chest pain. The patient's cardiac workup revealed a troponin I of 1493, which did trend down to 1032 over the course of the next 13 hrs. The patient's EKG showed nonspecific changes, but no STEMI. The patient was heparinized, and a CTA of her chest/abdomen/pelvis was obtained, ruling out a PE and an aortic dissection, but showing evidence of stenoses at the origins of the celiac trunk, left renal artery, as well as occlusion of the L common iliac artery just distal to the origin with reconstitution of flow seen in the left internal and external iliac arteries just distal to the left common iliac bifurcation. There was some perirectal fascial stranding c/w her recent surgery. The patient's case was discussed with [facility] [place] who at the time felt this was likely a type 2 NSTEMI rather than a type 1 and recommended against anticoagulation. The patient was accepted to [facility] hospitalist service for further evaluation. The patient developed nausea and vomiting. This was treated with antiemetics. The patient did volunteer to us that she gets episodes of nausea/vomiting at home and she is wondering if it could be related to her smoking of canabis. We trialed ativan for the treatment of her nausea with success, suggesting that she might have canabinoid hyperemesis syndrome/cyclic vomiting illness. Meanwhile the patient did endorse to me having had mild chest pain in the last few days. Given her h/o smoking, HTN, hyperlipidemia, and evidence of vascular disease on CT, this raised the question of a true ACS yet again. Additionally, given recent surgery, Takotsubo's cardiomyopathy was considered. [place] [address]. Clinically, she had crackles at the right base and +1 edema BLEs, which is her chronic, but no evidence of clinically decompensated CHF. She is on room air. POCUS echocardiogram was attempted, but the pictures were of too poor a quality to truly tell her anatomy. The case was discussed with [facility] [place] [place] yet again and etiology of her troponinemia was again questioned. Given the fact that a true ACS could not be ruled out at this time, recommendation was made to heparinize the patient and load her with RAY. This was discussed with [facility] [place] surgery and urogynecology, both of which stated that above therapy would be permissible if the heart required it. The patient was accepted in transfer to the cardiology service at [facility] under the care of Dr Summers for further ischemic evaluation. We appreciate the assistance of the [facility] clinical team and wish the patient well. Total Critical Care Time spent on care for patient as well as on coordination of her transfer and documentation was 60 minutes. The list of medications below reflects the patient's outpatient prescriptions. Please, see the patient's MAR for the list of the patient's inpatient medications. Home Meds and New Rx's Prescriptions: No Action aspirin 81 mg tablet,delayed release (DR/EC) 81 mg PO DAILY trazodone 100 mg tablet 100 mg PO QHS Qty: 90 3RF albuterol sulfate 90 mcg/actuation HFA aerosol inhaler 1 - 2 puff IH QID PRN (Reason: shortness of breath or wheezing) Qty: 18 3RF fluticasone propionate 50 mcg/actuation spray,suspension 1 spray NS BID Qty: 1 6RF clotrimazole 1 % cream 1 applic TP BID PRN (Reason: skin rash) Qty: 28 3RF pramipexole 0.5 mg tablet 0.5 mg PO BID Qty: 180 3RF lorazepam [Ativan] 1 mg tablet 1 mg PO DAILY MDD 1mg PRN (Reason: anxiety) Qty: 10 0RF lisinopril 30 mg tablet 30 mg PO DAILY Qty: 90 4RF Rx Instructions: take one tablet daily pravastatin 20 mg tablet 20 mg PO DAILY Qty: 90 4RF venlafaxine 150 mg capsule,extended release 24hr 150 mg PO DAILY Qty: 90 4RF lidocaine [Lidoderm] 5 % adhesive patch,medicated 1 patch topical DAILY Qty: 30 5RF Rx Instructions: leave on most painful area for up to 12 hrs, once a day, prn docusate sodium [Stool Softener] 100 mg capsule 100 mg PO BID PRN (Reason: constipation) Qty: 90 3RF gabapentin 800 mg tablet 800 mg PO TID Qty: 90 3RF diclofenac sodium 75 mg tablet,delayed release (DR/EC) 75 mg PO BID PRN (Reason: pain) Qty: 60 2RF Hold Instructions: Home Medication placed on hold at Doctor's office potassium chloride 10 mEq capsule, extended release 10 meq PO DAILY Qty: 90 1RF triamterene-hydrochlorothiazid 37.5-25 mg capsule 1 cap PO DAILY Qty: 90 2RF fesoterodine 4 mg tablet extended release 24 hr 4 mg PO DAILY Qty: 90 3RF nystatin 100,000 unit/gram powder 1 applic topical DAILY Qty: 30 2RF Rx Instructions: local application daily under breasts and in groin area tizanidine 6 mg capsule 6 mg PO Q8H PRN (Reason: muscle spasticity) Qty: 120 2RF methylphenidate HCl 5 mg tablet 5 mg PO QAM MDD 5mg Qty: 30 0RF lidocaine HCl [Lidocaine Viscous] 2 % solution 1 applic mucous membrane BID PRN (Reason: pain) Qty: 200 0RF Discharge Instructions Activity:: Activity as Tolerated Equipment/Supplies:: No Equipment Needed Diet:: NPO DS: Summary Time Spent with Patient providing and/or coordinating discharge services: Greater than 30 minutes Status at Discharge Functional status at discharge: independent ambulation Overall status at discharge: patient is progressing back to baseline Mental Status: mental status grossly normal Speech and Movement: speech and movement normal Mood: anxious mood Affect: anxious affect Exam Narrative Exam Narrative: General: Pleasant middle-aged female who is A&Ox3, appears mildly anxious/uncomfortable HEENT: EOMI, MMM Heart: RRR, no m/r/g Lungs: faint crackles R base Abdomen: soft, tender in RLQ, nondistended, multiple ecchymoses of the abdominal wall Extremities:+1 edema BLEs Psych Mental Status: mental status grossly normal Speech and Movement: speech and movement normal Mood: anxious mood Affect: anxious affect DS: Data Vitals/I&O Vitals and I&O: Vital Signs Temperature 37.0 C 10/11/22 14:34 Temperature Source Temporal Artery Scan 10/11/22 14:34 Pulse 111 H 10/11/22 14:34 Pulse 108 H 10/11/22 12:15 Respiratory Rate 21 10/11/22 14:34 Respiratory Effort Normal, Non-Labored 10/11/22 14:34 Respiratory Depth Normal 10/11/22 14:34 Respiratory Pattern Normal 10/11/22 14:34 Blood Pressure 141/84 H 10/11/22 14:34 Blood Pressure Mean 103 10/11/22 14:34 Blood Pressure Position Sitting 10/11/22 14:34 Pulse Oximetry 94 10/11/22 14:34 Oxygen Delivery Method Room Air 10/11/22 14:34 Oxygen Flow Rate 0 10/11/22 14:34 Pain Level 0 10/11/22 14:34 Comment Pt awake, A/O X4, speaking in full sentences, engaged in conversation woth friend at pt's bedside. 10/10/22 18:19 Intake & Output 10/10/22 10/11/22 10/11/22 23:59 11:59 23:59 Intake Total / 2171.739 / 2221.739 50 / 2220.739 Output Total 1100 / 1175 75 / 1175 Balance / 1071.739 / 1046.739 -25 / 1046.739 Weight 78.1 kg 78.1 kg Intake: IV / 2053.2050.739 / 2050.9 0 / 2050.739 Oral 120 / 170 50 / 170 Output: Urine 800 / 875 75 / 875 Emesis 300 / 300 Other: Urine Color Yellow Yellow Urine Appearance Clear Clear Urine Odor None Comment some blood tinged vaginal drainage Emesis Description Retching Mucous Voiding Methods Bedside Commode Bedside Commode Data Completed and Pending Completed studies during hospitalization [Text1]: CXR: No acute? findings CTA chest/abdomen/pelvis: 1. No evidence of acute pulmonary embolism. 2. No evidence of aneurysm or dissection involving the thoracic or abdominal aorta.? 3. 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 4. 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 5. There is circumferential wall thickening and mucosal enhancement seen involving the rectum with associated perirectal fascial stranding in this patient with history of recent surgical repair for rectal prolapse. Labs on day of discharge: Labs from last 24 hours 10/11/22 10/11/22 10/11/22 Unknown 15:32 07:50 WBC RBC Hgb Hct MCV MCH MCHC RDW Plt Count MPV Immature Gran % Neutrophils % Lymphocytes % Monocytes % Eosinophils % Basophils % Nucleated RBC % Absolute Neutrophils Absolute Lymphocytes Absolute Monocytes Absolute Eosinophils Absolute Basophils PT INR APTT 28.3 VBG pH VBG pCO2 VBG pO2 VBG HCO3 VBG Total CO2 VBG O2 Saturation VBG Base Excess VBG Lactate 0.9 Sodium Potassium Chloride Carbon Dioxide Anion Gap BUN Creatinine Est GFR (CKD-EPI 2020) Glucose Calcium Magnesium Total Bilirubin AST ALT Alkaline Phosphatase Troponin I NT-Pro-B Natriuret Pep Total Protein Albumin Triglycerides Total Cholesterol LDL Cholesterol, Calc HDL Cholesterol Procalcitonin TSH Urine Color Urine Clarity Urine pH Ur Specific [place] Urine Protein Urine Ketones Urine Blood Urine Nitrite Urine Bilirubin Urine Urobilinogen Ur Leukocyte Esterase Urine RBC Urine WBC Ur Epithelial Cells Urine Crystals Urine Bacteria Urine Casts Urine Mucus Ur Culture Indicated? Urine Glucose Add-On Test Request Pending Patient ABO/Rh Antibody Screen Crossmatch 10/11/22 10/11/22 10/11/22 07:50 05:50 05:50 WBC RBC Hgb Hct MCV MCH MCHC RDW Plt Count MPV Immature Gran % Neutrophils % Lymphocytes % Monocytes % Eosinophils % Basophils % Nucleated RBC % Absolute Neutrophils Absolute Lymphocytes Absolute Monocytes Absolute Eosinophils Absolute Basophils PT INR APTT VBG pH VBG pCO2 VBG pO2 VBG HCO3 VBG Total CO2 VBG O2 Saturation VBG Base Excess VBG Lactate Sodium Potassium Chloride Carbon Dioxide Anion Gap BUN Creatinine Est GFR (CKD-EPI 2020) Glucose Calcium Magnesium 2.2 Total Bilirubin AST ALT Alkaline Phosphatase Troponin I 1032 H* NT-Pro-B Natriuret Pep 97207 H Total Protein Albumin Triglycerides Total Cholesterol LDL Cholesterol, Calc HDL Cholesterol Procalcitonin < 0.1 TSH Urine Color Urine Clarity Urine pH Ur Specific [place] Urine Protein Urine Ketones Urine Blood Urine Nitrite Urine Bilirubin Urine Urobilinogen Ur Leukocyte Esterase Urine RBC Urine WBC Ur Epithelial Cells Urine Crystals Urine Bacteria Urine Casts Urine Mucus Ur Culture Indicated? Urine Glucose Add-On Test Request Patient ABO/Rh Antibody Screen Crossmatch 10/11/22 10/11/22 10/11/22 04:05 04:05 04:05 WBC 7.85 RBC 3.83 L Hgb 12.4 Hct 36.8 MCV 96 H MCH 32.4 MCHC 33.7 RDW 13.8 Plt Count 186 MPV 10.8 Immature Gran % Neutrophils % Lymphocytes % Monocytes % Eosinophils % Basophils % Nucleated RBC % Absolute Neutrophils Absolute Lymphocytes Absolute Monocytes Absolute Eosinophils Absolute Basophils PT INR APTT VBG pH VBG pCO2 VBG pO2 VBG HCO3 VBG Total CO2 VBG O2 Saturation VBG Base Excess VBG Lactate Sodium 138 Potassium 3.8 Chloride 105 Carbon Dioxide 21.5 Anion Gap 11.5 H BUN 19 H Creatinine 1.9 H Est GFR (CKD-EPI 2020) 28.94 Glucose 149 H Calcium 8.1 L Magnesium Total Bilirubin 0.3 AST 28 ALT 28 Alkaline Phosphatase 71 Troponin I 1038 H* NT-Pro-B Natriuret Pep Total Protein 6.4 Albumin 2.8 L Triglycerides Total Cholesterol LDL Cholesterol, Calc HDL Cholesterol Procalcitonin TSH Urine Color Urine Clarity Urine pH Ur Specific Ren[place] Urine Protein Urine Ketones Urine Blood Urine Nitrite Urine Bilirubin Urine Urobilinogen Ur Leukocyte Esterase Urine RBC Urine WBC Ur Epithelial Cells Urine Crystals Urine Bacteria Urine Casts Urine Mucus Ur Culture Indicated? Urine Glucose Add-On Test Request Patient ABO/Rh Antibody Screen Crossmatch 10/10/22 10/10/22 10/10/22 22:40 22:40 21:30 WBC RBC Hgb Hct MCV MCH MCHC RDW Plt Count MPV Immature Gran % Neutrophils % Lymphocytes % Monocytes % Eosinophils % Basophils % Nucleated RBC % Absolute Neutrophils Absolute Lymphocytes Absolute Monocytes Absolute Eosinophils Absolute Basophils PT INR APTT VBG pH VBG pCO2 VBG pO2 VBG HCO3 VBG Total CO2 VBG O2 Saturation VBG Base Excess VBG Lactate Sodium Potassium Chloride Carbon Dioxide Anion Gap BUN Creatinine Est GFR (CKD-EPI 2020) Glucose Calcium Magnesium Total Bilirubin AST ALT Alkaline Phosphatase Troponin I 1357 H* NT-Pro-B Natriuret Pep Total Protein Albumin Triglycerides 78 Total Cholesterol 120 LDL Cholesterol, Calc 63 HDL Cholesterol 42 Procalcitonin TSH 4.35 H Urine Color Yellow Urine Clarity Clear Urine pH 6.0 Ur Specific Ren[place] <= 1.005 Urine Protein Trace H Urine Ketones Trace H Urine Blood Trace-intact H Urine Nitrite Negative Urine Bilirubin Negative Urine Urobilinogen 0.2 Ur Leukocyte Esterase Negative Urine RBC 0-2 Urine WBC Negative Ur Epithelial Cells Rare Urine Crystals Negative Urine Bacteria Rare Urine Casts Negative Urine Mucus Negative Ur Culture Indicated? No Urine Glucose Negative Add-On Test Request Patient ABO/Rh Antibody Screen Crossmatch 10/10/22 10/10/22 10/10/22 20:30 19:36 18:11 WBC RBC Hgb Hct MCV MCH MCHC RDW Plt Count MPV Immature Gran % Neutrophils % Lymphocytes % Monocytes % Eosinophils % Basophils % Nucleated RBC % Absolute Neutrophils Absolute Lymphocytes Absolute Monocytes Absolute Eosinophils Absolute Basophils PT INR APTT VBG pH VBG pCO2 VBG pO2 VBG HCO3 VBG Total CO2 VBG O2 Saturation VBG Base Excess VBG Lactate Sodium 136 Cancelled Potassium 3.9 Cancelled Chloride 104 Cancelled Carbon Dioxide 23.5 Cancelled Anion Gap 8.5 Cancelled BUN 18 Cancelled Creatinine 2.1 H Cancelled Est GFR (CKD-EPI 2020) 25.67 Cancelled Glucose 111 H Cancelled Calcium 8.1 L Cancelled Magnesium 1.6 L 1.8 Total Bilirubin 0.4 Cancelled AST 31 Cancelled ALT 23 Cancelled Alkaline Phosphatase 71 Cancelled Troponin I 1405 H* 1309 H* 1493 H* NT-Pro-B Natriuret Pep Total Protein 6.0 L Cancelled Albumin 2.7 L Cancelled Triglycerides Total Cholesterol LDL Cholesterol, Calc HDL Cholesterol Procalcitonin TSH Urine Color Urine Clarity Urine pH Ur Specific [place] Urine Protein Urine Ketones Urine Blood Urine Nitrite Urine Bilirubin Urine Urobilinogen Ur Leukocyte Esterase Urine RBC Urine WBC Ur Epithelial Cells Urine Crystals Urine Bacteria Urine Casts Urine Mucus Ur Culture Indicated? Urine Glucose Add-On Test Request Patient ABO/Rh Antibody Screen Crossmatch 10/10/22 10/10/22 10/10/22 18:11 18:11 18:11 WBC RBC Hgb Hct MCV MCH MCHC RDW Plt Count MPV Immature Gran % Neutrophils % Lymphocytes % Monocytes % Eosinophils % Basophils % Nucleated RBC % Absolute Neutrophils Absolute Lymphocytes Absolute Monocytes Absolute Eosinophils Absolute Basophils PT 10.4 INR 1.0 APTT 27.0 VBG pH VBG pCO2 VBG pO2 VBG HCO3 VBG Total CO2 VBG O2 Saturation VBG Base Excess VBG Lactate 1.1 Sodium Potassium Chloride Carbon Dioxide Anion Gap BUN Creatinine Est GFR (CKD-EPI 2020) Glucose Calcium Magnesium Total Bilirubin AST ALT Alkaline Phosphatase Troponin I NT-Pro-B Natriuret Pep Total Protein Albumin Triglycerides Total Cholesterol LDL Cholesterol, Calc HDL Cholesterol Procalcitonin TSH Urine Color Urine Clarity Urine pH Ur Specific [place] Urine Protein Urine Ketones Urine Blood Urine Nitrite Urine Bilirubin Urine Urobilinogen Ur Leukocyte Esterase Urine RBC Urine WBC Ur Epithelial Cells Urine Crystals Urine Bacteria Urine Casts Urine Mucus Ur Culture Indicated? Urine Glucose Add-On Test Request Patient ABO/Rh Antibody Screen Crossmatch 10/10/22 10/10/22 10/10/22 18:11 18:11 18:11 WBC RBC Hgb Hct MCV MCH MCHC RDW Plt Count MPV Immature Gran % Neutrophils % Lymphocytes % Monocytes % Eosinophils % Basophils % Nucleated RBC % Absolute Neutrophils Absolute Lymphocytes Absolute Monocytes Absolute Eosinophils Absolute Basophils PT INR APTT VBG pH 7.41 VBG pCO2 42 VBG pO2 33 VBG HCO3 26 VBG Total CO2 24 VBG O2 Saturation 64 VBG Base Excess 2 VBG Lactate Sodium 135 L Potassium 4.1 Chloride 102 Carbon Dioxide 27.7 Anion Gap 5.3 BUN 20 H Creatinine 2.3 H Est GFR (CKD-EPI 2020) 23.01 Glucose 96 Calcium 8.7 Magnesium Total Bilirubin 0.4 AST 34 ALT 25 Alkaline Phosphatase 70 Troponin I NT-Pro-B Natriuret Pep Total Protein 6.4 Albumin 3.0 L Triglycerides Total Cholesterol LDL Cholesterol, Calc HDL Cholesterol Procalcitonin TSH Urine Color Urine Clarity Urine pH Ur Specific [place] Urine Protein Urine Ketones Urine Blood Urine Nitrite Urine Bilirubin Urine Urobilinogen Ur Leukocyte Esterase Urine RBC Urine WBC Ur Epithelial Cells Urine Crystals Urine Bacteria Urine Casts Urine Mucus Ur Culture Indicated? Urine Glucose Add-On Test Request Patient ABO/Rh O Negative Antibody Screen NEGATIVE Crossmatch See Detail 10/10/22 18:11 WBC 8.12 RBC 3.57 L Hgb 11.5 Hct 34.4 L MCV 96 H MCH 32.2 MCHC 33.4 RDW 13.8 Plt Count 211 MPV 10.6 Immature Gran % 0.5 Neutrophils % 70.0 Lymphocytes % 19.2 Monocytes % 7.6 Eosinophils % 2.1 Basophils % 0.6 Nucleated RBC % 0.0 Absolute Neutrophils 5.68 Absolute Lymphocytes 1.56 Absolute Monocytes 0.62 Absolute Eosinophils 0.17 Absolute Basophils 0.05 PT INR APTT VBG pH VBG pCO2 VBG pO2 VBG HCO3 VBG Total CO2 VBG O2 Saturation VBG Base Excess VBG Lactate Sodium Potassium Chloride Carbon Dioxide Anion Gap BUN Creatinine Est GFR (CKD-EPI 2020) Glucose Calcium Magnesium Total Bilirubin AST ALT Alkaline Phosphatase Troponin I NT-Pro-B Natriuret Pep Total Protein Albumin Triglycerides Total Cholesterol LDL Cholesterol, Calc HDL Cholesterol Procalcitonin TSH Urine Color Urine Clarity Urine pH Ur Specific [place] Urine Protein Urine Ketones Urine Blood Urine Nitrite Urine Bilirubin Urine Urobilinogen Ur Leukocyte Esterase Urine RBC Urine WBC Ur Epithelial Cells Urine Crystals Urine Bacteria Urine Casts Urine Mucus Ur Culture Indicated? Urine Glucose Add-On Test Request Patient ABO/Rh Antibody Screen Crossmatch 10/11/22 09:15 Blood Blood Culture - Pending 10/10/22 19:27 Blood Blood Culture - Pending 10/10/22 18:52 Blood Blood Culture - Pending Preliminary micro results at discharge 10/11/22 09:15 Blood Culture - Pending Blood 10/10/22 19:27 Blood Culture - Pending Blood 10/10/22 18:52 Blood Culture - Pending Blood PFSH All Active Problems (Updated 10/11/22 @ 16:44 by Renetta Taylor MD) Cyclic vomiting syndrome (Acute) Dehydration, moderate (Acute) Hypokalemia (Chronic) Hypomagnesemia (Acute) Hypotension (Acute) NSTEMI (non-ST elevated myocardial infarction) (Acute) Near syncope (Acute) Chronic low back pain (Chronic) tx pain clinic [address] [facility]- 03/2021-MR of low back-numerous degenerative changes. Most prominent were foraminal stenosis at upper lumbar labral, no acute disc bulging, With chronic pain syndrome-followed by pain clinic at [facility] Essential hypertension (Chronic 04/20/13) Normal echocardiogram Generalized anxiety disorder (Acute) Hyperlipidemia (Acute 02/06/14) Neck pain (Acute) C6-7 disc w/ radiculopathy S/[place] [facility] [place] Sensorineural hearing loss, bilateral (Chronic 04/06/14) Urge incontinence of urine (Acute) Otitis externa due to herpes zoster (Acute 06/30/13) Goiter (Acute) Rectal mucosa prolapse (Acute) Vaginal enterocele due to incomplete uterovaginal prolapse (Acute) Heart murmur (Chronic) 07/2021-systolic murmur-at upper sternal border, longstanding, normal echo 2015-consistent with innocent murmur Nicotine dependence (Chronic) smoking, vaping Carotid stenosis (Acute) - positive carotid bruit 09/2021 Carotid US, moderate bilat stenosis, l> R Polypharmacy (Acute) Lumbosacral spondylosis without myelopathy (Acute) 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 Rectal bleed 07/2021 Surgical History History of arthroscopy History of bilateral ligation of fallopian tubes History of colonoscopy with polypectomy (~07/09/21) S/P carpal tunnel release S/P hemorrhoidectomy hemorrhoid banding S/P spinal fusion Family History Mother Essential hypertension Stroke Cancer Father Heart disease Brother Heart disease Maternal Grandfather No problems noted. Paternal Grandfather No problems noted. Maternal Grandmother Essential hypertension Stroke Paternal Grandmother No problems noted. Social History Smoking/Tobacco Use Status: Current every day Tobacco: How many years used: 20 Smokeless tobacco user: dissolvable tobacco Quit status: has quit before Second Hand Exposure: Yes Counseling given: provider counseling Smoking risk assessment performed?: Yes Alcohol Intake: former Drug use: Daily Substance use type: marijuana Details: Pt reports awokefrom napb at 1600 black pt reports lasted 30 minutes. spots in vision, Household members: none Housing: house Number of Children: 3 number of grandchildren: 3 Education Level: high school Do you need help understanding health information?: Always Pets and animals: Yes Pets and animals: other Details: Donkey Sexually active: No What type of physical activity do you participate in: decline to answer Duration: decline to answer Frequency: decline to answer Chelsea/Cheondoism: Baptism Special chelsea needs: No Seatbelt use: always Helmet use: Yes Helmet use: always Drive intox or ride w/intox petroleum transport driver: No Do you feel safe at home: Yes Additional Social history: live alone Time Spent with Patient Time Spent with Patient: 45-69 minutes Time was spent: preparing to see the patient(eg.review tests), obtaining and/or reviewing separately otained hiistory, ordering medications,tests, procedures, referring, communicating with other health child care education coordinator, indepentently interpreting results, counseling the patient and care coordination
[2022-10-11 17:01] LABS: Source Nasal/Nares
[2022-10-11 17:42] LABS: COVID-19 PCR Negative (Negative)
[2022-10-13 09:32] LABS: Lab Add On Test DONE
--- NOTE | 2022-10-13 10:16 | NUR.NOTE ---
Nursing Note: Accessed pt chart to determine the orders of EKG's and the status of them.
== END 2022-10-11 19:30 | disposition short-term general hospital (02) | DRG 281 ==
LOC: ER 21:52 → ICU 23:30
PROVIDERS: Internal Medicine; Admitting Provider Family Medicine; Emergency Provider Emergency Medicine; PCP Family Medicine; Visit Provider Family Medicine
DX: I21.A1 Myocardial infarction type 2 (principal); I74.5 Embolism and thrombosis of iliac artery; N17.9 Acute kidney failure, unspecified; I10 Essential (primary) hypertension; E78.5 Hyperlipidemia, unspecified; F17.210 Nicotine dependence, cigarettes, uncomplicated; I95.9 Hypotension, unspecified; E86.0 Dehydration; I77.1 Stricture of artery; F12.90 Cannabis use, unspecified, uncomplicated; I70.1 Atherosclerosis of renal artery; E87.6 Hypokalemia; G89.29 Other chronic pain; M54.50 Low back pain, unspecified; R11.15 Cyclical vomiting syndrome unrelated to migraine; E83.42 Hypomagnesemia
CPT/HCPCS: 36415; 71275; 80053; 80061; 82805; 84145; 85027; 86850; 86900; 86901; 86920; 87040; 87635; 93005; 96361; 96365; 96366; 96374; 99285; 71045; 74174; 81003; 81015; 83605; 83735; 83880; 84443; 84484; 85025; 85610; 85730; 93010; 99223; 99291; J1644; J2060; J2405; J3490

== ENCOUNTER 2022-11-03 15:08 | Outpatient (REF) | payer MEDICARE, MEDICAID, SELFPAY ==
[2022-11-03 18:37] LABS: Abs Immature Grans 0.04 10^3/uL (0.0-0.06); Absolute Basophil Count 0.06 10^3/uL (0.0-0.2); Absolute Eosinophil Count 0.08 10^3/uL (0.0-0.7); Absolute Lymphocyte Count 0.97 10^3/uL (1.2-3.4); Absolute Monocyte Count 0.28 10^3/uL (0.1-0.8); Absolute Neutrophil Count 3.53 10^3/uL (1.2-6.7); Basophils % 1.2; Eosinophils % 1.6; HCT 24.7 % (36.0-46.0); Immature Grans % 0.8; Lymphocytes % 19.6; MCH 31.3 pg (27.0-33.0); MCHC 32.4 % (32.0-36.0); MCV 97 fL (80-95); MPV 9.7 fL (8.0-11.0); Monocytes % 5.6; Neutrophils % 71.2; Platelet Count 324 10^3/uL (130-400); RBC 2.56 10^6/uL (3.93-5.22); RDW 14.6 % (11.7-14.6); RDW-SD 50.8 fL; WBC 4.96 10^3/uL (4.4-10.8)
[2022-11-03 18:52] LABS: ALT 13 U/L (14-59); AST 18 U/L (15-37); Albumin 2.3 g/dL (3.4-5.0); Alkaline Phosphatase 101 U/L (46-116); Anion Gap 5.9 mmol/L (3-11); BUN 16 mg/dL (7-18); Bilirubin, Total 0.3 mg/dL (0.2-1.0); C-Reactive Protein 4.97 mg/dL (0.0-0.3); CO2 27.1 mmol/L (21.0-32.0); CREATININE 1.3 mg/dL (0.55-1.02); Calcium 8.7 mg/dL (8.5-10.1); Chloride 101 mmol/L (98-107); Creatine Kinase 74 U/L (26-192); Estimated GFR 45.63 (mL/min/1.73m2); Glucose 104 mg/dL (74-106); Potassium 3.8 mmol/L (3.5-5.1); Sodium 134 mmol/L (136-145); Total Protein 6.1 g/dL (6.4-8.2)
== END 2022-11-03 15:09 | disposition home or self-care (01) ==
LOC: LBN 15:08
PROVIDERS: PCP Family Medicine; Visit Provider Family Medicine
DX: B95.62 Methicillin resistant Staphylococcus aureus infection as the cause of diseases classified elsewhere (principal); N17.9 Acute kidney failure, unspecified; I10 Essential (primary) hypertension; E83.42 Hypomagnesemia; E87.6 Hypokalemia; R11.15 Cyclical vomiting syndrome unrelated to migraine
CPT/HCPCS: 80053; 82550; 85025; 86140

== ENCOUNTER 2022-11-10 11:11 | Outpatient (REF) | payer MEDICARE, MEDICAID, SELFPAY ==
[2022-11-10 12:01] LABS: Abs Immature Grans 0.03 10^3/uL (0.0-0.06); Absolute Lymphocyte Count 1.48 10^3/uL (1.2-3.4); Absolute Monocyte Count 0.46 10^3/uL (0.1-0.8); Absolute Neutrophil Count 4.43 10^3/uL (1.2-6.7); Basophils % 1.5; Eosinophils % 1.5; HCT 31.4 % (36.0-46.0); HGB 10.2 g/dL (11.2-15.7); Immature Grans % 0.5; Lymphocytes % 22.4; MCHC 32.5 % (32.0-36.0); MCV 92 fL (80-95); MPV 9.8 fL (8.0-11.0); Neutrophils % 67.1; Platelet Count 408 10^3/uL (130-400); RDW 14.1 % (11.7-14.6); RDW-SD 48.4 fL
[2022-11-10 12:17] LABS: ALT 16 U/L (14-59); AST 20 U/L (15-37); Albumin 3.1 g/dL (3.4-5.0); Alkaline Phosphatase 127 U/L (46-116); Anion Gap 11.6 mmol/L (3-11); BUN 28 mg/dL (7-18); Bilirubin, Total 0.4 mg/dL (0.2-1.0); C-Reactive Protein 5.74 mg/dL (0.0-0.3); CO2 25.4 mmol/L (21.0-32.0); CREATININE 1.3 mg/dL (0.55-1.02); Calcium 9.7 mg/dL (8.5-10.1); Chloride 97 mmol/L (98-107); Creatine Kinase 36 U/L (26-192); Estimated GFR 45.63 (mL/min/1.73m2); Glucose 101 mg/dL (74-106); Potassium 4.4 mmol/L (3.5-5.1); Sodium 134 mmol/L (136-145); Total Protein 7.9 g/dL (6.4-8.2)
== END 2022-11-10 11:12 | disposition home or self-care (01) ==
LOC: LBN 11:11
PROVIDERS: PCP Family Medicine; Visit Provider Student in an Organized Health Care Education/Training Program
DX: A41.2 Sepsis due to unspecified staphylococcus (principal); I21.4 Non-ST elevation (NSTEMI) myocardial infarction
CPT/HCPCS: 80053; 82550; 85025; 86140

== ENCOUNTER 2022-11-17 19:03 | Outpatient (REF) | payer MEDICARE, MEDICAID, SELFPAY ==
[2022-11-17 19:41] LABS: Abs Immature Grans 0.04 10^3/uL (0.0-0.06); Absolute Basophil Count 0.05 10^3/uL (0.0-0.2); Absolute Eosinophil Count 0.24 10^3/uL (0.0-0.7); Absolute Lymphocyte Count 1.25 10^3/uL (1.2-3.4); Absolute Monocyte Count 0.48 10^3/uL (0.1-0.8); Absolute Neutrophil Count 6.23 10^3/uL (1.2-6.7); Basophils % 0.6; Eosinophils % 2.9; HCT 27.7 % (36.0-46.0); HGB 9.2 g/dL (11.2-15.7); Immature Grans % 0.5; Lymphocytes % 15.1; MCH 29.5 pg (27.0-33.0); MCHC 33.2 % (32.0-36.0); MCV 89 fL (80-95); MPV 9.7 fL (8.0-11.0); Monocytes % 5.8; Neutrophils % 75.1; Platelet Count 375 10^3/uL (130-400); RBC 3.12 10^6/uL (3.93-5.22); RDW 13.8 % (11.7-14.6); RDW-SD 45.1 fL; WBC 8.29 10^3/uL (4.4-10.8)
[2022-11-17 19:59] LABS: ALT 15 U/L (14-59); AST 12 U/L (15-37); Alkaline Phosphatase 127 U/L (46-116); Anion Gap 12.1 mmol/L (3-11); BUN 20 mg/dL (7-18); Bilirubin, Total 0.4 mg/dL (0.2-1.0); C-Reactive Protein 7.96 mg/dL (0.0-0.3); CO2 26.9 mmol/L (21.0-32.0); CREATININE 1.4 mg/dL (0.55-1.02); Calcium 9.3 mg/dL (8.5-10.1); Chloride 96 mmol/L (98-107); Creatine Kinase 27 U/L (26-192); Estimated GFR 41.75 (mL/min/1.73m2); Glucose 99 mg/dL (74-106); Potassium 4.2 mmol/L (3.5-5.1); Sodium 135 mmol/L (136-145); Total Protein 7.5 g/dL (6.4-8.2)
== END 2022-11-17 19:04 | disposition home or self-care (01) ==
LOC: LBN 19:03
PROVIDERS: PCP Family Medicine; Visit Provider Internal Medicine
DX: A41.02 Sepsis due to Methicillin resistant Staphylococcus aureus (principal); N17.9 Acute kidney failure, unspecified; Z79.2 Long term (current) use of antibiotics
CPT/HCPCS: 80053; 82550; 85025; 86140

== ENCOUNTER 2022-11-24 13:06 | Inpatient (IN) | payer MEDICARE, MEDICAID, SELFPAY ==
[2022-11-24] VITALS (39 sets, daily range): BP systolic 101–147; BP diastolic 60–82; PULSE 91–104; RESP 10–20; TEMP 36.5–37.6; O2SAT 91–100
--- NOTE | 2022-11-24 13:15 | RT.EKG_ITS ---
APPROVED REPORT Exam: Resting ECG Reason for Exam: chest pain Patient Location: E HR:94 bpm ECG Measurements Heart Rate 94 AXIS ID 165 P 70 QRSd 92 QRS 59 QT 343 T 91 QTc 429 Conclusion Sinus rhythm...normal P axis, V-rate 60- 99 Inferior infarct, old...Q >35mS, II III aVF
--- NOTE | 2022-11-24 13:37 | ED.GENADUL_ITS ---
Discharge Plan Discharge Details Chief Complaint: GenMedical Primary Care Provider: Arely Sampson ED Provider: Ildefonso Vasquez Home Meds and New Rx's Prescriptions: No Action aspirin 81 mg tablet,delayed release (DR/EC) 81 mg PO DAILY trazodone 100 mg tablet 100 mg PO QHS Qty: 90 3RF albuterol sulfate 90 mcg/actuation HFA aerosol inhaler 1 - 2 puff IH QID PRN (Reason: shortness of breath or wheezing) Qty: 18 3RF fluticasone propionate 50 mcg/actuation spray,suspension 1 spray NS BID Qty: 1 6RF clotrimazole 1 % cream 1 applic TP BID PRN (Reason: skin rash) Qty: 28 3RF pramipexole 0.5 mg tablet 0.5 mg PO BID Qty: 180 3RF lorazepam [Ativan] 1 mg tablet 1 mg PO DAILY MDD 1mg PRN (Reason: anxiety) Qty: 10 0RF gabapentin 800 mg tablet 800 mg PO TID Qty: 90 3RF diclofenac sodium 75 mg tablet,delayed release (DR/EC) 75 mg PO BID PRN (Reason: pain) Qty: 60 2RF Hold Instructions: Home Medication placed on hold at Doctor's office potassium chloride 10 mEq capsule, extended release 10 meq PO DAILY Qty: 90 1RF triamterene-hydrochlorothiazid 37.5-25 mg capsule 1 cap PO DAILY Qty: 90 2RF fesoterodine 4 mg tablet extended release 24 hr 4 mg PO DAILY Qty: 90 3RF nystatin 100,000 unit/gram powder 1 applic topical DAILY Qty: 30 2RF Rx Instructions: local application daily under breasts and in groin area lidocaine HCl [Lidocaine Viscous] 2 % solution 1 applic mucous membrane BID PRN (Reason: pain) Qty: 200 0RF methylphenidate HCl 5 mg tablet 5 mg PO QAM MDD 5mg Qty: 30 0RF venlafaxine 75 mg tablet 75 mg PO BID daptomycin 500 mg recon soln 500 mg IV DAILY Rx Instructions: administer over 30 mins 11/07/22 RX'd at [facility]. Anticipated stop date: 12/06/22. -hb pravastatin 20 mg tablet 20 mg PO DAILY Qty: 90 4RF Hold Instructions: Adverse Reaction Patient Comments: not on med list Rx Instructions: 11/07/22. Hold while on IV Daptomycin. Anticipated stop date 12/06/22. -hb acetaminophen 325 mg capsule 650 mg PO QID cyclobenzaprine 10 mg tablet 10 mg PO TID sennosides-docusate sodium [Senna with Docusate Sodium] 8.6-50 mg tablet 2 tab-cap PO BID sulfamethoxazole-trimethoprim 800-160 mg tablet 1 tab PO BID polyethylene glycol 3350 [Miralax] 17 gram/dose Powder 17 g PO PRN PRN Medical Decision Making 1422 -- 67-year-old female with multiple medical problems including history of hypertension, NSTEMI, depression, chronic back pain, CHF, COPD, admitted to [facility] last month for MRSA bacteremia, anterior abdominal wall abscess and abdominal and pelvic collection from MRSA infection status post peritoneal drainage twice as well as T12-L1 epidural abscess and discitis and myositis, status post PICC line placement, discharged home on daptomycin, has home health services once per week, failing at home. Patient apparently crawling around her home, unable to stand, having difficulty with medication administration as well as ADLs including feeding. EKG was reviewed and interpreted by me: Please see report, sinus rhythm, 94 bpm, Q waves inferiorly consistent with prior infarct. Will request PT evaluation. Screening labs to assess for JAMES and rhabdomyolysis. Plan to obtain CT of the abdomen pelvis given abdominal pain and to assess for any worsening abdominal/pelvic collection. Will also obtain recons of L spine. Medical Records Medical records reviewed: Yes I reviewed the patient's medical records. HPI General Mode of arrival: EMS . Date/Time Provider Initiated Documentation: 11/24/22 13:11 . Limitations to Documentation: no limitations . Information obtained by: patient and EMS . HPI Narrative: 67-year-old female with multiple medical problems including history of hypertension, NSTEMI, depression, chronic back pain, CHF, COPD, admitted to [facility] last month for MRSA bacteremia, anterior abdominal wall abscess and abdominal and pelvic collection from MRSA infection status post peritoneal drainage twice as well as T12-L1 epidural abscess and discitis and myositis, status post PICC line placement, discharged home on daptomycin, has home health services once per week, failing at home. Patient apparently crawling around her home, unable to stand, having difficulty with medication administration as well as ADLs including feeding. Patient notes that last night she was unable to get up from the floor and spent the night on the floor. She has persistent chronic pain in her lower abdomen that has not changed recently. Related Data Home Medications Medication Instructions Recorded Confirmed clotrimazole 1 % topical cream 1 applic topical BID PRN skin rash 07/14/19 11/24/22 #28 grams aspirin 81 mg tablet,delayed 81 mg PO DAILY 07/01/21 11/24/22 release pramipexole 0.5 mg tablet 0.5 mg PO BID #180 tab-caps 08/16/21 11/24/22 albuterol sulfate 90 mcg/actuation 1 - 2 puff inhalation QID PRN 08/29/21 11/24/22 aerosol inhaler shortness of breath or wheezing #18 grams fluticasone propionate 50 1 spray NS BID ##1 08/29/21 11/24/22 mcg/actuation nasal spray,suspension lorazepam 1 mg tablet (Ativan) 1 mg PO DAILY PRN anxiety #10 02/25/22 11/24/22 tab-caps trazodone 100 mg tablet 100 mg PO QHS #90 tabs 07/23/22 11/24/22 gabapentin 800 mg tablet 800 mg PO TID #90 tabs 07/28/22 11/24/22 diclofenac sodium 75 mg 75 mg PO BID PRN pain #60 tabs 08/11/22 11/24/22 tablet,delayed release potassium chloride 10 mEq 10 meq PO DAILY #90 caps 08/15/22 11/24/22 capsule,extended release triamterene 37.5 1 cap PO DAILY #90 caps 08/15/22 11/24/22 mg-hydrochlorothiazide 25 mg capsule fesoterodine 4 mg tablet,extended 4 mg PO DAILY #90 tabs 09/11/22 11/24/22 release 24 hr nystatin 100,000 unit/gram topical 1 applic topical DAILY #30 grams 09/17/22 11/24/22 powder lidocaine HCl 2 % mucosal solution 1 applic mucous membrane BID PRN 09/26/22 11/24/22 (Lidocaine Viscous) pain #200 mL methylphenidate HCl 5 mg tablet 5 mg PO QAM #30 tabs 10/31/22 11/24/22 daptomycin 500 mg intravenous 500 mg IV DAILY 11/07/22 11/24/22 solution pravastatin 20 mg tablet 20 mg PO DAILY #90 tab-caps 11/07/22 venlafaxine 75 mg tablet 75 mg PO BID 11/07/22 11/24/22 acetaminophen 325 mg capsule 650 mg PO QID 11/20/22 11/24/22 cyclobenzaprine 10 mg tablet 10 mg PO TID 11/20/22 11/24/22 sennosides 8.6 mg-docusate sodium 2 tab-cap PO BID 11/20/22 11/24/22 50 mg tablet (Senna with Docusate Sodium) sulfamethoxazole 800 1 tab PO BID 11/20/22 11/24/22 mg-trimethoprim 160 mg tablet polyethylene glycol 3350 17 17 g PO PRN PRN 11/24/22 11/24/22 gram/dose oral powder (Miralax) Previous Rx's Medication Instructions Recorded clotrimazole 1 % topical cream 1 applic topical BID PRN skin rash 07/14/19 #28 grams pramipexole 0.5 mg tablet 0.5 mg PO BID #180 tab-caps 08/16/21 albuterol sulfate 90 mcg/actuation 1 - 2 puff inhalation QID PRN 08/29/21 aerosol inhaler shortness of breath or wheezing #18 grams fluticasone propionate 50 1 spray NS BID ##1 08/29/21 mcg/actuation nasal spray,suspension lorazepam 1 mg tablet (Ativan) 1 mg PO DAILY PRN anxiety #10 02/25/22 tab-caps trazodone 100 mg tablet 100 mg PO QHS #90 tabs 07/23/22 gabapentin 800 mg tablet 800 mg PO TID #90 tabs 07/28/22 diclofenac sodium 75 mg 75 mg PO BID PRN pain #60 tabs 08/11/22 tablet,delayed release potassium chloride 10 mEq 10 meq PO DAILY #90 caps 08/15/22 capsule,extended release triamterene 37.5 1 cap PO DAILY #90 caps 08/15/22 mg-hydrochlorothiazide 25 mg capsule fesoterodine 4 mg tablet,extended 4 mg PO DAILY #90 tabs 09/11/22 release 24 hr nystatin 100,000 unit/gram topical 1 applic topical DAILY #30 grams 09/17/22 powder lidocaine HCl 2 % mucosal solution 1 applic mucous membrane BID PRN 09/26/22 (Lidocaine Viscous) pain #200 mL methylphenidate HCl 5 mg tablet 5 mg PO QAM #30 tabs 10/31/22 pravastatin 20 mg tablet 20 mg PO DAILY #90 tab-caps 11/07/22 Allergies Allergy/AdvReac Type Severity Reaction Status Date / Time Corticosteroids Allergy Intermediate INCREASED Verified 11/24/22 13:15 (Glucocorticoids) SOB prednisone Allergy Intermediate SOB Verified 11/24/22 13:15 General Stated Complaint: GenMedical CHECO: 2 Review of Systems All systems reviewed & are unremarkable except as noted in HPI and below Constitutional Constitutional: Denies fever(s) Gastrointestinal Comments: Lower abdominal pain bilateral PFSH All Active Problems Chronic low back pain (Chronic) tx pain clinic 2013 [facility]- 03/2021-MR of low back-numerous degenerative changes. Most prominent were foraminal stenosis at upper lumbar labral, no acute disc bulging, With chronic pain syndrome-followed by pain clinic at [facility] Essential hypertension (Chronic 04/20/13) Normal echocardiogram Generalized anxiety disorder (Acute) Hyperlipidemia (Acute 02/06/14) Neck pain (Acute) C6-7 disc w/ radiculopathy S/P surgery [facility] Sensorineural hearing loss, bilateral (Chronic 04/06/14) Urge incontinence of urine (Acute) Otitis externa due to herpes zoster (Acute 06/30/13) Goiter (Acute) Rectal mucosa prolapse (Acute) Vaginal enterocele due to incomplete uterovaginal prolapse (Acute) Heart murmur (Chronic) 07/2021-systolic murmur-at upper sternal border, longstanding, normal echo 2015-consistent with innocent murmur Nicotine dependence (Chronic) smoking, vaping Carotid stenosis (Acute) - positive carotid bruit 09/2021 Carotid US, moderate bilat stenosis, l> R Polypharmacy (Acute) Lumbosacral spondylosis without myelopathy (Acute) 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 Managed at [facility] Cyclic vomiting syndrome (Acute) MRSA bacteremia (Acute 09/2022) post rectopexy, oophorectomy/hysterectomy 5/9/23. Infectious discitis (Acute 09/2022) multiple levels on MRI Medical History Abnormal glandular Papanicolaou smear of cervix repeat normal Anxiety disorder Depression Hyperlipidemia Personal history of nicotine dependence 07/2021, 1/2 pk per day currently-about 06-33-qxib-year history (was usually a 1 to 2 pack/day smoker) 08/29/21 - Down to 8-10 per day, starting nicotine patches as she is finding it harder to cut back at this point. Rectal bleed 07/2021 Surgical History History of arthroscopy History of bilateral ligation of fallopian tubes History of colonoscopy with polypectomy (~07/09/21) History of rectopexy (09/2022) with mesh placement, postoperative MRSA bacteremia with intraabdominal and paravertebral fluid collections. S/P carpal tunnel release S/P hemorrhoidectomy hemorrhoid banding S/P spinal fusion S/P DAVID-BSO (09/2022) Family History Mother Essential hypertension Stroke Cancer Father Heart disease Brother Heart disease Maternal Grandfather No problems noted. Paternal Grandfather No problems noted. Maternal Grandmother Essential hypertension Stroke Paternal Grandmother No problems noted. Social History Smoking/Tobacco Use Status: Current every day Tobacco: How many years used: 20 Smokeless tobacco user: dissolvable tobacco Quit status: has quit before Second Hand Exposure: Yes Counseling given: provider counseling Smoking risk assessment performed?: Yes Alcohol Intake: former Drug use: Daily Substance use type: marijuana Details: Pt reports awokefrom napb at 1600 black pt reports lasted 30 minutes. spots in vision, Household members: none Housing: house Number of Children: 3 number of grandchildren: 3 Education Level: high school Do you need help understanding health information?: Always Pets and animals: Yes Pets and animals: other Details: Donkey Sexually active: No What type of physical activity do you participate in: decline to answer Duration: decline to answer Frequency: decline to answer [place]/Zoroastrianism: Spiritism Special chelsea needs: No Seatbelt use: always Helmet use: Yes Helmet use: always Drive intox or ride w/intox newspaper delivery driver: No Do you feel safe at home: Yes Additional Social history: live alone Exam Const General: cooperative and no acute distress HENMT Mouth: moist mucous membranes Eyes Conjunctivae: normal conjunctivae Sclera: normal sclerae Resp Auscultation: clear to auscultation bilaterally, no rales, no rhonchi and no wheezes Cardio Rhythm: regular rhythm GI Palpation: soft, not firm, no guarding, no masses, not rigid and tender (lower abdomen bilateral) Skin General skin exam: no rashes or lesions noted Neuro General: patient alert and patient awake Other: Patient is generally weak bilaterally, she has significant pain with attempted sitting up from lying position Extrem General: no edema Psych Appearance: grossly normal Mental Status: mental status grossly normal Course Vital Signs Vital signs: Vital Signs Temperature 36.5 C 11/24/22 13:06 Pulse 100 H 11/24/22 13:06 Respiratory Rate 20 11/24/22 13:06 Blood Pressure 142/77 H 11/24/22 13:06 Pulse Oximetry 99 11/24/22 13:06 Temperature 36.5 C 11/24/22 13:06 Temperature Source Oral 11/24/22 13:06 Pulse 100 H 11/24/22 13:06 Respiratory Rate 20 11/24/22 13:06 Respiratory Effort Normal 11/24/22 13:16 Blood Pressure 142/77 H 11/24/22 13:06 Blood Pressure Position Supine 11/24/22 13:06 Pulse Oximetry 99 11/24/22 13:06 Oxygen Delivery Method Room Air 11/24/22 13:06 Oxygen Flow Rate 0 11/24/22 13:06 Pain Level 10 11/24/22 13:06 Lab/Test Results Lab/Test Results: 11/24/22 13:23 Blood Blood Culture - Pending 11/24/22 13:23 Blood Blood Culture - Pending
[2022-11-24 14:00] LABS: Abs Immature Grans 0.04 10^3/uL (0.0-0.06); Absolute Basophil Count 0.06 10^3/uL (0.0-0.2); Absolute Eosinophil Count 0.14 10^3/uL (0.0-0.7); Absolute Lymphocyte Count 1.68 10^3/uL (1.2-3.4); Absolute Monocyte Count 0.61 10^3/uL (0.1-0.8); Absolute Neutrophil Count 5.22 10^3/uL (1.2-6.7); Basophils % 0.8; Eosinophils % 1.8; HCT 32.3 % (36.0-46.0); HGB 10.7 g/dL (11.2-15.7); Immature Grans % 0.5; Lymphocytes % 21.7; MCHC 33.1 % (32.0-36.0); MCV 88 fL (80-95); MPV 9.3 fL (8.0-11.0); Monocytes % 7.9; Neutrophils % 67.3; Platelet Count 362 10^3/uL (130-400); RBC 3.69 10^6/uL (3.93-5.22); RDW 14.2 % (11.7-14.6); RDW-SD 45.6 fL; WBC 7.75 10^3/uL (4.4-10.8)
[2022-11-24 14:01] LABS: Lactate 1.2 mmol/L (0.6-1.4)
[2022-11-24 14:22] LABS: ALT 18 U/L (14-59); AST 12 U/L (15-37); Albumin 3.1 g/dL (3.4-5.0); Alkaline Phosphatase 141 U/L (46-116); Anion Gap 11.8 mmol/L (3-11); BUN 28 mg/dL (7-18); Bilirubin, Total 0.4 mg/dL (0.2-1.0); CO2 24.2 mmol/L (21.0-32.0); CREATININE 1.3 mg/dL (0.55-1.02); Calcium 9.6 mg/dL (8.5-10.1); Chloride 97 mmol/L (98-107); Creatine Kinase 27 U/L (26-192); Estimated GFR 45.63 (mL/min/1.73m2); Glucose 113 mg/dL (74-106); Potassium 4.4 mmol/L (3.5-5.1); Sodium 133 mmol/L (136-145); Total Protein 8.3 g/dL (6.4-8.2); Troponin I < 50 ng/L (<or=60)
[2022-11-24] MEDS: HYDROmorphone 2 MG/ML SYR 0.5 MG IVP (15:00)
[2022-11-24] MEDS: DAPTOmycin 500 MG in Normal Saline 50 ML 100 MG IVPB (15:01)
--- NOTE | 2022-11-24 15:20 | DI.CT_ITS ---
Exam(s) CT LUMBAR SPINE RECONS CT ABDOMEN PELVIS W EXAM: CT ABDOMEN PELVIS W and CT lumbar spine recons CLINICAL HISTORY: recent abd wall abscess s/p ir drain, t12-l1 absce TECHNIQUE: Imaging Protocol: Axial computed tomography images with coronal and sagittal reformatted images were created and reviewed CONTRAST MATERIAL: Intravenous: Omnipaque 350 Contrast volume:100 mL Oral: No COMPARISON: CT CT ABDOMEN PELVIS W from 03/02/[address] THORAX ABD/PEL CTA from 10/10/[address] LUMBAR SPINE RECONS from 11/24/2022 FINDINGS: ABDOMEN: Lung Bases: Bilateral basilar atelectasis. Liver: Normal density. Stable hepatic cysts. No follow-up is recommended. Portal, Superior Mesenteric, and Splenic Veins: Unremarkable. Gallbladder and Biliary Tract: No radiodense calculus or dilation. Pancreas: Normal density, no abnormal calcifications or inflammatory process. Spleen: Normal. Adrenals: Stable left adrenal nodule. Unremarkable right adrenal gland. Kidneys: Normal size, contour and axis. No radiodense stones or obstructive uropathy. No masses seen. Abdominal Aorta: Abdominal portion non-dilated. Atherosclerosis. 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 Bowel: There is thickening of the wall of the rectum. There is stool throughout the colon suggesting constipation. There is no evidence of bowel obstruction. There are nonspecific fluid-filled loops of small bowel. There is no evidence of appendicitis. Peritoneal Cavity: No ascites, collection or mesenteric inflammatory response. No free air. Lymph Nodes: Within normal limits. Bones: Within normal limits for the patient's age. Soft Tissues: Unremarkable. No fluid collection is seen in the anterior abdominal wall. Lumbar spine CT recons: There are now destructive changes involving the inferior half of the T12 vert ebral body. The posterior elements are intact. Resultant straightening of the spine at this level. There also mild destructive changes involving the superior endplate of L1. The findings are suspici ous for spondylo discitis. There are bony fragments seen some of which project into the spinal canal . There also mild see lucency and destructive changes seen at the superior endplate of S1. All of t hese change are new compared to the examination from 10/10/2022. Degenerative changes are present thr oughout the lumbar spine. The findings do result in central spinal canal stenosis particularly at L4 -L5. PELVIS: Bladder: Symmetric distention, no gross wall thickening. Reproductive Organs: Unremarkable as visualized. Lymph Nodes: Within normal limits. Bones: Within normal limits for the patient's age. IMPRESSION: 1. Persistent rectal wall thickening. Neoplasm versus infection/inflammation. Please correlate with physical exam. Barium enema or colonoscopy/sigmoidoscopy should be considered. 2. 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 Some of the bony fragments are extended into the spinal canal. 3. Abnormal appearance of the superior endplate of S1. Infection should be considered. RADIATION DOSE DELIVERED: 885.51 mGy.cm Total DLP DATA REPOSITORY: All CT scans at this facility are submitted to the National Radiology Data Registry (NRDR) Dose Index Registry (DIR) with the [employer] (ACR). RADIATION OPTIMIZATION: All CT scans at this facility use at least one of these dose optimization te chniques: automated exposure control; mA and/or kV adjustment per patient size (includes targeted exa ms where dose is matched to clinical indication); or iterative reconstruction.
--- NOTE | 2022-11-24 15:48 | ED.PROG_ITS ---
Date of service: 11/24/22 Time of Service: 15:49 Medical Decision Making Care transitioned to myself from Dr. Vasquez, please see his note regarding history, presentation and exam. At the time of sign out, CT and PT evaluation pending. Contacted by KELSY, lumbar spine concerning for osteomyelitis at T12, now with burst fracture with fragments into the canal. Have sent imaging to [facility], will request transfer to their facility. Consulted with Dr. Burk at [facility]. He advised that with the patient not having any focal deficits, deficits being well aligned, advised that no surgical intervention is warranted at this time. Advised that TLSO brace may help with ambulation from a pain standpoint will not help with the stability of the fracture at all. Also recommended physical therapy to help mobilize the patient. Advised that if the patient continues to worsen certainly to call back, which needed from a neurologic standpoint. Also advises that we can also reach out to infectious disease if there is evidence of the infection is progressing. As the patient's lactate is normal, white count is normal and but patient has not had any fever/chills, has not come off of Dapto which was Deemed appropriate antibiotics when admitted with cultures at [facility], I do not see need to reach out to ID at this time. Consulted with hospitalist who agrees to admission. Patient does agree that she would benefit from rehabilitation center and would like to be admitted as her pain is uncontrolled with this new found fracture. PICC line will also need to be replaced as nursing staff not able to draw back on this. Will obtain x-ray to evaluate for placement. They do report that it flushes well. [facility] back [facility] now reporting that neurosurgery is actually in charge of this patient. Consulted with neurosurgery who does not have further recommendations at this time but will call back. They did question if MRI may be of benefit for this patient although we cannot get this this evening. I did reevaluate the patient continue to find no evidence of neurologic dysfunction in lower extremities or saddle paresthesias Neurosurgery called back, they recommend standing T spine XR once able. Relayed this information to hospitalist, they will get this tomorrow from inpatient area. They are aware PICC not drawing. . Sign Out Sign Out Data: Sign Out Comment: Follow-up on CT a/p and lumbar spine. Follow-up on PT eval/rec. Last updated by Ildefonso Vasquez MD at 11/24/22 15:24 Discharge Plan Disposition Patient Disposition: Admit to [facility] Condition: Poor Discharge Details Chief Complaint: GenMedical Clinical Impression: Osteomyelitis of thoracic vertebra, T12 burst fracture, Discitis Admit Date/Time: 11/24/22 18:25 Admit Provider: Freddy Palacios Attending Provider: Freddy Palacios Primary Care Provider: Arely Sampson ED Provider: Christal Russo
[2022-11-24] MEDS: Normal Saline Flush 10 ML SYR IVP (15:56)
[2022-11-24] MEDS: Normal Saline - Diluent 50 ML VIAL IJ (15:56)
[2022-11-24] MEDS: Omnipaque 350 MG/ML 100 ML BTL IJ (15:57)
--- NOTE | 2022-11-24 16:36 | DI.VRAD_ITS ---
PROCEDURE INFORMATION: Exam: CT Abdomen And Pelvis With Contrast Exam date and time: 11/24/2022 3:56 PM Age: 67 years old Clinical indication: Patient HX: Recent abd wall abscess S/P IR drain, t12-l1 abscess TECHNIQUE: Imaging protocol: Computed tomography of the abdomen and pelvis with contrast. Contrast material: OMNIPAQUE 350; Contrast volume: 100 ml; Contrast route: INTRAVENOUS (IV); COMPARISON: CT THORAX ABD/PEL CTA 10/10/2022 6:58 PM FINDINGS: Lungs: Bibasilar atelectasis Liver: 2.2 cm simple cyst anterior liver. . No follow-up imaging recommended . Gallbladder and bile ducts: Normal. No calcified stones. No ductal dilation. Pancreas: Normal. No ductal dilation. Spleen: Normal. No splenomegaly. Adrenal glands: Prominent left adrenal 2.2 by 1.3 cm Kidneys and ureters: Normal. No hydronephrosis. Stomach and bowel: Asymmetric rectal wall thickening 2 cm. Series 5, image 84.. No bowel obstruction Appendix: Normal appendix Intraperitoneal space: Unremarkable. No free air. No significant fluid collection. Vasculature: Unremarkable. No abdominal aortic aneurysm. Lymph nodes: Unremarkable. No enlarged lymph nodes. Urinary bladder: Unremarkable as visualized. Reproductive: Unremarkable as visualized. Bones/joints: Unremarkable. No acute fracture. Soft tissues: No fluid collection in the subcutaneous fat or anterior abdominal wall IMPRESSION: Asymmetric rectal wall thickening 2 cm. Series 5, image 84.. Recommend further evaluation for tumor or infection Dictated and Authenticated by: Cora Washburn MD. Ordering:KENDAL Fregoso MD
--- NOTE | 2022-11-24 16:45 | DI.VRAD_ITS ---
Addendum created by Cora Washburn MD on 11/24/2022 4:53:17 PM EDT: THIS REPORT CONTAINS FINDINGS THAT MAY BE CRITICAL TO PATIENT CARE. The findings were verbally communicated via telephone conference with ERNESTINA Russo at 4:51 PM EDT on 11/24/2022. The findings were acknowledged and understood. Significant increase in the lytic process with significant collapse at T12 since October 10, 2022. Initial report created on 11/24/2022 4:44:36 PM EDT: PROCEDURE INFORMATION: Exam: CT Lumbar Spine Without Contrast Exam date and time: 11/24/2022 3:56 PM Age: 67 years old Clinical indication: Other: Recent infection, weakness TECHNIQUE: Imaging protocol: Computed tomography of the lumbar spine without contrast. COMPARISON: MR LUMBAR SPINE WO 03/18/2021 10:08 AM FINDINGS: Bones/joints: Lytic process involving the inferior aspect of T12 most consistent with the history of infection. There are bony fragments seen inferiorly. . As a result of the infection this represents Comminuted burst fracture of T12. Bony fragments extend 5 mm into the spinal canal. Series 9 image [id number] 194. Broad-based disc bulge, facet hypertrophy, and ligament hypertrophy at L4/L5 consistent with spinal stenosis. . Broad-based disc bulge at L5/S1 consistent with degenerative disc disease Soft tissues: Unremarkable. IMPRESSION: 1. Lytic process involving the inferior aspect of T12 most consistent with the history of infection. There are bony fragments seen inferiorly. . 2. As a result of the infection this represents Comminuted burst fracture of T12. 3. Bony fragments extend 5 mm into the spinal canal. Series 9 image [id number] 194. 4. Broad-based disc bulge, facet hypertrophy, and ligament hypertrophy at L4/L5 consistent with spinal stenosis. . Dictated and Authenticated by: Cora Washburn MD. Ordering:KENDAL Fregoso MD
[2022-11-24] MEDS: ACETAMINOPHEN 1,000 MG/100 ML BTL 400 MG IVPB (17:32)
--- NOTE | 2022-11-24 18:21 | NUR.NOTE ---
Nursing Note: Dressing change on PICC line conducted. PICC line does not produce blood on drawback. Provider team aware. PICC flushes well but no meds given trough PICC.
--- NOTE | 2022-11-24 19:00 | DI.RAD_ITS ---
Exam(s) XR CHEST 2V PA LATERAL EXAM: XR CHEST 2V PA LATERAL CLINICAL HISTORY: assessing the PICC line left arm TECHNIQUE: 2D digital imaging was performed. COMPARISON: CR,XR XR PORTABLE CHEST AP from 10/10/2022 FINDINGS: A PICC line is been inserted via the left arm. The tip lies in the lower superior vena cava. HEART: Normal size. Aorta: Not dilated. PULMONARY VASCULATURE: Normal. LUNGS: Clear. PLEURAL SPACE: No pleural effusion or pneumothorax. BONE:Unremarkable for age. IMPRESSION: No acute abnormality. Satisfactory positioning of PICC line. DATA REPOSITORY: RADIATION DOSE DELIVERED:
--- NOTE | 2022-11-24 19:56 | W.PM.HP.N ---
Date of service: 11/24/22 Time of Service: 19:56 Assessment and Plan Assessment and plan (1) T12 burst fracture: Status: Acute Assessment and plan: In background of osteomyelitis. No neurologic deficits; monitor. TLSO brace PT. Pain managment. Bowel regimen. (2) Osteomyelitis of thoracic vertebra: Status: Acute Assessment and plan: Cont Daptomycin When pt able, neurosurg recommends standing T-spine xray At time of D/C from [facility] [place] it was recommended she f/u with ID on 12/04/22. Also recommended then was a T and L-spine MRI prior to ID f/u. (3) Discitis: Status: Acute Assessment and plan: As above. (4) Essential hypertension: Status: Chronic Assessment and plan: Currently normotensive and not on BP meds. Monitor. (5) NSTEMI (non-ST elevated myocardial infarction): Status: Acute Assessment and plan: Cont aspirin (6) MRSA bacteremia: Status: Acute Assessment and plan: Daptomycin 500mg IV. (7) Depression: Assessment and plan: Cont Effexor. Also on Trazadone at HS. (8) Anxiety disorder: Assessment and plan: Lorazepam prn daily. Effexor. (9) Restless leg syndrome: Status: Acute Assessment and plan: Cont mirapex. History of Present Illness History of Present Illness Chief Complaint: Weakness and back pain. Narrative: Ms Chow is a 67 yo female with an extensive medical history that includes, NSTEMI, HTN, CHF, COPD, depression, ureterovaginal and rectal prolapse. She has had 3 admissions at [facility] [place] since early September: --10/07/22: laparoscopic rectopexy with mesh hysterectomy, bilateral salpingectomy and sacral colpocervicopexy. --10/11-10/29: to cardiology d/t NSTEMI type 2 from acute HFrEF (25% that improved to 45%), stress cardiomyopathy, MRSA sepsis/bacteremia. Ileus developed. Found to have septic thrombophlebitis (Rt PIV site), DVT in cephalic vein and an anterior abd wall abscess along with abd and ;elvic collection from MRSA infection. IR drained the peritoneal collections x2. Also developed a T12-L1 epidural abscess and discitis and myositis. Vanc and ceftaroline initiated then changed to daptomycin on 10/28 for 6 wk course. Last PICC changed on 11/10/22. Last clear blood cx on 10/27. No vegetations on MARILYN of 10/16. --11/10-11/16: Worsening discitis/osteomyelitis of T12-L1 with extension of intra-disc abscess into the inferior end-plate. Increased paraspinous phlegmon and abscesses. T12-L1 with increased epidural phlegmon from [id number] the lumbosacral spinal canal. T12 compression. IR placed drain into paraspinal abscess on 11/12. No neurosurgery intervention recommended. Also noted on that admission was JAMES thhat improved to a creatinine of 1.3 (1.1-1.15 baseline). Her Dyazide was held and then restarted. Lisinopril held until PCP f/u that was to be in 1 week after DC. She now presented to [facility] ED because of essentially failing at home. Now crawling around her home d/t pain with standing. Having difficulties with her ADLs. She spent the night of 11/23 on the floor. ED w/u: T 36.5. HR 100. BP 142/77. RA O2 sat. 99% WBC count normal. Lactate normal. Hgb 10.7. Na 133. K 4.4. BUN 28. Creatinine 1.3. Troponin neg. CPK normal. CT abd/pelvis: asymmetric rectal wall thickening. (she is s/p rectopexy). CT Lumbar spine: 1. ? Lytic process involving the inferior aspect of T12 most consistent with the history of infection. There are bony fragments seen inferiorly. . 2. ? As a result of the infection this represents Comminuted burst fracture of T12. 3. ? Bony fragments extend 5 mm into the spinal canal. Series 9 image 188- 194. 4. ? Broad-based disc bulge, facet hypertrophy, and ligament hypertrophy at L4/L5 consistent with spinal stenosis. . For pain she was administered IV dilaudid. Dr. Russo spoke with both orthopedic on-call at [facility] [place] and then Neurosurgery at [facility] [place]. Given no neurologic findings/dysfuntion, both recommended no current surgical intervention. A TLSO brace may be benefition from a pain standpoint but will not be helpful for stability of the fracture. PT recommended. MRI may be of benefit but not specifically recommended. Review of Systems All systems reviewed & are unremarkable except as noted in HPI and below PFSH All Active Problems (Updated 11/24/22 @ 20:59 by Freddy Palacios MD) Restless leg syndrome (Acute) Discitis (Acute) Osteomyelitis of thoracic vertebra (Acute) T12 burst fracture (Acute) Chronic low back pain (Chronic) tx pain clinic 2013 [facility]- 03/2021-MR of low back-numerous degenerative changes. Most prominent were foraminal stenosis at upper lumbar labral, no acute disc bulging, With chronic pain syndrome-followed by pain clinic at [facility] Essential hypertension (Chronic 04/20/13) Normal echocardiogram -2015 Generalized anxiety disorder (Acute) Hyperlipidemia (Acute 02/06/14) Neck pain (Acute) C6-7 disc w/ radiculopathy S/P surgery [facility] [place] Sensorineural hearing loss, bilateral (Chronic 04/06/14) Urge incontinence of urine (Acute) Otitis externa due to herpes zoster (Acute 06/30/13) Goiter (Acute) Rectal mucosa prolapse (Acute) Vaginal enterocele due to incomplete uterovaginal prolapse (Acute) Heart murmur (Chronic) 07/2021-systolic murmur-at upper sternal border, longstanding, normal echo 2015-consistent with innocent murmur Nicotine dependence (Chronic) smoking, vaping Carotid stenosis (Acute) - positive carotid bruit 09/2021 Carotid US, moderate bilat stenosis, l> R Polypharmacy (Acute) Lumbosacral spondylosis without myelopathy (Acute) 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 Managed at [facility] [place] Cyclic vomiting syndrome (Acute) MRSA bacteremia (Acute 09/2022) post rectopexy, oophorectomy/hysterectomy 10/07/22. Infectious discitis (Acute 09/2022) multiple levels on MRI Medical History Abnormal glandular Papanicolaou smear of cervix repeat normal Anxiety disorder Depression Hyperlipidemia Personal history of nicotine dependence 07/2021, 1/2 pk per day currently-about 16-95-ixdk-year history (was usually a 1 to 2 pack/day smoker) 08/29/21 - Down to 8-10 per day, starting nicotine patches as she is finding it harder to cut back at this point. Rectal bleed 07/2021 Surgical History History of arthroscopy History of bilateral ligation of fallopian tubes History of colonoscopy with polypectomy (~07/09/21) History of rectopexy (09/2022) with mesh placement, postoperative MRSA bacteremia with intraabdominal and paravertebral fluid collections. S/P carpal tunnel release S/P hemorrhoidectomy hemorrhoid banding S/P spinal fusion S/P DAVID-BSO (09/2022) Family History Mother Essential hypertension Stroke Cancer Father Heart disease Brother Heart disease Maternal Grandfather No problems noted. Paternal Grandfather No problems noted. Maternal Grandmother Essential hypertension Stroke Paternal Grandmother No problems noted. Social History Smoking/Tobacco Use Status: Current every day Tobacco: How many years used: 20 Smokeless tobacco user: dissolvable tobacco Quit status: has quit before Second Hand Exposure: Yes Counseling given: provider counseling Smoking risk assessment performed?: Yes Alcohol Intake: former Drug use: Daily Substance use type: marijuana Details: Pt reports awokefrom napb at 1600 black pt reports lasted 30 minutes. 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 Do you feel safe at home: Yes Additional Social history: live alone Meds Allergies and Home Medications Allergies Allergy/AdvReac Type Severity Reaction Status Date / Time Corticosteroids Allergy Intermediate INCREASED Verified 11/24/22 13:15 (Glucocorticoids) SOB prednisone Allergy Intermediate SOB Verified 11/24/22 13:15 Home Medications Medication Instructions Recorded Confirmed Type clotrimazole 1 % topical cream 1 applic topical BID PRN skin rash 07/14/19 11/24/22 Rx #28 grams aspirin 81 mg tablet,delayed 81 mg PO DAILY 07/01/21 11/24/22 History release pramipexole 0.5 mg tablet 0.5 mg PO BID #180 tab-caps 08/16/21 11/24/22 Rx albuterol sulfate 90 mcg/actuation 1 - 2 puff inhalation QID PRN 08/29/21 11/24/22 Rx aerosol inhaler shortness of breath or wheezing #18 grams fluticasone propionate 50 1 spray NS BID ##1 08/29/21 11/24/22 Rx mcg/actuation nasal spray,suspension lorazepam 1 mg tablet (Ativan) 1 mg PO DAILY PRN anxiety #10 02/25/22 11/24/22 Rx tab-caps trazodone 100 mg tablet 100 mg PO QHS #90 tabs 07/23/22 11/24/22 Rx gabapentin 800 mg tablet 800 mg PO TID #90 tabs 07/28/22 11/24/22 Rx diclofenac sodium 75 mg 75 mg PO BID PRN pain #60 tabs 08/11/22 11/24/22 Rx tablet,delayed release potassium chloride 10 mEq 10 meq PO DAILY #90 caps 08/15/22 11/24/22 Rx capsule,extended release triamterene 37.5 1 cap PO DAILY #90 caps 08/15/22 11/24/22 Rx mg-hydrochlorothiazide 25 mg capsule fesoterodine 4 mg tablet,extended 4 mg PO DAILY #90 tabs 09/11/22 11/24/22 Rx release 24 hr nystatin 100,000 unit/gram topical 1 applic topical DAILY #30 grams 09/17/22 11/24/22 Rx powder lidocaine HCl 2 % mucosal solution 1 applic mucous membrane BID PRN 09/26/22 11/24/22 Rx (Lidocaine Viscous) pain #200 mL methylphenidate HCl 5 mg tablet 5 mg PO QAM #30 tabs 10/31/22 11/24/22 Rx daptomycin 500 mg intravenous 500 mg IV DAILY 11/07/22 11/24/22 History solution pravastatin 20 mg tablet 20 mg PO DAILY #90 tab-caps 11/07/22 Rx venlafaxine 75 mg tablet 75 mg PO BID 11/07/22 11/24/22 History acetaminophen 325 mg capsule 650 mg PO QID 11/20/22 11/24/22 History cyclobenzaprine 10 mg tablet 10 mg PO TID 11/20/22 11/24/22 History sennosides 8.6 mg-docusate sodium 2 tab-cap PO BID 11/20/22 11/24/22 History 50 mg tablet (Senna with Docusate Sodium) sulfamethoxazole 800 1 tab PO BID 11/20/22 11/24/22 History mg-trimethoprim 160 mg tablet polyethylene glycol 3350 17 17 g PO PRN PRN 11/24/22 11/24/22 History gram/dose oral powder (Miralax) Exam Narrative Exam Narrative: Pt is lying supine in bed. Pleasant and interactive. Const General: cooperative and no acute distress Nutritional Appearance: average body habitus HENMT Mouth: moist mucous membranes Eyes General: appearance normal, both eyes and all related structures Sclera: sclerae normal Resp Effort & Inspection: normal respiratory effort Auscultation: clear to auscultation bilaterally, no rales, no rhonchi and no wheezes Cardio Rate: regular rate Rhythm: regular rhythm Heart Sounds: S1 normal and S2 normal GI Inspection: non-distended Palpation: soft, no masses and tender (lower abdomen bilateral) with no rebound tenderness Back/Spine/Pelvis Back: other (tender paraspinous areas in lower thoracic, lumbar region. ) Skin General skin exam: no rashes or lesions noted Neuro General: patient alert, patient awake, patient oriented x3, normal light touch, pain and propioception and no focal motor deficits Cognition: normal cognition Speech: speech normal Other: Patient is generally weak bilaterally, she has significant pain with attempted sitting up from lying position Extrem General: no pedal edema and no calf tenderness Psych Appearance: grossly normal Mental Status: mental status grossly normal Affect: normal affect Results Labs 11/24/22 13:45 11/24/22 13:45 Labs: Laboratory Results - last 24 hr 11/24/22 11/24/22 11/24/22 13:45 13:45 13:45 WBC 7.75 RBC 3.69 L Hgb 10.7 L Hct 32.3 L MCV 88 MCH 29.0 MCHC 33.1 RDW 14.2 Plt Count 362 MPV 9.3 Immature Gran % 0.5 Neutrophils % 67.3 Lymphocytes % 21.7 Monocytes % 7.9 Eosinophils % 1.8 Basophils % 0.8 Nucleated RBC % 0.0 Absolute Neutrophils 5.22 Absolute Lymphocytes 1.68 Absolute Monocytes 0.61 Absolute Eosinophils 0.14 Absolute Basophils 0.06 VBG Lactate 1.2 Sodium 133 L Potassium 4.4 Chloride 97 L Carbon Dioxide 24.2 Anion Gap 11.8 H BUN 28 H Creatinine 1.3 H Est GFR (CKD-EPI 2020) 45.63 Glucose 113 H Calcium 9.6 Total Bilirubin 0.4 AST 12 L ALT 18 Alkaline Phosphatase 141 H Creatine Kinase 27 Troponin I < 50 Total Protein 8.3 H Albumin 3.1 L 11/24/22 13:45 WBC RBC Hgb Hct MCV MCH MCHC RDW Plt Count MPV Immature Gran % Neutrophils % Lymphocytes % Monocytes % Eosinophils % Basophils % Nucleated RBC % Absolute Neutrophils Absolute Lymphocytes Absolute Monocytes Absolute Eosinophils Absolute Basophils VBG Lactate Sodium Potassium Chloride Carbon Dioxide Anion Gap BUN Creatinine Est GFR (CKD-EPI 2020) Glucose Calcium Total Bilirubin AST ALT Alkaline Phosphatase Creatine Kinase Troponin I Cancelled Total Protein Albumin Last Vital Signs Temp 36.5 C 11/24/22 13:06 Pulse 91 H 11/24/22 18:00 Resp 12 11/24/22 19:30 BP 139/74 11/24/22 18:00 Pulse Ox 96 11/24/22 19:20 Time Spent Time spent with Patient: 40-54 minutes Time was spent: preparing to see the patient(eg.review tests), obtaining and/or reviewing separately otained hiistory, ordering medications,tests, procedures, referring, communicating with other health direct care staffer, indepentently interpreting results and counseling the patient
[2022-11-24] MEDS: HYDROmorphone 2 MG/ML SYR 0.25 MG IVP (20:00)
--- NOTE | 2022-11-24 20:21 | DI.VRAD_ITS ---
PROCEDURE INFORMATION: Exam: XR Chest Exam date and time: 11/24/2022 8:05 PM Age: 67 years old Clinical indication: Other: Assessing pic line left arm TECHNIQUE: Imaging protocol: Radiologic exam of the chest. Views: 2 views. COMPARISON: CR XR PORTABLE CHEST AP 10/10/2022 6:27 PM FINDINGS: Tubes, catheters and devices: A left peripherally inserted central venous catheter lies with its tip in the superior vena cava.. Lungs: Unremarkable. No consolidation. Pleural spaces: Unremarkable. No pleural effusion. No pneumothorax. Heart/Mediastinum: Unremarkable. No cardiomegaly. Bones/joints: Unremarkable. IMPRESSION: A left peripherally inserted central venous catheter lies with its tip in the superior vena cava.. Dictated and Authenticated by: Cora Washburn MD. Ordering:AIMEE Siegel MD
[2022-11-24] MEDS: Cyclobenzaprine 10 MG TAB PO (22:49)
[2022-11-24] MEDS: Pramipexole 0.5 MG TAB PO (22:49)
[2022-11-24] MEDS: Gabapentin 800 MG TAB PO (22:49)
[2022-11-24] MEDS: HYDROmorphone 2 MG TAB PO (22:49)
[2022-11-24] MEDS: Heparin 5,000 UNITS/ML VIAL 5000 UNITS SC (22:53)
[2022-11-24 23:29] LABS: Bilirubin Negative (Negative); Blood Moderate (Negative); Clarity Clear (Clear); Glucose Negative (Negative); Ketones Trace mg/dL (Negative); Leukocyte Esterase Negative (Negative); Nitrite Negative (Negative); Specific Gravity <= 1.005 (1.005-1.025); Urobilinogen 0.2 mg/dL (Up to 0.2)
[2022-11-24] MEDS: Lactated Ringers 1,000 ML 125 ML IV (23:30)
[2022-11-24 23:37] LABS: Bacteria Few HPF (Negative); C & S Indicated? No; Casts 0-2 Hyaline LPF (Negative); Crystals Negative HPF (Negative); Epithelial Cells Few HPF (Negative); Mucus Trace (Negative); WBC 0-2 HPF (0-5)
[2022-11-25] MEDS: HYDROmorphone 2 MG TAB PO ×3 (03:11→22:24)
[2022-11-25 06:47] LABS: HCT 30.9 % (36.0-46.0); HGB 10.1 g/dL (11.2-15.7); MCH 29.4 pg (27.0-33.0); MCHC 32.7 % (32.0-36.0); MCV 90 fL (80-95); MPV 9.7 fL (8.0-11.0); Platelet Count 309 10^3/uL (130-400); RBC 3.44 10^6/uL (3.93-5.22); RDW 14.4 % (11.7-14.6); RDW-SD 47.4 fL; WBC 6.84 10^3/uL (4.4-10.8)
[2022-11-25 06:58] LABS: Anion Gap 11.4 mmol/L (3-11); BUN 23 mg/dL (7-18); CO2 22.6 mmol/L (21.0-32.0); CREATININE 1.2 mg/dL (0.55-1.02); Calcium 9.1 mg/dL (8.5-10.1); Chloride 99 mmol/L (98-107); Estimated GFR 50.23 (mL/min/1.73m2); Glucose 101 mg/dL (74-106); Potassium 3.7 mmol/L (3.5-5.1); Sodium 133 mmol/L (136-145)
[2022-11-25 07:03] VITALS: BP 98/63; PULSE 89; RESP 18; TEMP 36.6; O2SAT 98
[2022-11-25] MEDS: Lactated Ringers 1,000 ML 125 ML IV ×2 (07:35→23:14)
[2022-11-25] MEDS: Heparin 5,000 UNITS/ML VIAL 5000 UNITS SC ×3 (08:11→23:17)
[2022-11-25] MEDS: Normal Saline Flush 10 ML SYR IVP ×2 (08:11→10:52)
[2022-11-25] MEDS: Potassium Chloride 10 MEQ CAPCR PO (08:12)
[2022-11-25] MEDS: Aspirin E.C. 81 MG TABEC PO (08:12)
[2022-11-25] MEDS: Pramipexole 0.5 MG TAB PO ×2 (08:12→22:25)
[2022-11-25] MEDS: Gabapentin 800 MG TAB PO ×3 (08:13→22:25)
[2022-11-25] MEDS: Cyclobenzaprine 10 MG TAB PO ×3 (08:13→22:25)
[2022-11-25] MEDS: Methylphenidate 10 MG TAB 5 MG PO (08:13)
--- NOTE | 2022-11-25 08:13 | PDOC.CMIN ---
Date of service: 11/25/22 Time of Service: 08:13 Care Management Initial Assmt Initial Assessment REASON FOR HOSPITALIZATION:: T-Spine Osteomyelitis, Burst Fracture PREVIOUS FUNCTIONAL STATUS/SOCIAL/FAMILY SUPPORTS:: Jeniffer is and lives alone in a single family home in [place]. She has 3 adult daughters who live locally and are supportive. She also has a few close friends she talks to by phone a couple of times a week. Per pt, her health has significantly declined over the last several months. She no longer drives or able to manage her ADL's and KAREN's. She shares that she hasn't been well enough to leave her house in 2 months, other than when she comes to the hospital. She's had 3 admissions at [facility] [place] since early September. Jeniffer shares that her pain is so bad, that she can barely walk or sit on the toilet. Prior to coming to the hospital she fell on the floor and was unable to get up. CURRENT FUNCTIONAL STATUS:: Jeniffer was lying in bed when CM met with her. She is awake and easily engages in conversation, though tearful at times. Per pt, she's fallen several times and had a very difficult time managing at home since her last discharge from [facility] [place]. She is willing to go to rehab to regain her strength and is hoping to regain her mobility. ADVANCE DIRECTIVES:: [facility]: Alt. 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 Discuss ask me three. TRANSPORTATION:: Dependent on dispo PLAN:: Anticipate, Jeniffer will discharge to an acute SNF for STR prior to returning home. Referrals are sent [facility] and [facility]. CM will continue to follow. PFSH All Active Problems (Updated 11/24/22 @ 23:13 by ERNESTINA Gibson) Restless leg syndrome (Acute) Discitis (Acute) Osteomyelitis of thoracic vertebra (Acute) T12 burst fracture (Acute) Chronic low back pain (Chronic) tx pain clinic 2013 [facility]- 03/2021-MR of low back-numerous degenerative changes. Most prominent were foraminal stenosis at upper lumbar labral, no acute disc bulging, With chronic pain syndrome-followed by pain clinic at [facility] Essential hypertension (Chronic 04/20/13) Normal echocardiogram -2015 Generalized anxiety disorder (Acute) Hyperlipidemia (Acute 02/06/14) Neck pain (Acute) C6-7 disc w/ radiculopathy S/P surgery [facility] [place] [facility] Sensorineural hearing loss, bilateral (Chronic 04/06/14) Urge incontinence of urine (Acute) Otitis externa due to herpes zoster (Acute 06/30/13) Goiter (Acute) Rectal mucosa prolapse (Acute) Vaginal enterocele due to incomplete uterovaginal prolapse (Acute) Heart murmur (Chronic) 07/2021-systolic murmur-at upper sternal border, longstanding, normal echo 2015-consistent with innocent murmur Nicotine dependence (Chronic) smoking, vaping Carotid stenosis (Acute) - positive carotid bruit 09/2021 Carotid US, moderate bilat stenosis, l> R Polypharmacy (Acute) Lumbosacral spondylosis without myelopathy (Acute) 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 Managed at [facility] Cyclic vomiting syndrome (Acute) MRSA bacteremia (Acute 09/2022) post rectopexy, oophorectomy/hysterectomy 10/07/22. Infectious discitis (Acute 09/2022) multiple levels on MRI Medical History Abnormal glandular Papanicolaou smear of cervix repeat normal Anxiety disorder Depression Hyperlipidemia Personal history of nicotine dependence 07/2021, 1/2 pk per day currently-about 00-69-ixfg-year history (was usually a 1 to 2 pack/day smoker) 08/29/21 - Down to 8-10 per day, starting nicotine patches as she is finding it harder to cut back at this point. Rectal bleed 07/2021 Surgical History History of arthroscopy History of bilateral ligation of fallopian tubes History of colonoscopy with polypectomy (~07/09/21) History of rectopexy (09/2022) with mesh placement, postoperative MRSA bacteremia with intraabdominal and paravertebral fluid collections. S/P carpal tunnel release S/P hemorrhoidectomy hemorrhoid banding S/P spinal fusion S/P DAVID-BSO (09/2022) Family History Mother Essential hypertension Stroke Cancer Father Heart disease Brother Heart disease Maternal Grandfather No problems noted. Paternal Grandfather No problems noted. Maternal Grandmother Essential hypertension Stroke Paternal Grandmother No problems noted. Social History Smoking/Tobacco Use Status: Current every day Tobacco: How many years used: 20 Smokeless tobacco user: dissolvable tobacco Quit status: has quit before Second Hand Exposure: Yes Counseling given: provider counseling Smoking risk assessment performed?: Yes Alcohol Intake: former Drug use: Daily Substance use type: marijuana Details: Pt reports awokefrom napb at 1600 black pt reports lasted 30 minutes. 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
[2022-11-25] MEDS: Fluticasone NASAL SPRAY 16 GM BTL NS (08:25)
[2022-11-25] MEDS: Nystatin POWDER 15 GM JAR TP (08:26)
[2022-11-25] MEDS: Venlafaxine 75 MG TAB PO ×2 (10:40→22:25)
[2022-11-25] MEDS: Triamterene 37.5/HCTZ 25 CAP PO (10:41)
[2022-11-25] MEDS: HYDROmorphone 2 MG/ML SYR 0.5 MG IVP (10:51)
--- NOTE | 2022-11-25 11:15 | IN_ITS ---
PT Notes Visit Reasons: T Spine Osteomyelitits, Burst Fracture Physical Therapy Inpatient Initial Evaluation Date: 11/25/2022 Referring Doctor: Freddy Palacios MD PT Orders: PT CONSULT: Limited ability Precautions: Fall. Standard. TLSO brace when OOB. Back precautions in place. 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 PMHX: All Active Problems?(Updated 11/24/22 @ 20:59 by Freddy Palacios MD) Restless leg syndrome (Acute) Discitis (Acute) Osteomyelitis of thoracic vertebra (Acute) T12 burst fracture (Acute) Chronic low back pain (Chronic) tx pain clinic 2013 [facility]- 03/2021-MR of low back-numerous degenerative changes.? Most prominent were foraminal stenosis at upper lumbar labral, no acute disc bulging, With chronic pain syndrome-followed by pain clinic at [facility] Essential hypertension (Chronic 04/20/13) Normal echocardiogram -2015 Generalized anxiety disorder (Acute) Hyperlipidemia (Acute 02/06/14) Neck pain (Acute) C6-7 disc w/ radiculopathy S/P surgery [facility] Sensorineural hearing loss, bilateral (Chronic 04/06/14) Urge incontinence of urine (Acute) Otitis externa due to herpes zoster (Acute 06/30/13) Goiter (Acute) Rectal mucosa prolapse (Acute) Vaginal enterocele due to incomplete uterovaginal prolapse (Acute) Heart murmur (Chronic) 07/2021-systolic murmur-at upper sternal border, longstanding, normal echo 2015-consistent with innocent murmur Nicotine dependence (Chronic) smoking, vaping Carotid stenosis (Acute) - positive carotid bruit 09/2021 Carotid US, moderate bilat stenosis, l> RP olypharmacy (Acute) Lumbosacral spondylosis without myelopathy (Acute) 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 Managed at [facility] Cyclic vomiting syndrome (Acute) MRSA bacteremia (Acute 09/2022) post rectopexy, oophorectomy/hysterectomy 10/07/22. 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 Abnormal glandular Papanicolaou smear of cervix repeat normal Anxiety disorder Depression Hyperlipidemia Personal history of nicotine dependence 07/2021, 1/2 pk per day currently-about 55-21-bxbn-year history (was usually a 1 to 2 pack/day smoker) 08/29/21 - Down to 8-10 per day, starting nicotine patches as she is finding it harder to cut back at this point. Rectal bleed 07/2021 Surgical History? History of arthroscopy History of bilateral ligation of fallopian tubes History of colonoscopy with polypectomy (~07/09/21) History of rectopexy (09/2022) with mesh placement, postoperative MRSA bacteremia with intraabdominal and paravertebral fluid collections. S/P carpal tunnel release S/P hemorrhoidectomy hemorrhoid banding S/P spinal fusion S/P DAVID-BSO (09/2022) Social History/Home Situation: Lives alone in a private home with one step to enter. Has not walked since surgery in September 2022. Only able to transfer but unable to stay too long on a chair. Sleeps on her couch at home. Daughter has been an occasional support. Equipment Owned/DME: [employer] Subjective: Daughter and patient states that patient has had multiple problems since her surgery back in September 2022. She has not walked safely at home for over one and a half months now. She states that she has not had any falls but has been having significant difficulty moving about in the house. Daughter and patient are hoping that patient can go to a SNF for rehab. Moans in pain during movement transition from supine<>sit and sit<>stand. Per Nurse Hernandez, patient has been premedicated for pain. Objective: General Observation: Supine in bed. IV through L UE. Blanco catheter in place. Mental Status: Alert and oriented as to person, place, time, and purpose. Able to pay attention, focus, and respond appropriately. Pain: 10/10 in back and abdominal area Vital Signs: Closely monitored by nursing staff ROM: Right Upper Extremity: Shoulder Flexion WFL. Shoulder abduction WFL. Elbow flexion WFL. Wrist flexion WFL. Functional opening and closing of hand WFL. Left Upper Extremity: Shoulder Flexion WFL. Shoulder abduction WFL. Elbow flexion WFL. Wrist flexion WFL. Functional opening and closing of hand WFL. Right Lower Extremity: Hip flexion WFL. Hip abduction WFL. Knee flexion WFL. Ankle dorsiflexion WFL. Ankle plantarflexion WFL. Left Lower Extremity: Hip flexion WFL. Hip abduction WFL. Knee flexion WFL. Ank le dorsiflexion WFL. Ankle plantarflexion WFL. Strength: Right Upper Extremity: Shoulder flexors 4/5. Shoulder abductors 4/5. Elbow flexors 4/5. Elbow extensors 4/5. Pharm Spec strong. Left Upper Extremity: Shoulder flexors 4/5. Shoulder abductors 4/5. Elbow flexors 4/5. Elbow extensors 4/5. Pharm Spec strong. Right Lower Extremity: Hip flexors 4-/5. Hip abductors 4-/5. Knee flexors 5/5. Knee extensors 4-/5. Ankle dorsiflexors 4-/5. Ankle plantarflexors 4-/5. Left Lower Extremity: Hip flexors 4-/5. Hip abductors 4-/5. Knee flexors 5/5. Knee extensors 4-/5. Ankle dorsiflexors 4-/5. Ankle plantarflexors 4-/5. Sensation: Denies any tingling nor numbness in ether UE nor LE Bed Mobility/Transfers: Rolling stand by assist using rails for support L sidelying to sit minimal assist with report of pain at 10/10 in back and abdomnal area Sit to supine contact guard assist with report of 10/10 pain in back and abdomnal area Stand to sit with minimal assist with report of 10/10 pain in back and abdomnal area Gait: Only able to take one small step forward, reported being dizzy, tolerated three sidesteps to sit higher at edge of bed and then needed to sit down and lie back down due to worsening dizziness. Nurse Mary made aware. Balance: Static Sitting: Fair Dynamic Sitting: Fair Static Standing: Fair Dynamic Standing: Poor Special Tests: Mobility Limitations Standardized Measure [facility] AM-PAC 6 clicks Basic Mobility Inpatient Short Form: Raw Score: 16 CMS Score: 54% deficit Informed Consent/Education: Patient was instructed in purpose of PT consult and plan of care. Agreeable to proceed with established PT POC to achieve personal goals. Assessment: Fitted [id number] TLSO with patient today prior to moving her out of bed. Pain level increases with upright positioning despite TLSO use. Report of dizziness interfering with mobility performance. Very anxious about moving. Highly anticipates pain. Patient presents with clinical signs and symptoms consistent with current/admitting diagnoses that have resulted to mobility limitations, gait instability, generalized weakness, and overall ADL decline as demonstrated by the following impairment level findings: 1. Decreased strength to B LE major muscle groups 2. Impaired sitting/standing balance 3. Impaired activity tolerance 4. Pain in low back 5. Shortness of breath 6. Swelling 7. Dizziness Impairments are contributing to the following functional limitations: 1. Decline in bed mobility skills 2. Decline in transfer skills 3. Difficulty with ambulation without assistive device and physical assistance 4. Increased completion time for mobility ADL performance 5. Increased risk for falls 6. Difficulty with managing steps alone safely Patient is assessed as a 13473 complexity based on the following: History: 67-year-old female with past medical history as indicated above Examination: Demonstrable impairment in strength, balance, and mobility level with underlying impairments and functional limitations as exhibited above as well as deficit score of 54% utilizing the [facility] Mobility Inpatient Short Form Presentation: Evolving Decision Makin moderate complexity Goals: Goals X1 week 1. Supine-Sit independent 2. Sit-Supine independent 3. Sit-Stand independent 4. Stand-Sit independent with FWW 5. Bed-Chair independent with FWW 6. Chair-Bed independent with FWW 7. Independent gait on level surface with use of FWW for at least 50 feet without report of pain nor dyspnea 8. Independent stair negotiation while holding onto B rails for at least 3 steps without report of pain nor dyspnea 9. Independent with home exercise program 10. Good static and dynamic standing balance/tolerance Plan of Care/Treatment Plan: 1-2x/day, 7 days/week x 1 week. Plan of care has been reviewed with the TIP CUTTER providing the service under Physical Therapy direction. Initiate Physical Therapy intervention for pain management as needed, strengthening, bed mobility, transfers, gait, stairs, balance training, and use of assistive device. DISCHARGE RECOMMENDATIONS: [] Home with no services [] [] Home with services [specify] [] Home with outpatient PT [] [X] SNF for continued rehabilitation. Patient will benefit from senior living facility placement for continued skilled physical therapy services in order to progress mobility level, strength, and balance in preparation for a safe discharge to home. [] Assistant Wrestling Coach Care [] [] SNF versus LTC based on ability to participate and progress [] TREATMENT CODE/TIME: 70824 x 25 minutes, 37916 x 35 minutes beginning at 10:20 AM. Thank you for the opportunity to participate in the care of this patient. Akanksha Weaver PT, DPT, CLT [facility] [place], [place]
--- NOTE | 2022-11-25 14:08 | OTIE_ITS ---
Occupational Therapy Notes Inpatient Occupational Therapy Evaluation Date: 11/25/22 Referring Doctor:Dr. Palacios OT Orders: Non urgent Precautions: Fall, standard, full PATIENT PROFILE/ADMITTING DIAGNOSIS: Pt is a 67 year old female who was referred to skilled Occupational Therapy services for a dx of restless leg syndrome, discitis, osteomyelitis of thoracic vertebrae, chronic LBP and a T12 burst fx. Past Medical History: All Active Problems?(Updated 11/24/22 @ 20:59 by Freddy Palacios MD) Restless leg syndrome (Acute) Discitis (Acute) Osteomyelitis of thoracic vertebra (Acute) T12 burst fracture (Acute) Chronic low back pain (Chronic) tx pain clinic 2013 [facility]- 03/2021-MR of low back-numerous degenerative changes.? Most prominent were foraminal stenosis at upper lumbar labral, no acute disc bulging, With chronic pain syndrome-followed by pain clinic at [facility] Essential hypertension (Chronic 04/20/13) Normal echocardiogram Generalized anxiety disorder (Acute) Hyperlipidemia (Acute 02/06/14) Neck pain (Acute) C6-7 disc w/ radiculopathy S/[place] [facility] Sensorineural hearing loss, bilateral (Chronic 04/06/14) Urge incontinence of urine (Acute) Otitis externa due to herpes zoster (Acute 06/30/13) Goiter (Acute) Rectal mucosa prolapse (Acute) Vaginal enterocele due to incomplete uterovaginal prolapse (Acute) Heart murmur (Chronic) 07/2021-systolic murmur-at upper sternal border, longstanding, normal echo 2015- consistent with innocent murmurNicotine dependence (Chronic) smoking, vapingCarotid stenosis (Acute) - positive carotid bruit 09/2021 Carotid US, moderate bilat stenosis, l> RPolypharmacy (Acute) Lumbosacral spondylosis without myelopathy (Acute) Nasal septal perforation (Chronic) due to pickingStapedial myoclonus (Acute) Hoarding disorder (Acute) NSTEMI (non-ST elevated myocardial infarction) (Acute) secondary to MRSA sepsis.? [facility]) MRSA bacteremia (Acute 09/2022) post rectopexy, oophorectomy/hysterectomy 10/07/22.Infectious discitis (Acute 09/2022) multiple levels on MRI Medical History? Abnormal glandular Papanicolaou smear of cervix repeat normalAnxiety disorder Depression Hyperlipidemia Personal history of nicotine dependence 07/2021, 1/2 pk per day currently-about 27-06-tknc-year history (was usually a 1 to 2 pack/day smoker) 08/29/21 - Down to 8-10 per day, starting nicotine patches as she is finding it harder to cut back at this point.Rectal bleed 07/2021 Surgical History? History of arthroscopy History of bilateral ligation of fallopian tubes History of colonoscopy with polypectomy (~07/09/21) History of rectopexy (09/2022) with mesh placement, postoperative MRSA bacteremia with intraabdominal and paravertebral fluid collections.S/P carpal tunnel release S/P hemorrhoidectomy hemorrhoid bandingS/P spinal fusion S/P DAVID-BSO (09/2022) Social History/Home Situation: Pt states that she lives in a private home and notes that as of recently she is unable to care for herself. She states that her pain limits her and that she functionally is not able to perform her ADLs (I). She specifically mentions that when she uses the toilet she is not able to sit for long so she uses the bathtub to wash her bottom and states that she has feces in her shower because she is unable to clean it. Equipment owned/DME: [employer] SUBJECTIVE: Pt was lying in bed when OT arrived. She is agreeable to OT session and notes that she is really sore in her back. She states that she cannot manage her home tasks and ADLS at this point d/t pain. OBJECTIVE: General Observation: IV in (B) UE, saleem in place, telemetry Mental Status: A&Ox3 Pain:c/o pain in back with any movement ROM: RUE AROM WFL L UE AROM WFL STRENGTH: RUE 4/5 throughout LUE 4.5 throughout FUNCTIONAL MOBILITY/ADLS: BATHING Bathing UE (I) UE Bathing LE max (A) LE DRESSING laying in bed Dressing UE mod (A) [facility] gown Dressing LE max (A) TOILETING Saleem in place EATING (I) BALANCE: Static sitting Good Dynamic Sitting Fair-Good Static Standing Poor Dynamic Standing Poor INFORMED CONSENT/EDUCATION: Pt instructed in purpose of OT Consult and plan of care. ASSESSMENT: Patient is a 67-year-old female referred to occupational therapy services with diagnosis of restless leg syndrome, discitis, osteomyelitis of thoracic vertebrae, chronic LBP. Patient presents with clinical signs and symptoms consistent with dx, as demonstrated by the following impairment level findings/functional limitations: Impairments in ADL/IADL and leisure activities, decreased functional mobility, decreased sitting tolerance d/t pain, increased pain with any mobility or movement. Patient is assessed as a Moderate 84327 complexity based on the following: History: see above Examination: see functional limitations Presentation: evolving Decision Making: moderate complexity GOALS Goals x1 week 1. Transfers (I) 2. Dressing seated (I) 3. Bathing seated (I) 4. Toileting on toilet (I) 5. Eating (I) PLAN OF CARE/TREATMENT PLAN: 1x/day, 5 days/ week x 1week Initiate Occupational Therapy Services for bathing, dressing, grooming, toileting, eating, transfer training. DISCHARGE RECOMMENDATIONS OT recommends SNF vs. home with services for OT and (A) with home tasks. TREATMENT TIME/MINUTES/CODES 22325, 18792, 20 minutes [facility] [place], [place]
--- NOTE | 2022-11-25 15:03 | PT.INTREAT ---
Date of service: 11/25/22 Time of Service: 14:18 PT Notes Visit Reasons: T Spine Osteomyelitits, Burst Fracture Physical Therapy Inpatient Treatment Note Date: 11/25/2022 Precautions: Fall. Standard.?TLSO brace when OOB per Dr. Palacios on 11/24/2022.? Back precautions in place. Subjective: Agreeable to trying to get out of bed this afternoon. Very anxious about walking. Does not feel her legs are strong enough to hold her up. Still in a lot pain with sitting up and standing. States that benind forward relieves the pain considerably. Objective: General Observation: Supine in bed.? IV through L UE.? Blanco catheter in place. Mental Status: Alert and oriented as to person, place, time, and purpose. Able to pay attention, focus, and respond appropriately. Pain: 10/10 in back and abdominal area Vital Signs: Closely monitored by nursing staff Bed Mobility/Transfers: Rolling stand by assist using rails for support L sidelying to sit minimal assist with report of pain at 10/10 in back and abdominal area Sit to supine contact guard assist with report of 10/10 pain in back and abdominal area Stand to sit with minimal assist with report of 10/10 pain in back and abdominal area Gait: Became very anxious with taking 2 steps forward using FWW. Accidental bowel movement while attempting standing added to her anxiety. Daiana Felix assisted with clean up. THERA ACT while on STEDY lift: Facilitated weight shift x 10, partial knee bends x 10, sit<>partial stand x10 and static partial standing with trunk bent for about 8-10 minutes. Extending trunk increased pain. Balance: Static Sitting: Fair Dynamic Sitting: Fair Static Standing: Fair Dynamic Standing: Poor ASSESSMENT: Pain level still shoots up with weight bearing despite TLSO use. TLSO is only able to provide anterior-posterior, rotational, and medilolateral stability but is unable to minimize undue axial loading through spine leading to increased compression through T12 burst fracture and lumbar vertebrae that brings significant pain when patient is weight bearing, attempts to relieve strain by leaning forward. Spinal stenosis and multiple discitis compound the issue. Did not report dizziness this afternoon during standing activity. Very anxious about moving.? Highly anticipates pain. Plan of Care/Treatment Plan: -1-2x/day, 7 days/week x 1 week. -Plan of care has been reviewed with the BAND ATTACHER providing the service under Physical Therapy direction. Initiate Physical Therapy intervention for pain management as needed, strengthening, bed mobility, transfers, gait, stairs, balance training, and use of assistive device. -Premedicate for pain. -TLSO when OOB. -Ensure that patient has a pull up on prior to mobilizing, patient is incontinent. DISCHARGE RECOMMENDATIONS: [] ? Home with no services [] [] ? Home with services [specify] [] ? Home with outpatient PT [] [X] ? SNF for continued rehabilitation.? Patient will benefit from retirement facility placement for continued skilled physical therapy services in order to progress mobility level, strength, and balance in preparation for a safe discharge to home. [] ? Penitentiary Care [] [] ? SNF versus LTC based on ability to participate and progress [] TREATMENT CODE/TIME: 49737 x 39 minutes beginning at 14:18 PM.
[2022-11-25 15:25] VITALS: BP 126/75; PULSE 99; RESP 18; TEMP 36.9; O2SAT 96
[2022-11-25] MEDS: DAPTOmycin 500 MG in Normal Saline 50 ML 100 MG IVPB (16:20)
--- NOTE | 2022-11-25 16:21 | CHAPLAIN ---
Jeniffer was in bed when I visited. She told me she's been crawling mostly at home and today stood up with assistance from PT. She has three daughter, two of whom do not get along, but they both visited Jeniffer together today, she said. She's been having trouble falling asleep and has a lot of pain in her hips. She said she's not sure about getting around her house when she gets home because she has a hard time throwing things about, but recently put stuff out in a free pile and felt good about doing that. I will continue to visit.
--- NOTE | 2022-11-25 17:28 | PGE_ITS ---
Date of Service Date of service: 11/25/22 Time of Service: 17:28 Assessment and Plan Assessment and plan (1) T12 burst fracture: Status: Acute Assessment and plan: In background of osteomyelitis. No neurologic deficits; monitor. TLSO brace PT. Pain managment. Bowel regimen. I will get MRI of her thoracic and lumbar spine as she has evidence of fragments in her spinal canal. will have MRI reviewed w/ neurosurgery at [facility]. Professional time spent interviewing and examining patient, discussion of goals of care with hospital team (care management, nursing and consulting p brayanfessionals) was 45 minutes. (2) Osteomyelitis of thoracic vertebra: Status: Acute Assessment and plan: Cont Daptomycin When pt able, neurosurg recommends standing T-spine xray At time of D/C from [facility] it was recommended she f/u with ID on 12/04/22. Also recommended then was a T and L-spine MRI prior to ID f/u. I will proceed w MRI tomorrow (3) Discitis: Status: Acute Assessment and plan: As above. (4) Essential hypertension: Status: Chronic Assessment and plan: Currently normotensive and not on BP meds. Monitor. (5) NSTEMI (non-ST elevated myocardial infarction): Status: Acute Assessment and plan: Cont aspirin. patient had type II NSTEMI in which she suffered from Takotsubo cardiomyopathy, cardiac cath showed no hemodynamic stenosis despite her having evidence of PAD on CTA of her abdomen/pelvis (celiac, left renal and occlusion of left common iliac distal to origin w/ reconstitution of exerternal and internal iliac arteries). continue statin and ASA. (6) MRSA bacteremia: Status: Acute Assessment and plan: Daptomycin 500mg IV. (7) Depression: Assessment and plan: Cont Effexor. Also on Trazadone at HS. (8) Anxiety disorder: Assessment and plan: Lorazepam prn daily. Effexor. (9) Restless leg syndrome: Status: Acute Assessment and plan: Cont mirapex. Subjective Subjective Interval history since last seen: patient reports increased pain w/ bed transfers. Pain particulary into groin over superior rami bilaterally. No pain in hip w/ flexion/extension of hips while in bed. No loss of strength w/ hip flex/ext or knee flex/ext. Exam Narrative Exam Narrative: Mirna is alert and oriented lying in bed currently not in pain. Lungs are clear to auscultation Heart is regular rate and rhythm Abdomen soft nontender normal bowel sounds Palpation of her hip joint reveals no crepitus no displacement of the femur bilaterally she has normal hip flexion extension strength. She has normal knee extension and flexion and normal plantar flexion and dorsiflexion at the ankles. I was able to internally and externally rotate the hips without eliciting pain. However she has tenderness over the superior pubic rami bilaterally. Objective Last Vital Signs Temp 36.9 C 11/25/22 15:25 Pulse 99 H 11/25/22 15:25 Resp 18 11/25/22 15:25 BP 126/75 11/25/22 15:25 Pulse Ox 96 11/25/22 15:25 Laboratory Results - last 24 hr 11/24/22 11/25/22 11/25/22 23:18 06:30 06:30 WBC 6.84 RBC 3.44 L Hgb 10.1 L Hct 30.9 L MCV 90 MCH 29.4 MCHC 32.7 RDW 14.4 Plt Count 309 MPV 9.7 Sodium 133 L Potassium 3.7 Chloride 99 Carbon Dioxide 22.6 Anion Gap 11.4 H BUN 23 H Creatinine 1.2 H Est GFR (CKD-EPI 2020) 50.23 Glucose 101 Calcium 9.1 Urine Color Yellow Urine Clarity Clear Urine pH 5.0 Ur Specific [place] <= 1.005 Urine Protein 100 H Urine Ketones Trace H Urine Blood Moderate H Urine Nitrite Negative Urine Bilirubin Negative Urine Urobilinogen 0.2 Ur Leukocyte Esterase Negative Urine RBC 3-5 H Urine WBC 0-2 Ur Epithelial Cells Few Urine Crystals Negative Urine Bacteria Few Urine Casts 0-2 Hyaline Urine Mucus Trace Ur Culture Indicated? No Urine Glucose Negative Reviewed Pertinent PMH: Yes Objective Narrative Objective Narrative: CT of the abdomen pelvis report was reviewed. Patient is rectal wall thickening for which radiologist raise concern of neoplasm versus infection/inflammation and a barium enema or colonoscopy/sigmoidoscopy was recommended. (Note she is s/p rectopexy so rectal wall thickening would not be unusual postoperatively. Patient has spondylodiscitis at T12-L1 with fracture of the inferior half of the T12 body. So the bony fragments are extended into the spinal canal. There is an abnormal appearance of the superior endplate of S1. No mention was made of any abnormalities of the bony structures of the pelvis itself. Time Spent with Patient Time Spent with Patient: 35-49 minutes Time was spent: preparing to see the patient(eg.review tests), obtaining and/or reviewing separately otained hiistory, ordering medications,tests, procedures, referring, communicating with other health care center manager, indepentently interpreting results, counseling the patient and care coordination
[2022-11-25] MEDS: Lidocaine 5% Patch 3 PATCH TP (18:39)
[2022-11-25 22:33] VITALS: BP 107/48; PULSE 100; RESP 16; TEMP 37.3; O2SAT 95
[2022-11-26 04:33] VITALS: BP 110/62; PULSE 83; RESP 16; TEMP 37.7; O2SAT 96
[2022-11-26 06:55] VITALS: BP 128/70; PULSE 83; TEMP 36; O2SAT 94
[2022-11-26] MEDS: Triamterene 37.5/HCTZ 25 CAP PO (07:14)
[2022-11-26] MEDS: Aspirin E.C. 81 MG TABEC PO (07:15)
[2022-11-26] MEDS: Potassium Chloride 10 MEQ CAPCR PO (07:15)
[2022-11-26] MEDS: Pramipexole 0.5 MG TAB PO ×2 (07:15→20:48)
[2022-11-26] MEDS: Venlafaxine 75 MG TAB PO ×2 (07:15→20:48)
[2022-11-26] MEDS: Methylphenidate 10 MG TAB 5 MG PO (07:15)
[2022-11-26] MEDS: Gabapentin 800 MG TAB PO ×3 (07:15→20:48)
[2022-11-26] MEDS: Sennosides/Docusate Sodium TAB 2 TAB PO ×2 (07:15→20:48)
[2022-11-26] MEDS: diazePAM 5 MG TAB PO (07:15)
[2022-11-26] MEDS: Cyclobenzaprine 10 MG TAB PO ×3 (07:15→20:48)
[2022-11-26] MEDS: Heparin 5,000 UNITS/ML VIAL 5000 UNITS SC ×2 (07:16→15:19)
[2022-11-26] MEDS: Fluticasone NASAL SPRAY 16 GM BTL NS ×2 (07:19→20:48)
[2022-11-26] MEDS: Nystatin POWDER 15 GM JAR TP (07:19)
[2022-11-26 07:34] LABS: Abs Immature Grans 0.03 10^3/uL (0.0-0.06); Absolute Basophil Count 0.04 10^3/uL (0.0-0.2); Absolute Eosinophil Count 0.26 10^3/uL (0.0-0.7); Absolute Lymphocyte Count 1.06 10^3/uL (1.2-3.4); Absolute Monocyte Count 0.33 10^3/uL (0.1-0.8); Absolute Neutrophil Count 2.33 10^3/uL (1.2-6.7); Eosinophils % 6.4; HCT 25.5 % (36.0-46.0); HGB 8.4 g/dL (11.2-15.7); Immature Grans % 0.7; Lymphocytes % 26.2; MCH 29.3 pg (27.0-33.0); MCHC 32.9 % (32.0-36.0); MCV 89 fL (80-95); MPV 9.2 fL (8.0-11.0); Monocytes % 8.1; Neutrophils % 57.6; Platelet Count 252 10^3/uL (130-400); RBC 2.87 10^6/uL (3.93-5.22); RDW 14.1 % (11.7-14.6); RDW-SD 46.2 fL; WBC 4.05 10^3/uL (4.4-10.8)
[2022-11-26] MEDS: HYDROmorphone 2 MG TAB PO ×3 (07:34→20:48)
[2022-11-26 07:52] LABS: Anion Gap 8.9 mmol/L (3-11); BUN 17 mg/dL (7-18); CO2 25.1 mmol/L (21.0-32.0); CREATININE 0.9 mg/dL (0.55-1.02); Calcium 8.2 mg/dL (8.5-10.1); Chloride 101 mmol/L (98-107); Estimated GFR 70.95 (mL/min/1.73m2); Glucose 93 mg/dL (74-106); Potassium 3.8 mmol/L (3.5-5.1); Sodium 135 mmol/L (136-145)
--- NOTE | 2022-11-26 08:00 | DI.MRI_ITS ---
Exam(s) MR LUMBAR SPINE WO/W EXAM: MR LUMBAR SPINE WO/W CLINICAL HISTORY: osteomyelitis, low back pain. TECHNIQUE: Multiplanar multisequence MRI of the Lumbar Spine was performed. CONTRAST MATERIAL: IV Contrast: 12 mL of Dotarem contrast administered. COMPARISON: MR MR LUMBAR SPINE WO from 03/18/[address] LUMBAR SPINE RECONS from 11/24/[address] ABDOMEN PELVIS W from 11/24/2022 FINDINGS: Bones: Spondylo discitis at T12-L1 as described on the MRI of the thoracic spine performed the same d lisa. Please refer to that report for complete details. Fracture of T12 with retropulsion into the sp inal canal causing central spinal canal narrowing. At L1-L2 there is hypointense T1 and hyperintense T2 signal present with hyperintense signal seen in the disc space. Following contrast administratio n there is enhancement of the endplates. The findings are most consistent with spondylo discitis. T here are similar changes also seen at L5-S1 with spondylo discitis. Degenerative changes are present throughout the lumbar spine. Cord: The conus tip ends at the T12 level. The conus and cauda equina are unremarkable. Soft tissues: There is enhancement in the soft tissues around T12-L1, L1-L2 and L5-S1 consistent with infection. Epidural enhancement is again seen and is discussed on the MRI of the thoracic spine. IMPRESSION: 1. Spondylo discitis involving T12-L1, T12 fracture with retropulsion and epidural abscess. This is discussed fully on the MRI of the thoracic spine. 2. Spondylo discitis involving the L1-L2 and L5-S1 disc levels. 3. Unremarkable conus and cauda equina. DATA REPOSITORY:
--- NOTE | 2022-11-26 08:00 | DI.MRI_ITS ---
Exam(s) MR THORACIC SPINE WO/W EXAM: MR THORACIC SPINE WO/W CLINICAL HISTORY: osteomyelitis. TECHNIQUE: Multiplanar multisequence MRI of the Thoracic spine was performed. CONTRAST MATERIAL: IV Contrast: 12 mL of Dotarem contrast administered. COMPARISON: CR,XR XR CHEST 2V PA LATERAL from 11/24/[address] LUMBAR SPINE RECONS from 11/24/2022 FINDINGS: Bones: There is hyperintense T2 and hypointense T1 weighted signal in the T11 and L1 vertebral bodies . There is loss of height of the T12 vertebral body with irregularity of the inferior endplate. The re is also irregularity of the superior endplate of L1. There is mild retropulsion of the T12 verteb ral body into the spinal canal. There is hyperintense signal seen on the T2 weighted images in the T 12-L1 disc space. The AP diameter of the spinal canal is down to 1.2 cm at the T12-L1 level compared to 1.7 cm at T11-T12. Following contrast administration, there is enhancement of the T12 and L1 vert ebral bodies in the paraspinous soft tissues. There is epidural enhancement extending from T7 throug h L2 posteriorly and T9 through L2 anteriorly. Cord: The thoracic cord is normal size and signal intensity. No intrinsic cord lesion is present. Discs: Hyperintense signal seen on the T2 weighted images at the T12-L1 disc space. Soft tissues: Please see the above section under bones. IMPRESSION: 1. T12-L1 spondylo discitis with epidural enhancement anteriorly and posteriorly extending from T7 th rough L2 as described above. This is suspicious for epidural abscess. 2. Loss of volume of the T12 vertebral body consistent with a fracture with retropulsion into the spi nal canal causing mild narrowing of the central spinal canal. 3. Normal signal in the spinal cord. DATA REPOSITORY:
[2022-11-26 08:07] LABS: C-Reactive Protein 4.43 mg/dL (0.0-0.3)
[2022-11-26] MEDS: Normal Saline Flush 10 ML SYR IVP (11:04)
[2022-11-26] MEDS: Gadoterate meglumine 20 ML SYRINGE 12 ML IVP (11:04)
--- NOTE | 2022-11-26 11:22 | PDOC.CMPRO ---
Date of service: 11/26/22 Time of Service: 11:22 Care Management Progress Note Progress Note Text Progress Note Text: S/O: Jeniffer was lying in bed and appears to be sleeping when CM attempted to met with her. She is working with PT and on a LT ABX course of Daptomycin, first initiated at [facility] [place]. PT recommends: STR prior to discharging home. Acute Rehab referrals are pending. In addition, Jeniffer may benefit from and agrees to a COA referral to discuss increased home support, MOW, life line, snf planning. Referral is sent. A: 67 year old female admitted to [facility] on 11/24/22 for T12 burst fracture, Osteomyelitis of thoracic vertebra, Discitis P: Anticipate, Jeniffer will discharge to an acute SNF for STR? prior to returning home. Acute SNF is preferred from a PT standpoint and ABX Course, per provider. Referrals are pending at [facility]. CM will continue to follow.
--- NOTE | 2022-11-26 13:24 | DI.VRAD_ITS ---
PROCEDURE INFORMATION: Exam: MR Thoracic Spine Without and With Contrast Exam date and time: 11/26/2022 10:40 AM Age: 67 years old Clinical indication: Other: Osteomyelitis TECHNIQUE: Imaging protocol: Magnetic resonance imaging of the thoracic spine without and with contrast. Contrast material: DOTAREM; Contrast volume: 12 ml; Contrast route: INTRAVENOUS (IV); COMPARISON: CT ABDOMEN PELVIS W 11/24/2022 3:56 PM FINDINGS: Bones/joints: Discitis and osteomyelitis T12-L1. Fracture of the body of T12 with retropulsion into the canal of 7 mm. No other foci of vertebral body abnormal signal/enhancement. Enhancing anterior epidural abscess T11 through L1. Enhancing posterior epidural abscess T7 through L1. Spinal cord: No cord edema or abnormal enhancement. Soft tissues: Paravertebral phlegmon T12-L1 Lungs: Bilateral lower lobe atelectasis. Pleural spaces: Small bilateral pleural effusions. IMPRESSION: 1. Discitis with adjacent osteomyelitis T12-L1. Fracture of the body of T12 with retropulsion into the canal of 7 mm. 2. No cord edema. 3. Enhancing epidural abscess T11 through L1 anteriorly. Posterior epidural abscess T7 through L1. Dictated and Authenticated by: Elias Carreon MD. Ordering:[facility] Vipul Voss MD
--- NOTE | 2022-11-26 13:24 | DI.VRAD_ITS ---
Addendum created by Elias Carreon MD on 11/26/2022 2:17:49 PM EDT: THIS REPORT CONTAINS FINDINGS THAT MAY BE CRITICAL TO PATIENT CARE. The findings were attempted to be called/discussed with Bipin Matthew at 2:16 PM EDT on 11/26/2022. Unsuccessful reaching the physician. Initial report created on 11/26/2022 1:23:31 PM EDT: PROCEDURE INFORMATION: Exam: MR Lumbar Spine Without and With Contrast Exam date and time: 11/26/2022 11:09 AM Age: 67 years old Clinical indication: Low back pain; Patient HX: Osteomyelitis TECHNIQUE: Imaging protocol: Magnetic resonance imaging of the lumbar spine without and with contrast. Contrast material: DOTAREM; Contrast volume: 12 ml; Contrast route: INTRAVENOUS (IV); COMPARISON: CT LUMBAR SPINE RECONS 11/24/2022 3:56 PM FINDINGS: Bones/joints: Abnormal signal/edema within the T12, L1, L5 and S1 vertebral bodies. Abnormal enhancement of these vertebral bodies. Increase fluid signal within the disc space T12-L1, L1-L2 and L5-S1. Burst fracture of the body of T12 that extends into the canal by 7 mm. Central canal narrowing T12-L1. No cord edema. Spinal epidural space: Anterior epidural enhancement T11 through L1. Measures 7 mm in thickness. Spinal cord: Visualized cord, conus medullaris and cauda equina are unremarkable without compression. T12-L1: Burst fracture of the body of T12 with retropulsion into the canal by 7 mm. Anterior canal narrowing. Enhancement and edema of bilateral pedicles at T12 L1-L2: No central canal or foraminal stenosis. Moderate right lateral recess narrowing. L2-L3: Central disc bulge with flattening of the anterior sac. Bilateral left greater than right lateral recess and proximal foraminal narrowing. L3-L4: Central disc bulge. Bilateral lateral recess narrowing. L4-L5: Central disc bulge. Bilateral lateral recess narrowing. L5-S1: No central spinal stenosis. Soft tissues: Paravertebral phlegmon T12-L1 IMPRESSION: 1. Osteomyelitis and discitis T12-L1. Fracture of T12 with retropulsion into the canal 7 mm. 2. Diffuse osteomyelitis of body of T12 and L1. 3. Discitis L1-L2. 4. Discitis L5-S1. Adjacent osteomyelitis of the inferior endplate of L5 and superior endplate of S1. 5. Epidural abscess T11 through L1. Dictated and Authenticated by: Elias Carreon MD. Ordering:GONZALO Voss MD
--- NOTE | 2022-11-26 13:27 | PHA.REVIEW2 ---
Pharmacy Admission Review Admission Clinical Review Admission Pharmacy Review: (Updated 11/24/22 @ 23:13 by ERNESTINA Gibson) Restless leg syndrome (Acute) Discitis (Acute) Osteomyelitis of thoracic vertebra (Acute) T12 burst fracture (Acute) NSTEMI (non-ST elevated myocardial infarction) (Acute) MRSA bacteremia (Acute 09/2022) Corticosteroids (Glucocorticoids) Allergy (Intermediate, Verified 11/24/22 13:15) INCREASED SOB prednisone Allergy (Intermediate, Verified 11/24/22 13:15) SOB Resuscitation Status Full Code Height 5 ft 2 in Weight 59.421 kg Pharmacy Admission Review Renal Dosing Renal Dosing: BUN 17 mg/dL (7-18) 11/26/22 07:25 Creatinine 0.9 mg/dL (0.55-1.02) 11/26/22 07:25 Medications needing adjustments: Reviewed (eCrCl 52 ml/min) List of meds needing interventions: all orders appropriately dosed Anticoagulation Anticoagulation: Hgb 8.4 g/dL (11.2-15.7) L 11/26/22 07:25 Hct 25.5 % (36.0-46.0) L 11/26/22 07:25 Plt Count 252 10^3/uL (130-400) 11/26/22 07:25 Creatinine 0.9 mg/dL (0.55-1.02) 11/26/22 07:25 DVT Prophylaxis: Reviewed Medications: Heparin Opiate Usage Evaluate Pain Scale/Pains Meds: Reviewed (hydromorphone po/iv prn) Scheduled Bowel Reg ordered if on Opiates?: No (prn orders only, + BMs) Relevant Labs Relevant Labs: Sodium 135 mmol/L (136-145) L 11/26/22 07:25 Potassium 3.8 mmol/L (3.5-5.1) 11/26/22 07:25 Chloride 101 mmol/L (98-107) 11/26/22 07:25 C-Reactive Protein 4.43 mg/dL (0.0-0.3) H 11/26/22 07:25 Electrolytes, C-Reactive P, ESR: Reviewed DM Control DM Control: BG wnl Insulin Dosing: N/A Cardiac Review Cardiac Review: Troponin I < 50 ng/L (<or=60) 11/24/22 13:45 Troponin I Cancelled 11/24/22 13:45 EF%, JULIO's, B-Blockers, Diuretics: Reviewed QTc Review If Elevated: Reviewed (QTc 429 on admission) IV to PO Switch IV Medications: Reviewed Home Meds Home Med List reviewed: Reviewed Relevent Home Meds Not ordered & why?: all ordered with the exception of pravastatin as there is a DDI with dapto -- to be resumed once dapto therapy is complete Current Meds Current Medication Order Review: Reviewed Pharmacy Antibiotic Review Relevant Labs: Relevant Labs 11/26/22 07:25 C-Reactive Protein 4.43 H Pharmacy Antibiotic Activity: 48 hour review and Reviewed, no change Comments: pt will be on daptomycin until 12/06/22 -- CPK on admission was WNL, continue to check CPK weekly, pravastatin is on hold
--- NOTE | 2022-11-26 15:15 | W.PM.PROGNOT ---
Date of Service Date of service: 11/26/22 Time of Service: 15:15 Assessment and Plan Assessment and plan (1) T12 burst fracture: Status: Acute Assessment and plan: patient now w/ neurologic symptoms of right pelvic and thigh pain and she has noticeable weakness of her right leg compared to the left. MRI was done of her T spine and L spine and she has epidural abscess from T7 to L2 and she has retropulsion of the T12 fracture into the spinal canal w/ mild central canal narrowing. Fortunately her cord signal is normal. I have called [facility] to request discussion w/ spine surgery and transfer to [facility] for surgical decompression/drainage of the abscess. 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 Professional time spent interviewing and examining patient, discussion of goals of care with hospital team (care management, nursing and consulting professionals) was 45 minutes. (2) Osteomyelitis of thoracic vertebra: Status: Acute Assessment and plan: At time of D/C from [facility] it was recommended she f/u with ID on 12/04/22. Also recommended then was a T and L-spine MRI prior to ID f/u. However, I got her MRI done today out of concern for her continued pain and immobility and now found to have right leg weakness and radicular pain into the right groin, down inside of her right leg. She remains on daptomycin but w/ a developing abscess she needs referred back to [facility] for drainage/decompression. (3) Discitis: Status: Acute Assessment and plan: As above. (4) Essential hypertension: Status: Chronic Assessment and plan: Currently normotensive and not on BP meds. Monitor. (5) NSTEMI (non-ST elevated myocardial infarction): Status: Acute Assessment and plan: Cont aspirin. patient had type II NSTEMI in which she suffered from Takotsubo cardiomyopathy, cardiac cath showed no hemodynamic stenosis despite her having evidence of PAD on CTA of her abdomen/pelvis (celiac, left renal and occlusion of left common iliac distal to origin w/ reconstitution of exerternal and internal iliac arteries). continue statin and ASA. (6) MRSA bacteremia: Status: Acute Assessment and plan: Daptomycin 500mg IV. (7) Depression: Assessment and plan: Cont Effexor. Also on Trazadone at HS. (8) Anxiety disorder: Assessment and plan: Lorazepam prn daily. Effexor. (9) Restless leg syndrome: Status: Acute Assessment and plan: Cont mirapex. (10) Vaginal discharge: Status: Acute Subjective Subjective Interval history since last seen: Patient continues to experience pain in her right groin and down her inner thigh and over the right anterior iliac crest. CT did not show any abnormalities of the pelvis. This may be referred pain from her spinal infection. Patient did get up out of bed for P.T. this afternoon and pivoted to the wheelchair w/ much difficulty and pain. Exam Narrative Exam Narrative: Legs: right hip flexion and extension is noticeably weaker than her left hip flexor and extensor; she has normal dorsiflexion and plantar flexion of her feet at her ankles. sensation over both legs is grossly intact Objective Last Vital Signs Temp 36.0 C L 11/26/22 06:55 Pulse 83 11/26/22 06:55 Resp 16 11/26/22 04:33 BP 128/70 11/26/22 06:55 Pulse Ox 94 11/26/22 06:55 Laboratory Results - last 24 hr 11/26/22 11/26/22 07:25 07:25 WBC 4.05 L RBC 2.87 L Hgb 8.4 L Hct 25.5 L MCV 89 MCH 29.3 MCHC 32.9 RDW 14.1 Plt Count 252 MPV 9.2 Immature Gran % 0.7 Neutrophils % 57.6 Lymphocytes % 26.2 Monocytes % 8.1 Eosinophils % 6.4 Basophils % 1.0 Nucleated RBC % 0.0 Absolute Neutrophils 2.33 Absolute Lymphocytes 1.06 L Absolute Monocytes 0.33 Absolute Eosinophils 0.26 Absolute Basophils 0.04 Sodium 135 L Potassium 3.8 Chloride 101 Carbon Dioxide 25.1 Anion Gap 8.9 BUN 17 Creatinine 0.9 Est GFR (CKD-EPI 2020) 70.95 Glucose 93 Calcium 8.2 L C-Reactive Protein 4.43 H Time Spent with Patient Time Spent with Patient: 35-49 minutes Time was spent: preparing to see the patient(eg.review tests), ordering medications,tests, procedures, referring, communicating with other health overnight caregiver (calls to [facility]), indepentently interpreting results, counseling the patient and care coordination
[2022-11-26 15:17] VITALS: BP 102/67; PULSE 92; TEMP 36.2; O2SAT 95
[2022-11-26] MEDS: DAPTOmycin 500 MG in Normal Saline 50 ML 100 MG IVPB (16:47)
[2022-11-26] MEDS: Lidocaine 5% Patch 3 PATCH TP (16:55)
--- NOTE | 2022-11-26 17:57 | PT.INTREAT ---
Date of service: 11/26/22 Time of Service: 17:23 PT Notes Visit Reasons: T Spine Osteomyelitits, Burst Fracture Inpatient Physical Therapy Treatment Note [facility] Date: 11/26/22 PRECAUTIONS: Standard, fall, activity as tolerated, spine precautions (no lifting, bending, twisting), TLSO for all activities out of supine in bed. SUBJECTIVE: Patient had a great dinner, supine in bed, agreeable to therapy. OBJECTIVE: PAIN: [place] ok in bed, pain was 10/10 upon sitting and transferring. Patient also became very nauseous. BED MOBILITY/TRANSFERS Rolling L/R: independent Supine-sit: mod assist of 1 with TLSO Sit-supine: independent Sit-stand: independent although patient remained bent almost double Stand-sit: independent Bed-Chair: contact guard Chair-bed: contact guard THEREX: Sit to stand x4, 2x5 heel slides, 2x5 supported hip ab/adduction ASSESSMENT: Patient is agreeable to come to gym tomorrow and attempt parallel bars. After much discussion with patient about her home layout, and consulting with supervising PT Akanksha Weaver, patient would like to attempt using a buffy walker as her standard walker does not fit in her home. Patient is severely limited by pain, which she describes as radiating down the insides of her legs and into the bottoms of her feet, R>L. PLAN: Continue strengthening per plan of care TREATMENT CODE/TIME: 17506 Ther Ex 13 minutes, 14430 Ther Act 10 minutes beginning at 17:23
[2022-11-26] MEDS: Diclofenac Sodium 75 MG TABEC PO (20:48)
--- NOTE | 2022-11-26 21:28 | W.GYNCONSULT ---
Date of service: 11/26/22 Time of Service: 21:28 Assessment and Plan Assessment and plan (1) MRSA bacteremia: Status: Acute (2) Infectious discitis: Status: Acute (3) NSTEMI (non-ST elevated myocardial infarction): Status: Acute (4) History of robot-assisted laparoscopic hysterectomy: Status: Acute (5) Vaginal discharge: Status: Acute Assessment and plan: Patient has a significantly complex history since the time of her gynecologic procedure as previously mentioned. She is currently hospitalized due to acute onset of back pain, and discitis, osteomyelitis, history of MRSA bacteremia. We are consulted for evaluations and recommendation based on increasing greenish vaginal discharge. Previous cultures for gonorrhea and chlamydia and vaginitis swabs had been performed though may not be warranted at this point. Today vaginal swab for Gram stain with culture and sensitivity were performed to evaluate and ascertain as to whether this may also be a source of her methicillin-resistant Staph aureus. After lengthy conversation with the hospitalist leave this evening my concern would be the source and nidus for her MRSA. We had a conversation regarding the fact that she does have a graft in place from her cervical stump to her sacrum which may be of concern given her complex postoperative course. We will continue to monitor. Management per hospitalist service. Await further recommendations. Possibility of transfer back to [facility] for ongoing care and management. History of Present Illness History of Present Illness Chief Complaint: Vaginal discharge during hospitalization Narrative: Patient is a 67-year-old female kindly asked to evaluate this patient by the hospitalist service due to increasing vaginal discharge. She has a complex history in that on 10/07/2022 she underwent a surgical correction for pelvic organ prolapse along with rectal prolapse. Her procedure at that time was a robotic assisted bilateral salpingectomy and supracervical hysterectomy with mesh placement for support of the cervical stump in a colpopexy fashion. Her postoperative versus intraoperative course was complicated by hypotension and acute kidney injury. Subsequent to this she had a string of unfortunate events including an NSTEMI myocardial infarction related to stress, and subsequently developed sepsis with bacteremia and now has osteomyelitis of her vertebral column and what appears to be extending abscess. There is full summation of the events from the time of her surgical procedure today from review of previous hospitalizations and hospitalist chart. After lengthy conversation today with her hospitalist service my concern is that of new and increasing vaginal discharge. A vaginal swab was obtained to ascertain Gram stain with culture and sensitivity again looking for source for her sepsis which is methicillin-resistant staph. Consults Consult date: 11/26/22 Requesting physician: Bipin Matthew Review of Systems Narrative: Patient is alert and cooperative though complains of some low back and pelvic pressure and discomfort. She denies fevers or chills. Her appetite is reasonable at this point. Constitutional Constitutional: Reports as per HPI Cardiovascular Cardiovascular: Reports as per HPI, Reports system reviewed and no additional complaints, except as documented, Denies chest pain at rest, Denies chest pain with activity, Denies rapid heart rate, Denies lightheadedness and Denies dyspnea on exertion Respiratory Respiratory: Reports as per HPI, Denies chest congestion, Denies cough, Denies hemoptysis and Denies dyspnea on exertion Gastrointestinal Gastrointestinal: Reports as per HPI, Reports system reviewed and no additional complaints, except as documented, Denies abdominal pain and Denies belching Genitourinary Genitourinary: Reports as per HPI, Denies abnormal vaginal bleeding and Reports vaginal discharge PFSH All Active Problems (Updated 11/26/22 @ 18:56 by Bipin Matthew MD) History of robot-assisted laparoscopic hysterectomy (Acute) 10/07/2022 at [facility], robotic assisted bilateral salpingectomy with supracervical hysterectomy and cervical colpopexy with graft placement Vaginal discharge (Acute) Restless leg syndrome (Acute) Discitis (Acute) Osteomyelitis of thoracic vertebra (Acute) T12 burst fracture (Acute) Chronic low back pain (Chronic) tx pain clinic 2013 [facility]- 03/2021-MR of low back-numerous degenerative changes. Most prominent were foraminal stenosis at upper lumbar labral, no acute disc bulging, With chronic pain syndrome-followed by pain clinic at [facility] Essential hypertension (Chronic 04/20/13) Normal echocardiogram -2015 Generalized anxiety disorder (Acute) Hyperlipidemia (Acute 02/06/14) Neck pain (Acute) C6-7 disc w/ radiculopathy S/P surgery [facility] [place] Sensorineural hearing loss, bilateral (Chronic 04/06/14) Urge incontinence of urine (Acute) Otitis externa due to herpes zoster (Acute 06/30/13) Goiter (Acute) Rectal mucosa prolapse (Acute) Vaginal enterocele due to incomplete uterovaginal prolapse (Acute) Heart murmur (Chronic) 07/2021-systolic murmur-at upper sternal border, longstanding, normal echo 2016-consistent with innocent murmur Nicotine dependence (Chronic) smoking, vaping Carotid stenosis (Acute) - positive carotid bruit 09/2021 Carotid US, moderate bilat stenosis, l> R Polypharmacy (Acute) Lumbosacral spondylosis without myelopathy (Acute) 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 Managed at [facility] [place] Cyclic vomiting syndrome (Acute) MRSA bacteremia (Acute 09/2022) post rectopexy, oophorectomy/hysterectomy 10/07/22. Infectious discitis (Acute 09/2022) multiple levels on MRI Medical History Abnormal glandular Papanicolaou smear of cervix repeat normal Anxiety disorder Depression Hyperlipidemia Personal history of nicotine dependence 07/2021, 1/2 pk per day currently-about 26-21-rqay-year history (was usually a 1 to 2 pack/day smoker) 08/29/21 - Down to 8-10 per day, starting nicotine patches as she is finding it harder to cut back at this point. Rectal bleed 07/2021 Surgical History History of arthroscopy History of bilateral ligation of fallopian tubes History of colonoscopy with polypectomy (~07/09/21) History of rectopexy (09/2022) with mesh placement, postoperative MRSA bacteremia with intraabdominal and paravertebral fluid collections. S/P carpal tunnel release S/P hemorrhoidectomy hemorrhoid banding S/P spinal fusion S/P DAVID-BSO (09/2022) Family History Mother Essential hypertension Stroke Cancer Father Heart disease Brother Heart disease Maternal Grandfather No problems noted. Paternal Grandfather No problems noted. Maternal Grandmother Essential hypertension Stroke Paternal Grandmother No problems noted. Social History Smoking/Tobacco Use Status: Current every day Tobacco: How many years used: 20 Smokeless tobacco user: dissolvable tobacco Quit status: has quit before Second Hand Exposure: Yes Counseling given: provider counseling Smoking risk assessment performed?: Yes Alcohol Intake: former Drug use: Daily Substance use type: marijuana Details: Pt reports awokefrom napb at 1600 black pt reports lasted 30 minutes. spots in vision, Household members: none Housing: house Number of Children: 3 number of grandchildren: 3 Education Level: high school Do you need help understanding health information?: Always Pets and animals: Yes Pets and animals: other Details: Donkey Sexually active: No What type of physical activity do you participate in: decline to answer Duration: decline to answer Frequency: decline to answer Chelesa/Druze: Jewish Special chelsea needs: No Seatbelt use: always Helmet use: Yes Helmet use: always Drive intox or ride w/intox route sales delivery driver: No Do you feel safe at home: Yes Additional Social history: live alone Exam Narrative Exam Narrative: Patient is a 67-year-old female who appears alert, oriented, and pleasant on my initial examination today. She had been sleepy but arousable and appears in good spirits. Const General: cooperative, comfortable, no acute distress and frail appearing Nutritional Appearance: average body habitus Eyes General: appearance normal, both eyes and all related structures Neck Neck: normal visual inspection and supple Resp Effort & Inspection: normal respiratory effort and no cough Cardio Rate: regular rate GI Inspection: normal to inspection and incision (Well-healed stab wounds from laparoscopic ports) Palpation: soft, not firm and no guarding External Female Exam: normal external appearance Other: Vaginal swab for Gram stain, culture and sensitivity performed Extrem General: normal to inspection and no pedal edema Results Last Vital Signs Temp 97.2 F L 11/26/22 15:17 Pulse 92 H 11/26/22 15:17 Resp 16 11/26/22 04:33 BP 102/67 11/26/22 15:17 Pulse Ox 95 11/26/22 15:17 Labs 11/26/22 07:25 11/26/22 07:25 Labs: Laboratory Results - last 24 hr 11/26/22 11/26/22 07:25 07:25 WBC 4.05 L RBC 2.87 L Hgb 8.4 L Hct 25.5 L MCV 89 MCH 29.3 MCHC 32.9 RDW 14.1 Plt Count 252 MPV 9.2 Immature Gran % 0.7 Neutrophils % 57.6 Lymphocytes % 26.2 Monocytes % 8.1 Eosinophils % 6.4 Basophils % 1.0 Nucleated RBC % 0.0 Absolute Neutrophils 2.33 Absolute Lymphocytes 1.06 L Absolute Monocytes 0.33 Absolute Eosinophils 0.26 Absolute Basophils 0.04 Sodium 135 L Potassium 3.8 Chloride 101 Carbon Dioxide 25.1 Anion Gap 8.9 BUN 17 Creatinine 0.9 Est GFR (CKD-EPI 2020) 70.95 Glucose 93 Calcium 8.2 L C-Reactive Protein 4.43 H
--- NOTE | 2022-11-26 22:58 | DSE_ITS ---
Date of service: 11/26/22 Time of Service: 22:58 DS: Diagnosis Discharge Diagnosis (1) Abscess in epidural space of thoracic spine: Status: Acute Asessment and Plan: patient had known thoracic vertebral osteomyelitis and abscess but repeat MRI this admission demonstrates extension of her abscess and patient now w worsening symptoms of right leg/groin pain and weakness in her right hip flexors and e xtensors. She also is now having vaginal drainage suspected to be MRSA infection. (2) Osteomyelitis of thoracic vertebra: Status: Acute Asessment and Plan: T12-L1 discitis and pathologic fracture of T12 w/ retropulsion of fracture into spinal canal w/ mild central canal stenosis. Epidural enhancement of anterior and posterior extending from T7 to L2 (3) Osteomyelitis of lumbar spine: Status: Acute (4) MRSA bacteremia: Status: Suspected Asessment and Plan: admission culture from 11/24 now postive one set out of two for gram positive bacteremia, suspect MRSA given she has had MRSA discitis/vertebral osteomyelits and now epidural abscess and prior findings of abdominal wall abscess and pelvic fluid w/ MRSA infection. It is suspected that she has ongoing source of infection from her mesh implant from her vaginal suspension. (5) Infectious discitis: Status: Acute (6) T12 burst fracture: Status: Acute (7) Vaginal discharge: Status: Acute Asessment and Plan: patient with new vaginal purulent drainage, cultures sent today, but suspected of being MRSA. Vaginitis screen positive for Megan but negative for chlamydia or Gardnerella. Bacterial culture and gram stain is pending. Discharge Plan Disposition Patient Disposition: Transfer-Acute Inpatient Care Specific Acute In Facility: [facility] Condition: Stable Discharge Details Reason For Visit: T Spine Osteomyelitits, Burst Fracture Admit Date/Time: 11/24/22 18:25 Admit Provider: Freddy Palacios Attending Provider: Freddy Palacios Primary Care Provider: Arely Sampson Hospital Course Hospital Course: 67yo F with multiple recent admission complicating 10/07/22 laproscopic rectopexy with mesh hysterectomy, nash salpingectomy and sacral cervicopexy. See H&P for details of 3 recent admissions. The day prior to this admission she was unable to walk, crawling around her home. Admitted initially 11/25/22 for pain control, but evolving increased leg weakness became evident and prompted MRI 11/26/22 which showed retropulsed T12 burst fracture with mild central canal narrowing and T7-L2 epidural abscess. Vaginal discharge was noted an gynecology consulted who took a culture of the vaginal surgical site, which is pending. Initial blood culture from admission growing gram positive cocci. Transfer to [facility] [place] recommended for managing this infection in setting with neurosurgical capability. Given persistent and progressive infection depsite appropriate IV antibiotic treatment over the course of multiple admissions, there is also concern for infection of the surgically implanted mesh. Case was discussed w/ the medical technologist prn irrigation installation specialist for transfers and he agreed that it was most appropriate for patient to be transferred back to [facility] [place] to manage her complications from her recent surgery. Home Meds and New Rx's Prescriptions: No Action aspirin 81 mg tablet,delayed release (DR/EC) 81 mg PO DAILY trazodone 100 mg tablet 100 mg PO QHS Qty: 90 3RF albuterol sulfate 90 mcg/actuation HFA aerosol inhaler 1 - 2 puff IH QID PRN (Reason: shortness of breath or wheezing) Qty: 18 3RF fluticasone propionate 50 mcg/actuation spray,suspension 1 spray NS BID Qty: 1 6RF clotrimazole 1 % cream 1 applic TP BID PRN (Reason: skin rash) Qty: 28 3RF pramipexole 0.5 mg tablet 0.5 mg PO BID Qty: 180 3RF lorazepam [Ativan] 1 mg tablet 1 mg PO DAILY MDD 1mg PRN (Reason: anxiety) Qty: 10 0RF diclofenac sodium 75 mg tablet,delayed release (DR/EC) 75 mg PO BID PRN (Reason: pain) Qty: 60 2RF Hold Instructions: Home Medication placed on hold at Doctor's office triamterene-hydrochlorothiazid 37.5-25 mg capsule 1 cap PO DAILY Qty: 90 2RF fesoterodine 4 mg tablet extended release 24 hr 4 mg PO DAILY Qty: 90 3RF nystatin 100,000 unit/gram powder 1 applic topical DAILY Qty: 30 2RF Rx Instructions: local application daily under breasts and in groin area lidocaine HCl [Lidocaine Viscous] 2 % solution 1 applic mucous membrane BID PRN (Reason: pain) Qty: 200 0RF methylphenidate HCl 5 mg tablet 5 mg PO QAM MDD 5mg Qty: 30 0RF venlafaxine 75 mg tablet 75 mg PO BID daptomycin 500 mg recon soln 500 mg IV DAILY Rx Instructions: administer over 30 mins 11/07/22 RX'd at [facility] [place]. Anticipated stop date: 12/06/22. -hb pravastatin 20 mg tablet 20 mg PO DAILY Qty: 90 4RF Hold Instructions: Adverse Reaction Patient Comments: not on med list Rx Instructions: 11/07/22. Hold while on IV Daptomycin. Anticipated stop date 12/06/22. -hb acetaminophen 325 mg capsule 650 mg PO QID cyclobenzaprine 10 mg tablet 10 mg PO TID sulfamethoxazole-trimethoprim 800-160 mg tablet 1 tab PO BID gabapentin 800 mg tablet 800 mg PO TID Qty: 90 3RF potassium chloride 10 mEq capsule, extended release 10 meq PO DAILY Qty: 90 1RF polyethylene glycol 3350 [Miralax] 17 gram/dose Powder 17 g PO PRN PRN Discharge Instructions Instructions: Osteomyelitis (GEN) Stand Alone Forms: Nursing Discharge Form Referrals: Arely Sampson MD [Primary Care Provider] - (Follow up per Discharge from [facility]) Activity:: Activity as Tolerated Equipment/Supplies:: Brace Diet:: HH Regular Discharge Orders Discharge Orders: Discharge Order (Routine); Ordered 11/26/22 Ordered By: Tommy Chaparro DS: Summary Time Spent with Patient providing and/or coordinating discharge services: Greater than 30 minutes Specific discharge activities: Interview/exam of patient, educating patient and/or family about need for transfer and alternative treatment options, coordination of transfer w/ receiving facility and discussion of case w/ accepting provider(s), completion of transfer orders and discharge summary Status at Discharge Functional status at discharge: wheelchair bound Overall status at discharge: patient is not back to baseline Mental Status: mental status grossly normal Speech and Movement: speech clear Mood: congruent mood Affect: normal affect Exam Narrative Exam Narrative: Legs: right hip flexion and extension is noticeably weaker than her left hip flexor and extensor; she has normal dorsiflexion and plantar flexion of her feet at her ankles. sensation over both legs is grossly intact Psych Mental Status: mental status grossly normal Speech and Movement: speech clear Mood: congruent mood Affect: normal affect DS: Data Vitals/I&O Vitals and I&O: Vital Signs Temperature 36.2 C L 11/26/22 15:17 Temperature Source Tympanic 11/26/22 15:17 Pulse 92 H 11/26/22 15:17 Pulse Rhythm Regular 11/26/22 22:10 Pulse 99 H 11/24/22 19:30 Respiratory Rate 16 11/26/22 04:33 Respiratory Effort Normal, Non-Labored 11/26/22 22:10 Respiratory Depth Normal 11/26/22 22:10 Respiratory Pattern Normal 11/26/22 22:10 Blood Pressure 102/67 11/26/22 15:17 Blood Pressure Mean 89 11/24/22 18:00 Blood Pressure Position Supine 11/24/22 13:06 Pulse Oximetry 95 11/26/22 15:17 Oxygen Delivery Method Room Air 11/26/22 22:16 Oxygen Flow Rate 0 11/26/22 22:16 Pain Level 7 11/26/22 15:17 Comment Pt. denies pain at this time. 11/25/22 07:31 Intake & Output 11/25/22 11/26/22 11/26/22 23:59 11:59 23:59 Intake Total 1050 / 2990 1050 / 1050 Output Total 300 / 600 600 / 1350 750 / 1350 Balance 750 / 2390 -600 / -300 300 / -300 Intake: IV 1050 / 2080 1050 / 1050 Output: Urine 300 / 600 600 / 1350 750 / 1350 Other: Urine Color Yellow Yellow Straw Urine Appearance Clear Clear Sediment Stool Size Small Stool Characteristics Soft Formed Data Completed and Pending Labs on day of discharge: Labs from last 24 hours 11/26/22 11/26/22 11/26/22 13:00 07:25 07:25 WBC 4.05 L RBC 2.87 L Hgb 8.4 L Hct 25.5 L MCV 89 MCH 29.3 MCHC 32.9 RDW 14.1 Plt Count 252 MPV 9.2 Immature Gran % 0.7 Neutrophils % 57.6 Lymphocytes % 26.2 Monocytes % 8.1 Eosinophils % 6.4 Basophils % 1.0 Nucleated RBC % 0.0 Absolute Neutrophils 2.33 Absolute Lymphocytes 1.06 L Absolute Monocytes 0.33 Absolute Eosinophils 0.26 Absolute Basophils 0.04 Sodium 135 L Potassium 3.8 Chloride 101 Carbon Dioxide 25.1 Anion Gap 8.9 BUN 17 Creatinine 0.9 Est GFR (CKD-EPI 2020) 70.95 Glucose 93 Calcium 8.2 L C-Reactive Protein 4.43 H Chlamydia DNA Probe Pending Chlamydia/GC DNA Source Pending N.gonorrhoeae DNA Probe Pending 11/26/22 20:30 Vaginal Wound Culture - Pending Preliminary micro results at discharge 11/26/22 20:30 Wound Culture - Pending Vaginal 11/24/22 13:45 Blood Culture - Preliminary Blood NO GROWTH 48 HOURS 11/24/22 13:55 Blood Culture - Preliminary Blood Gram Positive Cocci PFSH All Active Problems (Updated 11/26/22 @ 23:16 by Bipin Matthew MD) Osteomyelitis of lumbar spine (Acute) Abscess in epidural space of thoracic spine (Acute) History of robot-assisted laparoscopic hysterectomy (Acute) 10/07/2022 at [facility], robotic assisted bilateral salpingectomy with supracervical hysterectomy and cervical colpopexy with graft placement Vaginal discharge (Acute) Restless leg syndrome (Acute) Discitis (Acute) Osteomyelitis of thoracic vertebra (Acute) T12 burst fracture (Acute) Chronic low back pain (Chronic) tx pain clinic 2013 [facility]- 03/2021-MR of low back-numerous degenerative changes. Most prominent were foraminal stenosis at upper lumbar labral, no acute disc bulging, With chronic pain syndrome-followed by pain clinic at [facility] Essential hypertension (Chronic 04/20/13) Normal echocardiogram -2015 Generalized anxiety disorder (Acute) Hyperlipidemia (Acute 02/06/14) Neck pain (Acute) C6-7 disc w/ radiculopathy S/P surgery [facility] [place] Sensorineural hearing loss, bilateral (Chronic 04/06/14) Urge incontinence of urine (Acute) Otitis externa due to herpes zoster (Acute 06/30/13) Goiter (Acute) Rectal mucosa prolapse (Acute) Vaginal enterocele due to incomplete uterovaginal prolapse (Acute) Heart murmur (Chronic) 07/2021-systolic murmur-at upper sternal border, longstanding, normal echo 2015-consistent with innocent murmur Nicotine dependence (Chronic) smoking, vaping Carotid stenosis (Acute) - positive carotid bruit 09/2021 Carotid US, moderate bilat stenosis, l> R Polypharmacy (Acute) Lumbosacral spondylosis without myelopathy (Acute) 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 Managed at [facility] [facility] Cyclic vomiting syndrome (Acute) Infectious discitis (Acute 09/2022) multiple levels on MRI Medical History Abnormal glandular Papanicolaou smear of cervix repeat normal Anxiety disorder Depression Hyperlipidemia Personal history of nicotine dependence 07/2021, 1/2 pk per day currently-about 29-87-iskb-year history (was usually a 1 to 2 pack/day smoker) 08/29/21 - Down to 8-10 per day, starting nicotine patches as she is finding it harder to cut back at this point. Rectal bleed 07/2021 Surgical History History of arthroscopy History of bilateral ligation of fallopian tubes History of colonoscopy with polypectomy (~07/09/21) History of rectopexy (09/2022) with mesh placement, postoperative MRSA bacteremia with intraabdominal and paravertebral fluid collections. S/P carpal tunnel release S/P hemorrhoidectomy hemorrhoid banding S/P spinal fusion S/P DAVID-BSO (09/2022) Family History Mother Essential hypertension Stroke Cancer Father Heart disease Brother Heart disease Maternal Grandfather No problems noted. Paternal Grandfather No problems noted. Maternal Grandmother Essential hypertension Stroke Paternal Grandmother No problems noted. Social History Smoking/Tobacco Use Status: Current every day Tobacco: How many years used: 20 Smokeless tobacco user: dissolvable tobacco Quit status: has quit before Second Hand Exposure: Yes Counseling given: provider counseling Smoking risk assessment performed?: Yes Alcohol Intake: former Drug use: Daily Substance use type: marijuana Details: Pt reports awokefrom napb at 1600 black pt reports lasted 30 minutes. spots in vision, Household members: none Housing: house Number of Children: 3 number of grandchildren: 3 Education Level: high school Do you need help understanding health information?: Always Pets and animals: Yes Pets and animals: other Details: Donkey Sexually active: No What type of physical activity do you participate in: decline to answer Duration: decline to answer Frequency: decline to answer Chelsea/Confucianism: Roman Catholic Special chelsea needs: No Seatbelt use: always Helmet use: Yes Helmet use: always Drive intox or ride w/intox belly dump driver: No Do you feel safe at home: Yes Additional Social history: live alone Time Spent with Patient Time Spent with Patient: 45-69 minutes Time was spent: preparing to see the patient(eg.review tests), referring, c ommunicating with other health menagerie caretaker (multiple calls to [facility] transfer center, neurosurgery and finally to CLINICAL OPERATIONS SPECIALIST), counseling the patient and care coordination
--- NOTE | 2022-11-27 08:54 | OTDS_ITS ---
Occupational Therapy Notes Occupational Therapy Inpatient Discharge Summary Date: 11/27/22 Dates of Service: 11/25/22 Referring Doctor:Dr. Palacios OT Orders: Non urgent Precautions: Fall, standard, full *This document serves as a summary of pts care, no skilled OT services were provided on this date for this documentation* PATIENT PROFILE/ADMITTING DIAGNOSIS: Pt is a 67 year old female who was referred to skilled Occupational Therapy services for a dx of restless leg syndrome, discitis, osteomyelitis of thoracic vertebrae, chronic LBP and a T12 burst fx. Past Medical History: All Active Problems?(Updated 11/24/22 @ 20:59 by Freddy Palacios MD) Restless leg syndrome (Acute) Discitis (Acute) Osteomyelitis of thoracic vertebra (Acute) T12 burst fracture (Acute) Chronic low back pain (Chronic) tx pain clinic 2013 [facility]- 03/2021-MR of low back-numerous degenerative changes.? Most prominent were foraminal stenosis at upper lumbar labral, no acute disc bulging, With chronic pain syndrome-followed by pain clinic at [facility] Essential hypertension (Chronic 04/20/13) Normal echocardiogram Generalized anxiety disorder (Acute) Hyperlipidemia (Acute 02/06/14) Neck pain (Acute) C6-7 disc w/ radiculopathy [place] [facility] Sensorineural hearing loss, bilateral (Chronic 04/06/14) Urge incontinence of urine (Acute) Otitis externa due to herpes zoster (Acute 06/30/13) Goiter (Acute) Rectal mucosa prolapse (Acute) Vaginal enterocele due to incomplete uterovaginal prolapse (Acute) Heart murmur (Chronic) 07/2021-systolic murmur-at upper sternal border, longstanding, normal echo 2015- consistent with innocent murmurNicotine dependence (Chronic) smoking, vapingCarotid stenosis (Acute) - positive carotid bruit 09/2021 Carotid US, moderate bilat stenosis, l> RPolypharmacy (Acute) Lumbosacral spondylosis without myelopathy (Acute) Nasal septal perforation (Chronic) due to pickingStapedial myoclonus (Acute) Hoarding disorder (Acute) NSTEMI (non-ST elevated myocardial infarction) (Acute) secondary to MRSA sepsis.? [facility]) MRSA bacteremia (Acute 09/2022) post rectopexy, oophorectomy/hysterectomy 10/07/22.Infectious discitis (Acute 09/2022) multiple levels on MRI Medical History? Abnormal glandular Papanicolaou smear of cervix repeat normalAnxiety disorder Depression Hyperlipidemia Personal history of nicotine dependence 07/2021, 1/2 pk per day currently-about 55-46-psfx-year history (was usually a 1 to 2 pack/day smoker) 08/29/21 - Down to 8-10 per day, starting nicotine patches as she is finding it harder to cut back at this point.Rectal bleed 07/2021 Surgical History? History of arthroscopy History of bilateral ligation of fallopian tubes History of colonoscopy with polypectomy (~07/09/21) History of rectopexy (09/2022) with mesh placement, postoperative MRSA bacteremia with intraabdominal and paravertebral fluid collections.S/P carpal tunnel release S/P hemorrhoidectomy hemorrhoid bandingS/P spinal fusion S/P DAVID-BSO (09/2022) Social History/Home Situation: Pt states that she lives in a private home and notes that as of recently she is unable to care for herself. She states that her pain limits her and that she functionally is not able to perform her ADLs (I). She specifically mentions that when she uses the toilet she is not able to sit for long so she uses the bathtub to wash her bottom and states that she has feces in her shower because she is unable to clean it. Equipment owned/DME: [employer] SUBJECTIVE:?NT OBJECTIVE:? FUNCTIONAL MOBILITY/ADLS: *Based off assessment of initial evaluation no skilled OT services provided on this date* BATHING laying in bed Bathing UE (I) UE Bathing LE max (A) LE DRESSING laying in bed Dressing UE mod (A) [facility] gown Dressing LE max (A) TOILETING Blanco in place EATING (I) BALANCE: Static sitting Good Dynamic Sitting Fair-Good Static Standing Poor Dynamic Standing Poor ASSESSMENT:?? Patient is a? 67-year-old female referred to occupational therapy services with diagnosis of restless leg syndrome, discitis, osteomyelitis of thoracic vertebrae, chronic LBP. Patient was seen for initial consult and then transferred to [facility] GOALS- not met seen for OT consult only 1.? Transfers (I) 2.? Dressing seated (I) 3.? Bathing seated (I) 4.? Toileting on toilet (I) 5.? Eating (I) PLAN OF CARE/TREATMENT PLAN: Discharge from skilled OT services- pt was transferred to [facility] DISCHARGE RECOMMENDATIONS OT recommends SNF vs. home with services for OT and (A) with home tasks. TREATMENT TIME/MINUTES/CODES N/A Leonor Lopez OTR/L [facility] [place], [place]
--- NOTE | 2022-11-27 17:11 | PT.INDS ---
Date of service: 11/26/22 PT Notes Visit Reasons: T Spine Osteomyelitits, Burst Fracture Physical Therapy Inpatient Discharge Summary Date: 11/26/2022 Dates of Service: 11/25/2022 through 11/26/2022 This is a clinical summary of care provided for the duration of dates listed above. No charge was made in the completion of this documentation. Referring Doctor: Freddy Palacios MD PT Orders: PT CONSULT: Limited ability Precautions: Fall. Standard.?TLSO brace when OOB.? Back precautions in place. Patient Profile/Admitting Diagnosis:? 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 PMHX: All Active Problems?(Updated 11/24/22 @ 20:59 by Freddy Palacios MD) Restless leg syndrome (Acute) Discitis (Acute) Osteomyelitis of thoracic vertebra (Acute) T12 burst fracture (Acute) Chronic low back pain (Chronic) tx pain clinic 2013 [facility]- 03/2021-MR of low back-numerous degenerative changes.? Most prominent were foraminal stenosis at upper lumbar labral, no acute disc bulging, With chronic pain syndrome-followed by pain clinic at [facility] Essential hypertension (Chronic 04/20/13) Normal echocardiogram Generalized anxiety disorder (Acute) Hyperlipidemia (Acute 02/06/14) Neck pain (Acute) C6-7 disc w/ radiculopathy [place] [facility]ensorineural hearing loss, bilateral (Chronic 04/06/14) Urge incontinence of urine (Acute) Otitis externa due to herpes zoster (Acute 06/30/13) Goiter (Acute) Rectal mucosa prolapse (Acute) Vaginal enterocele due to incomplete uterovaginal prolapse (Acute) Heart murmur (Chronic) 07/2021-systolic murmur-at upper sternal border, longstanding, normal echo 2015-consistent with innocent murmur Nicotine dependence (Chronic) smoking, vaping Carotid stenosis (Acute) - positive carotid bruit 09/2021 Carotid US, moderate bilat stenosis, l> RP olypharmacy (Acute) Lumbosacral spondylosis without myelopathy (Acute) 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 [place] [facility] Cyclic vomiting syndrome (Acute) MRSA bacteremia (Acute 09/2022) post rectopexy, oophorectomy/hysterectomy 10/07/22. 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 Abnormal glandular Papanicolaou smear of cervix repeat normal Anxiety disorder Depression Hyperlipidemia Personal history of nicotine dependence 07/2021, 1/2 pk per day currently-about 86-63-olot-year history (was usually a 1 to 2 pack/day smoker) 08/29/21 - Down to 8-10 per day, starting nicotine patches as she is finding it harder to cut back at this point. Rectal bleed 07/2021 Surgical History? History of arthroscopy History of bilateral ligation of fallopian tubes History of colonoscopy with polypectomy (~07/09/21) History of rectopexy (09/2022) with mesh placement, postoperative MRSA bacteremia with intraabdominal and paravertebral fluid collections. S/P carpal tunnel release S/P hemorrhoidectomy hemorrhoid banding S/P spinal fusion S/P DAVID-BSO (09/2022) Social History/Home Situation: Lives alone in a private home with one step to enter.? Has not walked since surgery in September 2022.? Only able to transfer but unable to stay too long on a chair.? Sleeps on her couch at home.? Daughter has been an occasional support. Equipment Owned/DME: [employer] Subjective: NT. See most recent SENIOR PROJECT MANAGER notes. Objective: General Observation: NT. See most recent SENIOR PROJECT MANAGER notes. Mental Status: NT. See most recent SENIOR PROJECT MANAGER notes. Pain: NT. See most recent SENIOR PROJECT MANAGER notes. Vital Signs: NT. See most recent SENIOR PROJECT MANAGER notes. ROM: Right Upper Extremity: ? Shoulder Flexion WFL. Shoulder abduction WFL. Elbow flexion WFL. Wrist flexion WFL. Functional opening and closing of hand WFL. Left Upper Extremity:? Shoulder Flexion WFL. Shoulder abduction WFL. Elbow flexion WFL. Wrist flexion WFL. Functional opening and closing of hand WFL. Right Lower Extremity: Hip flexion WFL. Hip abduction WFL. Knee flexion WFL. Ankle dorsiflexion WFL. Ankle plantarflexion WFL. Left Lower Extremity: Hip flexion WFL. Hip abduction WFL. Knee flexion WFL. Ankle dorsiflexion WFL. Ankle plantarflexion WFL. Strength: Right Upper Extremity: Shoulder flexors 4/5. Shoulder abductors 4/5. Elbow flexors 4/5. Elbow extensors 4/5. Fur Drummer strong. Left Upper Extremity:? Shoulder flexors 4/5. Shoulder abductors 4/5. Elbow flexors 4/5. Elbow extensors 4/5. Fur Drummer strong. Right Lower Extremity: Hip flexors 4-/5. Hip abductors 4-/5. Knee flexors 5/5. Knee extensors 4-/5. Ankle dorsiflexors 4-/5. Ankle plantarflexors 4-/5. Left Lower Extremity: Hip flexors 4-/5. Hip abductors 4-/5. Knee flexors 5/5. Knee extensors 4-/5. Ankle dorsiflexors 4-/5. Ankle plantarflexors 4-/5. Sensation: Denies any tingling nor numbness in ether UE nor LE Bed Mobility/Transfers: Rolling stand by assist using rails for support L sidelying to sit minimal assist with report of pain at 10/10 in back and abdominal area Sit to supine contact guard assist with report of 10/10 pain in back and abdominal area Stand to sit with minimal assist with report of 10/10 pain in back and abdominal area Gait: Became very anxious with taking 2 steps forward using FWW.? Accidental bowel movement while attempting standing added to her anxiety.? Daiana Felix assisted with clean up.? THERA ACT while on STEDY lift: Facilitated weight shift x 10,? partial knee bends x 10,? sit<>partial stand x10 and static partial standing with trunk bent for about 8-10 minutes.? Extending trunk increased pain.? Balance: Static Sitting: Fair Dynamic Sitting: Fair Static Standing: Fair Dynamic Standing: Poor ASSESSMENT: Patient transfers to tertiary hospital today for immediate medical management. Pain level still shoots up with weight bearing despite TLSO use.? TLSO is only able to provide anterior-posterior,? rotational, and medilolateral stability but is unable to minimize undue?axial loading through spine?leading to increased compression through T12 burst fracture and lumbar vertebrae that brings significant pain when patient is weight bearing,? attempts to relieve strain by leaning forward.? Spinal stenosis and multiple discitis compound the issue. ? Did not report dizziness this afternoon during standing activity. Very anxious about moving.? Highly anticipates pain. Patient presents with clinical signs and symptoms consistent with current/admitting diagnoses that have resulted to mobility limitations, gait instability, generalized weakness, and overall ADL decline as demonstrated by the following impairment level findings: 1.? Decreased strength to B LE major muscle groups 2.? Impaired sitting/standing balance 3.? Impaired activity tolerance 4.? Pain in low back 5.? Shortness of breath 6.? Swelling 7.? Dizziness Impairments are contributing to the following functional limitations: 1.? Decline in bed mobility skills 2.? Decline in transfer skills 3.? Difficulty with ambulation without assistive device and physical assistance 4.? Increased completion time for mobility ADL performance 5.? Increased risk for falls 6.? Difficulty with managing steps alone safely Goals: Goals X1 week 1. Supine-Sit independent NOT MET 2. Sit-Supine independent NOT MET 3. Sit-Stand independent NOT MET 4. Stand-Sit independent with FWW NOT MET 5. Bed-Chair independent with FWW NOT MET 6. Chair-Bed independent with FWW NOT MET 7. Independent gait on level surface with use of FWW for at least 50 feet without report of pain nor dyspnea NOT MET 8. Independent stair negotiation while holding onto B rails for at least 3 steps without report of pain nor dyspnea NOT MET 9. Independent with home exercise program NOT MET 10. Good static and dynamic standing balance/tolerance NOT MET DISCHARGE RECOMMENDATIONS: [] ? Home with no services [] [] ? Home with services [specify] [] ? Home with outpatient PT [] [X] ? SNF for continued rehabilitation.? Patient will benefit from shelter facility placement for continued skilled physical therapy services in order to progress mobility level, strength, and balance in preparation for a safe discharge to home. [] ? Lowerator Operator Care [] [] ? SNF versus LTC based on ability to participate and progress [] TREATMENT CODE/TIME: [place] Thank you for the opportunity to participate in the care of this patient. Akanksha Weaver PT, DPT, CLT [facility] [place], [place]
[2022-11-28 12:26] LABS: Chlamydia Result Negative (Negative); GC Result Negative (Negative)
== END 2022-11-26 23:17 | disposition short-term general hospital (02) | DRG 95 ==
LOC: ER 15:43 → MS 19:57
PROVIDERS: Internal Medicine; Student in an Organized Health Care Education/Training Program; Admitting Provider Family Medicine; Emergency Provider Physician Assistant; PCP Family Medicine; Visit Provider Family Medicine
DX: G06.2 Extradural and subdural abscess, unspecified (principal); M46.25 Osteomyelitis of vertebra, thoracolumbar region; M84.48XA Pathological fracture, other site, initial encounter for fracture; M46.35 Infection of intervertebral disc (pyogenic), thoracolumbar region; T85.79XA Infection and inflammatory reaction due to other internal prosthetic devices, implants and grafts, initial encounter; M46.45 Discitis, unspecified, thoracolumbar region; B95.62 Methicillin resistant Staphylococcus aureus infection as the cause of diseases classified elsewhere; F32.A Depression, unspecified; G25.81 Restless legs syndrome; G89.11 Acute pain due to trauma; N89.8 Other specified noninflammatory disorders of vagina; Z90.710 Acquired absence of both cervix and uterus; G89.29 Other chronic pain; I50.9 Heart failure, unspecified; I11.0 Hypertensive heart disease with heart failure; J44.9 Chronic obstructive pulmonary disease, unspecified; F41.1 Generalized anxiety disorder; E78.5 Hyperlipidemia, unspecified; H90.3 Sensorineural hearing loss, bilateral; N39.41 Urge incontinence; E04.9 Nontoxic goiter, unspecified; F17.290 Nicotine dependence, other tobacco product, uncomplicated; I65.23 Occlusion and stenosis of bilateral carotid arteries; Z79.899 Other long term (current) drug therapy; M47.817 Spondylosis without myelopathy or radiculopathy, lumbosacral region; R11.15 Cyclical vomiting syndrome unrelated to migraine; F42.3 Hoarding disorder; Z98.1 Arthrodesis status; X58.XXXA Exposure to other specified factors, initial encounter; Y76.2 Prosthetic and other implants, materials and accessory obstetric and gynecological devices associated with adverse incidents; I25.2 Old myocardial infarction
CPT/HCPCS: 36415; 72158; 80048; 80053; 82550; 85027; 87040; 87077; 87491; 87591; 93005; 96365; 96368; 96375; 97110; 97162; 97166; 97530; 97535; 99285; 71046; 72157; 74177; 81003; 81015; 83605; 84484; 85025; 86140; 87070; 87205; 87480; 87510; 87660; 93010; 99223; 99233; J0131; J0878; J1170; J1644; J3490

== ENCOUNTER 2023-05-01 01:31 | Outpatient (CLI) | payer MEDICARE, MEDICAID, SELFPAY ==
[2023-05-01 12:48] LABS: HCT 39.9 % (36.0-46.0); HGB 12.8 g/dL (11.2-15.7); MCHC 32.1 % (32.0-36.0); MCV 90 fL (80-95); MPV 11.5 fL (8.0-11.0); Platelet Count 249 10^3/uL (130-400); RBC 4.42 10^6/uL (3.93-5.22); RDW 18.3 % (11.7-14.6); RDW-SD 60.6 fL; WBC 5.12 10^3/uL (4.4-10.8)
[2023-05-01 13:06] LABS: NT-proBNP 125 pg/mL (<300)
[2023-05-01 13:06] LABS: Calcium 9.4 mg/dL (8.5-10.1)
[2023-05-01 13:38] LABS: Vitamin D 25 Total 18.5 ng/mL (30-100)
[2023-05-01 21:24] LABS: Parathyroid Hormone,Intact 60 pg/mL (19-88)
== END 2023-05-01 01:32 | disposition home or self-care (01) ==
LOC: LOS 01:32
PROVIDERS: Internal Medicine Endocrinology, Diabetes & Metabolism; PCP Family Medicine; Visit Provider Family Medicine
DX: I50.9 Heart failure, unspecified (principal); M81.0 Age-related osteoporosis without current pathological fracture; D64.9 Anemia, unspecified
CPT/HCPCS: 36415; 82306; 85027; 82310; 83880; 83970

== ENCOUNTER → 2023-06-17 01:46 | Outpatient (CLI) | payer MEDICARE, MEDICAID, SELFPAY ==
--- NOTE | 2023-06-17 07:15 | DI.US_ITS ---
APPROVED REPORT EXAM: Comprehensive 2D, Doppler, and color-flow Echocardiogram Patient Location: Out-Patient Chicken Handler: Wesley Cervantes RDCS (AE) Indications: heart failure Other Information Study Quality: Technically Limited. Technically limited study due to body habitus. Conclusion Technically very limited study 1. Normal chamber sizes. 2. Hypokinesis of the interventricular septum,anterior wall not well visualized. Overall LV systolic function is normal, EF 55-60%. Normal RV function. 3. Anatomically normal valves. No significant regurgitation or stenosis. 4. No intracardiac shunt. 5. No pericardial effusion. Wall motion Left Ventricle The left ventricle is grossly normal size. Technically difficult exam due to body habitus. The left v entricle wall thickness is grossly normal size. There is no ventricular septal defect visualized. Right Ventricle The right ventricle is grossly normal size. Right ventricular systolic function is grossly normal. Atria The left atrium size is normal. The right atrium size is normal. The interatrial septum is intact wit h no evidence for an atrial septal defect. Aortic Valve The aortic valve is normal in structure. Aortic valve is trileaflet. There is no aortic valvular sten osis. No aortic regurgitation is present. Mitral Valve The mitral valve is normal in structure. No evidence of mitral valve stenosis. There is no mitral jenny ve regurgitation noted. Tricuspid Valve The tricuspid valve is normal in structure. There is no tricuspid valve stenosis. Trace tricuspid reg urgitation. Unable to assess PA pressure. Pulmonic Valve The pulmonary valve is normal in structure. There is no pulmonic valvular stenosis. There is no pulmo danita valvular regurgitation. Great Vessels The aortic root is normal in size. The pulmonary artery is normal. Ascending aorta is not well visual ized. IVC is normal in size and collapses >50% with inspiration. Pericardium There is no pericardial effusion. 2D Dimensions Ao Root d 2.99 cm F: 2.7 - 3.3 LA Volume LA Length A4C 2.7 cm LA Length A2C LA Area A4C s 4.94 cm2 LA Area A2C s LA Vol A4C A-L 7.59 mL LA Vol A2C A-L LA Vol Biplane A-L LA Vol A4C MOD 7.0 mL LA Vol A2C MOD LA Vol BP MOD LV Diastology MV E' medial 0.096 (>0.07 m/s) MV E Vmax 0.57 (0.4-1.3 m/s) MV E/E' MED 5.95 (<14) MV A Vmax 0.80 (0.4-1.3 m/s) MV E' lateral 0.067 (>0.1 m/s) E/A Ratio 0.7 MV E/E' LAT 8.57 (<14) MV E' Average 0.082 m/s MV E/E'(average) 7.03 Aortic Valve AoV Vmax 1.04 m/s LVOT Vmax 0.82 m/s AoV Peak Grad 4.3 mmHg LVOT Peak Grad 2.7 mmHg AoV Area (Vmax) 2.05 cm2 LVOT VTI 0.165 m AoV VTI 0.197 m LVOT Mean Grad 1.2 mmHg AoV Mean Melvin. 0.70 m/s LVOT SV 42.98 mL AoV Mean Grad 2.2 mmHg LVOT Diam s 1.80 cm AoV Area (VTI) 2.18 cm2 Velocity Ratio 0.79 Mitral Valve MV DT 181 (160-240 msec)
--- NOTE | 2023-06-17 07:15 | DI.RAD_ITS ---
Exam(s) XR CHEST 2V PA LATERAL EXAM: XR CHEST 2V PA LATERAL CLINICAL HISTORY: heart failure,I50.9. TECHNIQUE: 2D digital imaging was performed. COMPARISON: CR,XR XR CHEST 2V PA LATERAL from 11/24/2022 FINDINGS: 2 views: There has been interval surgery in the spine and there are now fusion rods in the thoracolumbar spine supported by multilevel bilateral intrapedicular screws and there is also a supportive vertebral bod y device at the previously described vertebral fracture level. Heart size is normal. The mediastinum is not widened. Lungs are clear. No infiltrates nor pleural effusions. No pulmonary edema. IMPRESSION: No acute pulmonary findings. New thoracolumbar hardware as described above DATA REPOSITORY: RADIATION DOSE DELIVERED:
== END ==
PROVIDERS: PCP Family Medicine; Visit Provider Family Medicine
DX: I50.9 Heart failure, unspecified (principal)
CPT/HCPCS: 93306; 71046

== ENCOUNTER → 2023-10-14 04:08 | Outpatient (CLI) | payer OTHER, MEDICAID, SELFPAY ==
--- NOTE | 2023-10-14 08:45 | DI.CTLCSR_ITS ---
Exam(s) CT CHEST LUNG CANCER SCREEN EXAM: CT CHEST LUNG CANCER SCREEN CLINICAL HISTORY: Screening for lung cancer, CURRENT SMOKER, F17.210, F17.200 TECHNIQUE: Imaging Protocol: Axial computed tomography images with coronal and sagittal reformatted images were created and reviewed COMPARISON: CT CT CHEST LUNG CANCER SCREEN from 09/09/[address] LUMBAR SPINE RECONS from 11/24/[address] ABDOMEN PELVIS W from 11/24/2022 MR MR THORACIC SPINE WO/W from 11/26/2022 CR XR CHEST 2V PA LATERAL from 06/17/2023 FINDINGS: Tracheobronchial tree: Patent where visualized. There is no evidence of bronchiectasis. Pulmonary parenchyma: No consolidation or dominant measurable mass. No architectural distortion. Lung Nodules: None. Mediastinum and Armida: No dominant adenopathy or fluid collection. The esophagus is unremarkable. Thyroid gland: Unremarkable. Lymph nodes: Unremarkable. Pleura: No effusion or pneumothorax. Heart: The heart is not dilated. Coronary artery calcifications are present. No pericardial effusion . Aorta: Thoracic aorta non-dilated.Atherosclerotic calcification is present. Upper abdomen: There is a stable cyst in the left lobe of the liver. There is stable thickening of the adrenal glands. Soft Tissues: Unremarkable. Bones: Within normal limits. Posterior spinal surgery is again seen in the lower thoracic and upper l umbar spine. IMPRESSION: No pulmonary nodules. Lung RADS Cat 1 - Negative: No nodules and definitely benign nodules Lung-RADS 1.0 CATEGORIES: Category 0 - Prior chest CT exam(s) being located for comparison. Category 1 - Annual screening in 12 months. No nodules or definitely benign nodules. Category 2 - Annual screening in 12 months. Benign appearance. Nodules with low likelihood of becomin g active cancer. Category 3 - 6-month follow-up. Probably benign. Short-term follow-up suggested. Nodules with low lik elihood of becoming active cancer. Category 4A - 3-month follow-up and CT/PET if >8 mm in size. Suspicious finding. Findings which requi re additional testing. Category 4B - Findings which require additional testing and tissue sampling. Suspicious finding. Category 4X - Category 3 or 4 nodules with additional features or imaging findings that increases the suspicion of malignancy. Modifier S- Potentially clinically significant finding. (Non lung cancer) RADIATION DOSE DELIVERED: 70.43mGy.cm Total DLP 70.43mGy.cmTotal DLP DATA REPOSITORY: All CT scans at this facility are submitted to the National Radiology Data Registry (NRDR) Dose Index Registry (DIR) with the [employer] (ACR). RADIATION OPTIMIZATION: All CT scans at this facility use at least one of these dose optimization te chniques: automated exposure control; mA and/or kV adjustment per patient size (includes targeted exa ms where dose is matched to clinical indication); or iterative reconstruction.
--- NOTE | 2023-10-14 08:45 | DI.MAMMO_ITS ---
Exam(s) MAMMO SCREENING EXAM: MAMMO SCREENING CLINICAL HISTORY: screening, Z12.39. TECHNIQUE: Bilateral full field digital CC and MLO mammographic images were obtained with 3D tomosyn thesis and utilizing computer aided detection (CAD). COMPARISON: Prior mammograms were reviewed. FINDINGS: There has been no significant change in the appearance and distribution of the fibroglandular tissue. No CAD designations. There are no new spiculated masses nor malignant appearing microcalcification groups. There is no significant architectural distortion nor skin thickening-retraction. IMPRESSION: No radiographic evidence of malignancy. BI-RADS Category 1 - Negative Breast Density - Category B - Scattered areas of fibroglandular density Breast density Category C or D implies that the patient has dense breast tissue. Dense breast tissue can make it harder to find cancer on a mammogram. Dense breast tissue is also associated with an incr eased risk of breast cancer. This information about the result of the mammogram report was provided to the patient to raise their awareness. Use this report when you speak with the patient about their risks for breast cancer, which includes their family history. At that time, you may recommend additional screening tests (Ultrasoun d or MRI) as these tests may add significant information. A negative radiographic report should not delay biopsy if a dominant or clinically suspicious mass is present. Up to ten percent of cancers are not identified on mammography. A negative report may reinforce clinical impression. Adenosis and dense breasts may obscure an underlying neoplasm. False positive reports average 6 to 10%. Patient will receive a letter notifying them of these results.
== END ==
PROVIDERS: PCP Family Medicine; Visit Provider Family Medicine
DX: F17.210 Nicotine dependence, cigarettes, uncomplicated (principal); Z12.31 Encounter for screening mammogram for malignant neoplasm of breast; Z12.2 Encounter for screening for malignant neoplasm of respiratory organs
CPT/HCPCS: 71271; 77063; 77067

== ENCOUNTER 2024-03-30 17:31 | Outpatient (CLI) | payer OTHER, MEDICAID, SELFPAY ==
[2024-03-30 16:44] LABS: ALT 32 U/L (14-59); AST 24 U/L (15-37); Albumin 3.5 g/dL (3.4-5.0); Alkaline Phosphatase 117 U/L (46-116); Anion Gap 9.2 mmol/L (3-11); BUN 16 mg/dL (7-18); Bilirubin, Total 0.32 mg/dL (0.2-1.0); CO2 26.8 mmol/L (21.0-32.0); CREATININE 0.9 mg/dL (0.55-1.02); Calcium 9.1 mg/dL (8.5-10.1); Chloride 108 mmol/L (98-107); Estimated GFR 70.51 (mL/min/1.73m2); Glucose 91 mg/dL (74-106); Potassium 4.1 mmol/L (3.5-5.1); Sodium 144 mmol/L (136-145); Total Protein 6.7 g/dL (6.4-8.2)
== END 2024-03-30 17:32 | disposition home or self-care (01) ==
LOC: LBO 17:31
PROVIDERS: PCP Family Medicine; Visit Provider Family Medicine
DX: Z00.00 Encounter for general adult medical examination without abnormal findings (principal); I10 Essential (primary) hypertension
CPT/HCPCS: 36415; 80053

== ENCOUNTER 2024-06-23 13:03 | Emergency (ER) | payer MEDICARE, MEDICAID, SELFPAY ==
[2024-06-23 13:07] VITALS: BP 181/71; PULSE 101; RESP 20; TEMP 36.4; O2SAT 94
--- NOTE | 2024-06-23 14:34 | ED.GENADUL_ITS ---
Discharge Plan Disposition Patient Disposition: Home Condition: Stable Discharge Details Chief Complaint: Nausea/Vomit/Diar Clinical Impression: Nausea, vomiting and diarrhea Primary Care Provider: Arely Sampson ED Provider: Tamera Velazquez Home Meds and New Rx's Prescriptions: New ondansetron 4 mg tablet,disintegrating 4 mg PO Q6H PRN (Reason: nausea and vomiting) Qty: 30 0RF promethazine 25 mg tablet 25 mg PO TID PRN (Reason: nausea and vomiting) Qty: 14 0RF No Action aspirin 81 mg tablet,delayed release (DR/EC) 81 mg PO DAILY pravastatin 20 mg tablet 20 mg PO DAILY Qty: 90 4RF Patient Comments: not on med list fesoterodine 8 mg tablet extended release 24 hr 8 mg PO DAILY Qty: 30 3RF estradiol 0.01 % (0.1 mg/gram) cream 1 g vaginal .2xw tizanidine 6 mg capsule 6 mg PO Q8H PRN (Reason: muscle spasticity) Qty: 120 2RF varenicline tartrate [Chantix Continuing Month Box] 1 mg tablet 1 mg PO BID Qty: 60 3RF diazepam [Valium] 5 mg tablet 5 mg PO Q6H PRN acetaminophen 325 mg capsule 650 mg PO QID (DME) miscellaneous medical supply Misc See Rx Instructions .Route Qty: 1 0RF Rx Instructions: As directed Tymlos 80 mcg (3,120 mcg/1.56 mL) pen injector 80 mcg subcut DAILY Rx Instructions: inject into abdomen; do not inject within 2 inches of belly button/navel; rotate sites Rx'd by [facility] Endochrinology/Dr. Block 06/08/23. -hb lidocaine [Lidoderm] 5 % adhesive patch,medicated 1 patch topical DAILY Qty: 30 5RF Rx Instructions: leave on most painful area for up to 12 hrs, once a day, prn celecoxib 200 mg capsule 200 mg PO BID Qty: 60 3RF nystatin 100,000 unit/gram powder 1 applic topical DAILY Qty: 30 2RF Rx Instructions: local application daily under breasts and in groin area fluticasone propionate 50 mcg/actuation spray,suspension 1 spray NS BID Qty: 1 6RF potassium chloride 10 mEq capsule, extended release 10 meq PO DAILY Qty: 90 1RF gabapentin 800 mg tablet 800 mg PO TID Qty: 90 3RF pramipexole 0.5 mg tablet 0.5 mg PO BID Qty: 180 3RF venlafaxine 75 mg tablet 75 mg PO BID Qty: 180 3RF triamterene-hydrochlorothiazid 37.5-25 mg capsule 1 cap PO DAILY Qty: 90 2RF Patient Comments: not on med list, pt sure she takes it daily. albuterol sulfate 90 mcg/actuation HFA aerosol inhaler 1 - 2 puff IH QID PRN (Reason: shortness of breath or wheezing) Qty: 18 3RF methylphenidate HCl 5 mg tablet 5 mg PO QAM MDD 5mg Qty: 30 0RF calcium citrate 200 mg (950 mg) tablet 200 mg PO BID Patient Comments: TAKE ONE TABLET BY MOUTH TWICE A DAY docusate sodium 100 mg capsule 100 mg PO BID Patient Comments: TAKE ONE CAPSULE BY MOUTH TWICE A DAY ergocalciferol (vitamin D2) 1,250 mcg (50,000 unit) capsule 1,250 mcg PO DAILY Patient Comments: TAKE 1 CAPSULE BY MOUTH EVERY 7 DAYS Discharge Instructions Instructions: Nausea and vomiting in adults Additional Instructions: Your lab work does not reveal an acute abnormality or signs of severe dehydration. You were given nausea medication in the emergency department and were unable to provide a stool sample. Your symptoms are likely from a viral GI illness and should resolve in 48 to 72 hours. If your symptoms continue and are not getting better, you should return for reevaluation or follow-up with your PCP. Additional nausea medication was sent to the pharmacy. Please take this as needed. Follow a clear liquid diet and advance as tolerated as your symptoms resolve HPI General Date/Time Provider Initiated Documentation: 06/23/24 13:47 . Limitations to Documentation: no limitations . Information obtained by: patient and family . HPI Narrative: 69-year-old female with past medical history of hypertension, cyclic vomiting, lower back condition with recent surgical fixation presents for evaluation of 2 days of vomiting and diarrhea. Symptoms started last night. Symptoms have included multiple episodes of watery diarrhea. She has also had multiple e pisodes of vomiting. Denies any abdominal pain. Denies any fever. The patient went to urgent care today and was referred to the emergency department for further testing. She was given an oral dose of antiemetic but has vomited a few times since then. Related Data Home Medications ?Medication ?Instructions ?Recorded ?Confirmed aspirin 81 mg tablet,delayed 81 mg PO DAILY 07/01/21 06/23/24 release acetaminophen 325 mg capsule 650 mg PO QID 11/20/22 06/23/24 estradiol 0.01% (0.1 mg/gram) 1 g vaginal .2xw 02/03/23 06/23/24 vaginal cream miscellaneous medical supply #1 ea 02/24/23 05/13/24 abaloparatide (Tymlos) 80 mcg subcut DAILY 06/12/23 06/23/24 lidocaine 5 % topical patch 1 patch topical DAILY #30 ea 09/04/23 06/23/24 (Lidoderm) pravastatin 20 mg tablet 20 mg PO DAILY #90 tab-caps 09/29/23 06/23/24 celecoxib 200 mg capsule 200 mg PO BID #60 caps 12/04/23 06/23/24 fluticasone propionate 50 1 spray NS BID ##1 02/02/24 06/23/24 mcg/actuation nasal spray,suspension nystatin 100,000 unit/gram topical 1 applic topical DAILY #30 grams 02/02/24 06/23/24 powder potassium chloride 10 mEq 10 meq PO DAILY #90 caps 02/02/24 06/23/24 capsule,extended release gabapentin 800 mg tablet 800 mg PO TID #90 tabs 02/09/24 06/23/24 pramipexole 0.5 mg tablet 0.5 mg PO BID #180 tab-caps 02/10/24 06/23/24 venlafaxine 75 mg tablet 75 mg PO BID #180 tabs 02/10/24 06/23/24 tizanidine 6 mg capsule 6 mg PO Q8H PRN muscle spasticity 04/01/24 06/23/24 #120 caps varenicline tartrate 1 mg tablet 1 mg PO BID #60 tabs 04/01/24 06/23/24 (Chantix Continuing Month Box) triamterene 37.5 1 cap PO DAILY #90 caps 04/19/24 06/23/24 mg-hydrochlorothiazide 25 mg capsule albuterol sulfate 90 mcg/actuation 1 - 2 puff inhalation QID PRN 04/25/24 06/23/24 aerosol inhaler shortness of breath or wheezing #18 grams fesoterodine 8 mg tablet,extended 8 mg PO DAILY #30 tabs 05/13/24 06/23/24 release 24 hr methylphenidate HCl 5 mg tablet 5 mg PO QAM #30 tabs 06/10/24 06/23/24 diazepam 5 mg tablet (Valium) 5 mg PO Q6H PRN 06/20/24 06/23/24 calcium citrate 200 mg PO BID 06/23/24 06/23/24 docusate sodium 100 mg capsule 100 mg PO BID 06/23/24 06/23/24 ergocalciferol (vitamin D2) 1,250 1,250 mcg PO DAILY 06/23/24 06/23/24 mcg (50,000 unit) capsule ondansetron 4 mg disintegrating 4 mg PO Q6H PRN nausea and 06/23/24 tablet vomiting #30 tabs promethazine 25 mg tablet 25 mg PO TID PRN nausea and 06/23/24 vomiting #14 tabs Previous Rx's ?Medication ?Instructions ?Recorded miscellaneous medical supply #1 ea 02/24/23 lidocaine 5 % topical patch 1 patch topical DAILY #30 ea 09/04/23 (Lidoderm) pravastatin 20 mg tablet 20 mg PO DAILY #90 tab-caps 09/29/23 celecoxib 200 mg capsule 200 mg PO BID #60 caps 12/04/23 fluticasone propionate 50 1 spray NS BID ##1 02/02/24 mcg/actuation nasal spray,suspension nystatin 100,000 unit/gram topical 1 applic topical DAILY #30 grams 02/02/24 powder potassium chloride 10 mEq 10 meq PO DAILY #90 caps 02/02/24 capsule,extended release gabapentin 800 mg tablet 800 mg PO TID #90 tabs 02/09/24 pramipexole 0.5 mg tablet 0.5 mg PO BID #180 tab-caps 02/10/24 venlafaxine 75 mg tablet 75 mg PO BID #180 tabs 02/10/24 tizanidine 6 mg capsule 6 mg PO Q8H PRN muscle spasticity 04/01/24 #120 caps varenicline tartrate 1 mg tablet 1 mg PO BID #60 tabs 04/01/24 (Chantix Continuing Month Box) triamterene 37.5 1 cap PO DAILY #90 caps 04/19/24 mg-hydrochlorothiazide 25 mg capsule albuterol sulfate 90 mcg/actuation 1 - 2 puff inhalation QID PRN 04/25/24 aerosol inhaler shortness of breath or wheezing #18 grams fesoterodine 8 mg tablet,extended 8 mg PO DAILY #30 tabs 05/13/24 release 24 hr methylphenidate HCl 5 mg tablet 5 mg PO QAM #30 tabs 06/10/24 ondansetron 4 mg disintegrating 4 mg PO Q6H PRN nausea and 06/23/24 tablet vomiting #30 tabs promethazine 25 mg tablet 25 mg PO TID PRN nausea and 06/23/24 vomiting #14 tabs Allergies Allergy/AdvReac Type Severity Reaction Status Date / Time Corticosteroids Allergy Intermediate INCREASED Verified 06/23/24 13:15 (Glucocorticoids) SOB prednisone Allergy Intermediate SOB Verified 06/23/24 13:15 General Stated Complaint: Nausea/Vomit/Diar CHECO: 3 Exam Narrative Exam Narrative: Review of Systems: All systems reviewed & are unremarkable except as noted in HPI and below Well-developed, no acute distress NCAT PERRL, normal conjunctiva Dry mucous membranes Slight tachycardia clear bilaterally soft nontender Unlabored respiratory effort Nondistended abdomen wearing a postoperative back brace Course Vital Signs Vital signs: Vital Signs Temperature 36.4 C L 06/23/24 13:07 Pulse 101 H 06/23/24 13:07 Respiratory Rate 20 06/23/24 13:07 Blood Pressure 181/71 H 06/23/24 13:07 Pulse Oximetry 94 06/23/24 13:07 Temperature 36.4 C L 06/23/24 13:07 Temperature Source Tympanic 06/23/24 13:07 Pulse 101 H 06/23/24 13:07 Respiratory Rate 20 06/23/24 13:07 Blood Pressure 181/71 H 06/23/24 13:07 Blood Pressure Position Sitting 06/23/24 13:07 Pulse Oximetry 94 06/23/24 13:07 Oxygen Delivery Method Room Air 06/23/24 13:07 Oxygen Flow Rate 0 06/23/24 13:07 Medical Decision Making Emergent evaluation of vomiting and diarrhea. initial differential [id number] he had CTA viral gastroenteritis, electrolyte derangement, dehydration. Given her recent hospitalization would also consider C. difficile though she is not discharged on antibiotics after her surgery. Will check lab work, stool studies and resuscitate with IV fluids and antiemetics. Patient has not been able to produce a stool sample. She has not had any additional vomiting. Will discharge with oral antiemetics Zofran and Phenergan sent to the pharmacy. Recommend clear diet and advance as tolerated. Suspect that symptoms are likely from a viral illness given the high community prevalence. If they do not improve, she should follow-up with her PCP for reevaluation and stool testing. Quality:[facility] Health Related Social Needs: No Data to Display PFSH All Active Problems (Updated 06/23/24 @ 15:57 by Tamera Velazquez MD) Nausea, vomiting and diarrhea (Acute) Lumbar pseudoarthrosis (Acute) Obesity with serious comorbidity (Acute) Osteopenia determined by x-ray (Chronic) 24hr urine calcium reduced level, managed at [facility] Endocrinology HTN (hypertension) (Chronic) Major depressive disorder (Chronic) COPD (chronic obstructive pulmonary disease) (Chronic) 01/02/23 per discharge from [facility]. 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 Lumbosacral spondylosis without myelopathy (Acute) Polypharmacy (Acute) Carotid stenosis (Acute) - positive carotid bruit 09/2021 Carotid US, moderate bilat stenosis, l> R Nicotine dependence (Chronic) smoking, vaping Vaginal enterocele due to incomplete uterovaginal prolapse (Acute) Rectal mucosa prolapse (Acute) Goiter (Acute) Otitis externa due to herpes zoster (Acute 06/30/13) Urge incontinence of urine (Acute) Sensorineural hearing loss, bilateral (Chronic 04/06/14) Neck pain (Acute) C6-7 disc w/ radiculopathy S/P surgery [facility] Hyperlipidemia (Acute 02/06/14) Generalized anxiety disorder (Acute) Chronic low back pain (Chronic) tx pain clinic 2013 [facility]- 03/2021-MR of low back-numerous degenerative changes. Most prominent were foraminal stenosis at upper lumbar labral, no acute disc bulging, With chronic pain syndrome-followed by pain clinic at [facility] H Medical History Congestive heart failure (CHF) 09/2022 EF 20% Repeat echo in 11/2022 return to normal EF 65% Managed medically Osteomyelitis of lumbar spine Abscess in epidural space of thoracic spine and lumbar spine Discitis Osteomyelitis of thoracic vertebra NSTEMI (non-ST elevated myocardial infarction) secondary to MRSA sepsis. Managed at [facility] Stapedial myoclonus Rectal bleed 07/2021 Heart murmur 07/2021-systolic murmur-at upper sternal border, longstanding, normal echo 2015-consistent with innocent murmur Personal history of nicotine dependence 07/2021, 1/2 pk per day currently-about 91-64-fdsx-year history (was usually a 1 to 2 pack/day smoker) 08/29/21 - Down to 8-10 per day, starting nicotine patches as she is finding it harder to cut back at this point. Abnormal glandular Papanicolaou smear of cervix repeat normal Essential hypertension (04/20/13) Normal echocardiogram Hyperlipidemia Depression Anxiety disorder Surgical History History of robot-assisted laparoscopic hysterectomy 10/07/2022 at [facility], robotic assisted bilateral salpingectomy with supracervical hysterectomy and cervical colpopexy with graft placement S/P DAVID-BSO (09/2022) History of rectopexy (09/2022) with mesh placement, postoperative MRSA bacteremia with intraabdominal and paravertebral fluid collections. S/P hemorrhoidectomy hemorrhoid banding S/P spinal fusion S/P carpal tunnel release History of colonoscopy with polypectomy (~07/09/21) History of arthroscopy History of bilateral ligation of fallopian tubes Family History Mother Essential hypertension Stroke Cancer Father Heart disease Brother Heart disease Maternal Grandfather No problems noted. Paternal Grandfather No problems noted. Maternal Grandmother Essential hypertension Stroke Paternal Grandmother No problems noted. Social History Smoking/Tobacco Use Status: Current every day Tobacco: How many years used: 20 Smokeless tobacco user: dissolvable tobacco Quit status: has quit before Second Hand Exposure: Yes Counseling given: provider counseling Smoking risk assessment performed?: Yes Alcohol Intake: former Drug use: Daily Substance use type: marijuana Details: Pt reports awokefrom napb at 1600 black pt reports lasted 30 minutes. spots in vision, Household members: none Housing: house Number of Children: 3 number of grandchildren: 3 Education Level: high school Do you need help understanding health information?: Always Pets and animals: Yes Pets and animals: other Details: Donkey Sexually active: No What type of physical activity do you participate in: decline to answer Duration: decline to answer Frequency: decline to answer [place]/Rastafarian: Protestant Special chelsea needs: No Seatbelt use: always Helmet use: Yes Helmet use: always Drive intox or ride w/intox high lift driver: No Do you feel safe at home: Yes Additional Social history: live alone
[2024-06-23] MEDS: diphenhydrAMINE 50 MG/ML VIAL 12.5 MG IVP (14:37)
[2024-06-23] MEDS: Prochlorperazine 10 MG/2 ML VIAL 5 MG IVP (14:38)
[2024-06-23 14:43] LABS: Abs Immature Grans 0.02 10^3/uL (0.0-0.06); Absolute Basophil Count 0.02 10^3/uL (0.0-0.2); Absolute Eosinophil Count 0.01 10^3/uL (0.0-0.7); Absolute Lymphocyte Count 0.55 10^3/uL (1.2-3.4); Absolute Monocyte Count 0.26 10^3/uL (0.1-0.8); Absolute Neutrophil Count 7.12 10^3/uL (1.2-6.7); Basophils % 0.3 %; Eosinophils % 0.1 %; HCT 37.1 % (36.0-46.0); HGB 12.4 g/dL (11.2-15.7); Immature Grans % 0.3 %; Lymphocytes % 6.9 %; MCH 31.8 pg (27.0-33.0); MCHC 33.4 % (32.0-36.0); MCV 95 fL (80-95); MPV 10.4 fL (8.0-11.0); Monocytes % 3.3 %; Neutrophils % 89.1 %; Platelet Count 231 10^3/uL (130-400); RDW-SD 45.1 fL; WBC 7.98 10^3/uL (4.4-10.8)
[2024-06-23] MEDS: Lactated Ringers 1,000 ML 1000 ML IV (14:57)
[2024-06-23 15:19] LABS: ALT 20 U/L (14-59); AST 27 U/L (15-37); Albumin 3.2 g/dL (3.4-5.0); Alkaline Phosphatase 87 U/L (46-116); Anion Gap 11.2 mmol/L (3-11); BUN 16 mg/dL (7-18); CO2 26.8 mmol/L (21.0-32.0); CREATININE 1.1 mg/dL (0.55-1.02); Calcium 9.4 mg/dL (8.5-10.1); Chloride 106 mmol/L (98-107); Estimated GFR 55.07 (mL/min/1.73m2); Glucose 137 mg/dL (74-106); Potassium 3.9 mmol/L (3.5-5.1); Sodium 144 mmol/L (136-145); Total Protein 7.7 g/dL (6.4-8.2)
--- NOTE | 2024-06-24 15:19 | NUR.NOTE ---
Nursing Note: Received call from daughter inquiring about lab results from yesterday. States this patient has a h/o UTIs and is acting similar today and wondering if urine was done yesterday. No urine results noted from yesterday. Daughter instructed to have patient seen either by PCP, Walk in clinic, or back here in the ED. Daughter verbalized understanding
== END 2024-06-23 16:50 | disposition home or self-care (01) ==
LOC: ER 16:41
PROVIDERS: Emergency Provider Emergency Medicine; PCP Family Medicine
DX: R11.2 Nausea with vomiting, unspecified (principal); R19.7 Diarrhea, unspecified; I11.0 Hypertensive heart disease with heart failure; I50.9 Heart failure, unspecified; E78.5 Hyperlipidemia, unspecified; J44.9 Chronic obstructive pulmonary disease, unspecified; I25.2 Old myocardial infarction; F17.200 Nicotine dependence, unspecified, uncomplicated; Z98.1 Arthrodesis status; Z79.82 Long term (current) use of aspirin
CPT/HCPCS: 80053; 96361; 96374; 96375; 99284; 85025; J0780; J1200

== ENCOUNTER 2024-06-24 18:40 | Inpatient (IN) | payer MEDICARE, MEDICAID, SELFPAY ==
[2024-06-24] VITALS (14 sets, daily range): BP systolic 142–148; BP diastolic 60–75; PULSE 0–109; RESP 17–25; TEMP 36.6–36.9; O2SAT 89–96
--- NOTE | 2024-06-24 19:30 | RT.EKG_ITS ---
APPROVED REPORT Exam: Resting ECG Reason for Exam: weakness Patient Location: E HR:93 bpm ECG Measurements Heart Rate 93 AXIS ND 150 P 74 QRSd 102 QRS 55 QT 338 T 65 QTc 421 Conclusion Sinus rhythm, rate 93 No interval abnormalities Old inferior infarct, unchanged from priors No STEMI
[2024-06-24 19:45] LABS: BE (Venous) 0 mmol/L (-2-3); HCO3 (Venous) 24 mmol/L (23-28); Lactate 1.3 mmol/L (<or=2.0); O2 Sat (Venous) 93 %; TCO2 (Venous) 22 mmol/L (24-29); pCO2 (Venous) 37 mmHg (41-51); pH (Venous) 7.43 (7.31-7.41); pO2 (Venous) 64 mmHg
[2024-06-24 19:46] LABS: Abs Immature Grans 0.02 10^3/uL (0.0-0.06); Absolute Basophil Count 0.03 10^3/uL (0.0-0.2); Absolute Eosinophil Count 0.04 10^3/uL (0.0-0.7); Absolute Lymphocyte Count 1.37 10^3/uL (1.2-3.4); Absolute Monocyte Count 0.66 10^3/uL (0.1-0.8); Absolute Neutrophil Count 4.44 10^3/uL (1.2-6.7); Basophils % 0.5 %; Eosinophils % 0.6 %; HCT 33.6 % (36.0-46.0); HGB 11.3 g/dL (11.2-15.7); Immature Grans % 0.3 %; Lymphocytes % 20.9 %; MCH 31.7 pg (27.0-33.0); MCHC 33.6 % (32.0-36.0); MCV 94 fL (80-95); MPV 10.5 fL (8.0-11.0); Monocytes % 10.1 %; Neutrophils % 67.6 %; Platelet Count 262 10^3/uL (130-400); RBC 3.56 10^6/uL (3.93-5.22); RDW 13.1 % (11.7-14.6); RDW-SD 45.1 fL; WBC 6.56 10^3/uL (4.4-10.8)
[2024-06-24] MEDS: Normal Saline 1,000 ML 1000 ML IV (19:49)
[2024-06-24 20:04] LABS: ALT 19 U/L (14-59); AST 31 U/L (15-37); Alkaline Phosphatase 74 U/L (46-116); Anion Gap 9.2 mmol/L (3-11); BUN 14 mg/dL (7-18); Bilirubin, Total 0.42 mg/dL (0.2-1.0); CO2 25.8 mmol/L (21.0-32.0); Calcium 8.9 mg/dL (8.5-10.1); Chloride 105 mmol/L (98-107); Estimated GFR 61.75 (mL/min/1.73m2); Glucose 106 mg/dL (74-106); Magnesium 1.6 mg/dL (1.8-2.4); Potassium 3.5 mmol/L (3.5-5.1); Sodium 140 mmol/L (136-145); Total Protein 6.8 g/dL (6.4-8.2)
[2024-06-24 20:12] LABS: Troponin I 2279 ng/L (<or=51)
[2024-06-24 20:13] LABS: ETHANOL BLOOD < 3.0 mg/dL (<10)
[2024-06-24 20:15] LABS: Procalcitonin < 0.10 ng/mL
[2024-06-24 20:22] LABS: Bilirubin Small (Negative); Blood Moderate (Negative); Clarity Clear (Clear); Glucose Negative (Negative); Ketones Trace mg/dL (Negative); Leukocyte Esterase Negative (Negative); Nitrite Negative (Negative); Specific Gravity 1.025 (1.005-1.025); Urobilinogen 0.2 mg/dL (Up to 0.2); pH 6.5 (5-8)
[2024-06-24 20:26] LABS: Bacteria Few HPF (Negative); C & S Indicated? No; Casts Negative LPF (Negative); Crystals Negative HPF (Negative); Epithelial Cells Moderate HPF (Negative); Mucus Negative (Negative); WBC 0-2 HPF (0-5)
[2024-06-24 20:32] LABS: Lab Add On Test DONE
[2024-06-24 20:39] LABS: *AMPHETAMINES SCREEN URINE Negative (Negative); *BARBITURATES SCREEN URINE Negative (Negative); *BENZODIAZEPINES SCREEN URINE Positive (Negative); Cannabinoids THC Positive (Negative); Cocaine Screen,Urine Negative (Negative); METHADONE URINE SCREEN Negative (Negative); OPIATES URINE SCREEN Negative (Negative)
[2024-06-24 20:41] LABS: Tricyclic Antidepressants Negative (Negative)
[2024-06-24 20:42] LABS: Creatine Kinase 218 U/L (26-192)
[2024-06-24 21:26] LABS: Troponin I 2201 ng/L (<or=51)
[2024-06-24] MEDS: Omnipaque 350 MG/ML 100 ML BTL IJ (21:26)
[2024-06-24] MEDS: Normal Saline - Diluent 50 ML VIAL IJ (21:28)
--- NOTE | 2024-06-24 21:30 | DI.CT_ITS ---
Exam(s) CT CHEST PE ABD PELVIS W EXAM: CT CHEST PE ABD PELVIS W CLINICAL HISTORY: elevated troponin, weakness, post op, back pain, urinary sx. TECHNIQUE: Imaging Protocol: Axial CT angiography was performed with multi-slice acquisition and m ulti-planar and/or 3D reconstructions. CONTRAST MATERIAL: Intravenous: Omnipaque 350 Contrast volume:100 ml Oral: None COMPARISON: CT CT ABDOMEN PELVIS W from 11/24/2022 MR MR THORACIC SPINE WO/W from 11/26/[address] CHEST LUNG CANCER SCREEN from 10/14/2023 FINDINGS: CHEST: PULMONARY ARTERIES: There are no intra-arterial filling defects to suggest the presence of acute pulm onary emboli. LUNGS: There is no evidence of pulmonary infarction.No infiltrates nor ominous pulmonary nodules. No significant focal findings in the trachea and mainstem bronchi. No bronchiectasis. There are no pl eural effusions.No pneumothorax. MEDIASTINUM: There is no hilar nor mediastinal adenopathy. CARDIAC: Heart size is normal. There is no pericardial effusion. There is no significant shift of t he interventricular septum.Caliber of the thoracic aorta is within normal limits. No evidence of aor tic dissection. OSSEOUS: There is posterior fusion hardware from T9 to L2 levels, inclusive and there is a surgically placed device evident at the T12 level where there has been resection (or destruction) of the T12 ve rtebral body. This device is not retropulsed into the canal. I note that CT scan of 11/24/2022 reve aled lytic destruction of T12 vertebral body related to probable infectious etiology. There are bila teral intrapedicular screws at T9, T10, T11, L1, and L2 levels. There are also Intrapedicular screw channels are noted at L3 level but without actual screw hardware at this level. These screws have be en removed. There are overlying skin sutures implying that this surgery is recent. In the posterior soft tissues slightly right of center at the T 8 T9 and T10 levels there is a fluid collection which is evident on the axial images and may represent postop seroma versus abscess. The actual canal is difficult to assess in the region of the surgery because of the artifact from the tk dware. ABDOMEN: There is no ascites. LIVER: There is a lobulated hypodensity in left hepatic lobe measuring 2.3 by 1.6 cm which is somewha t difficult to evaluate on this type of study. However, it was evident on the lower most images of t he chest CT scan performed September 2023 and is also unchanged from contrast infused CT scan of 11/24/2022 and is therefore most probably benign cyst or hemangioma. Also in the left hepatic lobe is a smalle r unchanged cyst tiny cysts measuring 3 mm. There are no new focal hepatic lesions. GALLBLADDER/BILIARY: No obvious acute gallbladder pathology. CBD is not dilated. PANCREAS: No evidence of pancreatic mass nor dilatation of the pancreatic duct. SPLEEN: Spleen is not enlarged. There are no intrasplenic lesions. Splenic and portal veins are chen nt. ADRENALS: Abnormal thickening of the left adrenal gland is unchanged from CT scan of 11/24/2022. The right adrenal gland remains unremarkable. KIDNEYS:No cysts evident. No calculi nor hydronephrosis. No solid renal masses. ABDOMINAL AORTA: Abdominal aorta is calcified but not enlarged. Common iliac arteries are also heavi ly calcified but not enlarged. Suspect severe atherosclerotic disease of these vessels, possibly wit h occlusion on the left side. There is flow evident in both external iliac arteries. On the left si de this may be related to retrograde filling via the ipsilateral internal iliac artery. LYMPH NODES: There is no retroperitoneal or para-aortic adenopathy. ABDOMINAL WALL/GI: No evidence of significant anterior abdominal wall hernia. There is some fluid-fi lled left-sided small bowel loops may represent enteritis. They exhibit normal diameters. There is no evidence of bowel obstruction. No free air. No abscess. PELVIS: LYMPH NODES: There is no intrapelvic nor inguinal adenopathy. GI: No evidence of appendicitis.No evidence of sigmoid diverticulitis. URINARY BLADDER: There is relatively uniform thickening of the urinary bladder wall which is either r elated to cystitis or under distension. REPRODUCTIVE: Uterus size age-appropriate. There are no abnormal adnexal masses. No free fluid in t he pelvis. OSSEOUS: No significant osseous lesions nor fracture of the pelvic bones. IMPRESSION: 1. No evidence of acute pulmonary emboli nor pulmonary infarction. 2. There are no lung infiltrates nor pleural effusions. 3. Fusion hardware in the spine extending from T9-L2 level post corpectomy and device placement at th e destroyed T12 vertebral level (see prior CT reports). Although it is difficult to evaluate the spi nal canal due to the amount of artifact from the hardware, there does appear to be a fluid collection posteriorly and right of center at the T8-T10 levels which may be postop seroma but cannot exclude i nfectious fluid collection such as abscess. 4. Stable benign-appearing findings in the liver and left adrenal gland. First read by [facility]. RADIATION DOSE DELIVERED: 848.7mGy.cm Total DLP DATA REPOSITORY: All CT scans at this facility are submitted to the National Radiology Data Registry (NRDR) Dose Index Registry (DIR) with the [employer] ([employer]). RADIATION OPTIMIZATION: All CT scans at this facility use at least one of these dose optimization te chniques: automated exposure control; mA and/or kV adjustment per patient size (includes targeted exa ms where dose is matched to clinical indication); or iterative reconstruction.
--- NOTE | 2024-06-24 21:59 | DI.VRAD_ITS ---
Addendum created by Sydnie Quigley MD on 06/24/2024 10:02:31 PM EST: Scattered hepatic cysts are seen and other subcentimeter hypodensities which are too small to characterize. There is severe diffuse atherosclerotic disease of the abdominal aorta. Diffuse wall thickening of the sigmoid colon and rectum without adjacent edema, however early colitis/proctitis should be considered in the proper clinical setting. The lumbar spine demonstrates marked degenerative changes at multiple levels. Remote vertebroplasty and postsurgical changes at L3. Initial report created on 06/24/2024 9:59:12 PM EST: PROCEDURE INFORMATION: Exam: CTA Chest With Contrast CTA Abdomen With Contrast Exam date and time: 06/24/2024 9:07 PM Age: 69 years old Clinical indication: Other: Elevated troponin, weakness, post op, back pain, urinary SX; Prior surgery; Surgery date: <1 month; Surgery type: Back/ spine surgery TECHNIQUE: Imaging protocol: Computed tomographic angiography of the chest with contrast. Exam focused on the arteries. Computed tomographic angiography of the abdomen with contrast. Exam focused on the arteries. 3D rendering (Not supervised by radiologist): MIP and/or 3D reconstructed images were created by the technologist. Contrast material: OMNIPAQUE 350; Contrast volume: 75 ml; Contrast route: INTRAVENOUS (IV); COMPARISON: CT THORAX ABD/PEL CTA 10/10/2022 6:58 PM FINDINGS: VASCULATURE: Pulmonary arteries: No evidence of pulmonary embolism. Aorta: No aortic aneurysm. No aortic dissection. Celiac trunk and mesenteric arteries: No occlusion or significant stenosis. Renal arteries: No occlusion or significant stenosis. Thyroid: No thyroid lesions. No thyroid enlargement. CHEST: Trachea: The central airways clear. Lungs: Linear bibasilar opacities most consistent with subsegmental atelectasis. Pleural spaces: Unremarkable. No pneumothorax. No pleural effusion. Heart: No cardiomegaly or pericardial effusion. ABDOMEN AND PELVIS: Liver: No mass. Gallbladder and biliary ducts: Unremarkable. No calcified stones. No ductal dilation. Pancreas: Unremarkable. No mass. No ductal dilation. Spleen: Unremarkable. No splenomegaly. Adrenal glands: Unremarkable. No mass. Kidneys: Unremarkable kidneys. No solid mass. No hydronephrosis. Stomach and bowel: Unremarkable. No obstruction. No mucosal thickening. Intraperitoneal space: Unremarkable. No free air. No significant fluid collection. Lymph nodes: No axillary adenopathy. Bones/joints: Unremarkable. No acute fracture. Soft tissues: Soft tissues are unremarkable as visualized. Postsurgical changes from recent posterior fusion. Expected postop changes including soft tissue edema and skin mariza. Questionable small fluid collection posterior to the T10 and T11 vertebral bodies, however streak artifact from hardware somewhat limits evaluation this measures approximately 2 cm and may represent a postop seroma. IMPRESSION: 1. No evidence of pulmonary embolism. 2. Postsurgical changes from recent posterior fusion. Expected postop changes including soft tissue edema and skin mariza. Questionable small fluid collection posterior to the T10 and T11 vertebral bodies, however streak artifact from hardware somewhat limits evaluation this measures approximately 2 cm and may represent a postop seroma. Dictated and Authenticated by: Sydnie Quigley MD. Ordering:MICHELLE Castillo MD
[2024-06-24] MEDS: MORPHine 10 MG/ML VIAL 2 MG IVP (22:02)
[2024-06-24] MEDS: Ondansetron 4 MG/2 ML VIAL IVP (22:20)
--- NOTE | 2024-06-24 22:35 | W.ED.GENAD ---
Discharge Plan Disposition Patient Disposition: Admit to [facility] Condition: Serious Discharge Details Clinical Impression: Acute non-ST elevation myocardial infarction (NSTEMI), Vomiting Admit Date/Time: 06/25/24 05:09 Admit Provider: Paul Sims Attending Provider: Paul Sims Primary Care Provider: Arely Sampson ED Provider: Kayla Rose Discharge Data Discharge Date/Time-TO BE ENTERED AT DEPARTURE: 06/25/24 06:57 HPI General Date/Time Provider Initiated Documentation: 06/24/24 18:48. HPI Narrative: This 69-year-old female who is quite complex status post recent neurosurgical assessment and procedure at [facility], was reportedly discharged on Thursday. Patient states that her daughter was ill with nausea vomiting and diarrhea and patient subsequently developed symptoms the day after she returned home. She denies any new back pain, chest pain, or any shortness of breath. She denies any blood in vomitus or stool. Denies any urinary symptoms. Daughter states that Mirna has been intermittently confused which has been consistent with UTIs in the past denies any additional trauma. Patient denies any stiff neck or headache at this time. She is not currently taking antibiotics. Status post what sounds like an epidural abscess in 2022 for which surgical intervention was performed. Patient reportedly had a negative MRSA test at [facility] at time of her surgery. Denies any pain currently in her abdomen. Related Data Home Medications ?Medication ?Instructions ?Recorded ?Confirmed aspirin 81 mg tablet,delayed 81 mg PO DAILY 07/01/21 06/24/24 release acetaminophen 325 mg capsule 650 mg PO QID 11/20/22 06/24/24 estradiol 0.01% (0.1 mg/gram) 1 g vaginal .2xw 02/03/23 06/24/24 vaginal cream miscellaneous medical supply #1 ea 02/24/23 05/13/24 abaloparatide (Tymlos) 80 mcg subcut DAILY 06/12/23 06/24/24 lidocaine 5 % topical patch 1 patch topical DAILY #30 ea 09/04/23 06/24/24 (Lidoderm) pravastatin 20 mg tablet 20 mg PO DAILY #90 tab-caps 09/29/23 06/24/24 celecoxib 200 mg capsule 200 mg PO BID #60 caps 12/04/23 06/24/24 fluticasone propionate 50 1 spray NS BID ##1 02/02/24 06/24/24 mcg/actuation nasal spray,suspension nystatin 100,000 unit/gram topical 1 applic topical DAILY #30 grams 02/02/24 06/24/24 powder potassium chloride 10 mEq 10 meq PO DAILY #90 caps 02/02/24 06/24/24 capsule,extended release gabapentin 800 mg tablet 800 mg PO TID #90 tabs 02/09/24 06/24/24 pramipexole 0.5 mg tablet 0.5 mg PO BID #180 tab-caps 02/10/24 06/24/24 venlafaxine 75 mg tablet 75 mg PO BID #180 tabs 02/10/24 06/24/24 tizanidine 6 mg capsule 6 mg PO Q8H PRN muscle spasticity 04/01/24 06/24/24 #120 caps varenicline tartrate 1 mg tablet 1 mg PO BID #60 tabs 04/01/24 06/24/24 (Chantix Continuing Month Box) triamterene 37.5 1 cap PO DAILY #90 caps 04/19/24 06/24/24 mg-hydrochlorothiazide 25 mg capsule albuterol sulfate 90 mcg/actuation 1 - 2 puff inhalation QID PRN 04/25/24 06/24/24 aerosol inhaler shortness of breath or wheezing #18 grams fesoterodine 8 mg tablet,extended 8 mg PO DAILY #30 tabs 05/13/24 06/24/24 release 24 hr methylphenidate HCl 5 mg tablet 5 mg PO QAM #30 tabs 06/10/24 06/24/24 diazepam 5 mg tablet (Valium) 5 mg PO Q6H PRN 06/20/24 06/24/24 calcium citrate 200 mg PO BID 06/23/24 06/24/24 docusate sodium 100 mg capsule 100 mg PO BID 06/23/24 06/24/24 ergocalciferol (vitamin D2) 1,250 1,250 mcg PO Q7D 06/23/24 06/25/24 mcg (50,000 unit) capsule ondansetron 4 mg disintegrating 4 mg PO Q6H PRN nausea and 06/23/24 06/24/24 tablet vomiting #30 tabs promethazine 25 mg tablet 25 mg PO TID PRN nausea and 06/23/24 06/24/24 vomiting #14 tabs Previous Rx's ?Medication ?Instructions ?Recorded miscellaneous medical supply #1 ea 02/24/23 lidocaine 5 % topical patch 1 patch topical DAILY #30 ea 09/04/23 (Lidoderm) pravastatin 20 mg tablet 20 mg PO DAILY #90 tab-caps 09/29/23 celecoxib 200 mg capsule 200 mg PO BID #60 caps 12/04/23 fluticasone propionate 50 1 spray NS BID ##1 02/02/24 mcg/actuation nasal spray,suspension nystatin 100,000 unit/gram topical 1 applic topical DAILY #30 grams 02/02/24 powder potassium chloride 10 mEq 10 meq PO DAILY #90 caps 02/02/24 capsule,extended release gabapentin 800 mg tablet 800 mg PO TID #90 tabs 02/09/24 pramipexole 0.5 mg tablet 0.5 mg PO BID #180 tab-caps 02/10/24 venlafaxine 75 mg tablet 75 mg PO BID #180 tabs 02/10/24 tizanidine 6 mg capsule 6 mg PO Q8H PRN muscle spasticity 04/01/24 #120 caps varenicline tartrate 1 mg tablet 1 mg PO BID #60 tabs 04/01/24 (Chantix Continuing Month Box) triamterene 37.5 1 cap PO DAILY #90 caps 04/19/24 mg-hydrochlorothiazide 25 mg capsule albuterol sulfate 90 mcg/actuation 1 - 2 puff inhalation QID PRN 04/25/24 aerosol inhaler shortness of breath or wheezing #18 grams fesoterodine 8 mg tablet,extended 8 mg PO DAILY #30 tabs 05/13/24 release 24 hr methylphenidate HCl 5 mg tablet 5 mg PO QAM #30 tabs 06/10/24 ondansetron 4 mg disintegrating 4 mg PO Q6H PRN nausea and 06/23/24 tablet vomiting #30 tabs promethazine 25 mg tablet 25 mg PO TID PRN nausea and 06/23/24 vomiting #14 tabs Allergies Allergy/AdvReac Type Severity Reaction Status Date / Time Corticosteroids Allergy Intermediate INCREASED Verified 06/24/24 18:49 (Glucocorticoids) SOB prednisone Allergy Intermediate SOB Verified 06/24/24 18:49 General Stated Complaint: AMS/LOC CHECO: 3 Exam Narrative Exam Narrative: Alert and oriented 69-year-old female in no acute distress, pupils equal round reactive to light and accommodation no visible sign of head trauma, no meningismus, oropharynx patent, uvula midline, lungs clear to auscultation, cardiac rate rhythm regular, no murmur,mild diffuse tenderness to abdomen without rebound or guarding, thorax shows approximately 30 mariza, no wound dehiscence no surrounding erythema or drainage, lungs clear to auscultation, no CVA tenderness, alert and oriented x 4, able to follow all basic commands Course Vital Signs Vital signs: Vital Signs Temperature 36.6 C 06/24/24 18:41 Pulse 101 H 06/24/24 18:41 Respiratory Rate 18 06/24/24 18:41 Blood Pressure 148/75 H 06/24/24 18:41 Pulse Oximetry 92 06/24/24 18:41 Temperature 36.9 C 06/24/24 22:08 Temperature Source Temporal Artery Scan 06/24/24 20:10 Pulse 98 H 06/24/24 22:08 Pulse 101 H 06/24/24 22:08 Respiratory Rate 23 06/24/24 22:08 Blood Pressure 142/60 H 06/24/24 22:08 Blood Pressure Mean 87 06/24/24 22:08 Blood Pressure Position Supine 06/24/24 20:10 Pulse Oximetry 91 L 06/24/24 22:08 Oxygen Delivery Method Room Air 06/24/24 20:10 Oxygen Flow Rate 0 06/24/24 18:41 Pain Level 5 06/24/24 22:02 Lab/Test Results Lab/Test Results: 06/24/24 19:28 Blood Blood Culture - Pending 06/24/24 19:28 Blood Blood Culture - Pending Laboratory Tests Range/Units 06/24/24 06/24/24 06/24/24 19:28 20:01 20:25 WBC (4.4-10.8) 10^3/uL 6.56 RBC (3.93-5.22) 10^6/uL 3.56 L Hgb (11.2-15.7) g/dL 11.3 Hct (36.0-46.0) % 33.6 L MCV (80-95) fL 94 MCH (27.0-33.0) pg 31.7 MCHC (32.0-36.0) % 33.6 RDW (11.7-14.6) % 13.1 Plt Count (130-400) 10^3/uL 262 MPV (8.0-11.0) fL 10.5 Immature Gran % % 0.3 Neutrophils % % 67.6 Lymphocytes % % 20.9 Monocytes % % 10.1 Eosinophils % % 0.6 Basophils % % 0.5 Nucleated RBC % (0.0-0.3) % 0.0 Absolute Neutrophils (1.2-6.7) 10^3/uL 4.44 Absolute Lymphocytes (1.2-3.4) 10^3/uL 1.37 Absolute Monocytes (0.1-0.8) 10^3/uL 0.66 Absolute Eosinophils (0.0-0.7) 10^3/uL 0.04 Absolute Basophils (0.0-0.2) 10^3/uL 0.03 VBG pH (7.31-7.41) 7.43 H VBG pCO2 (41-51) mmHg 37 L VBG pO2 mmHg 64 VBG HCO3 (23-28) mmol/L 24 VBG Total CO2 (24-29) mmol/L 22 L VBG O2 Saturation % 93 VBG Base Excess (-2-3) mmol/L 0 VBG Lactate (<or=2.0) mmol/L 1.3 Sodium (136-145) mmol/L 140 Potassium (3.5-5.1) mmol/L 3.5 Chloride (98-107) mmol/L 105 Carbon Dioxide (21.0-32.0) mmol/L 25.8 Anion Gap (3-11) mmol/L 9.2 BUN (7-18) mg/dL 14 Creatinine (0.55-1.02) mg/dL 1.0 Est GFR (CKD-EPI 2020) (mL/min/1.73m2) 61.75 Glucose (74-106) mg/dL 106 Calcium (8.5-10.1) mg/dL 8.9 Magnesium (1.8-2.4) mg/dL 1.6 L Total Bilirubin (0.2-1.0) mg/dL 0.42 AST (15-37) U/L 31 ALT (14-59) U/L 19 Alkaline Phosphatase (46-116) U/L 74 Creatine Kinase (26-192) U/L 218 H Troponin I (<or=51) ng/L 2279 H* Total Protein (6.4-8.2) g/dL 6.8 Albumin (3.4-5.0) g/dL 3.0 L Procalcitonin ng/mL < 0.10 Urine Color (Yellow) Yellow Urine Clarity (Clear) Clear Urine pH (5-8) 6.5 Ur Specific [place] (1.005-1.025) 1.025 Urine Protein (Neg-Trace) mg/dL 30 H Urine Ketones (Negative) mg/dL Trace H Urine Blood (Negative) Moderate H Urine Nitrite (Negative) Negative Urine Bilirubin (Negative) Small H Urine Urobilinogen (Up to 0.2) mg/dL 0.2 Ur Leukocyte Esterase (Negative) Negative Urine RBC (0-2) HPF 3-5 H Urine WBC (0-5) HPF 0-2 Ur Epithelial Cells (Negative) HPF Moderate Urine Crystals (Negative) HPF Negative Urine Bacteria (Negative) HPF Few Urine Casts (Negative) LPF Negative Urine Mucus (Negative) Negative Ur Culture Indicated? No Urine Glucose (Negative) mg/dL Negative Urine Opiates Screen (Negative) Negative Urine Methadone Screen (Negative) Negative Ur Barbiturates Screen (Negative) Negative Ur Tricyclics Screen (Negative) Negative Ur Amphetamines Screen (Negative) Negative U Benzodiazepines Scrn (Negative) Positive A Urine Cocaine Screen (Negative) Negative Ur THC Screen (Negative) Positive A Ethyl Alcohol (<10) mg/dL < 3.0 Add-On Test Request DONE Range/Units 06/24/24 20:50 WBC (4.4-10.8) 10^3/uL RBC (3.93-5.22) 10^6/uL Hgb (11.2-15.7) g/dL Hct (36.0-46.0) % MCV (80-95) fL MCH (27.0-33.0) pg MCHC (32.0-36.0) % RDW (11.7-14.6) % Plt Count (130-400) 10^3/uL MPV (8.0-11.0) fL Immature Gran % % Neutrophils % % Lymphocytes % % Monocytes % % Eosinophils % % Basophils % % Nucleated RBC % (0.0-0.3) % Absolute Neutrophils (1.2-6.7) 10^3/uL Absolute Lymphocytes (1.2-3.4) 10^3/uL Absolute Monocytes (0.1-0.8) 10^3/uL Absolute Eosinophils (0.0-0.7) 10^3/uL Absolute Basophils (0.0-0.2) 10^3/uL VBG pH (7.31-7.41) VBG pCO2 (41-51) mmHg VBG pO2 mmHg VBG HCO3 (23-28) mmol/L VBG Total CO2 (24-29) mmol/L VBG O2 Saturation % VBG Base Excess (-2-3) mmol/L VBG Lactate (<or=2.0) mmol/L Sodium (136-145) mmol/L Potassium (3.5-5.1) mmol/L Chloride (98-107) mmol/L Carbon Dioxide (21.0-32.0) mmol/L Anion Gap (3-11) mmol/L BUN (7-18) mg/dL Creatinine (0.55-1.02) mg/dL Est GFR (CKD-EPI 2020) (mL/min/1.73m2) Glucose (74-106) mg/dL Calcium (8.5-10.1) mg/dL Magnesium (1.8-2.4) mg/dL Total Bilirubin (0.2-1.0) mg/dL AST (15-37) U/L ALT (14-59) U/L Alkaline Phosphatase (46-116) U/L Creatine Kinase (26-192) U/L Troponin I (<or=51) ng/L 1 H* Total Protein (6.4-8.2) g/dL Albumin (3.4-5.0) g/dL Procalcitonin ng/mL Urine Color (Yellow) Urine Clarity (Clear) Urine pH (5-8) Ur Specific [place] (1.005-1.025) Urine Protein (Neg-Trace) mg/dL Urine Ketones (Negative) mg/dL Urine Blood (Negative) Urine Nitrite (Negative) Urine Bilirubin (Negative) Urine Urobilinogen (Up to 0.2) mg/dL Ur Leukocyte Esterase (Negative) Urine RBC (0-2) HPF Urine WBC (0-5) HPF Ur Epithelial Cells (Negative) HPF Urine Crystals (Negative) HPF Urine Bacteria (Negative) HPF Urine Casts (Negative) LPF Urine Mucus (Negative) Ur Culture Indicated? Urine Glucose (Negative) mg/dL Urine Opiates Screen (Negative) Urine Methadone Screen (Negative) Ur Barbiturates Screen (Negative) Ur Tricyclics Screen (Negative) Ur Amphetamines Screen (Negative) U Benzodiazepines Scrn (Negative) Urine Cocaine Screen (Negative) Ur THC Screen (Negative) Ethyl Alcohol (<10) mg/dL Add-On Test Request Medical Decision Making This 69-year-old female with complex medical history presenting with nausea vomiting diarrhea, concern for dehydration and weakness. Has been having difficulty tolerating p.o. at home secondary to age, medical comorbidities, weakness and persistent nausea I did check troponin which was found to be elevated at 2279, patient does not have chest pain associated with this level. Her EKG does not show ischemia or injury, repeat troponin 1 hour later after fluid administration as it is a troponin of 2200. CBC does not show leukocytosis or any acute abnormality VBG is reassuring chemistry is within normal limits, CPK shows a creatinine this creatinine kinase of 218 only very mild elevation. Urinalysis shows blood without leukocyte esterase or significant white blood cells, no evidence of urinary tract infection. As troponin was markedly elevated and patient is postop without anterior chest pain, I did order CTA chest CT abdomen and pelvis given nausea vomiting and diarrhea with recent surgery. CTA chest does not show evidence of acute abnormality, CT abdomen and pelvis that showed postop changes with soft tissue swelling skin mariza with a small fluid collection posterior to the T10 and T11 vertebral bodies. This fluid collection is approximately 2 cm and the read suspects this is a postop seroma. As patient is postop since Thursday, I will hold on aspirin or any anticoagulation. There is a phone call to [facility] to review troponin level and EKG and CTs have been sent. There is also a phone call to neurosurgery asked regarding the seroma and review the spine films. At this time patient remained stable, alert, oriented, no acute distress. Vitals remained stable. 2300, patient had an episode of greater than 30 beats of ventricular tachycardia or a wide-complex tachycardia on monitor which Paul nurse noted, he was scrolling back on the screen and noted that she had an episode of approximately 20 beats prior to the episode 3 minutes. Patient was reportedly asymptomatic with the episode alert, oriented, with pulse intact. Pads were placed on patient and cardiology pending return call at this time. Patient mild Quality:SDOH Health Related Social Needs: Health related social needs inadequate housing (Z59.1), feeling lonely/isolated (Z60.8) Critical Care Time Critical Care Time Attestation: Years from [facility] All Active Problems (Updated 06/26/24 @ 15:40 by Tommy Chaparro) DVT prophylaxis (Acute) Stress-induced cardiomyopathy (Acute) Gastroenteritis (Acute) Vomiting (Acute) Acute non-ST elevation myocardial infarction (NSTEMI) (Acute) Nausea, vomiting and diarrhea (Acute) Lumbar pseudoarthrosis (Acute) Obesity with serious comorbidity (Acute) Osteopenia determined by x-ray (Chronic) 24hr urine calcium reduced level, managed at [facility] Endocrinology HTN (hypertension) (Chronic) Major depressive disorder (Chronic) COPD (chronic obstructive pulmonary disease) (Chronic) 01/02/23 per discharge from [facility]. 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 Lumbosacral spondylosis without myelopathy (Acute) Polypharmacy (Acute) Carotid stenosis (Acute) - positive carotid bruit 09/2021 Carotid US, moderate bilat stenosis, l> R Nicotine dependence (Chronic) smoking, vaping Vaginal enterocele due to incomplete uterovaginal prolapse (Acute) Rectal mucosa prolapse (Acute) Goiter (Acute) Otitis externa due to herpes zoster (Acute 06/30/13) Urge incontinence of urine (Acute) Sensorineural hearing loss, bilateral (Chronic 04/06/14) Neck pain (Acute) C6-7 disc w/ radiculopathy S/P surgery [facility] Hyperlipidemia (Acute 02/06/14) Generalized anxiety disorder (Acute) Chronic low back pain (Chronic) tx pain clinic 2013 [facility]- 03/2021-MR of low back-numerous degenerative changes. Most prominent were foraminal stenosis at upper lumbar labral, no acute disc bulging, With chronic pain syndrome-followed by pain clinic at [facility] Medical History Congestive heart failure (CHF) 09/2022 EF 20% Repeat echo in 11/2022 return to normal EF 65% Managed medically Osteomyelitis of lumbar spine Abscess in epidural space of thoracic spine and lumbar spine Discitis Osteomyelitis of thoracic vertebra NSTEMI (non-ST elevated myocardial infarction) secondary to MRSA sepsis. Managed at [facility] Stapedial myoclonus Rectal bleed 07/2021 Heart murmur 07/2021-systolic murmur-at upper sternal border, longstanding, normal echo 2015-consistent with innocent murmur Personal history of nicotine dependence 07/2021, 1/2 pk per day currently-about 45-84-dila-year history (was usually a 1 to 2 pack/day smoker) 08/29/21 - Down to 8-10 per day, starting nicotine patches as she is finding it harder to cut back at this point. Abnormal glandular Papanicolaou smear of cervix repeat normal Essential hypertension (04/20/13) Normal echocardiogram Hyperlipidemia Depression Anxiety disorder Surgical History History of robot-assisted laparoscopic hysterectomy 10/07/[address] [facility], robotic assisted bilateral salpingectomy with supracervical hysterectomy and cervical colpopexy with graft placement S/P DAVID-BSO (09/2022) History of rectopexy (09/2022) with mesh placement, postoperative MRSA bacteremia with intraabdominal and paravertebral fluid collections. S/P hemorrhoidectomy hemorrhoid banding S/P spinal fusion S/P carpal tunnel release History of colonoscopy with polypectomy (~07/09/21) History of arthroscopy History of bilateral ligation of fallopian tubes Family History Mother Essential hypertension Stroke Cancer Father Heart disease Brother Heart disease Maternal Grandfather No problems noted. Paternal Grandfather No problems noted. Maternal Grandmother Essential hypertension Stroke Paternal Grandmother No problems noted. Social History Smoking/Tobacco Use Status: Current every day Tobacco: How many years used: 20 Smokeless tobacco user: dissolvable tobacco Quit status: has quit before Second Hand Exposure: Yes Counseling given: provider counseling Smoking risk assessment performed?: Yes Alcohol Intake: former Drug use: Daily Substance use type: marijuana Details: Pt reports awokefrom napb at 1600 black pt reports lasted 30 minutes. spots in vision, Household members: none Housing: house Number of Children: 3 number of grandchildren: 3 Education Level: high school Do you need help understanding health information?: Always Pets and animals: Yes Pets and animals: other Details: Donkey Sexually active: No What type of physical activity do you participate in: decline to answer Duration: decline to answer Frequency: decline to answer [place]/Faith: [employer] Special chelsea needs: No Seatbelt use: always Helmet use: Yes Helmet use: always Drive intox or ride w/intox tow motor driver: No Do you feel safe at home: Yes Additional Social history: live alone
[2024-06-24 22:57] LABS: Troponin I 1940 ng/L (<or=51)
[2024-06-24] MEDS: MAGNESIUM SULFATE 2 GM/50 ML BAG IV_INF (23:23)
[2024-06-24] MEDS: Normal Saline 1,000 ML 150 ML IV (23:24)
--- NOTE | 2024-06-24 23:43 | W.EDPROG ---
Date of service: 06/24/24 Time of Service: 23:30 Medical Decision Making This patient was signed out to me. Please see previous notes for H&P and inital eval. In brief, 69yo F with recent spinal surgery [place] [facility] [place] for [place]/V. Suspected gastroenteritits however pt found to have elevated troponin, albeit downtrended. CT also showed possible post-op seroma. While in the ED had two episodes (~30-40 beats) of VTach which terminated without intervention and during which she was awake and chest pain free. Receiving IV mg as her Mg was low. [facility] hospitalist aware of patient. Signed out pending [facility] [place] and neurosurgery consults. Spoke with [facility] [place]; no acute interventions indicated. Spoke with [facility] [place] Ar; strip reviewed and thought to be artifact, would not treat for ACS- did advise sending BNP and lactate as pt (despite normal EF on most recent echo) does have a history of stress induced cardiomyopathy. BNP indeed elevated at ~6600, Dr. Joyner advised hospital admission and echocardiogram when available on Thursday. [facility] hospitalist Dr. Sims updated; patient accepted to medicine service for further workup and management. Awaiting admission orders and transfer to the floor. Quality:[facility] Health Related Social Needs: No Data to Display Discharge Plan Disposition Patient Disposition: Admit to [facility] Condition: Serious Discharge Details Chief Complaint: AMS/LOC Clinical Impression: Acute non-ST elevation myocardial infarction (NSTEMI), Vomiting Primary Care Provider: Arely Sampson ED Provider: Kayla Rose Home Meds and New Rx's Prescriptions: No Action aspirin 81 mg tablet,delayed release (DR/EC) 81 mg PO DAILY pravastatin 20 mg tablet 20 mg PO DAILY Qty: 90 4RF Patient Comments: not on med list fesoterodine 8 mg tablet extended release 24 hr 8 mg PO DAILY Qty: 30 3RF estradiol 0.01 % (0.1 mg/gram) cream 1 g vaginal .2xw tizanidine 6 mg capsule 6 mg PO Q8H PRN (Reason: muscle spasticity) Qty: 120 2RF varenicline tartrate [Chantix Continuing Month Box] 1 mg tablet 1 mg PO BID Qty: 60 3RF diazepam [Valium] 5 mg tablet 5 mg PO Q6H PRN acetaminophen 325 mg capsule 650 mg PO QID (DME) miscellaneous medical supply [facility] See Rx Instructions .Route Qty: 1 0RF Rx Instructions: As directed Tymlos 80 mcg (3,120 mcg/1.56 mL) pen injector 80 mcg subcut DAILY Rx Instructions: inject into abdomen; do not inject within 2 inches of belly button/navel; rotate sites Rx'd [place] [facility] [place]/Dr. Block 06/08/23. -hb lidocaine [Lidoderm] 5 % adhesive patch,medicated 1 patch topical DAILY Qty: 30 5RF Rx Instructions: leave on most painful area for up to 12 hrs, once a day, prn celecoxib 200 mg capsule 200 mg PO BID Qty: 60 3RF nystatin 100,000 unit/gram powder 1 applic topical DAILY Qty: 30 2RF Rx Instructions: local application daily under breasts and in groin area fluticasone propionate 50 mcg/actuation spray,suspension 1 spray NS BID Qty: 1 6RF potassium chloride 10 mEq capsule, extended release 10 meq PO DAILY Qty: 90 1RF gabapentin 800 mg tablet 800 mg PO TID Qty: 90 3RF pramipexole 0.5 mg tablet 0.5 mg PO BID Qty: 180 3RF venlafaxine 75 mg tablet 75 mg PO BID Qty: 180 3RF triamterene-hydrochlorothiazid 37.5-25 mg capsule 1 cap PO DAILY Qty: 90 2RF Patient Comments: not on med list, pt sure she takes it daily. albuterol sulfate 90 mcg/actuation HFA aerosol inhaler 1 - 2 puff IH QID PRN (Reason: shortness of breath or wheezing) Qty: 18 3RF methylphenidate HCl 5 mg tablet 5 mg PO QAM MDD 5mg Qty: 30 0RF calcium citrate 200 mg (950 mg) tablet 200 mg PO BID Patient Comments: TAKE ONE TABLET BY MOUTH TWICE A DAY docusate sodium 100 mg capsule 100 mg PO BID Patient Comments: TAKE ONE CAPSULE BY MOUTH TWICE A DAY ergocalciferol (vitamin D2) 1,250 mcg (50,000 unit) capsule 1,250 mcg PO DAILY Patient Comments: TAKE 1 CAPSULE BY MOUTH EVERY 7 DAYS ondansetron 4 mg tablet,disintegrating 4 mg PO Q6H PRN (Reason: nausea and vomiting) Qty: 30 0RF promethazine 25 mg tablet 25 mg PO TID PRN (Reason: nausea and vomiting) Qty: 14 0RF
[2024-06-25] VITALS (58 sets, daily range): BP systolic 115–171; BP diastolic 56–111; PULSE 81–112; RESP 12–28; TEMP 36.6–36.7; O2SAT 88–96
[2024-06-25 01:07] LABS: Lactate 0.6 mmol/L (<or=2.0)
[2024-06-25 01:30] LABS: NT-proBNP 6646 pg/mL (<300)
--- NOTE | 2024-06-25 04:45 | W.PM.HP.N ---
Date of service: 06/25/24 Time of Service: 04:45 Assessment and Plan Assessment and plan (1) Gastroenteritis: Status: Acute Assessment and plan: First, patient appears to have presented with simple gastroenteritis, not actively manifesting at present. Will gently hydrate and treat with prn anti-emetics. The cardiac matters are apparently incidental and surprisingly asymptomatic, but the elevation in troponin in notable. Takotsubo's cardiomyopathy is a certainly possible, though again entirely asymptomatic and w/o EKG changes. Likewise the clinical picture does not match the elevation in BNP, though the elevation correlates with the troponins. 1. Gastroenteritis; IVF, supportive measures; 2. Takotsubo's?: check ECHO 3. VT vs artefact: monitor, pads in place Usual meds otherwise except will hold Ritalin until situation clarifies Remains Full Code History of Present Illness History of Present Illness Chief Complaint: vomiting and diarrhea Narrative: 69 female s/p recent unspecified spine surgery, d/c'ed from [facility] last week. Yamini has had gastroenteritis and patient comes in with 1-2 days of nausea, vomiting and diarrhea; notably she had had none further here in ER since dose of Zofran. Howeverm a troponin was checked and found elevated at 2279 and further investigation i this regard was initiated. Patient denies CP. EKG WNL. Troponins have been downtrending to 1900; BNP 6900. While here patient had two episodes of what appeared to have been asymptomatic non-sustained VT. Cardiology was consulted. 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 Advise monitoring and check ECHO. Note they advise that the purported VT was likely artefact. Review of Systems Narrative: per HPI PFSH All Active Problems (Updated 06/25/24 @ 04:56 by Paul Sims MD) Gastroenteritis (Acute) Vomiting (Acute) Acute non-ST elevation myocardial infarction (NSTEMI) (Acute) Nausea, vomiting and diarrhea (Acute) Lumbar pseudoarthrosis (Acute) Obesity with serious comorbidity (Acute) Osteopenia determined by x-ray (Chronic) 24hr urine calcium reduced level, managed at [facility] Endocrinology HTN (hypertension) (Chronic) Major depressive disorder (Chronic) COPD (chronic obstructive pulmonary disease) (Chronic) 01/02/23 per discharge from [facility]. 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 Lumbosacral spondylosis without myelopathy (Acute) Polypharmacy (Acute) Carotid stenosis (Acute) - positive carotid bruit 09/2021 Carotid US, moderate bilat stenosis, l> R Nicotine dependence (Chronic) smoking, vaping Vaginal enterocele due to incomplete uterovaginal prolapse (Acute) Rectal mucosa prolapse (Acute) Goiter (Acute) Otitis externa due to herpes zoster (Acute 06/30/13) Urge incontinence of urine (Acute) Sensorineural hearing loss, bilateral (Chronic 04/06/14) Neck pain (Acute) C6-7 disc w/ radiculopathy S/P surgery [facility] Hyperlipidemia (Acute 02/06/14) Generalized anxiety disorder (Acute) Chronic low back pain (Chronic) tx pain clinic [address] [facility]- 03/2021-MR of low back-numerous degenerative changes. Most prominent were foraminal stenosis at upper lumbar labral, no acute disc bulging, With chronic pain syndrome-followed by pain clinic at [facility] Medical History Congestive heart failure (CHF) 09/2022 EF 20% Repeat echo in 11/2022 return to normal EF 65% Managed medically Osteomyelitis of lumbar spine Abscess in epidural space of thoracic spine and lumbar spine Discitis Osteomyelitis of thoracic vertebra NSTEMI (non-ST elevated myocardial infarction) secondary to MRSA sepsis. Managed at [facility] Stapedial myoclonus Rectal bleed 07/2021 Heart murmur 07/2021-systolic murmur-at upper sternal border, longstanding, normal echo 2015-consistent with innocent murmur Personal history of nicotine dependence 07/2021, 1/2 pk per day currently-about 81-06-nlhn-year history (was usually a 1 to 2 pack/day smoker) 08/29/21 - Down to 8-10 per day, starting nicotine patches as she is finding it harder to cut back at this point. Abnormal glandular Papanicolaou smear of cervix repeat normal Essential hypertension (04/20/13) Normal echocardiogram Hyperlipidemia Depression Anxiety disorder Surgical History History of robot-assisted laparoscopic hysterectomy 10/07/2022 at [facility], robotic assisted bilateral salpingectomy with supracervical hysterectomy and cervical colpopexy with graft placement S/P DAVID-BSO (09/2022) History of rectopexy (09/2022) with mesh placement, postoperative MRSA bacteremia with intraabdominal and paravertebral fluid collections. S/P hemorrhoidectomy hemorrhoid banding S/P spinal fusion S/P carpal tunnel release History of colonoscopy with polypectomy (~07/09/21) History of arthroscopy History of bilateral ligation of fallopian tubes Family History Mother Essential hypertension Stroke Cancer Father Heart disease Brother Heart disease Maternal Grandfather No problems noted. Paternal Grandfather No problems noted. Maternal Grandmother Essential hypertension Stroke Paternal Grandmother No problems noted. Social History Smoking/Tobacco Use Status: Current every day Tobacco: How many years used: 20 Smokeless tobacco user: dissolvable tobacco Quit status: has quit before Second Hand Exposure: Yes Counseling given: provider counseling Smoking risk assessment performed?: Yes Alcohol Intake: former Drug use: Daily Substance use type: marijuana Details: Pt reports awokefrom napb at 1600 black pt reports lasted 30 minutes. spots in vision, Household members: none Housing: house Number of Children: 3 number of grandchildren: 3 Education Level: high school Do you need help understanding health information?: Always Pets and animals: Yes Pets and animals: other Details: Donkey Sexually active: No What type of physical activity do you participate in: decline to answer Duration: decline to answer Frequency: decline to answer Chelsea/Taoist: Holiness Special chelsea needs: No Seatbelt use: always Helmet use: Yes Helmet use: always Drive intox or ride w/intox dedicated driver: No Do you feel safe at home: Yes Additional Social history: live alone Meds Allergies and Home Medications Allergies Allergy/AdvReac Type Severity Reaction Status Date / Time Corticosteroids Allergy Intermediate INCREASED Verified 06/24/24 18:49 (Glucocorticoids) SOB prednisone Allergy Intermediate SOB Verified 06/24/24 18:49 Home Medications ?Medication ?Instructions ?Recorded ?Confirmed ?Type aspirin 81 mg tablet,delayed 81 mg PO DAILY 07/01/21 06/24/24 History release acetaminophen 325 mg capsule 650 mg PO QID 11/20/22 06/24/24 History estradiol 0.01% (0.1 mg/gram) 1 g vaginal .2xw 02/03/23 06/24/24 History vaginal cream miscellaneous medical supply #1 ea 02/24/23 05/13/24 Rx abaloparatide (Tymlos) 80 mcg subcut DAILY 06/12/23 06/24/24 History lidocaine 5 % topical patch 1 patch topical DAILY #30 ea 09/04/23 06/24/24 Rx (Lidoderm) pravastatin 20 mg tablet 20 mg PO DAILY #90 tab-caps 09/29/23 06/24/24 Rx celecoxib 200 mg capsule 200 mg PO BID #60 caps 12/04/23 06/24/24 Rx fluticasone propionate 50 1 spray NS BID ##1 02/02/24 06/24/24 Rx mcg/actuation nasal spray,suspension nystatin 100,000 unit/gram topical 1 applic topical DAILY #30 grams 02/02/24 06/24/24 Rx powder potassium chloride 10 mEq 10 meq PO DAILY #90 caps 02/02/24 06/24/24 Rx capsule,extended release gabapentin 800 mg tablet 800 mg PO TID #90 tabs 02/09/24 06/24/24 Rx pramipexole 0.5 mg tablet 0.5 mg PO BID #180 tab-caps 02/10/24 06/24/24 Rx venlafaxine 75 mg tablet 75 mg PO BID #180 tabs 02/10/24 06/24/24 Rx tizanidine 6 mg capsule 6 mg PO Q8H PRN muscle spasticity 04/01/24 06/24/24 Rx #120 caps varenicline tartrate 1 mg tablet 1 mg PO BID #60 tabs 04/01/24 06/24/24 Rx (Chantix Continuing Month Box) triamterene 37.5 1 cap PO DAILY #90 caps 04/19/24 06/24/24 Rx mg-hydrochlorothiazide 25 mg capsule albuterol sulfate 90 mcg/actuation 1 - 2 puff inhalation QID PRN 04/25/24 06/24/24 Rx aerosol inhaler shortness of breath or wheezing #18 grams fesoterodine 8 mg tablet,extended 8 mg PO DAILY #30 tabs 05/13/24 06/24/24 Rx release 24 hr methylphenidate HCl 5 mg tablet 5 mg PO QAM #30 tabs 06/10/24 06/24/24 Rx diazepam 5 mg tablet (Valium) 5 mg PO Q6H PRN 06/20/24 06/24/24 History calcium citrate 200 mg PO BID 06/23/24 06/24/24 History docusate sodium 100 mg capsule 100 mg PO BID 06/23/24 06/24/24 History ergocalciferol (vitamin D2) 1,250 1,250 mcg PO DAILY 06/23/24 06/24/24 History mcg (50,000 unit) capsule ondansetron 4 mg disintegrating 4 mg PO Q6H PRN nausea and 06/23/24 06/24/24 Rx tablet vomiting #30 tabs promethazine 25 mg tablet 25 mg PO TID PRN nausea and 06/23/24 06/24/24 Rx vomiting #14 tabs Exam Narrative Exam Narrative: 145/69, 91, 36.9, 17, 94%. Lying flat in stretcher. HEENT atraumatic; neck supple; lungs clear; heart RRR w/o MRG; back spine wound C+D; abdomen soft and NT; extremities w/o edema; neuro Ox3, moves all 4s Results Labs 06/24/24 19:28 06/24/24 19:28 Labs: Laboratory Results - last 24 hr 06/24/24 06/24/24 06/24/24 19:28 20:01 20:25 WBC 6.56 RBC 3.56 L Hgb 11.3 Hct 33.6 L MCV 94 MCH 31.7 MCHC 33.6 RDW 13.1 Plt Count 262 MPV 10.5 Immature Gran % 0.3 Neutrophils % 67.6 Lymphocytes % 20.9 Monocytes % 10.1 Eosinophils % 0.6 Basophils % 0.5 Nucleated RBC % 0.0 Absolute Neutrophils 4.44 Absolute Lymphocytes 1.37 Absolute Monocytes 0.66 Absolute Eosinophils 0.04 Absolute Basophils 0.03 VBG pH 7.43 H VBG pCO2 37 L VBG pO2 64 VBG HCO3 24 VBG Total CO2 22 L VBG O2 Saturation 93 VBG Base Excess 0 VBG Lactate 1.3 Sodium 140 Potassium 3.5 Chloride 105 Carbon Dioxide 25.8 Anion Gap 9.2 BUN 14 Creatinine 1.0 Est GFR (CKD-EPI 2020) 61.75 Glucose 106 Calcium 8.9 Magnesium 1.6 L Total Bilirubin 0.42 AST 31 ALT 19 Alkaline Phosphatase 74 Creatine Kinase 218 H Troponin I 2279 H* NT-Pro-B Natriuret Pep Total Protein 6.8 Albumin 3.0 L Procalcitonin < 0.10 Urine Color Yellow Urine Clarity Clear Urine pH 6.5 Ur Specific [place] 1.025 Urine Protein 30 H Urine Ketones Trace H Urine Blood Moderate H Urine Nitrite Negative Urine Bilirubin Small H Urine Urobilinogen 0.2 Ur Leukocyte Esterase Negative Urine RBC 3-5 H Urine WBC 0-2 Ur Epithelial Cells Moderate Urine Crystals Negative Urine Bacteria Few Urine Casts Negative Urine Mucus Negative Ur Culture Indicated? No Urine Glucose Negative Urine Opiates Screen Negative Urine Methadone Screen Negative Ur Barbiturates Screen Negative Ur Tricyclics Screen Negative Ur Amphetamines Screen Negative U Benzodiazepines Scrn Positive A Urine Cocaine Screen Negative Ur THC Screen Positive A Ethyl Alcohol < 3.0 Add-On Test Request DONE 06/24/24 06/24/24 06/25/24 20:50 22:25 01:00 WBC RBC Hgb Hct MCV MCH MCHC RDW Plt Count MPV Immature Gran % Neutrophils % Lymphocytes % Monocytes % Eosinophils % Basophils % Nucleated RBC % Absolute Neutrophils Absolute Lymphocytes Absolute Monocytes Absolute Eosinophils Absolute Basophils VBG pH VBG pCO2 VBG pO2 VBG HCO3 VBG Total CO2 VBG O2 Saturation VBG Base Excess VBG Lactate 0.6 Sodium Potassium Chloride Carbon Dioxide Anion Gap BUN Creatinine Est GFR (CKD-EPI 2020) Glucose Calcium Magnesium Total Bilirubin AST ALT Alkaline Phosphatase Creatine Kinase Troponin I 2201 H* 1940 H* NT-Pro-B Natriuret Pep 6646 H Total Protein Albumin Procalcitonin Urine Color Urine Clarity Urine pH Ur Specific [place] Urine Protein Urine Ketones Urine Blood Urine Nitrite Urine Bilirubin Urine Urobilinogen Ur Leukocyte Esterase Urine RBC Urine WBC Ur Epithelial Cells Urine Crystals Urine Bacteria Urine Casts Urine Mucus Ur Culture Indicated? Urine Glucose Urine Opiates Screen Urine Methadone Screen Ur Barbiturates Screen Ur Tricyclics Screen Ur Amphetamines Screen U Benzodiazepines Scrn Urine Cocaine Screen Ur THC Screen Ethyl Alcohol Add-On Test Request Last Vital Signs Temp 36.9 C 06/24/24 23:05 Pulse 91 H 06/25/24 02:00 Resp 17 06/25/24 02:00 BP 145/69 H 06/25/24 01:46 Pulse Ox 94 06/25/24 02:00 Time Spent Time spent with Patient: 55-74 minutes Time was spent: preparing to see the patient(eg.review tests), obtaining and/or reviewing separately otained hiistory, ordering medications,tests, procedures, referring, communicating with other health progressive care unit registered nurse and indepentently interpreting results
[2024-06-25] MEDS: Lactated Ringers 1,000 ML 75 ML IV ×2 (05:47→18:47)
[2024-06-25] MEDS: Ondansetron 4 MG/2 ML VIAL IVP ×3 (06:01→21:04)
--- NOTE | 2024-06-25 08:51 | INITIAL_ITS ---
Date of service: 06/25/24 Time of Service: 08:51 Care Management Initial Assmt Initial Assessment Reason for Hospitalization: Takotsubo's cardiomyopathy Functional Status/Living Situation Patient Presentation: Jeniffer was sitting up in bed when CM met with her. She was alert, oriented and easily engaged with CM. Jeniffer is here with suspected Takotsubo's cardiomyopathy. She has recently had back surgery and informed CM that she had a similar episode following surgery a few years ago. Her troponins are markedly elevated (>2000) as is her BNP. Jeniffer will likely remain hospitalized at least until Thursday as she needs an Echocardiogram which will not be available this weekend. Jeniffer lives alone in a single family home in [place]. She has 3 children (daughters) and 3 grandchildren, all of whom live locally and who are supportive. 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 Jeniffer is independent at baseline and uses a cane and a walking stick for ambulatory assistance. 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 Jeniffer does receive home health services for wound care for her recent surgical incision and used to get Meals on Wheels but stopped recently.. Town of Residence: [place] Resides with: Alone Natural Supports: hcildren and grandchildren Employment Status: Retired Instrumental Activities of Daily Living (ADLs): Independent Medications Medication Management: No Issues/Barriers identified Physical Functioning/Mobility Assistive Device: cane and walking stick Advance Directives Advance Directives: Do you have an Advance Directive: Y 06/24/24 18:50 AD On File at [facility]: Y 06/24/24 18:50 Date Asked 06/24/24 06/24/24 18:50 AD Date Reviewed 06/24/24 06/24/24 18:50 COLST On File at [facility] No 06/24/24 18:50 COLST Date Scanned Code Status Resuscitation Status Full Code Portal Pt does not currently have a portal and education provided: Yes Insurance Coverage/Financial Issues Insurance: [employer] Medicare Replacement Care Team Visit Care Team Role Provider Type Arely Sampson MD Primary Care Provider [facility] STAFF PHYSICIAN Kayla Rose MD Emergency Provider [facility] STAFF PHYSICIAN Paul Sims MD Admit Provider [facility] STAFF PHYSICIAN Attending Provider Discharge Potential Discharge Needs: PCP F/U Appt and Other (Cardiology) Anticipated Barriers to Discharge: Medical Status Patient/Family Education Needs: Review discharge instructions, discuss Ask Me Three Transportation: Private vehicle Plan: Anticipate Jeniffer will be discharged home with a resumption of her home health services for nursing. She will follow up with her PCP, Cardiology and plan of care as prescribed and transport via private vehicle with family. CM will follow and continue to assess for discharge needs. Social Determinants of Health Screening Social Determinants of Health last assessed: 06/25/24 Will the Patient Participate in the Screening?: Yes Do you worry about having a steady place to live?: no Problems where you live: pests such as bugs, ants or mice and inadequate lighting In the past 12 months, have you had to go without electric, gas, oil or water in your home?: no Have you or anyone in your house had to go without enough food to eat?: choose not to answer Has lack of transportation kept you from medical appointments or from doing things needed for daily living?: no Has anyone in your life made you feel unsafe or unsupported?: no How hard is it for you to pay for the very basics like food, housing, medical care, and heating? Would you say it is:: Not hard at all Do you want help finding or keeping work or a job?: I do not need or want help If for any reason you need help with day-to-day activities such as bathing, preparing meals, shopping, managing finances, etc., do you get the help you need?: I don?t need any help How often do you feel lonely or isolated from those around you?: Sometimes Do you speak a language other than [place] at home?: No Does the patient want assistance with any of the above?: No Social Determinants of Health Comments([facility] Details): patient was tearful while answering questions, she said she will be good once she is better. She denies need for help with anything. Health Related Social Needs Health related social needs: inadequate housing (Z59.1) and feeling lonely/isolated (Z60.8) [facility] All Active Problems (Updated 06/25/24 @ 06:54 by MEHDI JOHNSON) Gastroenteritis (Acute) Vomiting (Acute) Acute non-ST elevation myocardial infarction (NSTEMI) (Acute) Nausea, vomiting and diarrhea (Acute) Lumbar pseudoarthrosis (Acute) Obesity with serious comorbidity (Acute) Osteopenia determined by x-ray (Chronic) 24hr urine calcium reduced level, managed at [facility] Endocrinology HTN (hypertension) (Chronic) Major depressive disorder (Chronic) COPD (chronic obstructive pulmonary disease) (Chronic) 01/02/23 per discharge from [facility]. 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 Lumbosacral spondylosis without myelopathy (Acute) Polypharmacy (Acute) Carotid stenosis (Acute) - positive carotid bruit 09/2021 Carotid US, moderate bilat stenosis, l> R Nicotine dependence (Chronic) smoking, vaping Vaginal enterocele due to incomplete uterovaginal prolapse (Acute) Rectal mucosa prolapse (Acute) Goiter (Acute) Otitis externa due to herpes zoster (Acute 06/30/13) Urge incontinence of urine (Acute) Sensorineural hearing loss, bilateral (Chronic 04/06/14) Neck pain (Acute) C6-7 disc w/ radiculopathy S/P surgery [facility] Hyperlipidemia (Acute 02/06/14) Generalized anxiety disorder (Acute) Chronic low back pain (Chronic) tx pain clinic 2013 [facility]- 03/2021-MR of low back-numerous degenerative changes. Most prominent were foraminal stenosis at upper lumbar labral, no acute disc bulging, With chronic pain syndrome-followed by pain clinic at [facility] Medical History Congestive heart failure (CHF) 09/2022 EF 20% Repeat echo in 11/2022 return to normal EF 65% Managed medically Osteomyelitis of lumbar spine Abscess in epidural space of thoracic spine and lumbar spine Discitis Osteomyelitis of thoracic vertebra NSTEMI (non-ST elevated myocardial infarction) secondary to MRSA sepsis. Managed at [facility] Stapedial myoclonus Rectal bleed 07/2021 Heart murmur 07/2021-systolic murmur-at upper sternal border, longstanding, normal echo 2015-consistent with innocent murmur Personal history of nicotine dependence 07/2021, 1/2 pk per day currently-about 30-88-goss-year history (was usually a 1 to 2 pack/day smoker) 08/29/21 - Down to 8-10 per day, starting nicotine patches as she is finding it harder to cut back at this point. Abnormal glandular Papanicolaou smear of cervix repeat normal Essential hypertension (04/20/13) Normal echocardiogram Hyperlipidemia Depression Anxiety disorder Surgical History History of robot-assisted laparoscopic hysterectomy 10/07/2022 at [facility], robotic assisted bilateral salpingectomy with supracervical hysterectomy and cervical colpopexy with graft placement S/P DAVID-BSO (09/2022) History of rectopexy (09/2022) with mesh placement, postoperative MRSA bacteremia with intraabdominal and paravertebral fluid collections. S/P hemorrhoidectomy hemorrhoid banding S/P spinal fusion S/P carpal tunnel release History of colonoscopy with polypectomy (~07/09/21) History of arthroscopy History of bilateral ligation of fallopian tubes Family History Mother Essential hypertension Stroke Cancer Father Heart disease Brother Heart disease Maternal Grandfather No problems noted. Paternal Grandfather No problems noted. Maternal Grandmother Essential hypertension Stroke Paternal Grandmother No problems noted. Social History Smoking/Tobacco Use Status: Current every day Tobacco: How many years used: 20 Smokeless tobacco user: dissolvable tobacco Quit status: has quit before Second Hand Exposure: Yes Counseling given: provider counseling Smoking risk assessment performed?: Yes Alcohol Intake: former Drug use: Daily Substance use type: marijuana Details: Pt reports awokefrom napb at 1600 black pt reports lasted 30 minutes. spots in vision, Household members: none Housing: house Number of Children: 3 number of grandchildren: 3 Education Level: high school Do you need help understanding health information?: Always Pets and animals: Yes Pets and animals: other Details: Donkey Sexually active: No What type of physical activity do you participate in: decline to answer Duration: decline to answer Frequency: decline to answer Chelsea/Restorationism: Christian Special chelsea needs: No Seatbelt use: always Helmet use: Yes Helmet use: always Drive intox or ride w/intox class a regional drivers: No Do you feel safe at home: Yes Additional Social history: live alone
[2024-06-25] MEDS: Pramipexole 0.25 MG TAB 0.5 MG PO ×2 (09:08→20:43)
[2024-06-25] MEDS: Acetaminophen 325 MG TAB 650 MG PO ×4 (09:09→20:44)
[2024-06-25] MEDS: Gabapentin 800 MG TAB PO ×3 (09:09→20:44)
[2024-06-25] MEDS: Pravastatin 20 MG TAB PO (09:09)
[2024-06-25] MEDS: Lidocaine 5% Patch 1 PATCH TP (09:09)
[2024-06-25] MEDS: Potassium Chloride 10 MEQ CAPCR PO (09:09)
[2024-06-25] MEDS: Venlafaxine 75 MG TAB PO ×2 (09:09→20:43)
[2024-06-25] MEDS: Calcium Citrate 950 MG TAB PO ×2 (09:09→20:44)
[2024-06-25] MEDS: Fluticasone NASAL SPRAY 16 GM BTL NS (09:17)
[2024-06-25] MEDS: Nystatin POWDER 15 GM JAR TP (09:18)
[2024-06-25 22:31] LABS: Magnesium 1.8 mg/dL (1.8-2.4)
[2024-06-26] VITALS (21 sets, daily range): BP systolic 130–183; BP diastolic 63–90; PULSE 78–111; RESP 13–26; TEMP 36.4–37.2; O2SAT 88–95
[2024-06-26] MEDS: Lactated Ringers 1,000 ML 75 ML IV (07:21)
[2024-06-26] MEDS: Lidocaine 5% Patch 1 PATCH TP (07:50)
[2024-06-26] MEDS: Pravastatin 20 MG TAB PO (07:50)
[2024-06-26] MEDS: Venlafaxine 75 MG TAB PO ×2 (07:51→21:03)
[2024-06-26] MEDS: Gabapentin 800 MG TAB PO ×3 (07:51→20:54)
[2024-06-26] MEDS: Potassium Chloride 10 MEQ CAPCR PO (07:51)
[2024-06-26] MEDS: Acetaminophen 325 MG TAB 650 MG PO ×4 (07:51→20:54)
[2024-06-26] MEDS: Pramipexole 0.25 MG TAB 0.5 MG PO ×2 (07:51→20:54)
[2024-06-26] MEDS: Calcium Citrate 950 MG TAB PO ×2 (07:51→20:54)
[2024-06-26 08:37] LABS: Anion Gap 8.4 mmol/L (3-11); BUN 6 mg/dL (7-18); CO2 26.6 mmol/L (21.0-32.0); CREATININE 0.8 mg/dL (0.55-1.02); Calcium 8.8 mg/dL (8.5-10.1); Chloride 107 mmol/L (98-107); Estimated GFR 80.71 (mL/min/1.73m2); Glucose 94 mg/dL (74-106); Magnesium 1.9 mg/dL (1.8-2.4); Potassium 3.4 mmol/L (3.5-5.1); Sodium 142 mmol/L (136-145)
[2024-06-26 08:41] LABS: Troponin I 431 ng/L (<or=51)
[2024-06-26] MEDS: Fluticasone NASAL SPRAY 16 GM BTL NS (09:22)
[2024-06-26] MEDS: Nystatin POWDER 15 GM JAR TP (09:22)
[2024-06-26] MEDS: Potassium Chloride Liquid 20 MEQ PKT 40 MEQ PO (10:07)
[2024-06-26] MEDS: Enoxaparin 40 MG/0.4 ML SYR SC (11:54)
[2024-06-26] MEDS: POTASSIUM CHLORIDE 20 MEQ, POTASSIUM CHLORIDE 10 MEQ 30 MEQ PO (15:11)
--- NOTE | 2024-06-26 15:34 | PGE_ITS ---
Date of Service Date of service: 06/26/24 Time of Service: 09:00 Assessment and Plan Assessment and plan (1) Gastroenteritis: Status: Acute Assessment and plan: Gastroenteritis resolving. Progress diet. Replacing Mg/K (2) Stress-induced cardiomyopathy: Status: Acute Assessment and plan: She has h/o NSTEMI but also what appeared to be stress induced cardiomyopathy in 2022 after a previous surgery This appears to be the latter as she is not symptomatic. Troponins are trending down. Concnern for VTAC on monitor overnight 06/24- but not since. I will defer evaluation of strips to cardiology. Echocardiogram and cardiology consult in the AM. Pyschiatrically stable, continue regular medications (3) DVT prophylaxis: Status: Acute Assessment and plan: enoxaparin Subjective Subjective Patient reports: no new complaints and voiding w/o difficulty; denies vomiting, shortness of breath or fever Interval history since last seen: Events: no events on telemetry She is feeling a lot better. No vomiting, no longer nauseous, abdomen feels better. Hasn't had chest pain, palpitations, or dizzy spell. More energy. Appetite not great, but able to eat a little Exam Narrative Exam Narrative: A&O, NAD, sitting up in chair, smiling. HEENT no icterus, MMM; lungs clear; heart RRR w/o MRG; back spine wound C+D; abdomen soft and NT; extremities w/o edema Objective Last Vital Signs Temp 36.4 C L 06/26/24 04:45 Pulse 111 H 06/26/24 12:00 Resp 22 06/26/24 12:00 BP 141/75 H 06/26/24 10:21 Pulse Ox 90 L 06/26/24 12:00 Laboratory Results - last 24 hr 06/25/24 06/26/24 06/26/24 22:00 08:01 08:01 Sodium 142 Potassium 3.4 L Chloride 107 Carbon Dioxide 26.6 Anion Gap 8.4 BUN 6 L Creatinine 0.8 Est GFR (CKD-EPI 2020) 80.71 Glucose 94 Calcium 8.8 Magnesium 1.8 Cancelled 1.9 Troponin I 431 H* Time Spent with Patient Time Spent with Patient: 35-49 minutes Time was spent: preparing to see the patient(eg.review tests), obtaining and/or reviewing separately otained hiistory, ordering medications,tests, procedures, referring, communicating with other health foster care social worker, indepentently interpreting results, counseling the patient and care coordination
--- NOTE | 2024-06-26 16:39 | NUR.NOTE ---
Pt transfered from ICU to room 212. Report received, all questions answered. Nursing Note:
--- NOTE | 2024-06-26 18:05 | W.PC.ACHO ---
Registration Status: Primary Language: Preferred Language: ED Information & Data Chief Complaint AMS/LOC 06/24/24 22:45 Triage Note [place] 18[place] [facility] [place] since being [place]c'd. sent by urgent care for confusion and dehydration. vomiting even with use of zofran. family has noticed irritability. seen here yesterday with negative fluvid. family concerned for uti but pt is unable to give urine sample. Medical / Surgical History (Last Reviewed 06/25/24 @ 04:53 by Paul Sims MD) Congestive heart failure (CHF) Osteomyelitis of lumbar spine Abscess in epidural space of thoracic spine Discitis Osteomyelitis of thoracic vertebra NSTEMI (non-ST elevated myocardial infarction) Stapedial myoclonus Rectal bleed Heart murmur Personal history of nicotine dependence Abnormal glandular Papanicolaou smear of cervix Essential hypertension (04/20/13) Hyperlipidemia Depression Anxiety disorder (Last Reviewed 06/25/24 @ 04:53 by Paul Sims MD) History of robot-assisted laparoscopic hysterectomy S/P DAVID-BSO (09/2022) History of rectopexy (09/2022) S/P hemorrhoidectomy S/P spinal fusion S/P carpal tunnel release History of colonoscopy with polypectomy (~07/09/21) History of arthroscopy History of bilateral ligation of fallopian tubes Most Recent Vital Signs Temperature 36.6 C 06/26/24 16:38 Temperature Source Temporal Artery Scan 06/26/24 16:38 Pulse 94 H 06/26/24 16:38 Pulse 101 H 06/26/24 16:00 Respiratory Rate 18 06/26/24 16:38 Respiratory Effort Normal 06/25/24 07:14 Respiratory Depth Normal 06/25/24 07:14 Respiratory Pattern Normal 06/25/24 07:14 Blood Pressure 183/90 H 06/26/24 16:38 Blood Pressure Mean 108 06/26/24 14:07 Blood Pressure Position Supine 06/24/24 20:10 Pulse Oximetry 94 06/26/24 16:38 Oxygen Delivery Method Room Air 06/26/24 16:38 Oxygen Flow Rate 0 06/26/24 16:38 Pain Level 0 06/26/24 16:38 Comment on O2 for desatting while asleep 06/25/24 20:40 Allergies Corticosteroids (Glucocorticoids) Allergy (Intermediate, Verified 06/24/24 18:49) INCREASED SOB prednisone Allergy (Intermediate, Verified 06/24/24 18:49) SOB I thought I was going to Active Medications Generic Name Dose Route Start Last Admin Trade Name Misty PRN Reason Stop Dose Admin Acetaminophen 650 mg 06/25/24 08:30 06/26/24 15:11 Acetaminophen 325 Mg Tab PO 650 mg QID STEPHANIE Administration Calcium Citrate 950 mg 06/25/24 08:30 06/26/24 07:51 Calcium Citrate 950 Mg Tab PO 950 mg BID STEPHANIE Administration Enoxaparin Sodium 40 mg 06/26/24 12:00 06/26/24 11:54 Enoxaparin 40 Mg/0.4 Ml Syr SC 40 mg Q24H STEPHANIE Administration Fluticasone Propionate 0 gm 06/25/24 08:30 06/26/24 09:22 Fluticasone Nasal [place] 16 Gm Btl NS 1 spray BID STEPHANIE Administration Gabapentin 800 mg 06/25/24 08:30 06/26/24 14:01 Gabapentin 800 Mg Tab PO 800 mg TID STEPHANIE Administration Lidocaine 1 patch 06/25/24 08:30 06/26/24 07:50 Lidocaine 5% Patch TP 1 patch DAILY STEPHANIE Administration Nystatin 0 gm 06/25/24 08:30 06/26/24 09:22 Nystatin Powder 15 Gm Jar TP 1 applic DAILY STEPHANIE Administration Ondansetron HCl 4 mg 06/25/24 05:09 06/25/24 21:04 Ondansetron 4 Mg/2 Ml Vial IVP 4 mg Q4H PRN Administration Nausea / Vomiting Patient's Own 80 each 06/25/24 08:30 06/26/24 09:53 Medication (Tymlos [ SC Not Given Abaloparatide] 3120 DAILY STEPHANIE Mcg/1.56 Ml Pen) Patient's Own 1 each 06/25/24 08:30 06/26/24 09:53 Medication ( PO Not Given Fesoterodine Er 8 Mg DAILY STEPHANIE Tab) Potassium Chloride 10 meq 06/25/24 08:30 06/26/24 07:51 Potassium Chloride 10 Meq Capcr PO 10 meq DAILY STEPHANIE Administration Pramipexole Dihydrochloride 0.5 mg 06/25/24 08:30 06/26/24 07:51 Pramipexole 0.25 Mg Tab PO 0.5 mg BID STEPHANIE Administration Pravastatin Sodium 20 mg 06/25/24 08:30 06/26/24 07:50 Pravastatin 20 Mg Tab PO 20 mg DAILY STEPHANIE Administration Venlafaxine HCl 75 mg 06/25/24 08:30 06/26/24 07:51 Venlafaxine 75 Mg Tab PO 75 mg BID STEPHANIE Administration IV IV Catheter Type [Right Hand] Saline Lock IV Catheter Type [Right Saline Lock Forearm] IV Catheter Type [Left Saline Lock Antecubital] IV Catheter Type [Right Saline Lock Antecubital] IV Catheter Gauge [Right Hand] 20 IV Catheter Gauge [Right 20 Forearm] IV Catheter Gauge [Left 20 Antecubital] IV Catheter Gauge [Right 20 Antecubital] Diagnostics 06/26/24 06/26/24 06/25/24 Range/Units 08:01 08:01 22:00 Sodium 142 (136-145) mmol/L Potassium 3.4 L (3.5-5.1) mmol/L Chloride 107 (98-107) mmol/L Carbon Dioxide 26.6 (21.0-32.0) mmol/L Anion Gap 8.4 (3-11) mmol/L BUN 6 L (7-18) mg/dL Creatinine 0.8 (0.55-1.02) mg/dL Est GFR (CKD-EPI 2020) 80.71 (mL/min/1.73m2) Glucose 94 (74-106) mg/dL Calcium 8.8 (8.5-10.1) mg/dL Magnesium 1.9 Cancelled 1.8 (1.8-2.4) mg/dL Troponin I 431 H* (<or=51) ng/L 06/24/24 19:28 Blood Culture - Preliminary Blood NO GROWTH 24 HOURS 06/24/24 19:28 Blood Culture - Preliminary Blood NO GROWTH 24 HOURS [id number] Documentation Fingerstick Glucose Start: 06/24/24 18:49 Freq: Status: Active Protocol: Activity Type Activity Date Activity User E-sign Co-sign Detail Recorded Client Recorded Date Recorded By Document 06/24/24 18:48 BKG DAEMON(10) [id number] 06/24/24 18:49 BKG DAEMON(10) Intake and Output - 24 Hour Total 06/24/24 18:40 thru 06/26/24 18:02 Intake Total 4975.0 Output Total 875 Balance 4100.0 Weight 85 kg Intake: IV 4155.0 Oral 820 Output: Urine 875 Other: Urine Color Yellow Urine Appearance Sediment Urine Odor Normal Comment pt voided large amount, unmeasured due to being mixed with stool Stool Size Small Stool Characteristics Soft # Bowel Movements 1 Falls Risk Assessment History of Falls Previous History 06/25/24 07:14 Contributing Factors Incontinence 06/25/24 07:14 Ambulatory Aids Uses ambulatory device 06/25/24 07:14 Tubes/Lines With any additional score 06/25/24 07:14 Gait Evaluation W/any additional score 06/25/24 07:14 Cognition No cognitive impairment 06/25/24 07:14 Fall Total Score 73 06/25/24 07:14 Level of Risk High Risk 06/25/24 07:14 Problems (Last Reviewed 06/25/24 @ 04:53 by Paul Sims MD) DVT prophylaxis (Acute) Stress-induced cardiomyopathy (Acute) Gastroenteritis (Acute) Notes 06/26/24 16:39 Nursing Notes by Zain Zheng Pt transfered from ICU to room 212. Report received, all questions answered. Nursing Note: Initialized on 06/26/24 16:39 - END OF NOTE v v v v v v v v v Sending and/or Receiving Nurses: Please use comment section below to note any information pertinent to the patient hand-off not included above. Information / Comments: report recieved at 1630 Report received from: Ruth Aragon RN
[2024-06-27] VITALS (7 sets, daily range): BP systolic 137–184; BP diastolic 73–93; PULSE 86–93; RESP 16–22; TEMP 36.4–37.6; O2SAT 90–96
[2024-06-27] MEDS: diazePAM 5 MG TAB PO (00:18)
[2024-06-27] MEDS: Normal Saline Flush 10 ML SYR IVP ×3 (05:06→09:56)
[2024-06-27] MEDS: Ondansetron 4 MG/2 ML VIAL IVP (05:06)
[2024-06-27 07:16] LABS: Anion Gap 6.6 mmol/L (3-11); BUN 7 mg/dL (7-18); CO2 27.4 mmol/L (21.0-32.0); CREATININE 0.9 mg/dL (0.55-1.02); Calcium 8.6 mg/dL (8.5-10.1); Chloride 106 mmol/L (98-107); Estimated GFR 70.07 (mL/min/1.73m2); Glucose 103 mg/dL (74-106); Potassium 3.7 mmol/L (3.5-5.1); Sodium 140 mmol/L (136-145)
--- NOTE | 2024-06-27 09:20 | CMPROGNOTE_ITS ---
Date of service: 06/27/24 Time of Service: 09:20 Care Management Progress Note Progress Note Text Progress Note Text: Jeniffer was sitting up in bed when CM met with her. She is pleasant and easily engages in conversation. She was [place] [facility] and is here with Gastroenteritis and Stress-induced cardiomyopathy. Per pt, she had a similar heart issue after she had surgery at [facility] a few years ago and wonders if it could be related to getting anesthesia? Jeniffer wore supplemental O2 last night and slept for 6 hours. She feels home O2 would be a good idea and is planning on doing a 6 minute walk test. Jeniffer is planning on discharging home with resumption of [facility] PT, add RN when medically ready for discharge. Discharge Potential Discharge Needs: PCP F/U Appt Anticipated Barriers to Discharge: None Identified Patient/Family Education Needs: Review discharge instructions, discuss Ask Me Three Transportation: Private vehicle Plan: Anticipate Jeniffer will be discharged home with a resumption of [facility] PT, add RN. She will follow up with her PCP, Cardiology and plan of care as prescribed and transport via private vehicle with family. CM will follow and continue to assess for discharge needs. Social Determinants of Health Screening Social Determinants of Health last assessed: 06/27/24 Will the Patient Participate in the Screening?: Yes Do you worry about having a steady place to live?: no Problems where you live: pests such as bugs, ants or mice and inadequate lighting In the past 12 months, have you had to go without electric, gas, oil or water in your home?: no Have you or anyone in your house had to go without enough food to eat?: choose not to answer Has lack of transportation kept you from medical appointments or from doing things needed for daily living?: no Has anyone in your life made you feel unsafe or unsupported?: no How hard is it for you to pay for the very basics like food, housing, medical care, and heating? Would you say it is:: Not hard at all Do you want help finding or keeping work or a job?: I do not need or want help If for any reason you need help with day-to-day activities such as bathing, preparing meals, shopping, managing finances, etc., do you get the help you need?: I don?t need any help How often do you feel lonely or isolated from those around you?: Sometimes Do you speak a language other than Greek at home?: No Does the patient want assistance with any of the above?: No Social Determinants of Health Comments([facility] Details): patient was tearful while answering questions, she said she will be good once she is better. She denies need for help with anything. Health Related Social Needs Health related social needs: inadequate housing (Z59.1) and feeling lonely/isolated (Z60.8)
[2024-06-27] MEDS: Venlafaxine 75 MG TAB PO ×2 (09:56→19:40)
[2024-06-27] MEDS: Lidocaine 5% Patch 1 PATCH TP (09:56)
[2024-06-27] MEDS: Gabapentin 800 MG TAB PO ×3 (09:56→19:40)
[2024-06-27] MEDS: Pravastatin 20 MG TAB PO (09:56)
[2024-06-27] MEDS: Acetaminophen 325 MG TAB 650 MG PO ×4 (09:56→19:40)
[2024-06-27] MEDS: Potassium Chloride 10 MEQ CAPCR PO (09:56)
[2024-06-27] MEDS: Calcium Citrate 950 MG TAB PO ×2 (09:56→19:40)
[2024-06-27] MEDS: Pramipexole 0.25 MG TAB 0.5 MG PO ×2 (09:59→19:40)
[2024-06-27] MEDS: Enoxaparin 40 MG/0.4 ML SYR SC (12:43)
--- NOTE | 2024-06-27 19:16 | W.PM.PROGNOT ---
Date of Service Date of service: 06/27/24 Time of Service: 19:16 Assessment and Plan Assessment and plan (1) Gastroenteritis: Status: Acute Assessment and plan: Gastroenteritis resolving. Progress diet. Replacing Mg/K (2) Stress-induced cardiomyopathy: Status: Acute Assessment and plan: She has h/o NSTEMI but also what appeared to be stress induced cardiomyopathy in 2022 after a previous surgery This appears to be the latter as she is not symptomatic. Troponins are trending down. Concnern for VTAC on monitor overnight but not since. I will defer evaluation of strips to cardiology. Echocardiogram and cardiology consult in the AM. Pyschiatrically stable, continue regular medications 06/27/24 Consult to cardiology placed but Dr Cornell was not here today. Will attempt to discuss with her in am if she is here (3) DVT prophylaxis: Status: Acute Assessment and plan: enoxaparin Subjective Subjective Interval history since last seen: Pt seen and examined in her room this am. Pt states that she is feeling better Exam Narrative Exam Narrative: A&O, NAD, sitting up in chair, smiling. HEENT no icterus, MMM; lungs clear; heart RRR w/o MRG; back spine wound C+D; abdomen soft and NT; extremities w/o edema Objective Last Vital Signs Temp 37.6 C H 06/27/24 18:57 Pulse 90 06/27/24 18:57 Resp 20 06/27/24 18:57 BP 146/73 H 06/27/24 18:57 Pulse Ox 93 06/27/24 18:57 Laboratory Results - last 24 hr 06/27/24 06:32 Sodium 140 Potassium 3.7 Chloride 106 Carbon Dioxide 27.4 Anion Gap 6.6 BUN 7 Creatinine 0.9 Est GFR (CKD-EPI 2020) 70.07 Glucose 103 Calcium 8.6 Time Spent with Patient Time Spent with Patient: 35-49 minutes Time was spent: preparing to see the patient(eg.review tests), obtaining and/or reviewing separately otained hiistory, ordering medications,tests, procedures, referring, communicating with other health care transition manager, indepentently interpreting results, counseling the patient and care coordination
[2024-06-27] MEDS: Fluticasone NASAL SPRAY 16 GM BTL NS (19:54)
[2024-06-28] MEDS: Normal Saline Flush 10 ML SYR IVP (01:06)
[2024-06-28] MEDS: Ondansetron 4 MG/2 ML VIAL IVP (01:06)
[2024-06-28 03:15] VITALS: BP 140/82; PULSE 88; RESP 18; TEMP 36.4; O2SAT 94
[2024-06-28 07:28] VITALS: BP 142/83; PULSE 106; RESP 15; TEMP 36.6; O2SAT 94
--- NOTE | 2024-06-28 08:31 | PDOC.CMPRO ---
Date of service: 06/28/24 Time of Service: 08:31 Care Management Progress Note Progress Note Text Progress Note Text: Awaiting cardiology consult. ? swallow eval Discharge Potential Discharge Needs: Consult Consult Services Needed: Cardiology Patient/Family Education Needs: Review discharge instructions, discuss Ask Me Three Transportation: Private vehicle Plan: Anticipate Jeniffer will be discharged home with a resumption of [facility] PT, add RN. She will follow up with her PCP, Cardiology and plan of care as prescribed and transport via private vehicle with family. CM will follow and continue to assess for discharge needs. Social Determinants of Health Screening Social Determinants of Health last assessed: 06/28/24 Will the Patient Participate in the Screening?: Yes Do you worry about having a steady place to live?: no Problems where you live: pests such as bugs, ants or mice and inadequate lighting In the past 12 months, have you had to go without electric, gas, oil or water in your home?: no Have you or anyone in your house had to go without enough food to eat?: choose not to answer Has lack of transportation kept you from medical appointments or from doing things needed for daily living?: no Has anyone in your life made you feel unsafe or unsupported?: no How hard is it for you to pay for the very basics like food, housing, medical care, and heating? Would you say it is:: Not hard at all Do you want help finding or keeping work or a job?: I do not need or want help If for any reason you need help with day-to-day activities such as bathing, preparing meals, shopping, managing finances, etc., do you get the help you need?: I don?t need any help How often do you feel lonely or isolated from those around you?: Sometimes Do you speak a language other than Vincentian at home?: No Does the patient want assistance with any of the above?: No Social Determinants of Health Comments([facility] Details): patient was tearful while answering questions, she said she will be good once she is better. She denies need for help with anything. Health Related Social Needs Health related social needs: inadequate housing (Z59.1) and feeling lonely/isolated (Z60.8)
[2024-06-28] MEDS: Gabapentin 800 MG TAB PO (09:17)
[2024-06-28] MEDS: Venlafaxine 75 MG TAB PO (09:17)
[2024-06-28] MEDS: Acetaminophen 325 MG TAB 650 MG PO ×2 (09:17→12:04)
[2024-06-28] MEDS: Calcium Citrate 950 MG TAB PO (09:17)
[2024-06-28] MEDS: Potassium Chloride 10 MEQ CAPCR PO (09:21)
[2024-06-28] MEDS: Pramipexole 0.25 MG TAB 0.5 MG PO (09:21)
[2024-06-28] MEDS: Pravastatin 20 MG TAB PO (09:21)
[2024-06-28] MEDS: Lidocaine 5% Patch 1 PATCH TP (09:29)
[2024-06-28] MEDS: Nystatin POWDER 15 GM JAR TP (09:33)
[2024-06-28] MEDS: Fluticasone NASAL SPRAY 16 GM BTL NS (09:34)
--- NOTE | 2024-06-28 09:46 | W.CARDCONSUL ---
Date of service: 06/28/24 Time of Service: 09:46 Assessment and Plan Assessment and plan (1) Stress-induced cardiomyopathy: Status: Acute Assessment and plan: Patient has stress-induced cardiomyopathy several years ago. Her current echo shows no evidence of recurrence. Her LV function is normal and there are no additional pertinent findings. Etiology of elevated troponin is likely demand. She had cardiac catheterization 2 years ago that was entirely normal. At this point I have no additional recommendations. History of Present Illness History of Present Illness Chief Complaint: Nausea and vomiting Narrative: This is a 69-year-old woman who recently underwent spinal surgery at [facility]. She developed nausea vomiting and diarrhea and presented to the emergency room. For unclear reasons a troponin was obtained which was abnormal. Her EKG showed no acute changes. Troponins have been downtrending. She was admitted to the hospital, the nausea and vomiting and diarrhea have all improved. She has a history of Takotsubo cardiomyopathy in 2022, at which time cardiac catheterization disclosed normal coronary arteries. Subsequently her LV function recovered. She had an echocardiogram done this admission which again shows preserved LV function, no evidence of any wall motion abnormalities or recurrent stress-induced cardiomyopathy Patient reports overall she feels well. She currently has no complaints Review of Systems Cardiovascular Cardiovascular: Reports as per HPI, Denies chest pain, Denies radiating jaw, neck or arm pain, Denies palpitations and Denies dyspnea Respiratory Respiratory: Denies dyspnea Endocrine Endocrine: Denies palpitations PFSH All Active Problems (Updated 06/26/24 @ 15:40 by Tommy Chaparro) DVT prophylaxis (Acute) Stress-induced cardiomyopathy (Acute) Gastroenteritis (Acute) Vomiting (Acute) Acute non-ST elevation myocardial infarction (NSTEMI) (Acute) Nausea, vomiting and diarrhea (Acute) Lumbar pseudoarthrosis (Acute) Obesity with serious comorbidity (Acute) Osteopenia determined by x-ray (Chronic) 24hr urine calcium reduced level, managed [place] [facility] Endocrinology HTN (hypertension) (Chronic) Major depressive disorder (Chronic) COPD (chronic obstructive pulmonary disease) (Chronic) 01/02/23 per discharge from [facility]. 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 Lumbosacral spondylosis without myelopathy (Acute) Polypharmacy (Acute) Carotid stenosis (Acute) - positive carotid bruit 09/2021 Carotid US, moderate bilat stenosis, l> R Nicotine dependence (Chronic) smoking, vaping Vaginal enterocele due to incomplete uterovaginal prolapse (Acute) Rectal mucosa prolapse (Acute) Goiter (Acute) Otitis externa due to herpes zoster (Acute 06/30/13) Urge incontinence of urine (Acute) Sensorineural hearing loss, bilateral (Chronic 04/06/14) Neck pain (Acute) C6-7 disc w/ radiculopathy S/P surgery [facility] [place] Hyperlipidemia (Acute 02/06/14) Generalized anxiety disorder (Acute) Chronic low back pain (Chronic) tx pain clinic 2013 [facility]- 03/2021-MR of low back-numerous degenerative changes. Most prominent were foraminal stenosis at upper lumbar labral, no acute disc bulging, With chronic pain syndrome-followed by pain clinic at [facility] Medical History Congestive heart failure (CHF) 09/2022 EF 20% Repeat echo in 11/2022 return to normal EF 65% Managed medically Osteomyelitis of lumbar spine Abscess in epidural space of thoracic spine and lumbar spine Discitis Osteomyelitis of thoracic vertebra NSTEMI (non-ST elevated myocardial infarction) secondary to MRSA sepsis. Managed at [facility] [place] Stapedial myoclonus Rectal bleed 07/2021 Heart murmur 07/2021-systolic murmur-at upper sternal border, longstanding, normal echo 2015-consistent with innocent murmur Personal history of nicotine dependence 07/2021, 1/2 pk per day currently-about 08-78-jryk-year history (was usually a 1 to 2 pack/day smoker) 08/29/21 - Down to 8-10 per day, starting nicotine patches as she is finding it harder to cut back at this point. Abnormal glandular Papanicolaou smear of cervix repeat normal Essential hypertension (04/20/13) Normal echocardiogram Hyperlipidemia Depression Anxiety disorder Surgical History History of robot-assisted laparoscopic hysterectomy 10/07/2022 at [facility], robotic assisted bilateral salpingectomy with supracervical hysterectomy and cervical colpopexy with graft placement S/P DAVID-BSO (09/2022) History of rectopexy (09/2022) with mesh placement, postoperative MRSA bacteremia with intraabdominal and paravertebral fluid collections. S/P hemorrhoidectomy hemorrhoid banding S/P spinal fusion S/P carpal tunnel release History of colonoscopy with polypectomy (~07/09/21) History of arthroscopy History of bilateral ligation of fallopian tubes Family History Mother Essential hypertension Stroke Cancer Father Heart disease Brother Heart disease Maternal Grandfather No problems noted. Paternal Grandfather No problems noted. Maternal Grandmother Essential hypertension Stroke Paternal Grandmother No problems noted. Social History Smoking/Tobacco Use Status: Current every day Tobacco: How many years used: 20 Smokeless tobacco user: dissolvable tobacco Quit status: has quit before Second Hand Exposure: Yes Counseling given: provider counseling Smoking risk assessment performed?: Yes Alcohol Intake: former Drug use: Daily Substance use type: marijuana Details: Pt reports awokefrom napb at 1600 black pt reports lasted 30 minutes. spots in vision, Household members: none Housing: house Number of Children: 3 number of grandchildren: 3 Education Level: high school Do you need help understanding health information?: Always Pets and animals: Yes Pets and animals: other Details: Donkey Sexually active: No What type of physical activity do you participate in: decline to answer Duration: decline to answer Frequency: decline to answer Chelsea/Anabaptism: Worship Special chelsea needs: No Seatbelt use: always Helmet use: Yes Helmet use: always Drive intox or ride w/intox winch driver: No Do you feel safe at home: Yes Additional Social history: live alone Exam Const Other: No acute distress, lying in bed pleasant and cooperative Results Last Vital Signs Temp 36.6 C 06/28/24 07:28 Pulse 106 H 06/28/24 07:28 Resp 15 06/28/24 07:28 BP 142/83 H 06/28/24 07:28 Pulse Ox 94 06/28/24 07:28 Labs 06/24/24 19:28 06/27/24 06:32
[2024-06-28 11:09] VITALS: BP 153/81; PULSE 90; RESP 15; TEMP 36.7; O2SAT 92
--- NOTE | 2024-06-28 11:13 | CMDISCH_ITS ---
Date of service: 06/28/24 Time of Service: 11:13 LACE Index Scoring Tool Questions: Length of Stay (in days): 3 Was the patient admitted via the E.D.?: Yes Comorbidities: Previous M.I. and Chronic Pulmonary Disease E.D. Visits: 2 Answers: Total Score: 11 Risk of Readmission: High Risk Care Management Discharge Plan Reason for Hospitalization: Cardiomyopathy Discharge Plan: Discharge home with Resumption of [facility] PT, add RN, ST. Transportation will be provided by family. Follow up with community providers and discharge plan of care as instructed. Patient/Family Education Needs: Review discharge instructions, limitations, medications and plan to follow up after discharge. Discuss ask me three. Services Needed at Discharge: Home Health Care Services (Resume [facility] PT, add RN, ST) SDOH Health Related Social Needs: Health related social needs inadequate housing (Z59.1) , feeling lonely/isolated (Z60.8)
[2024-06-28] MEDS: Enoxaparin 40 MG/0.4 ML SYR SC (12:04)
--- NOTE | 2024-06-28 12:40 | W.PM.DS.N ---
Date of service: 06/28/24 Time of Service: 12:40 DS: Diagnosis Discharge Diagnosis (1) Stress-induced cardiomyopathy: Status: Acute Discharge Plan Disposition Patient Disposition: Home Condition: Improving Discharge Details Reason For Visit: Takotsubo's Cardiomyopathy Admit Date/Time: 06/25/24 05:09 Admit Provider: Paul Sims Attending Provider: Palu Sims Primary Care Provider: Arely Sampson Hospital Course Hospital Course: This is a 69-year-old female who was admitted on June 25 for gastroenteritis as well as a history of congestive heart failure and while she was in the hospital she had a few runs of V. tach. The patient was seen in consultation with Dr. Cornell of the cardiology service who did not recommend any interventions. On the the patient asked to be discharged home to which we agreed. At the time of discharge her vital signs are stable and she was without complaint, and tolerating her diet. Home Meds and New Rx's Prescriptions: Continued aspirin 81 mg tablet,delayed release (DR/EC) 81 mg PO DAILY pravastatin 20 mg tablet 20 mg PO DAILY Qty: 90 4RF Patient Comments: not on med list fesoterodine 8 mg tablet extended release 24 hr 8 mg PO DAILY Qty: 30 3RF estradiol 0.01 % (0.1 mg/gram) cream 1 g vaginal .2xw tizanidine 6 mg capsule 6 mg PO Q8H PRN (Reason: muscle spasticity) Qty: 120 2RF varenicline tartrate [Chantix Continuing Month Box] 1 mg tablet 1 mg PO BID Qty: 60 3RF diazepam [Valium] 5 mg tablet 5 mg PO Q6H PRN acetaminophen 325 mg capsule 650 mg PO QID (DME) miscellaneous medical supply Misc See Rx Instructions .Route Qty: 1 0RF Rx Instructions: As directed Tymlos 80 mcg (3,120 mcg/1.56 mL) pen injector 80 mcg subcut DAILY Rx Instructions: inject into abdomen; do not inject within 2 inches of belly button/navel; rotate sites Rx'd by [facility] Endochrinology/Dr. Block 06/08/23. -hb lidocaine [Lidoderm] 5 % adhesive patch,medicated 1 patch topical DAILY Qty: 30 5RF Rx Instructions: leave on most painful area for up to 12 hrs, once a day, prn celecoxib 200 mg capsule 200 mg PO BID Qty: 60 3RF nystatin 100,000 unit/gram powder 1 applic topical DAILY Qty: 30 2RF Rx Instructions: local application daily under breasts and in groin area fluticasone propionate 50 mcg/actuation spray,suspension 1 spray NS BID Qty: 1 6RF potassium chloride 10 mEq capsule, extended release 10 meq PO DAILY Qty: 90 1RF gabapentin 800 mg tablet 800 mg PO TID Qty: 90 3RF pramipexole 0.5 mg tablet 0.5 mg PO BID Qty: 180 3RF venlafaxine 75 mg tablet 75 mg PO BID Qty: 180 3RF triamterene-hydrochlorothiazid 37.5-25 mg capsule 1 cap PO DAILY Qty: 90 2RF Patient Comments: not on med list, pt sure she takes it daily. albuterol sulfate 90 mcg/actuation HFA aerosol inhaler 1 - 2 puff IH QID PRN (Reason: shortness of breath or wheezing) Qty: 18 3RF methylphenidate HCl 5 mg tablet 5 mg PO QAM MDD 5mg Qty: 30 0RF calcium citrate 200 mg (950 mg) tablet 200 mg PO BID Patient Comments: TAKE ONE TABLET BY MOUTH TWICE A DAY docusate sodium 100 mg capsule 100 mg PO BID Patient Comments: TAKE ONE CAPSULE BY MOUTH TWICE A DAY ergocalciferol (vitamin D2) 1,250 mcg (50,000 unit) capsule 1,250 mcg PO Q7D Patient Comments: TAKE 1 CAPSULE BY MOUTH EVERY 7 DAYS ondansetron 4 mg tablet,disintegrating 4 mg PO Q6H PRN (Reason: nausea and vomiting) Qty: 30 0RF promethazine 25 mg tablet 25 mg PO TID PRN (Reason: nausea and vomiting) Qty: 14 0RF Discharge Instructions Referrals: Arely Sampson MD [Primary Care Provider] - (follow up in 5-7 days) Activity:: Activity as Tolerated Equipment/Supplies:: No Equipment Needed Diet:: As Tolerated Discharge Orders Discharge Orders: Discharge Order (Routine); Ordered 06/28/24 Ordered By: Dustin Denson DS: Summary Time Spent with Patient providing and/or coordinating discharge services: Greater than 30 minutes Status at Discharge Functional status at discharge: independent ambulation Overall status at discharge: patient is back to baseline Mental Status: mental status grossly normal Speech and Movement: speech and movement normal Mood: congruent mood Affect: normal affect Quality:SDOH Health Related Social Needs: Health related social needs inadequate housing (Z59.1), feeling lonely/isolated (Z60.8) Exam Narrative Exam Narrative: A&O, NAD, sitting up in chair, smiling. HEENT no icterus, MMM; lungs clear; heart RRR w/o MRG; back spine wound C+D; abdomen soft and NT; extremities w/o edema Psych Mental Status: mental status grossly normal Speech and Movement: speech and movement normal Mood: congruent mood Affect: normal affect DS: Data Vitals/I&O Vitals and I&O: Vital Signs Temperature 36.7 C 06/28/24 11:09 Temperature Source Temporal Artery Scan 06/28/24 11:09 Pulse 90 06/28/24 11:09 Pulse 101 H 06/26/24 16:00 Respiratory Rate 15 06/28/24 11:09 Respiratory Effort Normal 06/25/24 07:14 Respiratory Depth Normal 06/25/24 07:14 Respiratory Pattern Normal 06/25/24 07:14 Blood Pressure 153/81 H 06/28/24 11:09 Blood Pressure Mean 108 06/26/24 14:07 Blood Pressure Position Supine 06/24/24 20:10 Pulse Oximetry 92 06/28/24 11:09 Oxygen Delivery Method Room Air 06/28/24 11:09 Oxygen Flow Rate 0 06/28/24 11:09 Pain Level 0 06/28/24 11:09 Comment RN notified 06/28/24 11:09 Intake & Output 06/27/24 06/28/24 06/28/24 23:59 11:59 23:59 Intake Total 900 / 910 Output Total 300 / 300 Balance 900 / 910 -280 / -280 Intake: IV Oral 900 / 900 Output: Urine 300 / 300 Other: Urine Color Yellow Straw Urine Appearance Clear Clear Urine Odor None Data Completed and Pending Labs on day of discharge: Preliminary micro results at discharge 06/24/24 19:28 Blood Culture - Preliminary Blood NO GROWTH 72 HOURS 06/24/24 19:28 Blood Culture - Preliminary Blood NO GROWTH 72 HOURS PFSH All Active Problems (Updated 06/26/24 @ 15:40 by Tommy Chaparro) DVT prophylaxis (Acute) Stress-induced cardiomyopathy (Acute) Gastroenteritis (Acute) Vomiting (Acute) Acute non-ST elevation myocardial infarction (NSTEMI) (Acute) Nausea, vomiting and diarrhea (Acute) Lumbar pseudoarthrosis (Acute) Obesity with serious comorbidity (Acute) Osteopenia determined by x-ray (Chronic) 24hr urine calcium reduced level, managed at [facility] Endocrinology HTN (hypertension) (Chronic) Major depressive disorder (Chronic) COPD (chronic obstructive pulmonary disease) (Chronic) 01/02/23 per discharge from [facility]. 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 Lumbosacral spondylosis without myelopathy (Acute) Polypharmacy (Acute) Carotid stenosis (Acute) - positive carotid bruit 09/2021 Carotid US, moderate bilat stenosis, l> R Nicotine dependence (Chronic) smoking, vaping Vaginal enterocele due to incomplete uterovaginal prolapse (Acute) Rectal mucosa prolapse (Acute) Goiter (Acute) Otitis externa due to herpes zoster (Acute 06/30/13) Urge incontinence of urine (Acute) Sensorineural hearing loss, bilateral (Chronic 04/06/14) Neck pain (Acute) C6-7 disc w/ radiculopathy S/P surgery [facility] Hyperlipidemia (Acute 02/06/14) Generalized anxiety disorder (Acute) Chronic low back pain (Chronic) tx pain clinic [address] [facility]- 03/2021-MR of low back-numerous degenerative changes. Most prominent were foraminal stenosis at upper lumbar labral, no acute disc bulging, With chronic pain syndrome-followed by pain clinic at [facility] Medical History Congestive heart failure (CHF) 09/2022 EF 20% Repeat echo in 11/2022 return to normal EF 65% Managed medically Osteomyelitis of lumbar spine Abscess in epidural space of thoracic spine and lumbar spine Discitis Osteomyelitis of thoracic vertebra NSTEMI (non-ST elevated myocardial infarction) secondary to MRSA sepsis. Managed at [facility] Stapedial myoclonus Rectal bleed 07/2021 Heart murmur 07/2021-systolic murmur-at upper sternal border, longstanding, normal echo 2015-consistent with innocent murmur Personal history of nicotine dependence 07/2021, 1/2 pk per day currently-about 22-80-iaxe-year history (was usually a 1 to 2 pack/day smoker) 08/29/21 - Down to 8-10 per day, starting nicotine patches as she is finding it harder to cut back at this point. Abnormal glandular Papanicolaou smear of cervix repeat normal Essential hypertension (04/20/13) Normal echocardiogram Hyperlipidemia Depression Anxiety disorder Surgical History History of robot-assisted laparoscopic hysterectomy 10/07/2022 at [facility], robotic assisted bilateral salpingectomy with supracervical hysterectomy and cervical colpopexy with graft placement S/P DAVID-BSO (09/2022) History of rectopexy (09/2022) with mesh placement, postoperative MRSA bacteremia with intraabdominal and paravertebral fluid collections. S/P hemorrhoidectomy hemorrhoid banding S/P spinal fusion S/P carpal tunnel release History of colonoscopy with polypectomy (~07/09/21) History of arthroscopy History of bilateral ligation of fallopian tubes Family History Mother Essential hypertension Stroke Cancer Father Heart disease Brother Heart disease Maternal Grandfather No problems noted. Paternal Grandfather No problems noted. Maternal Grandmother Essential hypertension Stroke Paternal Grandmother No problems noted. Social History Smoking/Tobacco Use Status: Current every day Tobacco: How many years used: 20 Smokeless tobacco user: dissolvable tobacco Quit status: has quit before Second Hand Exposure: Yes Counseling given: provider counseling Smoking risk assessment performed?: Yes Alcohol Intake: former Drug use: Daily Substance use type: marijuana Details: Pt reports awokefrom napb at 1600 black pt reports lasted 30 minutes. 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
--- NOTE | 2024-06-28 16:54 | SP_ITS ---
Date of service: 06/28/24 Time of Service: 12:45 Subjective Clinical (Bedside) Swallow Evaluation - Inpatient Speech Language Pathology Referred by: Amelia Caraballo NP Start time: 12:45 End time: 13:20 Total patient contact: 35m Referral Type: Routine Swallow Consult Precautions: Standard, Full Code Reason for Referral/HPI: Patient is a 69 y/o F with long history of tobacco use, as well as history of COPD, CHF, MDD, NSTEMI, s/p very recent spinal surgery, now admitted to [facility] for gastroenteritis and incidental findings for V. tach without any further recommended cardiology recommendations identified by Dr. Cornell. Patient reporting several month history of dysphagia to all consistencies, random, occuring about once per day. She describes that food or liquid will get stuck in her throat when she tries to swallow, and she is unable to fully swallow or breathe when this happens, localizes approximately to level of thyroid cartilege. Often happens toward the end of a meal or snack. When this happens, she stops breathing and will sometimes regurgitate just the bite of food/drink that she took, but often will proceed to vomit up everything else. She denies globus sensation outside of these episodes. Denies any sensation of fullness, chest pressure, reflux, heartburn, nausea. Denies coughing or feeling as though things go down the wrong tube. She does endorse frequent throat clearing and coughing throughout the day, and does endorse coughing righ twhen she lays down to go to sleep at night. She also endorses remote history of anterior neck surgery for spine. She also very recently had lumbar fracture and surgery, d/c'd last week from this hospital stay. CORRECTIONAL OFFICER IMPRESSIONS & RECOMMENDATIONS: While clinical observation and cranial nerve exam were WFL, patient report is concerning for pharyngo-esophageal dysphagia, with significant symptoms resulting in pharyngeal stasis and esophageal regurgitation. Per her report this predates her first (anterior) spinal surgery as well as current gastroenteritis. While she denies any overt heartburn/GERD, she does report some symptoms concerning for LPR. Given the severity and frequency (at least daily) of her episodes and the associated sensation of pharyngeal stasis with apnea, recommended outpatient MBSS to rule out oral-pharyngeal component or CP bar/Zenkers. Patient may benefit from GI consult pending those results. FURTHER INPATIENT CORRECTIONAL OFFICER SERVICES: Modified Barium Swallow Study to be completed outpatient. No further inpatient CORRECTIONAL OFFICER services indicated. Suggested Referrals/Consults: Consider Gastroenterology pending MBSS results DISCHARGE RECOMMENDATIONS: Place outpatient MBSS orders -- Diet Recommendations: ? SOLIDS: 6-Soft & Bite-Sized Solids LIQUIDS: 0-Thin Liquids MEDICATIONS: Whole 1 at a time With 0-Thin Liquids RISK MANAGEMENT: Level of Assistance/Supervision: Independent Positioning and environment: Up to chair Oral hygiene BID/2x per day Using friction with toothbrush on all oral structures as tolerated Strategies/Adaptations/Assistive Equipment: Small sips Small bites Slow rate of intake Alternate intake of liquids and solids Reflux Precautions: Small+frequent meals throughout day Maintain fully upright position at least 30 minutes after meals Avoid meals/snacks 2-3 hours prior to reclining/sleeping Sleep with head of bed elevated to reduce likelihood of nocturnal reflux Education Provided to: Nursing Patient Family Physician Topics Addressed: anatomy/physiology of swallowing mechanism role of CORRECTIONAL OFFICER in management of swallow disorders overt s/sx to monitor for re: potential aspiration of food / liquids relationship between reflux, GERD and swallow fxn relationship between respiratory function and deglutition rationale and instruction for additional risk management strategies as below SUBJECTIVE: Patient received: alert/awake. Agreeable to evaluation. Pain Reported n/a Baseline Swallow Function: Patient endorses 2-3 month history of intermittent dysphagia. See HPI above for patient report. 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 Speech: WFL Oral Mechanism Examination: Dentition: Partial natural dentition, fair condition Oral mucosa: Dry ? Cranial Nerve Assessment: CN V ? Trigeminal Facial Sensation WNL Jaw Strength/ROM WNL ?WNL CN VII- Facial WNL labial ROM, strength, coordination. WNL lingual sensation WNL CN IX ? Glossopharyngeal WNL palatal elevation with phonation. No evidence of nasal emissions WNL CN X ? Vagus WNL Vocal quality and volume. Strong/sharp volitional cough WNL CX XII ? Hypoglossal WNL lingual ROM, strength, coordination WNL PO Intake: Trials Assessed: IDDSI 0 Thin Liquids IDDSI 7 Regular Solid Oral Phase Findings: WFL Pharyngeal Phase Findings: WFL Esophageal Phase Findings: ? Patient reports regurgitation ? [place] Swallow Protocol Results: PASS Complete/uninterrupted without s/sx aspiration CORRECTIONAL OFFICER CPT Code: 01575 Clinical Swallowing Evaluation
== END 2024-06-28 13:34 | disposition home or self-care (01) | DRG 392 ==
LOC: ER 06-25 05:17 → ICU 06-25 06:54 → MS 06-26 16:36
PROVIDERS: Family Medicine; Physician Assistant; Student in an Organized Health Care Education/Training Program; Admitting Provider General Practice; Emergency Provider Student in an Organized Health Care Education/Training Program; PCP Family Medicine; Visit Provider General Practice
DX: K52.9 Noninfective gastroenteritis and colitis, unspecified (principal); I51.81 Takotsubo syndrome; I47.29 Other ventricular tachycardia; R11.2 Nausea with vomiting, unspecified; I25.2 Old myocardial infarction; E66.9 Obesity, unspecified; I10 Essential (primary) hypertension; F32.9 Major depressive disorder, single episode, unspecified; F42.3 Hoarding disorder; M47.817 Spondylosis without myelopathy or radiculopathy, lumbosacral region; I65.23 Occlusion and stenosis of bilateral carotid arteries; H90.3 Sensorineural hearing loss, bilateral; F17.210 Nicotine dependence, cigarettes, uncomplicated; E78.5 Hyperlipidemia, unspecified; G25.81 Restless legs syndrome; F41.0 Panic disorder [episodic paroxysmal anxiety]; Z98.1 Arthrodesis status; R74.8 Abnormal levels of other serum enzymes; E83.42 Hypomagnesemia; E87.6 Hypokalemia
CPT/HCPCS: 00123; 36415; 36416; 71275; 74177; 80048; 80053; 80307; 82550; 82805; 82962; 84145; 87040; 92610; 93005; 96361; 96365; 96366; 96375; 96376; 99222; 99285; J1650; 80320; 81003; 81015; 83605; 83735; 83880; 84484; 85025; 93010; 93306; 94760; 99223; 99233; 99239; J2270; J2405; J3475; J3490

== ENCOUNTER → 2024-06-28 16:01 | Outpatient (BNVA) | payer MEDICARE, MEDICAID, SELFPAY | PROVIDERS: PCP Family Medicine; Referring Provider Family Medicine; Visit Provider Internal Medicine Cardiovascular Disease ==

== ENCOUNTER 2024-07-20 01:50 | Outpatient (CLI) | payer MEDICARE, MEDICAID, SELFPAY ==
--- NOTE | 2024-07-20 07:29 | DI.RAD_ITS ---
Exam(s) RF MODIFIED SPEECH BA SWALLOW TECHNIQUE: Modified barium swallow was performed in conjunction with speech pathology. CONTRAST MATERIAL: Oral barium contrast was administered. COMPARISON: No exams were available for comparison FINDINGS: Note that this is not a dedicated esophagram, distal esophagus not evaluated. There is no evidence of aspiration of thick liquids, barium coated cookie or barium pudding. The pat ient was able to swallow a barium tablet. Speech pathology report to follow. . . . IMPRESSION: No evidence of aspiration. RADIATION DOSE DELIVERED: luis antonio Clark=31.4 mGy
--- NOTE | 2024-07-20 14:09 | ST.MBS ---
Date of Service Date of service: 07/20/24 Time of Service: 14:09 Modified Barium Swallow Study Findings: Video fluoroscopic Swallowing Evaluation (VFSE) / Modified Barium Swallow Study (MBSS) Speech Language Pathology Report Patient referred for VFSE/MBSS from Dr. Sampson given swallow difficulty. HPI & Patient report of function: Patient is a 69 year old F with long history of tobacco use, as well as history of COPD, CHF, MDD, NSTEMI, s/p recent spinal surgery, and recent admission to [facility] for gastroenteritis. [facility] evaluated patient during recent admission to [facility] for gastroenteritis, due to patient reportign several month history of dysphagia to all consistencies about once per day. She described episodes of food or drink getting stuck in her throat, being unable to swallow or breathe, often at the end of a meal, sometimes resulting in spontaneous regurgitation from the throat. She denies any classic sx of heartburn such as chest pressure, indigestion, heartburn, nausea. She also endorses remote history of anterior neck surgery for spine. At the time of bedside exam, swallow appeared normal but MBSS was recommended on an outpatient basis to rule out oral-pharyngeal or pharyngeal-esophageal component. Patient reports she has since been seen by [facility] home health and has been using strategies of small sips, slow pace, liquid wash, and modified solids (describes soft/bite size vs minced/moist diet) with good effect. IMPRESSIONS: Swallow safety is preserved; swallow efficiency is impaired. Mild esophageal>pharyngeal dysphagia with moderate sized CP hypertrophy. While CP anatomy did not appear to significantly impact bolus flow through UES (only scant residue), he did demonstrate significant persistant esophageal retention with retrograde flow below level of UES, especially to puree bolus. This cleared, albeit slowly, with sips of water. Patient was able to pass barium tablet through UES and from esophagus relatively quickly with large bolus of thin liquid. Patient does not appear specifically sensate to this esophageal residue, at times endorsing sensation of pharyngeal residue, and at times not. It is highly likely that her prior symptoms were caused by buildup of esophageal residue throughout meal wither referred sensation and regurgitation leading to sensation of choking on reflux. Oral-Pharyngeal swallow was otherwise characterized by some delayed/repetitive tongue motion and difficulty with posterior oral transit, as well as premature spillage of liquids into they pyriform sinus with mild delayed pharyngeal initiation. However, there was no penetration or aspiration into the airway and laryngeal vestibule closure was excellent. She did occasionally require secondary swallows due to oral liquid residue spilling into the pharynx after an initial swallow was completed. Patient appears to be at low risk for potential aspiration PNA and/or pulmonary compromise and mild risk for malnutrition, dehydration. Diet modification is indicated; non-oral nutrition is not indicated. Swallow prognosis is good-fair given: Positive prognostic factors: Time since onset, Motivation, Family/caregiver support, Cognitive status, Effectiveness of trialed compensatory strategies, Negative prognostic factors: Age, Surgical/anatomical factors Specialist referrals:? GI ? RECOMMENDATIONS: Diet Texture Recommendation:? IDDSI LEVEL SOLIDS 6-Soft & Bite-Sized Solids taken with liquid wash OR 5-Minced & Moist Solids LIQUIDS 0-Thin Liquids Please see further details at?[email or web address] MEDICATIONS Whole with 0-Thin Liquids Diet texture modification is per patient's preference; please adjust diet textures at patient's discretion & collaboration with care team. Do not alter medications (e.g., cut)? without advice from your MD or pharmacist. Risk Management Strategies:? Behavioral reflux precautions, including upright position during + 90 mins after meals. 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 Would recommend GI consult for further workup, though admittedly patient states she has multiple additional surgeries upcoming and this may not be her priority at the moment. Consult PCP re: reflux medication. ----- OBJECTIVE Videofluoroscopic Swallow Evaluation (VFSE/MBSS) was conducted in the lateral projection by Speech-Language Pathologist, in collaboration with Radiologist, to evaluate oropharyngeal swallow function. Patient was wearing a back brace but this did not interfere with oral-pharyngeal or mid/proximal esophagal visualization. Anatomic view under fluoroscopy: ?spinal hardware visible on esophageal survey. See cricopharyngeal hypertrophy on image below. PO Barium Contrast Trials Oral barium water-soluble contrast was administered as follows: IDDSI Level 0 Varibar thin liquid (40% w/v) IDDSI Level 4 Varibar pudding/pureed/extremely thick (40% w/v) IDDSI Level 7 Regular Solid: 1/2 debbie cracker coated in 3 mL Varibar pudding 13 mm barium tablet taken with Thin Liquids. MBSImP Component Scores: COMPONENT Scale SCORE 1 Lip closure (0-4) 0 Resulted in no labial escape 2 Hold Position (0-3) 1 Allowed bolus escape to lateral buccal cavity/floor of mouth 3 Bolus Preparation (0-4) 1 Resulted in slow prolonged chewing/mashing with complete re-collection 4 Bolus Transport (0-4) 3 Was with repetitive/disorganized motion of the tongue 5 Oral Residue (0-4) 2 Was a collection on oral structures 6 Swallow Initiation (0-4) 3 Occurred when the bolus head was in the pyriform sinuses 7 Soft Palate Elevation (0-4) 0 Resulted in no bolus between soft palate and the pharyngeal wall 8 Laryngeal Elevation (0-3) 1 Was decreased with partial superior movement of thyroid cartilage/partial approximation of arytenoids to epiglottic petiole 9 Anterior Hyoid Motion (0-2) 0 Demonstrated complete anterior movement 10 Epiglottic Movement (0-2) 1 Resulted in partial inversion vs full inversion (variable to bolus size, not resulting in significant vallecular residue) 11 Laryngeal Closure (0-2) 0 Was complete with no air or contrast in laryngeal vestibule 12 Pharyngeal Stripping Wave (0-2) 0 Was present and complete 13 Pharyngeal Contraction (0-3) NA 14 PES Opening (0-3) 1 Demonstrated partial distension/partial duration, with partial obstruction of flow 15 Tongue Base Retraction (0-4) 1 Allowed a trace column of contrast or air between tongue base and pharyngeal wall 16 Pharyngeal Residue (0-4) 1 Showed a trace within or on pharyngeal structures 17 Esophageal Clearance (0-4) 2 Resulted in esophageal retention with retrograde flow below pharyngoesophageal segment Results: COMPONENT Scale SCORE 1 Oral Score (0-18) 10 2 Pharyngeal Score (0-29) 3 3 Esophageal Score (0-4) 2 Penetration-Aspiration Scale: COMPONENT Scale SCORE 1 Thin liquid (1-8) 1 Contrast did not enter the airway 2 Ralls thick (1-8) NA 3 Honey thick (1-8) NA 4 Pudding thick (1-8) 1 Contrast did not enter the airway 5 Cookie (1-8) 1 Contrast did not enter the airway Trialed Compensatory Strategies & Outcome: Maneuvers Successful (+) Unsuccessful (-) Postures Successful (+) Unsuccessful (-) 3 second Preparatory Set? ?+/- Chin Tuck Posture? ? Cough? ? Posterior Head tilt? Reflexive? Cued? Throat Clear? ? Head Tilt to? Reflexive? Left? Cued? Right? ? Saliva swallow? ?+ Head Turn/Rotate to? ? Supraglottic Swallow? Left? ? Super-supraglottic Swallow? Right? ? Bolus Modifications Successful (+) Unsuccessful (-) Delivery/Alternating Consistencies ? Follow with Liquid Wash + ? Follow with Solid Bolus? Delivery/Via Straw? ? Reduced Volume? ?likely + Reduced Rate of Intake? ?likely + Increased Viscosity? ?- Other:?? ? Thank you for allowing us to take part in this patient's care. Please feel free to contact the [facility] Speech Language Pathology Department with any questions/concerns.
[2024-07-20] MEDS: Barium Sulfate 700 MG TAB PO (14:47)
[2024-07-20] MEDS: Barium Sulfate 40% W/V 240 ML BTL PO (14:48)
[2024-07-20] MEDS: Barium Sulfate 81% w/w for Oral Suspension 148 GM BTL PO (14:49)
[2024-07-20] MEDS: Barium Sulfate Oral Paste 40% W/V 230 ML TUBE PO (14:50)
== END 2024-07-20 02:10 ==
LOC: DI 01:50
PROVIDERS: PCP Family Medicine; Visit Provider Family Medicine
DX: R13.13 Dysphagia, pharyngeal phase (principal)
CPT/HCPCS: 92526; 74221

== ENCOUNTER 2024-09-14 01:44 | Outpatient (CLI) | payer OTHER, MEDICAID, SELFPAY ==
--- NOTE | 2024-09-14 10:47 | DI.RAD_ITS ---
Exam(s) XR HIP LT COMPLETE AP PELVIS EXAM: XR HIP LT COMPLETE AP PELVIS CLINICAL HISTORY: chronic left hip pain,[id number]. TECHNIQUE: 2D digital imaging was performed. Two views. COMPARISON: CR XR hip LT complete AP pelvis from 11/07/2018 FINDINGS: BONES: No acute fracture is present. No bony destructive lesion is seen. JOINTS: No dislocation present. The SI joints and pubic symphysis are intact. The hip joint spaces ar e maintained bilaterally. No significant degenerative changes of the hips. There is mild spurring a t the SI joints inferiorly. There are in advanced degenerative changes at the L5-S1 disc space. SOFT TISSUE: Normal. IMPRESSION: No significant degenerative changes of the hips. There are severe degenerative changes at L5-S1. DATA REPOSITORY: RADIATION DOSE DELIVERED:
== END 2024-09-14 02:04 ==
LOC: DI 01:44
PROVIDERS: PCP Family Medicine; Visit Provider Family Medicine
DX: M25.552 Pain in left hip (principal); M51.371 Other intervertebral disc degeneration, lumbosacral region with lower extremity pain only
CPT/HCPCS: 73502

== ENCOUNTER 2025-02-11 17:37 | Outpatient (REF) | payer OTHER, MEDICAID, SELFPAY ==
[2025-02-11 18:32] LABS: Glucose Negative (Negative)
[2025-02-11 18:46] LABS: C & S Indicated? No; WBC 0-2 HPF (0-5)
== END 2025-02-11 17:38 | disposition home or self-care (01) ==
LOC: LBN 17:37
PROVIDERS: PCP Family Medicine; Visit Provider Nurse Practitioner Family
DX: R30.0 Dysuria (principal)
CPT/HCPCS: 81003; 81015